=== PATIENT | female | born 1940 | race Caucasian/White ===

== ENCOUNTER → 2018-10-08 | Outpatient (CLI) | payer MEDICARE, OTHER ==
[2018-10-08 11:53] LABS: BACTERIA,URINE TRACE /HPF; BILIRUBIN,URINE NEGATIVE (NEGATIVE); CLARITY,URINE CLEAR; COLOR,URINE YELLOW; GLUCOSE, URINE (UA) 3+ (NEGATIVE); KETONES,URINE NEGATIVE (NEGATIVE); LEUKOCYTE ESTERASE ,URINE NEGATIVE (NEGATIVE); NITRITE,URINE NEGATIVE (NEGATIVE); PH,URINE 5.5 (5-9); PROTEIN,URINE NEGATIVE (NEGATIVE); UROBILINOGEN,URINE 0.2 MG/DL (NORMAL)
== END ==
LOC: LAB FS 11:02
PROVIDERS: ATTEND Pediatrics
DX: E11.9 Type 2 diabetes mellitus without complications (principal); M54.9 Dorsalgia, unspecified
CPT/HCPCS: 81000

== ENCOUNTER → 2018-12-09 | Outpatient (CLI) | payer MEDICARE, OTHER ==
--- NOTE | 2018-12-09 17:39 | Diagnostic Imaging Report ---
INDICATION: Chronic right hip pain. TIME OF EXAM: 02:18 p.m. FINDINGS: Two views of the right hip show normal femoroacetabular alignment. There is medial and superior joint space narrowing consistent with degenerative change. Femoral head and neck are intact. No fractures are seen. IMPRESSION: Degenerative changes. No acute bony abnormality is detected. Dictated by: Dictated on workstation # [id number]
== END ==
LOC: RAD FS 14:03
PROVIDERS: ATTEND Pediatrics
DX: M16.11 Unilateral primary osteoarthritis, right hip (principal)
CPT/HCPCS: 73502

== ENCOUNTER → 2019-03-04 | Outpatient (CLI) | payer MEDICARE, OTHER ==
[2019-03-04 15:10] LABS: CLARITY,URINE CLEAR; COLOR,URINE YELLOW
[2019-03-04 15:11] LABS: BACTERIA,URINE FEW /HPF; BILIRUBIN,URINE NEGATIVE (NEGATIVE); GLUCOSE, URINE (UA) NEGATIVE (NEGATIVE); KETONES,URINE NEGATIVE (NEGATIVE); LEUKOCYTE ESTERASE ,URINE TRACE (NEGATIVE); NITRITE,URINE NEGATIVE (NEGATIVE); PH,URINE 5.5 (5-9); PROTEIN,URINE NEGATIVE (NEGATIVE); UROBILINOGEN,URINE 0.2 MG/DL (NORMAL)
== END ==
LOC: LAB FS 14:58
PROVIDERS: ATTEND Pediatrics
DX: N39.0 Urinary tract infection, site not specified (principal)
CPT/HCPCS: 81000; 87088

== ENCOUNTER → 2019-07-14 | Outpatient (CLI) | payer MEDICARE, OTHER ==
--- NOTE | 2019-07-14 14:29 | Diagnostic Imaging Report ---
EXAMINATION: Right hip at 2:11 p.m. INDICATION: Right hip pain. AP and lateral views are obtained. FINDINGS: There is no fracture, dislocation, or acute bony abnormality evident. There is mild degenerative disease of the hip and sacroiliac joints. The soft tissues are unremarkable. When compared to the previous exam of 12/09/2018, there does not appear to have been any significant change. IMPRESSION: There is no evidence for an acute bony abnormality. Dictated by: Dictated on workstation # [id number]
== END ==
LOC: RAD FS 14:03
PROVIDERS: ATTEND Pediatrics
DX: M25.551 Pain in right hip (principal)
CPT/HCPCS: 73502

== ENCOUNTER 2020-04-26 18:03 | Emergency (ER) | payer MEDICARE, OTHER ==
[2020-04-26 18:49] LABS: CLARITY,URINE SLIGHTLY CLOUDY; COLOR,URINE ORANGE; GLUCOSE, URINE (UA) NEGATIVE (NEGATIVE); KETONES,URINE NEGATIVE (NEGATIVE); NITRITE,URINE NEGATIVE (NEGATIVE); PROTEIN,URINE TRACE (NEGATIVE)
[2020-04-26 18:50] LABS: BACTERIA,URINE MODERATE /HPF; BILIRUBIN,URINE 2+ (NEGATIVE); LEUKOCYTE ESTERASE ,URINE NEGATIVE (NEGATIVE); SQUAMOUS EPITHELIAL CELL,UR 25-50 /HPF
[2020-04-26 18:51] LABS: URINE OTHER TRANSITIONAL EPIS /HPF
[2020-04-26 18:52] LABS: BASOPHILS % (AUTO) 0 % (0-10); EOSINOPHILS # (AUTO) 0.2 10^3/uL (0.0-0.3); EOSINOPHILS % (AUTO) 3 % (0-10); HEMATOCRIT 41 % (35-52); HEMOGLOBIN 13.3 G/DL (11.5-16.0); LYMPHOCYTES # (AUTO) 0.7 X 10^3 (1.0-4.0); LYMPHOCYTES % (AUTO) 10 % (12-44); MEAN CORPUSCULAR HEMOGLOBIN 30 PG (25-34); MEAN CORPUSCULAR HGB CONC 32 G/DL (32-36); MEAN CORPUSCULAR VOLUME 93 FL (80-99); MEAN PLATELET VOLUME 9.2 FL (7.4-10.4); MONOCYTES # (AUTO) 0.7 X 10^3 (0.0-1.0); MONOCYTES % (AUTO) 10 % (0-12); NEUTROPHILS # (AUTO) 5.5 X 10^3 (1.8-7.8); NEUTROPHILS % (AUTO) 77 % (42-75); PLATELET COUNT 188 10^3/uL (130-400); WHITE BLOOD COUNT 7.1 10^3/uL (4.3-11.0)
--- NOTE | 2020-04-26 18:52 | ED General ---
General Chief Complaint: General Problems/Pain Stated Complaint: UTI Nursing Triage Note: brought in by daughter from [facility]. Patient states has not been feeling well for several days. Is weak and had to have staff assist into and out of vehicle to get to the ED. Staff reported to daughter that the patient was unable to get up and had dark, foul smelling urine. Denies fevers, cough, nausea, vomiting, or diarrhea. No loss of taste or smell. Daughter is concerned for urinary tract infection. No flank pain or burning with urination. Has also lost appetite. Is diabetic and staff reported to daughter her blood sugar was elevated in 300's yesterday. Nursing Sepsis Screen: No Definite Risk Source of Information: Patient, Caregiver, Family History of Present Illness Date Seen by Provider: Apr 26, 2020 Time Seen by Provider: 18:52 Initial Comments 79-year-old female presenting with complaints of generally not feeling well for the last few days. She's been very weak and needed extra assistance. She lives in assisted living at [facility]. There was concern for a urinary tract infection as she has had similar symptoms in the past. Her sugar was elevated yesterday. The patient also reports to me that she has nausea when she smells food. She has not been wanting to eat as well. She denies any diarrhea or vomiting. She has had no fever or chills. She denies any cough or shortness of breath. Allergies and Home Medications Allergies Coded Allergies: No Known Drug Allergies (Unverified , 04/26/20) Home Medications Cephalexin 500 Mg Tablet, 500 MG PO QID Prescribed by: KIAN IBANEZ on 04/26/202023 Ondansetron 4 Mg Tab.rapdis, 4 MG PO Q6H PRN for NAUSEA/VOMITING Prescribed by: KIAN DOWLINGRT on 04/26/202023 Patient Home Medication List Home Medication List Reviewed: Yes Review of Systems Review of Systems Constitutional: No chills, No fever; malaise, weakness (Generalized) EENTM: no symptoms reported Respiratory: no symptoms reported Cardiovascular: no symptoms reported Gastrointestinal: No abdominal pain, No constipation, No diarrhea; loss of appetite, nausea; No vomiting Genitourinary: frequency Musculoskeletal: no symptoms reported Skin: no symptoms reported Psychiatric/Neurological: Denies Headache; Weakness (general) Hematologic/Lymphatic: No Symptoms Reported Past Yveqkdz-Fgnwbr-Xrhmjt Hx Past Med/Social Hx: Reviewed Nursing Past Med/Soc Hx Patient Social History Alcohol Use: Denies Use Recreational Drug Use: No Smoking Status: Never a Smoker 2nd Hand Smoke Exposure: No Recent Foreign Travel: No Contact w/Someone Who Travel: No Recent Infectious Disease Expo: No Recent Hopitalizations: No (patient poor historian; complete history unknown) Physical Abuse: No Sexual Abuse: No Mistreated: No Fear: No Seasonal Allergies Seasonal Allergies: No Past Medical History Respiratory: No Cardiac: Yes Hypertension Neurological: No Endocrine: Yes Diabetes, Non-Insulin dep HEENT: No Cancer: No Psychosocial: No Integumentary: No Blood Disorders: No Adverse Reaction/Blood Tranf: No Physical Exam Vital Signs Vital Signs - First Documented 04/26/20 18:13 Temp 37.0 Pulse 89 Resp 20 B/P (MAP) 191/83 (119) Pulse Ox 95 Capillary Refill : Less Than 3 Seconds Height, Weight, BMI Height: '" Weight: lbs. oz. kg; BMI Method: General Appearance: No Apparent Distress, WD/WN HEENT: Other (slightly dry) Neck: Non Tender, Supple Respiratory: Chest Non Tender, Lungs Clear, Normal Breath Sounds Cardiovascular: Regular Rate, Rhythm, Normal Peripheral Pulses Gastrointestinal: Normal Bowel Sounds, No Pulsatile Mass, Soft, Tenderness (mild tenderness to epigastric area) Extremity: Normal Capillary Refill Neurologic/Psychiatric: Alert, Oriented x3 Skin: Normal Color, Warm/Dry Progress/Results/Core Measures Suspected Sepsis Recent Fever Within 48 Hours: No Infection Criteria Present: Suspected New Infection New/Unexplained Altered Menta: No Sepsis Screen: No Definite Risk SIRS Temperature: Pulse: 89 Respiratory Rate: 20 Laboratory Tests 04/26/20 18:20: White Blood Count 7.1 Blood Pressure 191 /83 Mean: 119 Laboratory Tests 04/26/20 18:20: Creatinine 1.43H, Platelet Count 188, Total Bilirubin 2.6H Results/Orders Lab Results Laboratory Tests Test 04/26/20 18:20 Range/Units White Blood Count 7.1 4.3-11.0 10^3/uL Red Blood Count 4.41 4.35-5.85 10^6/uL Hemoglobin 13.3 11.5-16.0 G/DL Hematocrit 41 35-52 % Mean Corpuscular Volume 93 80-99 FL Mean Corpuscular Hemoglobin 30 25-34 PG Mean Corpuscular Hemoglobin Concent 32 32-36 G/DL Red Cell Distribution Width 14.0 10.0-14.5 % Platelet Count 188 130-400 10^3/uL Mean Platelet Volume 9.2 7.4-10.4 FL Immature Granulocyte % (Auto) 0 % Neutrophils (%) (Auto) 77 H 42-75 % Lymphocytes (%) (Auto) 10 L 12-44 % Monocytes (%) (Auto) 10 0-12 % Eosinophils (%) (Auto) 3 0-10 % Basophils (%) (Auto) 0 0-10 % Neutrophils # (Auto) 5.5 1.8-7.8 X 10^3 Lymphocytes # (Auto) 0.7 L 1.0-4.0 X 10^3 Monocytes # (Auto) 0.7 0.0-1.0 X 10^3 Eosinophils # (Auto) 0.2 0.0-0.3 10^3/uL Basophils # (Auto) 0.0 0.0-0.1 10^3/uL Immature Granulocyte # (Auto) 0.0 0.0-0.1 10^3/uL Urine Color ORANGE Urine Clarity SLIGHTLY CLOUDY Urine pH 6.0 5-9 Urine Specific [place] 1.015 L 1.016-1.022 Urine Protein TRACE H NEGATIVE Urine Glucose (UA) NEGATIVE NEGATIVE Urine Ketones NEGATIVE NEGATIVE Urine Nitrite NEGATIVE NEGATIVE Urine Bilirubin 2+ H NEGATIVE Urine Urobilinogen 1.0 < = 1.0 MG/DL Urine Leukocyte Esterase NEGATIVE NEGATIVE Urine RBC (Auto) NEGATIVE NEGATIVE Urine RBC NONE /HPF Urine WBC 10-25 H /HPF Urine Squamous Epithelial Cells 25-50 H /HPF Urine Crystals NONE /LPF Urine Bacteria MODERATE H /HPF Urine Casts PRESENT /LPF Urine Hyaline Casts 5-10 H /LPF Urine Mucus NEGATIVE /LPF Urine Other TRANSITIONAL EPIS /HPF Urine Culture Indicated YES Sodium Level 135 135-145 MMOL/L Potassium Level 3.9 3.6-5.0 MMOL/L Chloride Level 101 98-107 MMOL/L Carbon Dioxide Level 21 21-32 MMOL/L Anion Gap 13 5-14 MMOL/L Blood Urea Nitrogen 19 H 7-18 MG/DL Creatinine 1.43 H 0.60-1.30 MG/DL Estimat Glomerular Filtration Rate 35 BUN/Creatinine Ratio 13 Glucose Level 221 H 70-105 MG/DL Calcium Level 9.5 8.5-10.1 MG/DL Corrected Calcium 9.6 8.5-10.1 MG/DL Total Bilirubin 2.6 H 0.1-1.0 MG/DL Aspartate Amino Transf (AST/SGOT) 179 H 5-34 U/L Alanine Aminotransferase (ALT/SGPT) 400 H 0-55 U/L Alkaline Phosphatase 208 H 40-136 U/L Total Protein 7.6 6.4-8.2 GM/DL Albumin 3.9 3.2-4.5 GM/DL Lipase 35 8-78 U/L My Orders Orders - KIAN IBANEZ MD Comprehensive Metabolic Panel (04/26/20 18:44) Lipase (04/26/20 18:44) Ua Culture If Indicated (04/26/20 18:44) Ed Iv/Invasive Line Start (04/26/20 18:44) Cbc With Automated Diff (04/26/20 18:44) Urine Culture (04/26/20 18:20) Ceftriaxone For Iv Use (Rocephin For I (04/26/20 19:04) Ns (Ivpb) (Sodium Chloride 0.9%) (04/26/20 19:04) Ondansetron Injection (Zofran Injectio (04/26/20 19:09) Ct Abdomen/Pelvis Wo (04/26/20 19:16) Vital Signs/I&O 04/26/20 18:13 Temp 37.0 Pulse 89 Resp 20 B/P (MAP) 191/83 (119) Pulse Ox 95 Capillary Refill : Less Than 3 Seconds Blood Pressure Mean: 119 Progress Note #1: Progress Note Obtain basic labs and urinalysis. Progress Note #2: Time: 19:02 Progress Note CBC does not show any acute significant abnormality. The urinalysis does show moderate amount of bacteria with transitional epithelial cells and 25-50 squamous epithelial cells. With the amount of bacteria this is concerning for infection as soon as off of a catheter specimen and there will be a culture done. Chemistry does show mild elevation of the BUN to 19 and creatinine to 1.4. The GFR is down to 35. Her LFTs are all elevated with a total bili of 2.6 and ALT AST as well as alkaline phosphatase all elevated. Will give a 250 ML normal saline bolus for hydration, 1 g of Rocephin for the UTI, obtain a CT scan of the abdomen and pelvis for her elevated LFTs. Since she does have a low GFR will give CT without contrast. Progress Note #3: Time: 20:[address] scan does not show any acute obstruction or blockage with gallbladder or liver and no fluid collection. Pancreas looks ok on on contrast study. Update pt and encourage fluids. Continue cephalexin and ondansetron. Encourage to follow up with pcp for repeat lab or follow up on LFTs and may need ultrasound or further evaluation on LFTs being elevated. Diagnostic Imaging Diagonstic Imaging: CT Plain Films/CT/US/NM/MRI: abdomen, pelvis Comments NAME: TAMIKO GONG [facility] REC#: [id number] PT STATUS: REG ER : 1940 PHYSICIAN: KIAN IBANEZ MD ADMIT DATE: 04/26/20/ER FS Signed Date of Exam:04/26/20 CT ABDOMEN/PELVIS WO PROCEDURE: CT abdomen and pelvis without contrast. TECHNIQUE: Multiple contiguous axial images were obtained through the abdomen and pelvis without the use of intravenous contrast. Auto Exposure Controls were utilized during the CT exam to meet ALARA standards for radiation dose reduction. DATE: April 26, 2020. COMPARISON: None. INDICATION: 79-year-old female, weakness and abdominal pain. FINDINGS: There are limitations for evaluation of the abdominal organs, neoplastic processes, abscess and limited evaluation of the vasculature relating to the lack of intravenous contrast. There is atelectasis in the lung bases. The heart is not enlarged. There is a large hiatal hernia. The liver is normal in size and contour. The gallbladder is unremarkable. There is no biliary ductal dilation. The main pancreatic duct is not abnormally dilated. Limited noncontrast evaluation of the pancreatic parenchyma is unremarkable. The spleen is normal in size. The adrenal glands are unremarkable. Unremarkable Limited noncontrast evaluation of the renal parenchyma. The urinary collecting systems are not distended. There is no identified renal or ureteral stone. The urinary bladder is underdistended and not particularly well evaluated. There is mild distention of the rectum with fecal material. There is mild diverticulosis without evidence of acute diverticulitis. The additional segments of the intestinal tract are not distended. The appendix is not well seen. There are no secondary findings to suggest acute appendicitis. There is no free intraperitoneal air. There is no drainable fluid collection. There is no free pelvic fluid. There are atherosclerotic calcifications. There is no identified abnormally enlarged lymph node in the abdomen or pelvis which meets CT size criteria for adenopathy. There are multilevel degenerative changes of the spine. There is a remote prior nonunited left L3 transverse process fracture. There is no identified acute bony abnormality. There is a lumbar levocurvature. IMPRESSION: CT abdomen and pelvis: 1. No identified acute abnormality in the abdomen or pelvis. Dictated by: Dictated on workstation # [id number] Dict: 04/26/201950 Trans: 04/26/202016 [facility] [id number] Interpreted by: MARCUS VICKERS MD Electronically signed by: MARCUS VICKERS MD 04/26/202016 Departure Impression Primary Impression: Cystitis without hematuria Additional Impressions: Elevated liver function tests Generalized weakness Disposition: 01 HOME, SELF-CARE Condition: Stable Departure-Patient Inst. Decision time for Depature: 20:13 Referrals: KATELIN BACH MD (PCP/Family) Primary Care Physician Patient Instructions: Generalized Weakness (DC), Liver Function Test, Urinary Tract Infection, Adult (DC) Add. Discharge Instructions: Take the full course of antibiotics for the urine infection. Try to drink more water to stay well hydrated and help flush out the infection. Follow up with Dr. Bach and clinic about elevated liver enzymes and you may need to have an ultrasound of your liver and gallbladder or other testing to look into your elevated liver enzymes. Use the nausea medicine to help keep your stomach settled so you can eat and drink better. All discharge instructions reviewed with patient and/or family. Voiced understanding. Scripts Ondansetron (Ondansetron Odt) 4 Mg Tab.rapdis 4 MG PO Q6H PRN for NAUSEA/VOMITING for 5 Days, #20 TAB 0 Refills Prov: KIAN IBANEZ MD 04/26/20 Cephalexin (Cephalexin) 500 Mg Tablet 500 MG PO QID for UTI for 7 Days, #28 TAB 0 Refills Prov: KIAN IBANEZ MD 04/26/20 KIAN IBANEZ MD Apr 26, 2020 18:52
[2020-04-26] MEDS ORDERED: NS (IVPB) 250 ML IV STA (19:04)
[2020-04-26] MEDS ORDERED: cefTRIAXone FOR IV USE 1,000 MG in WATER (STERILE) FOR INJECTION 10 ML IV STA (19:04)
[2020-04-26 19:09] LABS: POTASSIUM 3.9 MMOL/L (3.6-5.0)
[2020-04-26] MEDS ORDERED: ONDANSETRON 4 MG/2 ML (SDV) Z0FRAN IVP STA (19:09)
[2020-04-26 19:10] LABS: ALBUMIN 3.9 GM/DL (3.2-4.5); BILIRUBIN,TOTAL 2.6 MG/DL (0.1-1.0); CALCIUM 9.5 MG/DL (8.5-10.1); CREATININE SERUM 1.43 MG/DL (0.60-1.30); TOTAL PROTEIN 7.6 GM/DL (6.4-8.2)
--- NOTE | 2020-04-26 20:03 | Diagnostic Imaging Report ---
PROCEDURE: CT abdomen and pelvis without contrast. TECHNIQUE: Multiple contiguous axial images were obtained through the abdomen and pelvis without the use of intravenous contrast. Auto Exposure Controls were utilized during the CT exam to meet ALARA standards for radiation dose reduction. DATE: April 26, 2020. COMPARISON: None. INDICATION: 79-year-old female, weakness and abdominal pain. FINDINGS: There are limitations for evaluation of the abdominal organs, neoplastic processes, abscess and limited evaluation of the vasculature relating to the lack of intravenous contrast. There is atelectasis in the lung bases. The heart is not enlarged. There is a large hiatal hernia. The liver is normal in size and contour. The gallbladder is unremarkable. There is no biliary ductal dilation. The main pancreatic duct is not abnormally dilated. Limited noncontrast evaluation of the pancreatic parenchyma is unremarkable. The spleen is normal in size. The adrenal glands are unremarkable. Unremarkable Limited noncontrast evaluation of the renal parenchyma. The urinary collecting systems are not distended. There is no identified renal or ureteral stone. The urinary bladder is underdistended and not particularly well evaluated. There is mild distention of the rectum with fecal material. There is mild diverticulosis without evidence of acute diverticulitis. The additional segments of the intestinal tract are not distended. The appendix is not well seen. There are no secondary findings to suggest acute appendicitis. There is no free intraperitoneal air. There is no drainable fluid collection. There is no free pelvic fluid. There are atherosclerotic calcifications. There is no identified abnormally enlarged lymph node in the abdomen or pelvis which meets CT size criteria for adenopathy. There are multilevel degenerative changes of the spine. There is a remote prior nonunited left L3 transverse process fracture. There is no identified acute bony abnormality. There is a lumbar levocurvature. IMPRESSION: CT abdomen and pelvis: 1. No identified acute abnormality in the abdomen or pelvis. Dictated by: Dictated on workstation # [id number]
[2020-04-26] MEDS ORDERED: CEPH500T PO (20:24)
[2020-04-26] MEDS ORDERED: ONDA4TAB11 PO (20:24)
[2020-04-26 20:27] VITALS: BP 143/83
== END 2020-04-26 20:29 | disposition home or self-care (01) ==
LOC: EDUNIT# 18:03 → ER FS 18:06
DX: N30.90 Cystitis, unspecified without hematuria (principal); R79.89 Other specified abnormal findings of blood chemistry; R53.1 Weakness
CPT/HCPCS: 36415; 74176; 80053; 81000; 83690; 85025; 87077; 87088

== ENCOUNTER → 2020-06-13 | Outpatient (CLI) | payer MEDICARE, OTHER ==
[~2020-06-13] MED LIST: CEPH500T PO; ONDA4TAB11 PO
[2020-06-13 10:29] LABS: BILIRUBIN,URINE NEGATIVE (NEGATIVE); CLARITY,URINE CLOUDY; COLOR,URINE YELLOW; GLUCOSE, URINE (UA) NEGATIVE (NEGATIVE); KETONES,URINE NEGATIVE (NEGATIVE); LEUKOCYTE ESTERASE ,URINE NEGATIVE (NEGATIVE); NITRITE,URINE NEGATIVE (NEGATIVE); PH,URINE 5.5 (5-9); PROTEIN,URINE NEGATIVE (NEGATIVE)
[2020-06-13 10:30] LABS: BACTERIA,URINE MODERATE /HPF; SQUAMOUS EPITHELIAL CELL,UR 25-50 /HPF
== END ==
LOC: LAB FS 10:17
PROVIDERS: ATTEND Pediatrics
DX: Z01.89 Encounter for other specified special examinations (principal)
CPT/HCPCS: 81000; 87088

== ENCOUNTER 2020-06-25 07:27 | Emergency (ER) | payer MEDICARE, OTHER ==
[~2020-06-25] VITALS: Ht 167.7 cm; Wt 90.9 kg
--- NOTE | 2020-06-25 07:43 | ED General ---
General Chief Complaint: - Urinary Stated Complaint: FEVER | UTI Source of Information: Patient, EMS Exam Limitations: No Limitations History of Present Illness Date Seen by Provider: Jun 25, 2020 Time Seen by Provider: 07:32 Initial Comments Patient is an 79-year-old female who presents from a local intermediate with a chief complaint of fever and generally not feeling well. Patient was recently diagnosed with a urinary tract infection and per review of the intermediate records was initially started on Cipro, she was changed to Macrobid within the last week. EMS had reported some mild tachycardia at 112 with a fever of 101 however on arrival to the emergency department her pulse is 89 and her temperature is 99.6. Patient denies any complaints of feeling febrile, short of breath, cough, abdominal pain. She denies any problems with urination. She denies any pain anywhere. She reportedly by EMS had a pulse ox of 91% on room air and was placed on a couple of liters of oxygen per nasal cannula, on arrival when the oxygen is removed the patient's room air oxygen sats are 97%. Patient states that she has a little bit of a runny nose. She states that it has been within the last week that she has been tested for coronavirus. She was reportedly negative. Patient denies any rashes anywhere. All other review of systems reviewed and negative except as stated above. Timing/Duration: 1 Day Severity: Mild Associated Systoms: Malaise Allergies and Home Medications Allergies Coded Allergies: No Known Drug Allergies (Unverified , 04/26/20) Home Medications Cephalexin 500 Mg Tablet, 500 MG PO QID Prescribed by: KIAN DOWLINGRT on 04/26/202023 Ondansetron 4 Mg Tab.rapdis, 4 MG PO Q6H PRN for NAUSEA/VOMITING Prescribed by: KIAN DOWLINGRT on 04/26/202023 Patient Home Medication List Home Medication List Reviewed: Yes Review of Systems Review of Systems Constitutional: see HPI EENTM: nose congestion ("Runny nose") Respiratory: no symptoms reported Cardiovascular: no symptoms reported Gastrointestinal: no symptoms reported Genitourinary: no symptoms reported Musculoskeletal: no symptoms reported Skin: no symptoms reported All Other Systems Reviewed Negative Unless Noted: Yes Past Zdkeucw-Shebaw-Sloiow Hx Patient Social History 2nd Hand Smoke Exposure: No Recent Hopitalizations: No (patient poor historian; complete history unknown) Seasonal Allergies Seasonal Allergies: No Past Medical History Respiratory: No Cardiac: Yes Hypertension Neurological: No Endocrine: Yes Diabetes, Non-Insulin dep HEENT: No Cancer: No Psychosocial: No Integumentary: No Blood Disorders: No Adverse Reaction/Blood Tranf: No Physical Exam Vital Signs Capillary Refill : Height, Weight, BMI Height: '" Weight: lbs. oz. kg; BMI Method: General Appearance: No Apparent Distress, WD/WN Eyes: Bilateral Eye Normal Inspection, Bilateral Eye PERRL, Bilateral Eye EOMI HEENT: PERRL/EOMI Neck: Normal Inspection Respiratory: Lungs Clear, Normal Breath Sounds, No Accessory Muscle Use, No Respiratory Distress Cardiovascular: Regular Rate, Rhythm Gastrointestinal: Normal Bowel Sounds, Soft, Tenderness (Mild tenderness noted in the left upper quadrant to palpation. Normal bowel sounds) Extremity: Normal Inspection, Normal Range of Motion, No Pedal Edema Neurologic/Psychiatric: Alert, Oriented x3, No Motor/Sensory Deficits, Normal Mood/Affect, Depressed Affect Skin: Normal Color, Warm/Dry Progress/Results/Core Measures Suspected Sepsis SIRS Temperature: Pulse: Respiratory Rate: Laboratory Tests 06/25/20 07:35: White Blood Count 12.9H Blood Pressure / Mean: Laboratory Tests 06/25/20 07:35: Creatinine 1.29, Platelet Count 193 Results/Orders Lab Results Laboratory Tests Test 06/25/20 07:35 06/25/20 07:50 Range/Units White Blood Count 12.9 H 4.3-11.0 10^3/uL Red Blood Count 4.53 4.35-5.85 10^6/uL Hemoglobin 13.8 11.5-16.0 G/DL Hematocrit 41 35-52 % Mean Corpuscular Volume 91 80-99 FL Mean Corpuscular Hemoglobin 30 25-34 PG Mean Corpuscular Hemoglobin Concent 33 32-36 G/DL Red Cell Distribution Width 13.4 10.0-14.5 % Platelet Count 193 130-400 10^3/uL Mean Platelet Volume 9.2 7.4-10.4 FL Immature Granulocyte % (Auto) 0 % Neutrophils (%) (Auto) 82 H 42-75 % Lymphocytes (%) (Auto) 7 L 12-44 % Monocytes (%) (Auto) 7 0-12 % Eosinophils (%) (Auto) 3 0-10 % Basophils (%) (Auto) 0 0-10 % Neutrophils # (Auto) 10.6 H 1.8-7.8 X 10^3 Lymphocytes # (Auto) 0.9 L 1.0-4.0 X 10^3 Monocytes # (Auto) 0.9 0.0-1.0 X 10^3 Eosinophils # (Auto) 0.4 H 0.0-0.3 10^3/uL Basophils # (Auto) 0.0 0.0-0.1 10^3/uL Immature Granulocyte # (Auto) 0.0 0.0-0.1 10^3/uL Sodium Level 138 135-145 MMOL/L Potassium Level 4.2 3.6-5.0 MMOL/L Chloride Level 103 98-107 MMOL/L Carbon Dioxide Level 22 21-32 MMOL/L Anion Gap 13 5-14 MMOL/L Blood Urea Nitrogen 17 7-18 MG/DL Creatinine 1.29 0.60-1.30 MG/DL Estimat Glomerular Filtration Rate 40 BUN/Creatinine Ratio 13 Glucose Level 331 H 70-105 MG/DL Calcium Level 9.3 8.5-10.1 MG/DL Urine Color YELLOW Urine Clarity CLEAR Urine pH 6.0 5-9 Urine Specific [place] 1.015 L 1.016-1.022 Urine Protein TRACE H NEGATIVE Urine Glucose (UA) 2+ H NEGATIVE Urine Ketones NEGATIVE NEGATIVE Urine Nitrite NEGATIVE NEGATIVE Urine Bilirubin NEGATIVE NEGATIVE Urine Urobilinogen NORMAL < = 1.0 MG/DL Urine Leukocyte Esterase NEGATIVE NEGATIVE Urine RBC (Auto) NEGATIVE NEGATIVE Urine RBC NONE /HPF Urine WBC NONE /HPF Urine Squamous Epithelial Cells RARE /HPF Urine Crystals NONE /LPF Urine Bacteria NEGATIVE /HPF Urine Casts NONE /LPF Urine Mucus NEGATIVE /LPF Urine Culture Indicated NO My Orders Orders - BERNIE SOLER MD Cbc With Automated Diff (06/25/20 07:43) Basic Metabolic Panel (06/25/20 07:43) Ua Culture If Indicated (06/25/20 07:43) Blood Culture (06/25/20 07:43) Chest 1 View Ap/Pa Only (06/25/20 07:44) Blood Culture (06/25/20 08:01) Vital Signs/I&O Capillary Refill : Progress Note : Time: 08:12 Progress Note 79-year-old female who presents to the emergency department today with a chief concern for urinary tract infection that is not resolving. Patient evaluation today includes a physical exam, CBC, BMP, urinalysis and chest x-ray. Patient has a very mild elevation in her white blood cell count at 12.9 thousand. She has a slight left shift with 82% neutrophils. BMP is unremarkable except for her glucose of 331. Urinalysis appears clear of infection. Chest x-ray shows no evidence of infiltrate or effusions or heart failure. Patient's vital signs are stable. She does have a flat and depressed affect but the patient insists that she does not feel bad. She is comfortable with being discharged back to the intermediate. All questions were sought and answered. Patient is stable for discharge at this time. Diagnostic Imaging Diagonstic Imaging: Xray Plain Films/CT/US/NM/MRI: chest Comments [facility] [place], [place] NAME: TAMIKO GONG [facility] REC#: [id number] PT STATUS: REG ER : 1940 PHYSICIAN: BERNIE SOLER MD ADMIT DATE: 06/25/20/ER FS Draft Date of Exam:06/25/20 CHEST 1 VIEW AP/PA ONLY Indication: Fever and hypoxia. Findings: The lungs are clear. There is a retrocardiac hiatal hernia. No free air beneath the diaphragms. There was no failure pattern. Impression: Retrocardiac gastric hernia, no acute-appearing abnormality. Dictated on workstation # [id number] Dict: 06/25/20 0756 Trans: 06/25/20 0759 [facility] [id number] Interpreted by: INDIRA QUICK Electronically signed by: Departure Impression Primary Impression: Malaise Disposition: HOME, SELF-CARE Condition: Stable Departure-Patient Inst. Decision time for Depature: 08:13 Referrals: KATELIN BACH MD (PCP/Family) Primary Care Physician Patient Instructions: Generalized Weakness (DC) Add. Discharge Instructions: Drink plenty of fluids to stay well-hydrated. Continue your daily medications as prescribed. Return to the emergency room for any increased concerns of fever, pain, shortness of breath or any other emergent complaints.. Copy Copies To 1: KATELIN BACH MD, KATHRYN M MD Jun 25, 2020 07:42
[2020-06-25 07:52] LABS: WHITE BLOOD COUNT 12.9 10^3/uL (4.3-11.0)
[2020-06-25 07:53] LABS: BASOPHILS % (AUTO) 0 % (0-10); EOSINOPHILS # (AUTO) 0.4 10^3/uL (0.0-0.3); EOSINOPHILS % (AUTO) 3 % (0-10); HEMATOCRIT 41 % (35-52); HEMOGLOBIN 13.8 G/DL (11.5-16.0); LYMPHOCYTES # (AUTO) 0.9 X 10^3 (1.0-4.0); LYMPHOCYTES % (AUTO) 7 % (12-44); MEAN CORPUSCULAR HEMOGLOBIN 30 PG (25-34); MEAN CORPUSCULAR HGB CONC 33 G/DL (32-36); MEAN CORPUSCULAR VOLUME 91 FL (80-99); MEAN PLATELET VOLUME 9.2 FL (7.4-10.4); MONOCYTES # (AUTO) 0.9 X 10^3 (0.0-1.0); MONOCYTES % (AUTO) 7 % (0-12); NEUTROPHILS # (AUTO) 10.6 X 10^3 (1.8-7.8); NEUTROPHILS % (AUTO) 82 % (42-75); PLATELET COUNT 193 10^3/uL (130-400)
[2020-06-25 07:58] LABS: COLOR,URINE YELLOW
[2020-06-25 07:59] LABS: BACTERIA,URINE NEGATIVE /HPF; BILIRUBIN,URINE NEGATIVE (NEGATIVE); CLARITY,URINE CLEAR; GLUCOSE, URINE (UA) 2+ (NEGATIVE); KETONES,URINE NEGATIVE (NEGATIVE); LEUKOCYTE ESTERASE ,URINE NEGATIVE (NEGATIVE); NITRITE,URINE NEGATIVE (NEGATIVE); PROTEIN,URINE TRACE (NEGATIVE); SQUAMOUS EPITHELIAL CELL,UR RARE /HPF
--- NOTE | 2020-06-25 07:59 | Diagnostic Imaging Report ---
Indication: Fever and hypoxia. Findings: The lungs are clear. There is a retrocardiac hiatal hernia. No free air beneath the diaphragms. There was no failure pattern. Impression: Retrocardiac gastric hernia, no acute-appearing abnormality. Dictated by: Dictated on workstation # [id number]
[2020-06-25 08:06] LABS: CALCIUM 9.3 MG/DL (8.5-10.1); CREATININE SERUM 1.29 MG/DL (0.60-1.30); POTASSIUM 4.2 MMOL/L (3.6-5.0)
--- NOTE | 2020-06-25 08:30 | NUR ---
Call to [facility] to give report to nurse Nora. Numerous questions per the nurse with concerns patient has "something more going on". Pt arrived alert and conversing. The nurse asked if patient remains unconscious.
[2020-06-25 09:00] VITALS: BP 131/70
[2020-06-25] MEDS ORDERED: GLIM4TAB5 PO (11:28)
[2020-06-25] MEDS ORDERED: GBPN600T PO (11:28)
[2020-06-25] MEDS ORDERED: Vitamin D (11:28)
[2020-06-25] MEDS ORDERED: CETI10TA17 PO (11:28)
[2020-06-25] MEDS ORDERED: DONE5TAB30 PO (11:28)
[2020-06-25] MEDS ORDERED: TRAM50TA3 PO (11:28)
[2020-06-25] MEDS ORDERED: MIRA25TA PO (11:28)
[2020-06-25] MEDS ORDERED: CYAN-41 PO (11:28)
[2020-06-25] MEDS ORDERED: PANT40TA52 PO (11:28)
[2020-06-25] MEDS ORDERED: ACET-93 PO (11:28)
[2020-06-25] MEDS ORDERED: ATOR80TA76 PO (11:28)
[2020-06-25] MEDS ORDERED: DULA1.5P2 SC (11:28)
[2020-06-25] MEDS ORDERED: LEVO50TA6 PO (11:28)
[2020-06-25] MEDS ORDERED: MTP100TCR PO (11:28)
[2020-06-25] MEDS ORDERED: GABA300C PO (11:28)
[2020-06-25] MEDS ORDERED: LACT1CAP57 PO (11:28)
[2020-06-25] MEDS ORDERED: LISI-556 PO (11:28)
== END 2020-06-25 09:00 | disposition home or self-care (01) ==
LOC: EDUNIT# 07:27 → ER FS 07:28
DX: R53.81 Other malaise (principal); F32.9 Major depressive disorder, single episode, unspecified
CPT/HCPCS: 36415; 51701; 71045; 80048; 81000; 85025; 87040

== ENCOUNTER 2021-04-22 08:45 | Emergency (ER) | payer MEDICARE, OTHER ==
[~2021-04-22] VITALS: Ht 167.7 cm; Wt 89.4 kg
[2021-04-22 08:45] VITALS: BP 119/83
[~2021-04-22 08:45] MED LIST changes: +ACET-93 PO; +ATOR80TA76 PO; +CETI10TA17 PO; +CYAN-41 PO; +DONE5TAB30 PO; +DULA1.5P2 SC; +GABA300C PO; +GBPN600T PO; +GLIM4TAB5 PO; +LACT1CAP57 PO; +LEVO50TA6 PO; +LISI5TAB20 PO; +MIRA25TA PO; +MTP100TCR PO; +PANT40TA52 PO; +TRAM50TA3 PO; +Vitamin D
--- NOTE | 2021-04-22 09:00 | ED General ---
General Stated Complaint: DIZZINESS Source of Information: Patient, EMS, Correction Records, Old Records History of Present Illness Date Seen by Provider: Apr 22, 2021 Time Seen by Provider: 06:45 Initial Comments 80-year-old female presenting with complaints of sudden onset of right hand shaking and uncontrolled while eating breakfast this morning. She had a mild headache and dizziness at that time as well. She states that she has had headache and dizziness for the last week. She also has had some chronic low back pain. She denies any burning or pain with urination. She has no change in her vision, trouble swallowing, shortness of breath, chest pain, cough, nausea, vomiting, abdominal pain, weakness in her arms or legs, numbness in her face or extremities. She denies having problems with tremors or shaking in her hand like this previously. The episode lasted approximately 5 minutes. EMS reports that they were advised by the shelter that her blood pressure was elevated and she was given her regular blood pressure medications. By the time she arrived in the emergency department her blood pressure was down and she was feeling back to her baseline. Patient voiced concern that she had a stroke causing her symptoms. However she has complete resolution of the uncontrolled shaking of her right hand. She states that she was trying to eat breakfast and when she went to put the fork into her eggs her hand started shaking and went up in the air. The eggs fell off the fork and she had to use her left hand to pull her right hand down and try to control her hand and arm because it was shaking and moving so much. Timing/Duration: Resolved Prior to Arrival Modifying Factors: improves with Medication (taking her blood pressure medicines) Associated Systoms: No Chest Pain, No Cough, No Diaphoresis, No Fever/Chills; Headaches (mild generalized for the last week); No Loss of Appetite, No Malaise, No Nausea/Vomiting, No Rash, No Seizure, No Shortness of Air, No Syncope, No Weakness Allergies and Home Medications Allergies Coded Allergies: codeine (Unverified Adverse Reaction, Unknown, 06/25/20) ketorolac (Unverified Adverse Reaction, Unknown, 06/25/20) naproxen (Unverified Adverse Reaction, Unknown, 06/25/20) Patient Home Medication List Home Medication List Reviewed: Yes Acetaminophen (Acetaminophen) 500 Mg Tablet, 1,000 MG PO HS, (Reported) Entered as Reported by: BONITA MEDLEY on 06/25/201127 Atorvastatin Calcium (Atorvastatin Calcium) 80 Mg Tablet, 80 MG PO HS, (Reported) Entered as Reported by: BONITA MEDLEY on 06/25/201127 Cetirizine HCl (Cetirizine HCl) 10 Mg Tablet, 10 MG PO DAILY, (Reported) Entered as Reported by: BONITA MEDLEY on 06/25/201127 Cyanocobalamin (Vitamin B-12) (Vitamin B-12) 1,000 Mcg Tablet, 1,000 MCG PO D AILY, (Reported) Entered as Reported by: BONITA MEDLEY on 06/25/201127 Donepezil HCl (Donepezil HCl) 5 Mg Tablet, 5 MG PO HS, (Reported) Entered as Reported by: BONITA MEDLEY on 06/25/201127 Dulaglutide (Trulicity) 1.5 Mg/0.5 Ml Pen.injctr, 1.5 MG SC WEEK, (Reported) Entered as Reported by: BONITA MEDLEY on 06/25/201127 Gabapentin (Gabapentin) 600 Mg Tablet, 600 MG PO HS, (Reported) Entered as Reported by: BONITA MEDLEY on 06/25/201127 Gabapentin (Neurontin) 300 Mg Capsule, 300 MG PO DAILY, (Reported) Entered as Reported by: BONITA MEDLEY on 06/25/201127 Glimepiride (Glimepiride) 4 Mg Tablet, 4 MG PO BID WITH MEALS, (Reported) Entered as Reported by: BONITA MEDLEY on 06/25/201127 Lactobac Cmb #3/Fos/Pantethine (Probiotic & Acidophilus Cap) 1 Each Capsule, 1 EACH PO DAILY, (Reported) Entered as Reported by: BONITA MEDLEY on 06/25/201127 Levothyroxine Sodium (Levothyroxine Sodium) 50 Mcg Tablet, 50 MCG PO DAILY, (Reported) Entered as Reported by: BONITA MEDLEY on 06/25/201127 Lisinopril (Lisinopril) 5 Mg Tablet, 5 MG PO DAILY, (Reported) Entered as Reported by: BONITA MEDLEY on 06/25/201127 Metoprolol Succinate (Metoprolol Succinate) 100 Mg Tab.er.24h, 100 MG PO DAILY, (Reported) Entered as Reported by: BONITA MEDLYE on 06/25/201127 Mirabegron (Myrbetriq) 25 Mg Tab.er.24h, 25 MG PO DAILY, (Reported) Entered as Reported by: BONITA MEDLEY on 06/25/201127 Pantoprazole Sodium (Pantoprazole Sodium) 40 Mg Tablet.dr, 40 MG PO DAILY, (Reported) Entered as Reported by: BONITA MEDLEY on 06/25/201127 Tramadol HCl (Tramadol HCl) 50 Mg Tablet, 50 MG PO BID, (Reported) Entered as Reported by: BONITA MEDLEY on 06/25/201127 [Vitamin D] , (Reported) Entered as Reported by: BONITA MEDLEY on 06/25/201127 Review of Systems Review of Systems Constitutional: No chills; dizziness (for the last week she has had some dizziness with mild headache); No fever EENTM: No ear discharge, No ear pain, No blurred vision, No vision loss, No epistaxis, No nose congestion Respiratory: No cough, No short of breath, No stridor, No wheezing Cardiovascular: No chest pain, No palpitations, No syncope Gastrointestinal: see HPI; No nausea, No vomiting Genitourinary: No dysuria Musculoskeletal: see HPI, back pain (chronic low back pain) Skin: No rash Psychiatric/Neurological: See HPI, Headache (mild diffuse headache for last week but none currently); Denies Numbness, Denies Paresthesia, Denies Weakness Past Lihxatg-Jqakfj-Bdzqyn Hx Seasonal Allergies Seasonal Allergies: No Past Medical History Surgery/Hospitalization HX: Hypertension, High Cholesterol, Peripheral Neuropathy, Hypothyroid Respiratory: No Cardiac: Yes High Cholesterol, Hypertension Neurological: Yes Neuropathy Genitourinary: Yes UTI-Chronic Gastrointestinal: Yes Gastroesophageal Reflux Musculoskeletal: No Endocrine: Yes Hypothyroidsim, Diabetes, Non-Insulin dep HEENT: No Cancer: No Psychosocial: No Integumentary: No Blood Disorders: No Adverse Reaction/Blood Tranf: No Physical Exam Vital Signs Vital Signs - First Documented 04/22/21 08:45 Temp 35.9 Pulse 65 Resp 17 B/P (MAP) 119/83 (95) Pulse Ox 96 O2 Delivery Room Air Capillary Refill : Height, Weight, BMI Height: '" Weight: lbs. oz. kg; 32.00 BMI Method: General Appearance: No Apparent Distress, Obese Eyes: Bilateral Eye PERRL, Bilateral Eye EOMI HEENT: Pharynx Normal, Moist Mucous Membranes Neck: Full Range of Motion, Normal Inspection, Non Tender, Supple; No Carotid Bruit Respiratory: Chest Non Tender, Lungs Clear, Normal Breath Sounds, No Accessory Muscle Use, No Respiratory Distress Cardiovascular: Regular Rate, Rhythm, Normal Peripheral Pulses Gastrointestinal: Normal Bowel Sounds, No Pulsatile Mass, Non Tender, Soft Rectal: Deferred Extremity: Normal Capillary Refill, Normal Inspection, No Pedal Edema Neurologic/Psychiatric: Alert, Oriented x3, No Motor/Sensory Deficits, alternative dispute resolution mediator II- XII Norm as Tested Skin: Normal Color, Warm/Dry Progress/Results/Core Measures Suspected Sepsis SIRS Temperature: Pulse: Respiratory Rate: Laboratory Tests 04/22/21 08:59: White Blood Count 9.7 Blood Pressure / Mean: Laboratory Tests 04/22/21 08:59: Creatinine 1.43H, INR Comment 1.0, Platelet Count 210, Total Bilirubin 0.6 Results/Orders Lab Results Laboratory Tests Test 04/22/21 08:59 04/22/21 09:40 Range/Units White Blood Count 9.7 4.3-11.0 10^3/uL Red Blood Count 4.78 3.80-5.11 10^6/uL Hemoglobin 14.4 11.5-16.0 g/dL Hematocrit 45 35-52 % Mean Corpuscular Volume 95 80-99 fL Mean Corpuscular Hemoglobin 30 25-34 pg Mean Corpuscular Hemoglobin Concent 32 32-36 g/dL Red Cell Distribution Width 13.7 10.0-14.5 % Platelet Count 210 130-400 10^3/uL Mean Platelet Volume 9.4 9.0-12.2 fL Immature Granulocyte % (Auto) 0 % Neutrophils (%) (Auto) 68 42-75 % Lymphocytes (%) (Auto) 20 12-44 % Monocytes (%) (Auto) 8 0-12 % Eosinophils (%) (Auto) 3 0-10 % Basophils (%) (Auto) 1 0-10 % Neutrophils # (Auto) 6.6 1.8-7.8 X 10^3 Lymphocytes # (Auto) 2.0 1.0-4.0 X 10^3 Monocytes # (Auto) 0.8 0.0-1.0 X 10^3 Eosinophils # (Auto) 0.3 0.0-0.3 10^3/uL Basophils # (Auto) 0.1 0.0-0.1 10^3/uL Immature Granulocyte # (Auto) 0.0 0.0-0.1 10^3/uL Prothrombin Time 13.4 12.2-14.7 SEC INR Comment 1.0 0.8-1.4 Activated Partial Thromboplast Time 26 24-35 SEC Sodium Level 140 135-145 MMOL/L Potassium Level 4.4 3.6-5.0 MMOL/L Chloride Level 101 98-107 MMOL/L Carbon Dioxide Level 25 21-32 MMOL/L Anion Gap 14 5-14 MMOL/L Blood Urea Nitrogen 17 7-18 MG/DL Creatinine 1.43 H 0.60-1.30 MG/DL Estimat Glomerular Filtration Rate 35 BUN/Creatinine Ratio 12 Glucose Level 199 H 70-105 MG/DL Calcium Level 9.9 8.5-10.1 MG/DL Corrected Calcium 9.9 8.5-10.1 MG/DL Magnesium Level 2.0 1.6-2.4 MG/DL Total Bilirubin 0.6 0.1-1.0 MG/DL Aspartate Amino Transf (AST/SGOT) 14 5-34 U/L Alanine Aminotransferase (ALT/SGPT) 13 0-55 U/L Alkaline Phosphatase 82 40-136 U/L Troponin I < 0.30 <0.30 NG/ML Total Protein 8.1 6.4-8.2 GM/DL Albumin 4.0 3.2-4.5 GM/DL Urine Color YELLOW Urine Clarity CLEAR Urine pH 5.0 5-9 Urine Specific [place] 1.025 H 1.016-1.022 Urine Protein NEGATIVE NEGATIVE Urine Glucose (UA) NEGATIVE NEGATIVE Urine Ketones NEGATIVE NEGATIVE Urine Nitrite NEGATIVE NEGATIVE Urine Bilirubin NEGATIVE NEGATIVE Urine Urobilinogen 0.2 < = 1.0 MG/DL Urine Leukocyte Esterase NEGATIVE NEGATIVE Urine RBC (Auto) NEGATIVE NEGATIVE Urine RBC NONE /HPF Urine WBC 5-10 H /HPF Urine Squamous Epithelial Cells 25-50 H /HPF Urine Crystals NONE /LPF Urine Bacteria FEW H /HPF Urine Casts NONE /LPF Urine Mucus SMALL H /LPF Urine Culture Indicated NO My Orders Orders - KIAN IBANEZ MD Cbc With Automated Diff (04/22/21 08:51) Protime With Inr (04/22/21 08:51) Partial Thromboplastin Time (04/22/21 08:51) Comprehensive Metabolic Panel (04/22/21 08:51) Troponin I Fs (04/22/21 08:51) Ua Culture If Indicated (04/22/21 08:51) Chest 1 View Ap/Pa Only (04/22/21 08:51) Ekg Tracing (04/22/21 08:51) Nothing By Mouth (04/22/21 Breakfast) Ed Iv/Invasive Line Start (04/22/21 08:51) Vital Signs Stroke Patient Q15M (04/22/21 08:51) Ct Head Wo-R/O Stroke (04/22/21 08:51) Monitor-Rhythm Ecg Trace Only (04/22/21 08:51) Dysphagia Screening Tool (04/22/21 08:51) Magnesium (04/22/21 08:51) Vital Signs/I&O 04/22/21 04/22/21 04/22/21 08:45 08:45 10:51 Temp 35.9 Pulse 65 65 67 Resp 17 17 17 B/P (MAP) 119/83 (95) 119/83 138/89 Pulse Ox 96 97 O2 Delivery Room Air Room Air Capillary Refill : Progress Note #1: Progress Note Obtain basic labs with coags, urine, ECG with cardiac enzymes, Telemetry monitoring, CT head without contrast, chest xray. On arrival which she is describing sounds more like tremor and uncontrolled movements of her right hand rather than stroke symptoms of weakness and inability to move her right hand. Differential diagnosis includes tremor, hypertensive urgency, electrolyte imbalance, UTI, sinusitis, pneumonia, intracranial hemorrhage, intracranial mass Progress Note #2: Time: 09:31 Progress Note CBC and coags are normal without acute significant abnormality. Her chest x-ray does not show acute process. Her CT head is clear of an acute process and no signs of intracranial hemorrhage, mass or stroke. Progress Note #3: Progress Note Chemistry stable with chronic mild renal insufficiency 1.4. Reviewed with Dr. Bach since he is the patient's pcp. He was familiar with her and agreed that her symptoms do not fit with stroke and likely related to high blood pressure and sugars and her tremor. He will work with nursing staff at [facility] and will be rounding soon at [facility]. Reassured pt and family. ECG Initial ECG Impression Date: Apr 22, 2021 Initial ECG Impression Time: 08:54 Initial ECG Rate: 71 Initial ECG Rhythm: Normal Sinus Initial ECG Comparisson: No Previous ECG Available Comment Normal sinus rhythm with a heart rate of 71 bpm. SC interval is short at 49 ms. Left axis deviation. Artifact on the tracing. QT interval 419 ms with a QTc interval [address] elevation. No prior tracing available for comparison Diagnostic Imaging Diagonstic Imaging: Xray Plain Films/CT/US/NM/MRI: chest Comments NAME: TAMIKO GONG MED REC#: [id number] PT STATUS: REG ER : 1940 PHYSICIAN: KIAN IBANEZ MD ADMIT DATE: 04/22/21/ER FS Signed Date of Exam:04/22/21 CHEST 1 VIEW AP/PA ONLY CHEST 1 VIEW AP/PA ONLY Indication: Dizziness, hand shaking Comparison: 06/25/2020 Findings: No focal airspace disease in the visualized lungs. Please note that the posterior lower lobes are poorly evaluated by portable radiography. No pleural effusion or pneumothorax. Normal heart size. Unchanged large hiatal hernia. Impression: 1. No acute cardiopulmonary process by portable radiography. 2. Unchanged large hiatal hernia. Dictated by: Dictated on workstation # [id number] Dict: 04/22/21919 Trans: 04/22/21919 [facility] [id number] Interpreted by: ANN MARIE YOUSSEF MD Electronically signed by: ANN MARIE YOUSSEF MD 04/22/21919 Reviewed: Reviewed by [place] Diagonstic Imaging: CT Plain Films/CT/US/NM/MRI: head Comments NAME: TAMIKO GONG MED REC#: [id number] PT STATUS: REG ER : 1940 PHYSICIAN: KIAN IBANEZ MD ADMIT DATE: 04/22/21/ER FS Signed Date of Exam:04/22/21 CT HEAD WO-R/O STROKE PROCEDURE: CT head wo r/o stroke. TECHNIQUE: Multiple contiguous axial images were obtained through the brain without the use of intravenous contrast. Auto Exposure Controls were utilized during the CT exam to meet ALARA standards for radiation dose reduction. INDICATION: Right hand shaking. Dizziness. Headache. COMPARISON: None. FINDINGS: Mild generalized parenchymal volume loss. 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 No CT evidence of an acute territorial infarction. No intracranial hemorrhage, mass effect, hydrocephalus or extra-axial fluid collections. Intracranial vascular calcifications. The skull base and calvarium are intact. Visualized paranasal sinuses and mastoids are clear. IMPRESSION: No acute intracranial CT findings. Dictated by: Dictated on workstation # [id number] Dict: 04/22/21919 Trans: 04/22/21932 [facility] [id number] Interpreted by: FESTUS LIPSCOMB MD Electronically signed by: FESTUS LIPSCOMB MD 04/22/21932 Reviewed: Reviewed by Me Departure Impression Primary Impression: Hypertensive urgency Additional Impression: Tremor Disposition: HOME, SELF-CARE Condition: Stable Departure-Patient Inst. Decision time for Depature: 10:02 Referrals: KATELIN BACH MD (PCP/Family) Primary Care Physician Patient Instructions: High Blood Pressure Emergencies, High Blood Pressure (DC), DASH Diet, Tremor Add. Discharge Instructions: Try to drink more water and stay well hydrated. Check back with Dr. Bach for continued control of blood pressure and tremor. He will be rounding at [facility] soon and will see you about these issues as well as the nurses can contact him for other concerns sooner if needed. Continue with medicines as prescribed for blood pressure and diabetes. KIAN IBANEZ MD Apr 22, 2021 09:00
--- NOTE | 2021-04-22 09:21 | Diagnostic Imaging Report ---
CHEST 1 VIEW AP/PA ONLY Indication: Dizziness, hand shaking Comparison: 06/25/2020 Findings: No focal airspace disease in the visualized lungs. Please note that the posterior lower lobes are poorly evaluated by portable radiography. No pleural effusion or pneumothorax. Normal heart size. Unchanged large hiatal hernia. Impression: 1. No acute cardiopulmonary process by portable radiography. 2. Unchanged large hiatal hernia. Dictated by: Dictated on workstation # [id number]
[2021-04-22 09:24] LABS: PROTHROMBIN TIME PATIENT 13.4 SEC (12.2-14.7)
--- NOTE | 2021-04-22 09:26 | Diagnostic Imaging Report ---
PROCEDURE: CT head wo r/o stroke. TECHNIQUE: Multiple contiguous axial images were obtained through the brain without the use of intravenous contrast. Auto Exposure Controls were utilized during the CT exam to meet ALARA standards for radiation dose reduction. INDICATION: Right hand shaking. Dizziness. Headache. COMPARISON: None. FINDINGS: Mild generalized parenchymal volume loss. 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 No CT evidence of an acute territorial infarction. No intracranial hemorrhage, mass effect, hydrocephalus or extra-axial fluid collections. Intracranial vascular calcifications. The skull base and calvarium are intact. Visualized paranasal sinuses and mastoids are clear. IMPRESSION: No acute intracranial CT findings. Dictated by: Dictated on workstation # [id number]
[2021-04-22 09:32] LABS: BASOPHILS % (AUTO) 1 % (0-10); EOSINOPHILS % (AUTO) 3 % (0-10); HEMATOCRIT 45 % (35-52); HEMOGLOBIN 14.4 g/dL (11.5-16.0); LYMPHOCYTES % (AUTO) 20 % (12-44); MEAN CORPUSCULAR HEMOGLOBIN 30 pg (25-34); MEAN CORPUSCULAR HGB CONC 32 g/dL (32-36); MEAN CORPUSCULAR VOLUME 95 fL (80-99); MEAN PLATELET VOLUME 9.4 fL (9.0-12.2); MONOCYTES % (AUTO) 8 % (0-12); NEUTROPHILS % (AUTO) 68 % (42-75); PLATELET COUNT 210 10^3/uL (130-400); WHITE BLOOD COUNT 9.7 10^3/uL (4.3-11.0)
[2021-04-22 09:33] LABS: BASOPHILS # (AUTO) 0.1 10^3/uL (0.0-0.1); EOSINOPHILS # (AUTO) 0.3 10^3/uL (0.0-0.3); MONOCYTES # (AUTO) 0.8 X 10^3 (0.0-1.0); NEUTROPHILS # (AUTO) 6.6 X 10^3 (1.8-7.8)
[2021-04-22 09:40] LABS: ALANINE AMINOTRANSFERASE 13 U/L (0-55); ALKALINE PHOSPHATASE 82 U/L (40-136); BILIRUBIN,TOTAL 0.6 MG/DL (0.1-1.0); BUN/CREATININE RATIO 12; CALCIUM 9.9 MG/DL (8.5-10.1); CARBON DIOXIDE 25 MMOL/L (21-32); CHLORIDE 101 MMOL/L (98-107); CREATININE SERUM 1.43 MG/DL (0.60-1.30); GFR ESTIMATED 35; GLUCOSE 199 MG/DL (70-105); POTASSIUM 4.4 MMOL/L (3.6-5.0); SODIUM 140 MMOL/L (135-145)
[2021-04-22 09:41] LABS: TOTAL PROTEIN 8.1 GM/DL (6.4-8.2)
[2021-04-22 09:52] LABS: BILIRUBIN,URINE NEGATIVE (NEGATIVE); CLARITY,URINE CLEAR; COLOR,URINE YELLOW; GLUCOSE, URINE (UA) NEGATIVE (NEGATIVE); KETONES,URINE NEGATIVE (NEGATIVE); LEUKOCYTE ESTERASE ,URINE NEGATIVE (NEGATIVE); NITRITE,URINE NEGATIVE (NEGATIVE); PROTEIN,URINE NEGATIVE (NEGATIVE)
[2021-04-22 09:58] LABS: BACTERIA,URINE FEW /HPF; SQUAMOUS EPITHELIAL CELL,UR 25-50 /HPF
[2021-04-22 10:51] VITALS: BP 138/89
== END 2021-04-22 10:51 | disposition home or self-care (01) ==
LOC: EDUNIT# 08:45 → ER FS 08:46
DX: I10 Essential (primary) hypertension (principal); R25.1 Tremor, unspecified; E78.00 Pure hypercholesterolemia, unspecified; E03.9 Hypothyroidism, unspecified; E11.9 Type 2 diabetes mellitus without complications; E66.9 Obesity, unspecified; K21.9 Gastro-esophageal reflux disease without esophagitis; Z68.32 Body mass index [BMI] 32.0-32.9, adult; Z79.890 Hormone replacement therapy; Z79.899 Other long term (current) drug therapy
CPT/HCPCS: 36415; 70450; 71045; 80053; 81000; 83735; 84484; 85025; 85610; 85730; 93005; 93041

== ENCOUNTER 2021-06-27 20:04 | Inpatient (IN) | payer MEDICARE, OTHER ==
[~2021-06-27] VITALS: Ht 172.7 cm; Wt 78.1 kg
[2021-06-27 20:28] LABS: BASOPHILS % (AUTO) 0 % (0-10); EOSINOPHILS % (AUTO) 0 % (0-10); HEMATOCRIT 45 % (35-52); HEMOGLOBIN 14.6 g/dL (11.5-16.0); LYMPHOCYTES # (AUTO) 0.5 10^3/uL (1.0-4.0); LYMPHOCYTES % (AUTO) 6 % (12-44); MEAN CORPUSCULAR HEMOGLOBIN 31 pg (25-34); MEAN CORPUSCULAR HGB CONC 33 g/dL (32-36); MEAN CORPUSCULAR VOLUME 94 fL (80-99); MONOCYTES # (AUTO) 0.3 10^3/uL (0.0-1.0); MONOCYTES % (AUTO) 4 % (0-12); NEUTROPHILS # (AUTO) 7.7 10^3/uL (1.8-7.8); NEUTROPHILS % (AUTO) 90 % (42-75); PLATELET COUNT 152 10^3/uL (130-400); WHITE BLOOD COUNT 8.6 10^3/uL (4.3-11.0)
[2021-06-27] MEDS ORDERED: ONDANSETRON 4 MG/2 ML (SDV) Z0FRAN ONE (20:28)
[2021-06-27] MEDS ORDERED: ONDANSETRON 4 MG/2 ML (SDV) Z0FRAN IVP ONE (20:30)
--- NOTE | 2021-06-27 20:31 | Diagnostic Imaging Report ---
PROCEDURE: CT head w/o r/o stroke. TECHNIQUE: Multiple contiguous axial images were obtained through the brain without the use of intravenous contrast. Auto Exposure Controls were utilized during the CT exam to meet ALARA standards for radiation dose reduction. INDICATION: "Altered mental status" COMPARISON: Head CT of 04/22/2021. FINDINGS: Extensive periventricular white matter disease, atrophy and ventriculomegaly, all unchanged from prior. No sulcal effacement. No findings of cerebral edema. No evidence for elevated pressures. There is no hemorrhage. Orbits, sinuses and calvarium nonacute. There are no abnormal extra-axial fluid collections. IMPRESSION: Extensive chronic white matter disease, atrophy and ventriculomegaly, unchanged from prior. No new abnormality or hemorrhage. Dictated by: Dictated on workstation # [id number]
--- NOTE | 2021-06-27 20:37 | Diagnostic Imaging Report ---
INDICATION: Shortness of air. COMPARISON: 04/22/2021. FINDINGS: There is a large retrocardiac hiatal hernia, chronic. The lungs are clear. No failure, effusion or pneumothorax. IMPRESSION: Stable chronic findings. Dictated by: Dictated on workstation # [id number]
[2021-06-27 20:44] LABS: PROTHROMBIN TIME PATIENT 13.3 SEC (12.2-14.7)
[2021-06-27] MEDS ORDERED: ACETAMINOPHEN 650 MG SUPP (TYLENOL) PR ONE (20:45)
[2021-06-27 20:53] LABS: FIBRIN DEGRADATION PRODUCTS 3.74 UG/ML (0.00-0.49)
[2021-06-27] MEDS ORDERED: cefTRIAXone 1 GM PRE-MIX 50 ML IV ONE (21:00)
[2021-06-27 21:08] LABS: BILIRUBIN,URINE NEGATIVE (NEGATIVE); CLARITY,URINE CLEAR; COLOR,URINE YELLOW; GLUCOSE, URINE (UA) 1+ (NEGATIVE); KETONES,URINE NEGATIVE (NEGATIVE); LEUKOCYTE ESTERASE ,URINE NEGATIVE (NEGATIVE); NITRITE,URINE NEGATIVE (NEGATIVE); PROTEIN,URINE NEGATIVE (NEGATIVE)
[2021-06-27 21:11] LABS: ABG BASE EXCESS -1.2 MMOL/L (-2.5-2.5); ABG PCO2 39 MMHG (35-45); ABG PH 7.39 (7.37-7.43); ABG PO2 63 MMHG (79-93); ABG TCO2 24.8 MMOL/L (21.0-31.0)
[2021-06-27 21:12] LABS: ABG OXYGEN SATURATION 91 % (94-100); ALLENS TEST UNABLE; INSPIRED O2 3 LITERS; PATIENT TEMP 103.2 F; VENTILATOR NO
[2021-06-27 21:14] LABS: ALKALINE PHOSPHATASE 251 U/L (40-136); BILIRUBIN,TOTAL 2.2 MG/DL (0.1-1.0); BUN/CREATININE RATIO 14; CALCIUM 9.3 MG/DL (8.5-10.1); CARBON DIOXIDE 21 MMOL/L (21-32); CHLORIDE 100 MMOL/L (98-107); CREATININE SERUM 1.56 MG/DL (0.60-1.30); GFR ESTIMATED 33; GLUCOSE 319 MG/DL (70-105); POTASSIUM 3.8 MMOL/L (3.6-5.0); SODIUM 138 MMOL/L (135-145)
[2021-06-27 21:15] LABS: ALANINE AMINOTRANSFERASE 502 U/L (0-55); ALBUMIN 3.8 GM/DL (3.2-4.5); TOTAL PROTEIN 7.6 GM/DL (6.4-8.2)
[2021-06-27 21:26] LABS: BACTERIA,URINE NEGATIVE /HPF; SQUAMOUS EPITHELIAL CELL,UR 0-2 /HPF; WBC,URINE 0-2 /HPF
[2021-06-27] MEDS ORDERED: IOHEXOL 350 MG/ML 100 ML (OMNIPAQUE 350) VIAL IV ONE (21:30)
[2021-06-27] MEDS ORDERED: HOLD METFORMIN - RECEIVED CONTRAST 20 ML VIAL IV SCH (21:30)
[2021-06-27] MEDS ORDERED: NS 100 ML (IVPB) BAG IV ONE (21:30)
[2021-06-27] MEDS: NS IV 1000 ML 1,000 ML IV SCH ×2 (21:35→22:31)
[2021-06-27 21:46] LABS: BAND NEUTROPHILS 24 %; BASOPHILS % (MANUAL) 0 %; EOSINOPHILS % (MANUAL) 0 %; LYMPHOCYTES % (MANUAL) 8 %; MONOCYTES % (MANUAL) 4 %; NEUTROPHILS % (MANUAL) 64 %
--- NOTE | 2021-06-27 22:11 | ED General ---
General Chief Complaint: Altered Mental Status Stated Complaint: BP HIGH,POSS STROKE Nursing Triage Note: Patient comes to ER via EMS from [facility]. EMS reports that the patient was last well at approximately 0630 today. Patient normally is alert and oriented. Nursing staff at [facility] report an altered LOC and vomiting. EMS started a 20 in the right hand. Upon arrival, patient does not answer any questions. Patient does look at you when you say her name but will not speak. Patient does not follow commands and does have vomit on her clothes. EMS gave 4mg of zofran IV prior to arrival. Source of Information: Patient Exam Limitations: No Limitations History of Present Illness Date Seen by Provider: Jun 27, 2021 Time Seen by Provider: 22:00 Initial Comments Patient is an 80-year-old female who presents from [facility] with altered mental status. Patient's last known normal was 1830. Patient is normally alert and oriented. Patient was found by residential staff with altered LOC and vomiting. Patient with decreased LOC and normal blood sugar on EMS arrival. Patient initially withdrawing only from pain. Stroke call protocol activated and patient brought to the CT scanner. History based upon patient mental status. Timing/Duration: 1 Hour Severity: Moderate Modifying Factors: improves with Other Associated Systoms: Other Allergies and Home Medications Allergies Coded Allergies: codeine (Unverified Adverse Reaction, Unknown, 06/25/20) ketorolac (Unverified Adverse Reaction, Unknown, 06/25/20) naproxen (Unverified Adverse Reaction, Unknown, 06/25/20) Patient Home Medication List Home Medication List Reviewed: Yes Acetaminophen (Acetaminophen) 500 Mg Tablet, 1,000 MG PO HS, (Reported) Entered as Reported by: BONITA MEDLEY on 06/25/20 112 Atorvastatin Calcium (Atorvastatin Calcium) 80 Mg Tablet, 80 MG PO HS, (Reported) Entered as Reported by: BONITA MEDLEY on 06/25/20 112 Cetirizine HCl (Cetirizine HCl) 10 Mg Tablet, 10 MG PO DAILY, (Reported) Entered as Reported by: BONITA MEDLEY on 06/25/20 112 Cyanocobalamin (Vitamin B-12) (Vitamin B-12) 1,000 Mcg Tablet, 1,000 MCG PO DAILY, (Reported) Entered as Reported by: BONITA MEDLEY on 1/1127 Donepezil HCl (Donepezil HCl) 5 Mg Tablet, 5 MG PO HS, (Reported) Entered as Reported by: BONITA MEDLEY on 06/25/201127 Dulaglutide (Trulicity) 1.5 Mg/0.5 Ml Pen.injctr, 1.5 MG SC WEEK, (Reported) Entered as Reported by: BONITA MEDLEY on 06/25/201127 Gabapentin (Gabapentin) 600 Mg Tablet, 600 MG PO HS, (Reported) Entered as Reported by: BONITA MEDLEY on 06/25/201127 Gabapentin (Neurontin) 300 Mg Capsule, 300 MG PO DAILY, (Reported) Entered as Reported by: BONITA MEDLEY on 06/25/201127 Glimepiride (Glimepiride) 4 Mg Tablet, 4 MG PO BID WITH MEALS, (Reported) Entered as Reported by: BONITA MEDLEY on 06/25/201127 Lactobac Cmb #3/Fos/Pantethine (Probiotic & Acidophilus Cap) 1 Each Capsule, 1 EACH PO DAILY, (Reported) Entered as Reported by: BONITA MEDLEY on 06/25/201127 Levothyroxine Sodium (Levothyroxine Sodium) 50 Mcg Tablet, 50 MCG PO DAILY, (Reported) Entered as Reported by: BONITA MEDLEY on 06/25/201127 Lisinopril (Lisinopril) 5 Mg Tablet, 5 MG PO DAILY, (Reported) Entered as Reported by: BONITA MEDLEY on 06/25/201127 Metoprolol Succinate (Metoprolol Succinate) 100 Mg Tab.er.24h, 100 MG PO DAILY, (Reported) Entered as Reported by: BONITA MEDLEY on 06/25/201127 Mirabegron (Myrbetriq) 25 Mg Tab.er.24h, 25 MG PO DAILY, (Reported) Entered as Reported by: BONITA MEDLEY on 06/25/201127 Pantoprazole Sodium (Pantoprazole Sodium) 40 Mg Tablet.dr, 40 MG PO DAILY, (Reported) Entered as Reported by: BONITA MEDLEY on 06/25/201127 Tramadol HCl (Tramadol HCl) 50 Mg Tablet, 50 MG PO BID, (Reported) Entered as Reported by: BONITA MEDLEY on 06/25/201127 [Vitamin D] , (Reported) Entered as Reported by: BONITA MEDLEY on 06/25/201127 Review of Systems Review of Systems Constitutional: see HPI EENTM: see HPI Respiratory: see HPI Cardiovascular: see HPI Gastrointestinal: see HPI Genitourinary: see HPI Musculoskeletal: see HPI Skin: see HPI Psychiatric/Neurological: See HPI Hematologic/Lymphatic: See HPI Immunological/Allergic: see HPI All Other Systems Reviewed Negative Unless Noted: Yes Past Xfjfblu-Lnijyw-Gucgoh Hx Patient Social History Tobacco Use?: Yes Pt feels they are or have been: Unable to obtain Seasonal Allergies Seasonal Allergies: No Past Medical History Surgery/Hospitalization HX: Hypertension, High Cholesterol, Peripheral Neuropathy, Hypothyroid Respiratory: No Cardiac: Yes High Cholesterol, Hypertension Neurological: Yes Neuropathy Genitourinary: Yes UTI-Chronic Gastrointestinal: Yes Gastroesophageal Reflux Musculoskeletal: No Endocrine: Yes Hypothyroidsim, Diabetes, Non-Insulin dep HEENT: No Cancer: No Psychosocial: No Integumentary: No Blood Disorders: No Adverse Reaction/Blood Tranf: No Physical Exam Vital Signs Vital Signs - First Documented 06/27/21 20:04 Temp 39.6 Pulse 109 Resp 36 B/P (MAP) 179/72 (107) Pulse Ox 97 O2 Delivery Nasal Cannula O2 Flow Rate 2.00 Capillary Refill : Less Than 3 Seconds Height, Weight, BMI Height: '" Weight: lbs. oz. kg; 26.00 BMI Method: General Appearance: Other (Obtunded) Eyes: Bilateral Eye Normal Inspection, Bilateral Eye PERRL, Bilateral Eye EOMI HEENT: PERRL/EOMI, Normal ENT Inspection, Pharynx Normal Neck: Full Range of Motion, Normal Inspection, Supple Respiratory: Decreased Breath Sounds, Rhonci, Other (tachypnea) Cardiovascular: Tachycardia Gastrointestinal: Non Tender, Soft Neurologic/Psychiatric: Other (obtunded, non-vebal. ) Skin: Other (Tactile fever) Focused Exam Sepsis Stage: Severe Sepsis Possible Source: Pulmonary Lactate Level 06/27/21 20:20: Lactic Acid Level 3.04*H 06/27/21 22:30: Lactic Acid Level 3.50*H Time of Focused Exam: 22:00 Respiratory: Decreased Breath Sounds, Rales, Rhonci Cardiovascular: Tachycardia Lactic Acid Level Laboratory Tests Test 06/27/21 20:20 06/27/21 22:30 Lactic Acid Level 3.04 MMOL/L (0.50-2.00) *H 3.50 MMOL/L (0.50-2.00) *H Within 3hrs of presentation: Admin fluids, Admin 30ml/kg IBW due to BMI>30 Progress/Results/Core Measures Suspected Sepsis SIRS Temperature: Pulse: 109 Respiratory Rate: 36 Laboratory Tests 06/27/21 20:20: White Blood Count 8.6 Blood Pressure 179 /72 Mean: 107 06/27/21 20:20: Lactic Acid Level 3.04*H 06/27/21 22:30: Lactic Acid Level 3.50*H Laboratory Tests 06/27/21 20:20: Creatinine 1.56H, INR Comment 1.0, Platelet Count 152, Total Bilirubin 2.2H Results/Orders Lab Results Laboratory Tests Test 06/27/21 19:59 06/27/21 20:20 06/27/21 20:36 06/27/21 20:43 Range/Units Blood Gas Puncture Site LT RADIAL Blood Gas Patient Temperature 103.2 F Arterial Blood pH 7.39 7.37-7.43 Arterial Blood Partial Pressure CO2 39 35-45 MMHG Arterial Blood Partial Pressure O2 63 L 79-93 MMHG Arterial Blood HCO3 24 23-27 MMOL/L Arterial Blood Total CO2 24.8 21.0-31.0 MMOL/L Arterial Blood Oxygen Saturation 91 L 94-100 % Arterial Blood Base Excess -1.2 -2.5-2.5 MMOL/L Tre Test UNABLE Blood Gas Ventilator Setting NO Blood Gas Inspired Oxygen 3 LITERS White Blood Count 8.6 4.3-11.0 10^3/uL Red Blood Count 4.78 3.80-5.11 10^6/uL Hemoglobin 14.6 11.5-16.0 g/dL Hematocrit 45 35-52 % Mean Corpuscular Volume 94 80-99 fL Mean Corpuscular Hemoglobin 31 25-34 pg Mean Corpuscular Hemoglobin Concent 33 32-36 g/dL Red Cell Distribution Width 13.5 10.0-14.5 % Platelet Count 152 130-400 10^3/uL Mean Platelet Volume 9.0 9.0-12.2 fL Immature Granulocyte % (Auto) 0 % Neutrophils (%) (Auto) 90 H 42-75 % Lymphocytes (%) (Auto) 6 L 12-44 % Monocytes (%) (Auto) 4 0-12 % Eosinophils (%) (Auto) 0 0-10 % Basophils (%) (Auto) 0 0-10 % Neutrophils # (Auto) 7.7 1.8-7.8 10^3/uL Lymphocytes # (Auto) 0.5 L 1.0-4.0 10^3/uL Monocytes # (Auto) 0.3 0.0-1.0 10^3/uL Eosinophils # (Auto) 0.0 0.0-0.3 10^3/uL Basophils # (Auto) 0.0 0.0-0.1 10^3/uL Immature Granulocyte # (Auto) 0.0 0.0-0.1 10^3/uL Neutrophils % (Manual) 64 % Lymphocytes % (Manual) 8 % Monocytes % (Manual) 4 % Eosinophils % (Manual) 0 % Basophils % (Manual) 0 % Band Neutrophils 24 % Prothrombin Time 13.3 12.2-14.7 SEC INR Comment 1.0 0.8-1.4 Activated Partial Thromboplast Time 25 24-35 SEC D-Dimer 3.74 H 0.00-0.49 UG/ML Urine Color YELLOW Urine Clarity CLEAR Urine pH 6.0 5-9 Urine Specific [place] 1.015 L 1.016-1.022 Urine Protein NEGATIVE NEGATIVE Urine Glucose (UA) 1+ H NEGATIVE Urine Ketones NEGATIVE NEGATIVE Urine Nitrite NEGATIVE NEGATIVE Urine Bilirubin NEGATIVE NEGATIVE Urine Urobilinogen 0.2 < = 1.0 MG/DL Urine Leukocyte Esterase NEGATIVE NEGATIVE Urine RBC (Auto) NEGATIVE NEGATIVE Urine RBC NONE /HPF Urine WBC 0-2 /HPF Urine Squamous Epithelial Cells 0-2 /HPF Urine Crystals NONE /LPF Urine Bacteria NEGATIVE /HPF Urine Casts NONE /LPF Urine Mucus NEGATIVE /LPF Urine Culture Indicated NO Sodium Level 138 135-145 MMOL/L Potassium Level 3.8 3.6-5.0 MMOL/L Chloride Level 100 98-107 MMOL/L Carbon Dioxide Level 21 21-32 MMOL/L Anion Gap 17 H 5-14 MMOL/L Blood Urea Nitrogen 22 H 7-18 MG/DL Creatinine 1.56 H 0.60-1.30 MG/DL Estimat Glomerular Filtration Rate 33 BUN/Creatinine Ratio 14 Glucose Level 319 H 70-105 MG/DL Lactic Acid Level 3.04 *H 0.50-2.00 MMOL/L Calcium Level 9.3 8.5-10.1 MG/DL Corrected Calcium 9.5 8.5-10.1 MG/DL Total Bilirubin 2.2 H 0.1-1.0 MG/DL Aspartate Amino Transf (AST/SGOT) 980 H 5-34 U/L Alanine Aminotransferase (ALT/SGPT) 502 H 0-55 U/L Alkaline Phosphatase 251 H 40-136 U/L Troponin I < 0.30 <0.30 NG/ML Total Protein 7.6 6.4-8.2 GM/DL Albumin 3.8 3.2-4.5 GM/DL Glucometer 317 H 70-110 MG/DL Influenza Type A Antigen NEGATIVE NEGATIVE Influenza Type B Antigen NEGATIVE NEGATIVE Test 06/27/21 22:30 Range/Units Lactic Acid Level 3.50 *H 0.50-2.00 MMOL/L My Orders Orders - CHRISTOPHER BEE DO Ct Head Wo-R/O Stroke (06/27/21 20:07) Cbc With Automated Diff (06/27/21 20:07) Protime With Inr (06/27/21 20:07) Partial Thromboplastin Time (06/27/21 20:07) Comprehensive Metabolic Panel (06/27/21 20:07) Fibrin Degradation Products (06/27/21 20:07) Troponin I Fs (06/27/21 20:07) Ua Culture If Indicated (06/27/21 20:07) Chest 1 View Ap/Pa Only (06/27/21 20:07) Ekg Tracing (06/27/21 20:07) Nothing By Mouth (06/28/21 Breakfast) Accucheck Stat ONCE (06/27/21 20:07) Ed Iv/Invasive Line Start (06/27/21 20:07) Ed Iv/Invasive Line Start (06/27/21 20:07) Vital Signs Stroke Patient Q15M (06/27/21 20:07) O2 (06/27/21 20:07) Intake & Output 06,14,22 (06/27/21 20:07) Monitor-Rhythm Ecg Trace Only (06/27/21 20:07) Ondansetron Injection (Zofran Injectio (06/27/21 20:30) Ondansetron Injection (Zofran Injectio (06/27/21 20:28) Arterial Blood Gas (06/27/21 20:35) Lactic Acid Analyzer (06/27/21 20:35) Blood Culture (06/27/21 20:35) Manual Differential (06/27/21 20:20) Covid 19 Inhouse Test (06/27/21 20:42) Catheter(Urinary) Care .0300, 1500 (06/27/21 20:42) Isolation Central Supply Req (06/27/21 20:42) Acetaminophen Suppository (Tylenol Suppo (06/27/21 20:45) Rabago Cath (06/27/21 20:55) Ceftriaxone 1 Gm Pre-Mix (Rocephin 1 Gm (06/27/21 21:00) Ns Iv 1000 Ml (Sodium Chloride 0.9%) (06/27/21 21:15) Influenza A & B Antigens (06/27/21 21:10) Ct Chest/Abdomen/Pelvis W (06/27/21 20:42) Blood Culture (06/27/21 20:51) Iohexol Injection (Omnipaque 350 Mg/Ml 1 (06/27/21 21:30) Received Contrast (Hold Metformin- Contr (06/27/21 21:30) Ns (Ivpb) (Sodium Chloride 0.9% Ivpb Bag (06/27/21 21:30) Acetaminophen (06/27/21 22:43) Hepatitis Panel Acute (06/27/21 22:43) Medications Given in ED Current Medications Medications Dose Ordered Sig/Umair Route Start Time Stop Time Status Last Admin Dose Admin Acetaminophen 650 mg ONCE ONCE CO 06/27/21 20:45 06/27/21 20:46 DC 06/27/21 21:05 650 MG Ceftriaxone Sodium/Dextrose 50 ml @ 100 mls/hr ONCE ONCE IV 06/27/21 21:00 06/27/21 21:29 DC 06/27/21 21:05 100 MLS/HR Iohexol 100 ml ONCE ONCE IV 06/27/21 21:30 06/27/21 21:31 DC 06/27/21 21:41 100 ML Ondansetron HCl 4 mg ONCE ONCE IVP 06/27/21 20:30 06/27/21 20:31 DC 06/27/21 20:30 4 MG Sodium Chloride 100 ml ONCE ONCE IV 06/27/21 21:30 06/27/21 21:31 DC 06/27/21 21:41 100 ML Vital Signs/I&O 06/27/21 06/27/21 20:04 21:05 Temp 39.6 39.7 Pulse 109 Resp 36 B/P (MAP) 179/72 (107) Pulse Ox 97 O2 Delivery Nasal Cannula O2 Flow Rate 2.00 Capillary Refill : Less Than 3 Seconds Blood Pressure Mean: 107 Point of Care Testing Finger Stick Blood Glucose: 317 Departure Communication (Admissions) CT head: No acute findings per radiology report CT chest/abdomen/pelvis: Pulmonary infiltrates in hiatal hernia. No acute abd ominal/pelvic process per radiology report. Lab and imaging studies reviewed. Patient with acute febrile illness with encephalopathy and nausea vomiting elevated LFTs. Etiology unclear. IV fluids and empiric antibiotics for possible pulmonary infiltrate on CT. Patient's mental status improved with treatment of fever and with administration of IV fluids. Case reviewed in detail with Dr. De Los Santos on-call for hospitalist service at [facility] who accepts care of patient. Recommendations are for acute hepatitis panel, acetaminophen level, maintenance fluids, continued IV Rocephin and repeat labs in the a.m. Given elevation in LFTs, acetaminophen is contraindicated. Patient also has an NSAID allergy. Courtesy bridge orders provided. Impression Primary Impression: Sepsis Additional Impressions: Encephalopathy acute Transaminitis Pulmonary infiltrate Disposition: ADMITTED INPATIENT Condition: Critical Admissions Decision to Admit Reason: Admit from ER (General) Decision to Admit/Date: Jun 27, 2021 Time/Decision to Admit Time: 22:30 Departure-Patient Inst. Referrals: KATELIN BACH MD (PCP/Family) Primary Care Physician CHRISTOPHER BEE DO Jun 27, 2021 22:11
--- NOTE | 2021-06-27 22:18 | Diagnostic Imaging Report ---
PROCEDURE: CT chest, abdomen, and pelvis with contrast. TECHNIQUE: Multiple contiguous axial images were obtained through the chest, abdomen, and pelvis after the administration of intravenous contrast. Auto Exposure Controls were utilized during the CT exam to meet ALARA standards for radiation dose reduction. INDICATION: Altered mental status. COMPARISON: CT abdomen and pelvis 06/26/2019. CT CHEST: There is retrocardiac gastric hernia, stable from prior. There is subjacent infrahilar and left greater right basilar atelectasis and nonspecific infiltrate. There is no pneumothorax. There is no effusion. The thoracic aorta is patent and nonaneurysmal. No central PE identified. No suspicious lung mass. No acute appearing abnormality. CT ABDOMEN/PELVIS: There is no bowel biliary or urinary tract obstruction. The urinary bladder is catheterized the sensitivity is limited by motion artifact. No appreciable gallstone or bile duct dilatation. The spleen, adrenals and pancreas are nonacute. The kidneys are unobstructed. The aorta is atherosclerotic but patent and nonaneurysmal. There is no diverticulitis or appendicitis. No perienteric or pericolonic edema. No focal inflammatory process. IMPRESSION: 1. CT chest: Chronic retrocardiac hernia, bibasilar atelectasis and/or infiltrates have increased from prior. No other potential acute chest abnormality. 2. CT abdomen/pelvis: The abdominopelvic portion is limited by motion artifact. It showed no obstructive features, inflammatory processes, ascites, fluid collections, adenopathy, mass, aneurysm or acute abnormality. Dictated by: Dictated on workstation # [id number]
[2021-06-27] MEDS ORDERED: CEFEPIME INJECTION 2,000 MG in NS (IVPB) 50 ML IV ONE (23:00)
[2021-06-28 00:24] VITALS: BP 141/77
[2021-06-28 01:41] LABS: ALBUMIN 3.6 GM/DL (3.2-4.5)
[2021-06-28 01:42] LABS: CALCIUM 8.6 MG/DL (8.5-10.1)
[2021-06-28] MEDS ORDERED: NS (IVPB) 50 ML ONE ×2 (01:42→01:51)
[2021-06-28] MEDS ORDERED: CEFEPIME 1 GM/10 ML (MAXIPIME) VIAL ONE ×2 (01:42→01:51)
[2021-06-28 01:44] LABS: TOTAL PROTEIN 7.2 GM/DL (6.4-8.2)
[2021-06-28 01:45] LABS: BILIRUBIN,TOTAL 3.6 MG/DL (0.1-1.0)
[2021-06-28 01:47] LABS: CREATININE SERUM 1.6 MG/DL (0.60-1.30)
[2021-06-28 01:49] LABS: BILIRUBIN,DIRECT 2.9 MG/DL (0.0-0.3); BILIRUBIN,INDIRECT 0.7 MG/DL
[2021-06-28] MEDS: NS IV 1000 ML 1,000 ML IV SCH ×4 (02:06→18:55)
[2021-06-28] MEDS ORDERED: inSUlin ASPART (NovoLOG) 1 UNIT/0.01 ML (CHARGE PER UNIT) ONE (02:33)
[2021-06-28] MEDS: inSUlin ASPART (NovoLOG) 1 UNIT/0.01 ML (CHARGE PER UNIT) SC SCH ×5 (02:36→22:27)
[2021-06-28 04:00] VITALS: BP 131/59
--- NOTE | 2021-06-28 07:39 | Diagnostic Imaging Report ---
INDICATION: Sepsis Portable chest 7:26 AM There is a hiatal hernia. Heart size and pulmonary vascularity are normal. There is infiltrate present in the right lower lung. There is no effusion or pneumothorax. IMPRESSION: Right lower lobe pneumonia. Dictated by: Dictated on workstation # [id number]
[2021-06-28 08:00] VITALS: BP 131/59
[2021-06-28] MEDS ORDERED: CEFEPIME 1,000 MG/NS 50 ML IVPB IV SCH ×2 (08:00)
[2021-06-28 08:33] LABS: BASOPHILS % (AUTO) 0 % (0-10); EOSINOPHILS % (AUTO) 0 % (0-10); HEMATOCRIT 44 % (35-52); HEMOGLOBIN 13.5 g/dL (11.5-16.0); LYMPHOCYTES # (AUTO) 0.6 10^3/uL (1.0-4.0); LYMPHOCYTES % (AUTO) 5 % (12-44); MEAN CORPUSCULAR HEMOGLOBIN 30 pg (25-34); MEAN CORPUSCULAR HGB CONC 30 g/dL (32-36); MEAN CORPUSCULAR VOLUME 99 fL (80-99); MEAN PLATELET VOLUME 9.3 fL (9.0-12.2); MONOCYTES # (AUTO) 0.7 10^3/uL (0.0-1.0); MONOCYTES % (AUTO) 6 % (0-12); NEUTROPHILS # (AUTO) 11.6 10^3/uL (1.8-7.8); NEUTROPHILS % (AUTO) 89 % (42-75); PLATELET COUNT 138 10^3/uL (130-400)
[2021-06-28 08:42] LABS: ALBUMIN 3.3 GM/DL (3.2-4.5); POTASSIUM 4.1 MMOL/L (3.6-5.0)
[2021-06-28 08:44] LABS: CALCIUM 8.4 MG/DL (8.5-10.1)
[2021-06-28 08:45] LABS: TOTAL PROTEIN 6.5 GM/DL (6.4-8.2)
[2021-06-28 08:47] LABS: BILIRUBIN,TOTAL 4.2 MG/DL (0.1-1.0)
[2021-06-28 08:49] LABS: CREATININE SERUM 1.63 MG/DL (0.60-1.30)
[2021-06-28 08:50] LABS: BILIRUBIN,DIRECT 3.5 MG/DL (0.0-0.3); BILIRUBIN,INDIRECT 0.7 MG/DL
--- NOTE | 2021-06-28 09:26 | Diagnostic Imaging Report ---
PROCEDURE: US Hepatic (Liver). TECHNIQUE: Multiple real-time grayscale images were obtained over the right upper quadrant in various projections. INDICATION: Hepatitis Liver parenchyma is homogeneous with normal echotexture. Gallbladder is clear with no stones or wall thickening. The common duct is not appreciably dilated. Pancreas is largely obscured by bowel gas. Aorta is obscured by bowel gas. IVC is patent. Right kidney measures 9.8 cm in length and appears normal. There is no ascites. IMPRESSION: Unremarkable gallbladder ultrasound. Dictated by: Dictated on workstation # [id number]
[2021-06-28] MEDS ORDERED: LOPE2CAP PO (10:53)
[2021-06-28] MEDS ORDERED: L.AC1CAP6 PO (10:53)
[2021-06-28] MEDS ORDERED: ONDA4TAB11 PO (10:53)
[2021-06-28] MEDS ORDERED: ACET-2267 PO (10:53)
[2021-06-28] MEDS ORDERED: POLY15DR57 OU (10:53)
[2021-06-28] MEDS ORDERED: NYST1POW22 TOP (10:53)
[2021-06-28] MEDS ORDERED: CRAN1CAP5 PO (10:53)
[2021-06-28] MEDS ORDERED: CHOL10007 PO (10:53)
[2021-06-28] MEDS ORDERED: ROPI0.253 PO (10:53)
[2021-06-28] MEDS ORDERED: POLY17PO6 PO (10:53)
[2021-06-28] MEDS ORDERED: MAG30ORA2 PO (10:53)
[2021-06-28 12:41] VITALS: BP 131/59
--- NOTE | 2021-06-28 12:58 | History & Physical-Hospitalist ---
PANCHOJOHNDEMARCUS A MED STUDENT 06/28/21 1258: History of Present Illness HPI/Chief Complaint This is a 80 yo female who came in from [facility] shelter for altered mental status and sepsis. Pt has hx of HTN, hyperlipidemia, Diabetes, GERD, hypothyroidism and chronic UTIs. Pt is alert and oriented to person, place and time, but is unable to recall how she got here. Pt reports she feels "terrible", but when asked if she is in pain she reports she is not. Pt does report cough that is productive of sputum. Pt denies fever, chills, SOA, chest pain, p alpitations, urinary frequency or burning. Source: patient Exam Limitations: other (poor historian) Date Seen 06/28/21 Time Seen by a Provider: 09:00 Attending Physician Jordan De Los Santos MD PCP Deandre Page MD Referring Physician Date of Admission Jun 28, 2021 at 00:15 Home Medications & Allergies Home Medications Reviewed patient Home Medication Reconciliation performed by pharmacy medication reconciliations broadcast operations technician and/or nursing. Patients Allergies have been reviewed. Allergies Allergies Coded Allergies codeine (Unverified Adverse Reaction, Unknown, 06/25/20) ketorolac (Unverified Adverse Reaction, Unknown, 06/25/20) naproxen (Unverified Adverse Reaction, Unknown, 06/25/20) Past Rhixlgh-Tczkfu-Wjntxf Hx Patient Social History Tobacco Use?: No Use of E-Cig and/or Vaping dev: No Substance use?: No Alcohol Use?: Yes Pt feels they are or have been: Unable to obtain Immunizations Up To Date Date of Influenza Vaccine: Mar 01, 2022 Seasonal Allergies Seasonal Allergies: No Current Status Communicates: Verbally Primary Language: [place] Leonean Preferred Spoken Language: [place] Past Medical History High Cholesterol, Hypertension Neuropathy UTI-Chronic Gastroesophageal Reflux Hypothyroidsim, Diabetes, Non-Insulin dep Blood Disorders: No Adverse Reaction/Blood Tranf: No Review of Systems Constitutional: No chills, No fever EENTM: No blurred vision, No double vision Respiratory: cough, phlegm; No short of breath Cardiovascular: No chest pain, No palpitations Gastrointestinal: No abdominal pain, No constipation, No diarrhea, No nausea, No vomiting Genitourinary: No dysuria, No frequency Musculoskeletal: No back pain, No joint pain Skin: No lesions, No lumps, No pruritus, No rash Psychiatric/Neurological: Denies Headache, Denies Numbness, Denies Weakness Physical Exam Physical Exam Vital Signs Vital Signs - First Documented 06/27/21 20:04 Temp 39.6 Pulse 109 Resp 36 B/P (MAP) 179/72 (107) Pulse Ox 97 O2 Delivery Nasal Cannula O2 Flow Rate 2.00 Capillary Refill : Less Than 3 Seconds Height, Weight, BMI Height: '" Weight: lbs. oz. kg; 26.18 BMI Method: General Appearance: No Apparent Distress, Obese HEENT: PERRL/EOMI Respiratory: Chest Non Tender, No Accessory Muscle Use, No Respiratory Distress, Rales, Rhonci Cardiovascular: No Murmur, Tachycardia Gastrointestinal: Normal Bowel Sounds, Non Tender, Soft Extremity: Normal Capillary Refill, Pedal Edema (mild pitting edema bilaterally) Neurologic/Psychiatric: Alert, Oriented x3, Depressed Affect Skin: Jaundice, Pallor Lymphatic: No Adenopathy Results Results/Procedures Labs Laboratory Tests 06/27/21 20:20 06/28/21 01:25 06/28/21 08:25 Patient resulted labs reviewed. Assessment/Plan Admission Diagnosis Septic shock and AMS Reason for Inpatient Admission: Septic shock and AMS Assessment and Plan 80 yo female being treated for septic shock due to acute cholangitis with acute respiratory failure and altered mental status. Septic shock -Leukocytosis with bandemia, Lactic Acidosis, Tachycardia -Pneumonia unlikely on CT -Cefepime -NaCl at 200 ml/hr -Blood cultures negative Acute cholangitis -Liver ultrasound unremarkable -Elevated AST, ALT, ALP and bilirubin -Hep panel pending to exclude hepatitis -AMS likely d/t acute cholangitis Acute respiratory failure -2L NC with good oxygen saturations -COVID test pending -Sputum culture Disposition: Likely to stay 24-48 hours for work up. Diet: Diabetic DVT prophylaxis: JOSE Johns MD 06/28/211922: History of Present Illness Source: patient Exam Limitations: no limitations Time Seen by a Provider: 11:05 Past Tylswyi-Fxpxue-Vxgawl Hx Past Medical History High Cholesterol, Hypertension Diabetes, Non-Insulin dep Family Medical History No Pertinent Family Hx Physical Exam Physical Exam General Appearance: No Apparent Distress, Obese HEENT: PERRL/EOMI, Pharynx Normal Respiratory: Lungs Clear, No Respiratory Distress Cardiovascular: No Murmur, Tachycardia Gastrointestinal: Normal Bowel Sounds, Soft Extremity: Normal Capillary Refill, Non Tender, Pedal Edema (mild pitting edema bilaterally) Neurologic/Psychiatric: Alert, Oriented x3, No Motor/Sensory Deficits Skin: Warm/Dry, Jaundice Results Results/Procedures Imaging: Reviewed Imaging Report Assessment/Plan Admission Diagnosis Admission Status: Inpatient Order (span 2 midnights) Reason for Inpatient Admission: IV fluids and antibiotics Assessment and Plan Presented with altered mental status and sepsis. Progressed to septic shock due to acute cholangitis. Bilirubin trendin up, AST/ALT now trending down. Continue IV fluids. Transition to Zosyn. Continue to monitor closely. Critical Care Critically Ill Patient Diagnosis/Problems Diagnosis/Problems (1) Septic shock Status: Acute (2) Acute cholangitis Status: Acute (3) Elevated LFTs Status: Acute (4) Lactic acidosis Status: Acute Supervisory-Addendum Brief Verification & Attestation Participated in pt care: history, MDM, physical Personally performed: exam, history, MDM, supervision of care Care discussed with: Medical Student Procedures: n/a Results interpretation: Verified all documentation A medical student performed and documented this service in my presence. I reviewed and verified all information documented by the medical student and made modifications to such information, when appropriate. I personally performed the physical exam and medical decision making. DEMARCUS UMANZOR MED STUDENT Jun 28, 2021 12:58 JOSE DAVNEPORT MD Jun 28, 2021 19:23
[2021-06-28 16:00] VITALS: BP 137/60
[2021-06-28] MEDS ORDERED: PIPERACILLIN SODIUM/TAZOBACTAM 4.5 GM in NS (IVPB) 100 ML IV NR (18:00)
[2021-06-28 20:00] VITALS: BP 133/51
[2021-06-28 20:56] LABS: ALBUMIN 2.8 GM/DL (3.2-4.5); BILIRUBIN,TOTAL 3.5 MG/DL (0.1-1.0); CALCIUM 7.9 MG/DL (8.5-10.1); CREATININE SERUM 1.4 MG/DL (0.60-1.30)
[2021-06-28 21:11] LABS: HEPATITIS C ANTIBODY C Non-Reactive (Non-Reactive)
[2021-06-29] VITALS: BP 126/54
[2021-06-29] MEDS: PIPERACILLIN SODIUM/TAZOBACTAM 4.5 GM in NS (IVPB) 100 ML IV SCH ×3 (03:23→15:08)
[2021-06-29] MEDS: NS IV 1000 ML 1,000 ML IV SCH ×3 (03:24→10:29)
[2021-06-29 03:36] LABS: BASOPHILS % (AUTO) 0 % (0-10); EOSINOPHILS % (AUTO) 0 % (0-10); HEMATOCRIT 34 % (35-52); LYMPHOCYTES # (AUTO) 0.8 10^3/uL (1.0-4.0); LYMPHOCYTES % (AUTO) 9 % (12-44); MEAN CORPUSCULAR HEMOGLOBIN 30 pg (25-34); MEAN CORPUSCULAR HGB CONC 32 g/dL (32-36); MEAN CORPUSCULAR VOLUME 94 fL (80-99); MEAN PLATELET VOLUME 9.6 fL (9.0-12.2); MONOCYTES # (AUTO) 0.6 10^3/uL (0.0-1.0); MONOCYTES % (AUTO) 6 % (0-12); NEUTROPHILS # (AUTO) 7.8 10^3/uL (1.8-7.8); NEUTROPHILS % (AUTO) 84 % (42-75); PLATELET COUNT 122 10^3/uL (130-400); WHITE BLOOD COUNT 9.3 10^3/uL (4.3-11.0)
[2021-06-29 04:00] VITALS: BP 141/63
[2021-06-29 04:00] LABS: ALBUMIN 2.8 GM/DL (3.2-4.5); BILIRUBIN,TOTAL 3.9 MG/DL (0.1-1.0); CALCIUM 7.9 MG/DL (8.5-10.1); CREATININE SERUM 1.39 MG/DL (0.60-1.30); POTASSIUM 3.9 MMOL/L (3.6-5.0); TOTAL PROTEIN 5.8 GM/DL (6.4-8.2)
[2021-06-29] MEDS: inSUlin ASPART (NovoLOG) 1 UNIT/0.01 ML (CHARGE PER UNIT) SC SCH ×4 (06:31→21:12)
[2021-06-29 07:28] VITALS: BP 119/78
[2021-06-29] MEDS: ACETAMINOPHEN 325 MG TABLET PO PRN ×3 (08:52→21:19)
[2021-06-29] MEDS: guaiFENesin/DM (ROBITUSSIN DM) 10 ML UDC PO PRN ×3 (10:24→21:16)
[2021-06-29 11:17] VITALS: BP 127/59
--- NOTE | 2021-06-29 13:02 | Progress Note - Hospitalist ---
DEMARCUS UMANZOR A MED STUDENT 06/29/21 1302: Subjective HPI/CC On Admission Date Seen by Provider: Jun 29, 2021 Time Seen by Provider: 08:15 Sepsis and AMS secondary to acute cholangitis Subjective/Events-last exam Pt up in bed this morning, reports a productive cough and mild SOA. Pts greatest concern today is sharp pain in her right great toe that she rates as a 7/10. This pain started last noc. Pt denies pain in metatarsal joint. The pain is only on the top of the toe. Pt denies hx of gout. Review of Systems General: No Chills, No Fatigue HEENT: No Head Aches, No Visual Changes Pulmonary: Dyspnea, Cough Cardiovascular: No: Chest Pain, Palpitations Gastrointestinal: No: Nausea, Vomiting, Abdominal Pain Genitourinary: No Dysuria, No Frequency Neurological: No: Weakness, Numbness Focused Exam Lactate Level 06/28/21 16:35: Lactic Acid Level 2.96*H 06/28/21 20:15: Lactic Acid Level 1.25 06/29/21 03:20: Lactic Acid Level 1.25 Time of Focused Exam: 22:00 Objective Exam Vital Signs Vital Signs Date Time Temp Pulse Resp B/P (MAP) Pulse Ox O2 Delivery O2 Flow Rate FiO2 06/29/21 12:50 69 06/29/21 11:17 36.9 20 127/59 (81) 96 Nasal Cannula 06/29/21 04:00 2.00 Capillary Refill : Less Than 3 Seconds General Appearance: No Apparent Distress, Obese HEENT: PERRL/EOMI Respiratory: Chest Non Tender, No Accessory Muscle Use, No Respiratory Distress, Decreased Breath Sounds (at bases bilaterally) Cardiovascular: Regular Rate, Rhythm, No Murmur Gastrointestinal: Normal Bowel Sounds, Soft, Tenderness (RUQ on inspiration) Extremity: Normal Capillary Refill, Pedal Edema (mild LE edema bilaterally), Other (R great toe nonedematous and nonerythematous) Neurologic/Psychiatric: Alert, Oriented x3, Normal Mood/Affect Skin: Warm/Dry, Jaundice (improved from yesterday), Pallor Results/Procedures Lab Laboratory Tests 06/28/21 20:15 06/29/21 03:20 Patient resulted labs reviewed. Imaging: Reviewed Imaging Report Assessment/Plan Assessment and Plan Assess & Plan/Chief Complaint 80 yo female being treated for septic shock and AMS d/t acute cholangitis and pneumonia. Septic shock -Leukocytosis with bandemia, Lactic Acidosis, Tachycardia improving -NaCl at 200 ml/hr -Blood cultures negative Acute cholangitis -Liver ultrasound unremarkable -Elevated AST, ALT, ALP and bilirubin -Hep panel pending to exclude hepatitis -AMS likely d/t acute cholangitis -Zosyn Pneumonia -RLL pneumonia on CXR -Elevated procalcitonin -Zosyn Acute respiratory failure -2L NC with good oxygen saturations Diet: Diabetic DVT prophylaxis: JOSE Johns MD 06/29/21 1646: Subjective HPI/CC On Admission Time Seen by Provider: 10:00 Objective Results/Procedures Imaging: Reviewed Imaging Films, Reviewed Imaging Report Assessment/Plan Assessment and Plan Assess & Plan/Chief Complaint Admitted with septic shock due to acute cholangitis and pneumonia. Continue fluids and Zosyn. LFTs improving. Monitor closely. Diagnosis/Problems Diagnosis/Problems (1) Septic shock Status: Acute (2) Acute cholangitis Status: Acute (3) Elevated LFTs Status: Acute (4) Pneumonia Status: Acute Qualifiers: Qualified Codes: J18.9 - Pneumonia, unspecified organism Supervisory-Addendum Brief Verification & Attestation Participated in pt care: history, MDM, physical Personally performed: exam, history, MDM, supervision of care Care discussed with: Medical Student Procedures: n/a Results interpretation: Verified all documentation A medical student performed and documented this service in my presence. I reviewed and verified all information documented by the medical student and made modifications to such information, when appropriate. I personally performed the physical exam and medical decision making. DEMARCUS UMANZOR MED STUDENT Jun 29, 2021 13:02 JOSE DAVENPORT MD Jun 29, 2021 16:46
[2021-06-29 16:00] VITALS: BP 134/66
[2021-06-29 20:00] VITALS: BP 136/60
[2021-06-30] VITALS: BP 147/70
[2021-06-30] MEDS: PIPERACILLIN SODIUM/TAZOBACTAM 4.5 GM in NS (IVPB) 100 ML IV SCH ×3 (00:56→16:49)
[2021-06-30 04:00] VITALS: BP 139/61
[2021-06-30 05:09] LABS: HEMOGLOBIN 10.7 g/dL (11.5-16.0); MEAN CORPUSCULAR VOLUME 94 fL (80-99)
[2021-06-30 05:11] LABS: BASOPHILS % (AUTO) 0 % (0-10); EOSINOPHILS # (AUTO) 0.1 10^3/uL (0.0-0.3); EOSINOPHILS % (AUTO) 1 % (0-10); HEMATOCRIT 33 % (35-52); LYMPHOCYTES # (AUTO) 0.7 10^3/uL (1.0-4.0); LYMPHOCYTES % (AUTO) 9 % (12-44); MEAN CORPUSCULAR HEMOGLOBIN 31 pg (25-34); MEAN CORPUSCULAR HGB CONC 33 g/dL (32-36); MEAN PLATELET VOLUME 9.7 fL (9.0-12.2); MONOCYTES # (AUTO) 0.5 10^3/uL (0.0-1.0); MONOCYTES % (AUTO) 5 % (0-12); NEUTROPHILS # (AUTO) 7.2 10^3/uL (1.8-7.8); NEUTROPHILS % (AUTO) 85 % (42-75); PLATELET COUNT 116 10^3/uL (130-400); WHITE BLOOD COUNT 8.6 10^3/uL (4.3-11.0)
[2021-06-30 05:27] LABS: ALBUMIN 2.8 GM/DL (3.2-4.5); BILIRUBIN,TOTAL 3.2 MG/DL (0.1-1.0); CALCIUM 8.3 MG/DL (8.5-10.1); CREATININE SERUM 1.31 MG/DL (0.60-1.30); POTASSIUM 3.4 MMOL/L (3.6-5.0); TOTAL PROTEIN 5.6 GM/DL (6.4-8.2)
[2021-06-30] MEDS: NS IV 1000 ML 1,000 ML IV SCH ×3 (06:00→13:12)
[2021-06-30] MEDS: guaiFENesin/DM (ROBITUSSIN DM) 10 ML UDC PO PRN ×3 (06:00→21:18)
[2021-06-30] MEDS: inSUlin ASPART (NovoLOG) 1 UNIT/0.01 ML (CHARGE PER UNIT) SC SCH ×4 (06:08→20:04)
[2021-06-30 08:00] VITALS: BP 147/65
[2021-06-30 12:23] VITALS: BP 153/63
--- NOTE | 2021-06-30 12:59 | Progress Note - Hospitalist ---
PANCHOJOHNDEMARCUS A MED STUDENT 06/30/21 1259: Subjective HPI/CC On Admission Date Seen by Provider: Jun 30, 2021 Time Seen by Provider: 08:30 Sepsis and AMS secondary to acute cholangitis Subjective/Events-last exam Pt is up in bed eating breakfast. Pt states her R. great toe still hurts and she has some SOA and cough, slightly improved from yesterday. Pt denies fever, chills, cp, palpation, N/V/D, weakness or numbness. Review of Systems General: No Chills, No Fatigue HEENT: No Head Aches, No Visual Changes Pulmonary: Dyspnea, Cough Cardiovascular: No: Chest Pain, Palpitations Gastrointestinal: No: Nausea, Vomiting Genitourinary: No Dysuria, No Frequency Neurological: No: Weakness, Numbness Focused Exam Lactate Level 06/28/21 16:35: Lactic Acid Level 2.96*H 06/28/21 20:15: Lactic Acid Level 1.25 06/29/21 03:20: Lactic Acid Level 1.25 Time of Focused Exam: 22:00 Objective Exam Vital Signs Vital Signs Date Time Temp Pulse Resp B/P (MAP) Pulse Ox O2 Delivery O2 Flow Rate FiO2 06/30/21 12:47 83 06/30/21 12:23 37.0 20 153/63 (93) 95 Nasal Cannula 2.00 Capillary Refill : Less Than 3 Seconds General Appearance: No Apparent Distress, WD/WN HEENT: PERRL/EOMI Respiratory: Chest Non Tender, No Accessory Muscle Use, No Respiratory Distress, Decreased Breath Sounds, Rhonci Cardiovascular: Regular Rate, Rhythm, No Murmur Gastrointestinal: Normal Bowel Sounds, Non Tender, Soft Extremity: Normal Capillary Refill, Pedal Edema (mild nonpitting edema), Other (R. great toe tenderness to palpation) Neurologic/Psychiatric: Alert, Oriented x3, Normal Mood/Affect Skin: Warm/Dry, Pallor (improved) Results/Procedures Lab Laboratory Tests 06/30/21 04:43 Patient resulted labs reviewed. Imaging: Reviewed Imaging Films, Reviewed Imaging Report Assessment/Plan Assessment and Plan Assess & Plan/Chief Complaint 80 yo female being treated for septic shock and AMS d/t acute cholangitis and pneumonia. Septic shock -Leukocytosis with bandemia, Lactic Acidosis, Tachycardia improving -NaCl at 125 ml/hr -Blood cultures negative Acute cholangitis -Liver ultrasound unremarkable -Elevated AST and bilirubin, but trending down -Hep panel nonreactive -AMS likely d/t acute cholangitis -Zosyn Pneumonia -RLL pneumonia on CXR -Elevated procalcitonin -Zosyn -Robitussin for cough Acute respiratory failure -2L NC with good oxygen saturations Diet: Diabetic DVT prophylaxis: SCDs JOSE DAVENPORT MD 06/30/21 1350: Subjective HPI/CC On Admission Time Seen by Provider: 09:40 Assessment/Plan Assessment and Plan Assess & Plan/Chief Complaint LFTs improving. Continue antibiotics. Decrease fluids. Stable for medical floor. Diagnosis/Problems Diagnosis/Problems (1) Septic shock Status: Resolved Resolution Date/Time: 06/30/21 @ 13:43 (2) Acute cholangitis Status: Acute (3) Pneumonia Status: Acute Qualifiers: Qualified Codes: J18.9 - Pneumonia, unspecified organism (4) Lactic acidosis Status: Resolved Resolution Date/Time: 06/30/21 @ 13:43 (5) Toe pain, right Status: Acute Supervisory-Addendum Brief Verification & Attestation Participated in pt care: history, MDM, physical Personally performed: exam, history, MDM, supervision of care Care discussed with: Medical Student Procedures: n/a Results interpretation: Verified all documentation A medical student performed and documented this service in my presence. I reviewed and verified all information documented by the medical student and made modifications to such information, when appropriate. I personally performed the physical exam and medical decision making. DEMARCUS UMANZOR MED STUDENT Jun 30, 2021 12:59 JOSE DAVENPORT MD Jun 30, 2021 13:50
--- NOTE | 2021-06-30 14:53 | Diagnostic Imaging Report ---
Indication: Right 1st toe pain. Comparison: None. Discussion: Two views of the right foot were obtained. 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 No bony erosion. No fracture or dislocation. Alignment is anatomic. Soft tissues are unremarkable. No foreign body. Impression: 1. 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 Dictated by: Dictated on workstation # [id number]
[2021-06-30 15:31] VITALS: BP 153/65
[2021-06-30 20:00] VITALS: BP 143/78
[2021-07-01] VITALS: BP 152/64
[2021-07-01] MEDS: PIPERACILLIN SODIUM/TAZOBACTAM 4.5 GM in NS (IVPB) 100 ML IV SCH ×2 (01:23→07:43)
[2021-07-01] MEDS: NS IV 1000 ML 1,000 ML IV SCH (01:26)
[2021-07-01 04:00] VITALS: BP 157/85
[2021-07-01] MEDS: inSUlin ASPART (NovoLOG) 1 UNIT/0.01 ML (CHARGE PER UNIT) SC SCH ×2 (06:00→10:53)
[2021-07-01 06:46] LABS: BASOPHILS % (AUTO) 0 % (0-10); EOSINOPHILS # (AUTO) 0.1 10^3/uL (0.0-0.3); EOSINOPHILS % (AUTO) 1 % (0-10); HEMATOCRIT 33 % (35-52); HEMOGLOBIN 10.8 g/dL (11.5-16.0); LYMPHOCYTES # (AUTO) 0.9 10^3/uL (1.0-4.0); LYMPHOCYTES % (AUTO) 11 % (12-44); MEAN CORPUSCULAR HEMOGLOBIN 30 pg (25-34); MEAN CORPUSCULAR HGB CONC 32 g/dL (32-36); MEAN CORPUSCULAR VOLUME 92 fL (80-99); MEAN PLATELET VOLUME 9.8 fL (9.0-12.2); MONOCYTES # (AUTO) 0.5 10^3/uL (0.0-1.0); MONOCYTES % (AUTO) 7 % (0-12); NEUTROPHILS # (AUTO) 6.5 10^3/uL (1.8-7.8); NEUTROPHILS % (AUTO) 80 % (42-75); PLATELET COUNT 130 10^3/uL (130-400); WHITE BLOOD COUNT 8.2 10^3/uL (4.3-11.0)
[2021-07-01 07:13] LABS: BILIRUBIN,TOTAL 2.3 MG/DL (0.1-1.0); CALCIUM 8.4 MG/DL (8.5-10.1); CREATININE SERUM 1.21 MG/DL (0.60-1.30); POTASSIUM 3.3 MMOL/L (3.6-5.0); TOTAL PROTEIN 6.4 GM/DL (6.4-8.2)
[2021-07-01] MEDS: guaiFENesin/DM (ROBITUSSIN DM) 10 ML UDC PO PRN ×2 (07:43→13:00)
[2021-07-01 08:59] VITALS: BP 156/74
--- NOTE | 2021-07-01 11:55 | Physical Therapy Evaluation ---
PT Evaluation-General Medical Diagnosis Admission Date Jun 28, 2021 at 00:15 Medical Diagnosis: Sepsis Onset Date: Jun 27, 2021 Therapy Diagnosis Therapy Diagnosis: Weakness, debility Precautions Precautions/Isolations: Contact Isolation, Fall Prevention, Pressure Ulcer Referral Physician: Cooper Reason for Referral: Evaluation/Treatment Medical History Pertinent Medical History: DM, HTN, Hypothroidism, Neuropathy Additional Medical History Chronic UTI High Cholesterol Current History Patient reported to ER vis EMS from assisted living facility due to altered mental status Reviewed History: Yes Social History Home: Assisted Living Current Living Status: Alone Entry Into Home: Level Entry Prior Prior Level of Function SCALE: Activities may be completed with or without assistive devices. 7-Ugmqzhqqwv-vfldrhc completes the activity by him/herself with no assistance from a helper. 5-Set-up or Clean-up Assistance-helper sets up or cleans up; patient completes activity. [place] assists only prior to or following the activity. 4-Supervision or Touching Assistance-helper provides verbal cues and/or touching/steadying and/or contact guard assistance as patient completes activity. Assistance may be provided throughout the activity or intermittently. 3-Partial/Moderate Assistance-helper does LESS THAN HALF the effort. [place] lifts, holds or supports trunk or limbs, but provides less than half the effort. 2-Substantial/Maximal Assistance-helper does MORE THAN HALF the effort. [place] lifts or holds trunk or limbs and provides more than half the effort. 2-Yvyaoolka-ubsthv does ALL the effort. Patient does none of the effort to complete the activity. Or, the assistance of 2 or more helpers is required for the patient to complete the activity. If activity was not attempted, code reason: 7-Patient Refused. 9-Not Applicable-not attempted and the patient did not perform the activity before the current illness, exacerbation or injury. 10-Not Attempted due to Environmental Limitations-(lack of equipment, weather restraints, etc.). 88-Not Attempted due to Medical Conditions or Safety Concerns. Bed Mobility: 4 Transfers (B,C,W/C): 4 Gait: 4 Indoor Mobility (Ambulation): Needed Some Help Stairs: Unknown Prior Devices Use: Walker Patient reports that she does not leave her room, assisted with all ADL's, and they bring food to her in her room. PT Evaluation-Current Subjective Patient presents sitting in bed and agrees to participate in therapy. Objective Patient Orientation: Person, Place Attachments: [place] Catheter, IV ROM/Strength ROM Lower Extremities WFL Strength Lower Extremities 3/5 strength bilaterally grossly Integumentary/Posture Bladder Incontinence: [place] Cath Posture Patient ambulated with bent over posture and head down Neuromuscular (Tone, Coordination, Reflexes) grossly intact Sensory Vision: Functional Hearing: Functional Transfers Lying to Sitting/Side of Bed(Q: 3 Sit to Stand (QC): 3 Chair/Pqa-jw-Efwse Xfer(QC): 3 Patient required min/mod assistance for all transfers Gait Does the Patient Walk?: Yes Mode of Locomotion: Walk Anticipated Mode of Locomotion: Walk Walk 10 feet (QC): 3 Distance: 25' Gait Assistive Device: FWW Comments/Gait Description Patient ambulated for 25' within her room with FWW and min assist. Patient required frequent cues to get to the chair and turn to sit in the chair due to reaching for arm rest and "launching" herself unsafely Balance Sitting Static: Normal Sitting Dynamic: Normal Standing Static: Fair Standing Dynamic: Fair Assessment/Needs Patient was able to ambulate within her room with min assist and FWW. Patient reported that she only ambulated within her room at the assisted living facility and has assistance with all ADL's. Patient reported that her normal room was slightly bigger than the hospital room. Patient required min assist for all transfers. Patient reported that she took off her supplemental O2 earlier. Nursing staff checked her O2 saturation after ambulating and it was 90% and continued to come up the longer she recovered. Patient requires skilled therapy to increase independence within her room to return to her assisted living facility. Rehab Potential: Fair PT Long-Term Goals Long-Term Goals PT Long-Term Goals Time Frame: Jul 13, 2021 Roll Left & Right (QC): 4 Sit to Lying (QC): 4 Lying-Sitting on Side/Bed(QC): 4 Sit to Stand (QC): 4 Chair/Rra-vk-Hfkus Xfer(QC): 4 Toilet Transfer (QC): 4 Does the Patient Walk: Yes Walk 10 feet (QC): 4 Walk 50ft with 2 Turns (QC): 4 PT Plan Problem List Problem List: Activity Tolerance, Functional Strength, Safety, Balance, Gait, Transfer, Bed Mobility, ROM Treatment/Plan Treatment Plan: Continue Plan of Care Treatment Plan: Bed Mobility, Education, Functional Activity Naina, Functional Strength, Group Therapy, Gait, Safety, Therapeutic Exercise, Transfers Treatment Duration: Jul 13, 2021 Frequency: 6 times per week Estimated Hrs Per Day: .25 hour per day Patient and/or Family Agrees t: Yes Safety Risks/Education Patient Education: Gait Training, Correct Positioning, Safety Issues Teaching Recipient: Patient Teaching Methods: Discussion Time/GCodes Time In: 1015 Time Out: 1028 Total Billed Treatment Time: 13 Total Billed Treatment 1 Visit EVModC 13 min SWETHA SETHI PT Jul 01, 2021 11:55
--- NOTE | 2021-07-01 11:56 | Consultation ---
HPI History of Present Illness: HPI/Chief Complaint Consult: Possible Acute Cholangitis HPI: 80 yo F admitted on 06/27 for Sepsis and AMS. On presentation to the ED, Information was difficult to obtain as patient was not able to provide details and would open her eyes to pain. CMP and CT was obtained during initial encounter. CMP revealed an AST of 980, ALT of 502 and a T.Bili of 2.2. CT did not reveal any biliary obstruction, appreciable gallstone, or duct dilation. On 06/28, RUQ US was obtained and was unremarkable. Today, daughter and son were at bedside. Daughter reports visiting the patient on thursday (the day before admission) and stated she did not see any changes in skin tone, or patient did not report any abdominal pain. Patient experienced emesis during ED visit, but denies nausea, fevers, chills, abdominal pain, or skin changes during encounter. Denies any taking any blood thinners Source: patient, family, other (Records from ED) Exam Limitations: no limitations Date Seen 07/01/21 Attending Physician Yi Gamboa MD PCP Deandre Page MD Referring Physician Yi Gamboa Date of Admission Jun 28, 2021 at 00:15 Home Medications & Allergies Home Medications Reviewed patient Home Medication Reconciliation performed by pharmacy medication reconciliations counter intelligence technician and/or nursing. Patients Allergies have been reviewed. Allergies Allergies Coded Allergies codeine (Unverified Adverse Reaction, Unknown, 06/25/20) ketorolac (Unverified Adverse Reaction, Unknown, 06/25/20) milk (Verified Adverse Reaction, Unknown, Diarrhea, 06/29/21) naproxen (Unverified Adverse Reaction, Unknown, 06/25/20) Past Eamxiej-Oeeopn-Yooxsj Hx Patient Social History Tobacco Use?: No Use of E-Cig and/or Vaping dev: No Substance use?: No Alcohol Use?: No Pt feels they are or have been: Unable to obtain Immunizations Up To Date Date of Influenza Vaccine: Mar 01, 2022 Seasonal Allergies Seasonal Allergies: No Current Status status: No Communicates: Verbally Primary Language: [place] Preferred Spoken Language: Uruguayan Past Medical History Surgeries: Abdominal (Colon Resection), Hysterectomy High Cholesterol, Hypertension Neuropathy Gastroesophageal Reflux, Chronic Diarrhea Diabetes, Non-Insulin dep Blood Disorders: No Adverse Reaction/Blood Tranf: No Family Medical History No Pertinent Family Hx Review of Systems Constitutional: No chills, No fever EENTM: No ear pain, No eye pain Respiratory: cough, dyspnea on exertion Cardiovascular: No chest pain, No palpitations Gastrointestinal: No abdominal pain, No constipation, No nausea, No vomiting Musculoskeletal: No joint swelling, No other (joint erythema) Skin: No change in color, No change in hair/nails Psychiatric/Neurological: Denies Headache, Denies Weakness Other Denies history of brusing or bleeding Physical Exam Physical Exam Vital Signs Vital Signs - First Documented 06/27/21 20:04 Temp 39.6 Pulse 109 Resp 36 B/P (MAP) 179/72 (107) Pulse Ox 97 O2 Delivery Nasal Cannula O2 Flow Rate 2.00 Capillary Refill : Less Than 3 Seconds Height, Weight, BMI Height: '" Weight: lbs. oz. kg; 26.18 BMI Method: General Appearance: No Apparent Distress, WD/WN Eyes: Bilateral Eye PERRL, Bilateral Eye EOMI HEENT: PERRL/EOMI; No Scleral Icterus (L), No Scleral Icterus (R) Neck: Normal Inspection, Supple Respiratory: No Accessory Muscle Use, No Respiratory Distress, Decreased Breath Sounds Cardiovascular: Regular Rate, Rhythm, No Murmur, Normal Peripheral Pulses (2+ radial pulses bilaterally) Gastrointestinal: Non Tender, Soft Extremity: Non Tender (LE bilaterally), No Calf Tenderness, Other (R. great toe tenderness to palpation) Neurologic/Psychiatric: Alert, Oriented x3 Skin: Normal Color, Warm/Dry, Pallor (improved) Lymphatic: No Adenopathy (posterior cervical or supraclavicular) Results Results/Procedures Labs Laboratory Tests 06/30/21 04:43 07/01/21 06:25 Patient resulted labs reviewed. Imaging: Reviewed Imaging Films, Reviewed Imaging Report Assessment/Plan Assessment and Plan Assess & Plan/Chief Complaint Elevated bilirubin Elevated liver enzymes No evidence of biliry dilation on CT or Ultrasound Repeat CT of Abdomen Pelvis as last CT did have motion artifact Continue to monitory liver enzyme levels, and bilirubin levels Discontinue hepatotoxic agents if able Critical Care Critically Ill Patient JOSENIKOS The Chapar Jul 01, 2021 11:56
[2021-07-01 11:59] VITALS: BP 170/83
--- NOTE | 2021-07-01 12:50 | Consultation - Surgery ---
NIKOS GARCIA [facility] 07/01/21 1250: History of Present Illness History of Present Illness Patient Consulted On(kaya/time) 07/01/21 12:45 Date Seen by Provider: Jul 01, 2021 Time Seen by Provider: 01:20 Reason for Visit: Consult: Acute Cholangitis History of Present Illness Consult: Possible Acute Cholangitis HPI: 80 yo F admitted on 06/27 for Sepsis and AMS. On presentation to the ED, Information was difficult to obtain as patient was not able to provide details and would open her eyes to pain. CMP and CT was obtained during initial encounter. CMP revealed an AST of 980, ALT of 502 and a T.Bili of 2.2. CT did n ot reveal any biliary obstruction, appreciable gallstone, or duct dilation. On 06/28, RUQ US was obtained and was unremarkable. Today, daughter and son were at bedside. Daughter reports visiting the patient on thursday (the day before admission) and stated she did not see any changes in skin tone, or patient did not report any abdominal pain. Patient experienced emesis during ED visit, but denies nausea, fevers, chills, abdominal pain, or skin changes during encounter. Allergies and Home Medications Allergies Coded Allergies: codeine (Unverified Adverse Reaction, Unknown, 06/25/20) ketorolac (Unverified Adverse Reaction, Unknown, 06/25/20) milk (Verified Adverse Reaction, Unknown, Diarrhea, 06/29/21) naproxen (Unverified Adverse Reaction, Unknown, 06/25/20) Patient Home Medication List Home Medication List Reviewed: Yes Acetaminophen (Acetaminophen) 500 Mg Tablet, 1,000 MG PO HS, (Reported) Entered as Reported by: BONITA MEDLEY on 06/25/20 112 Last Action: Held Acetaminophen (Tylenol Extra Strength) 500 Mg Tablet, 1,000 MG PO TID PRN for PAIN-MILD (1-4), (Reported) Entered as Reported by: LEVY DEVI on 06/28/21 1053 Last Action: Held Atorvastatin Calcium (Atorvastatin Calcium) 80 Mg Tablet, 80 MG PO HS, (Reported) Entered as Reported by: BONITA MEDLEY on 06/25/20 1128 Last Action: Held Cetirizine HCl (Cetirizine HCl) 10 Mg Tablet, 10 MG PO DAILY, (Reported) Entered as Reported by: BONITA MEDLEY on 06/25/201127 Last Action: Held Cholecalciferol (Vitamin D3) (Vitamin D3) 25 Mcg Capsule, 25 MCG PO DAILY, (Reported) Entered as Reported by: LEVY DEVI on 06/28/211052 Last Action: Held Cranberry Extract/Vit C (Azo Cranberry Softgel) 1 Each Capsule, 1 EACH PO DAILY, (Reported) Entered as Reported by: LEVY DEVI on 06/28/211052 Last Action: Held Cyanocobalamin (Vitamin B-12) (Vitamin B-12) 1,000 Mcg Tablet, 1,000 MCG PO DAILY, (Reported) Entered as Reported by: BONITA MEDLEY on 06/25/201127 Last Action: Held Donepezil HCl (Donepezil HCl) 5 Mg Tablet, 5 MG PO HS, (Reported) Entered as Reported by: BONITA MEDLEY on 06/25/201127 Last Action: Continued Dulaglutide (Trulicity) 1.5 Mg/0.5 Ml Pen.injctr, 1.5 MG SC WED, (Reported) Entered as Reported by: BONITA MEDLEY on 06/25/201127 Last Action: Held Gabapentin (Gabapentin) 600 Mg Tablet, 600 MG PO HS, (Reported) Entered as Reported by: BONITA MEDLEY on 06/25/201127 Last Action: Continued Gabapentin (Neurontin) 300 Mg Capsule, 300 MG PO DAILY, (Reported) Entered as Reported by: BONITA MEDLEY on 06/25/201127 Last Action: Continued Glimepiride (Glimepiride) 4 Mg Tablet, 4 MG PO BID WITH MEALS, (Reported) Entered as Reported by: BONITA MEDLEY on 06/25/201127 Last Action: Held L.acidoph & Paracasei,B.lactis (Probiotic) 1 Each Capsule, 1 EACH PO DAILY, (Reported) Entered as Reported by: LEVY DEVI on 06/28/211052 Last Action: Held Levothyroxine Sodium (Levothyroxine Sodium) 50 Mcg Tablet, 50 MCG PO DAILY, (Reported) Entered as Reported by: BONITA MEDLEY on 06/25/201127 Last Action: Continued Lisinopril (Lisinopril) 5 Mg Tablet, 5 MG PO DAILY, (Reported) Entered as Reported by: BONITA MEDLEY on 06/25/201127 Last Action: Held Loperamide HCl (Loperamide) 2 Mg Capsule, 2 MG PO Q4H PRN for DIARRHEA, (Reported) Entered as Reported by: LEVY DEVI on 06/28/211052 Last Action: Held Mag Hydrox/Al Hydrox/Simeth (Mylanta Suspension) 30 Ml Oral.susp, 30 ML PO Q8H PRN for INDIGESTION, (Reported) Entered as Reported by: LEVY DEVI on 06/28/211052 Last Action: Held Metoprolol Succinate (Metoprolol Succinate) 100 Mg Tab.er.24h, 100 MG PO DAILY, (Reported) Entered as Reported by: BONITA MEDLEY on 06/25/201127 Last Action: Continued Mirabegron (Myrbetriq) 25 Mg Tab.er.24h, 25 MG PO DAILY, (Reported) Entered as Reported by: BONITA MEDLEY on 06/25/201127 Last Action: Converted Nystatin (Nystatin) 1 Each Powder.ea., 1 EACH TOP BID PRN for GAULDING, (Reported) Entered as Reported by: LEVY DEVI on 06/28/211052 Last Action: Held Ondansetron (Ondansetron Odt) 4 Mg Tab.rapdis, 4 MG PO Q6H PRN for NAUSEA/VOMITING-1ST LINE, (Reported) Entered as Reported by: LEVY DEVI on 06/28/211052 Last Action: Held Pantoprazole Sodium (Pantoprazole Sodium) 40 Mg Tablet.dr, 40 MG PO DAILY, (Reported) Entered as Reported by: BONITA MEDLEY on 06/25/201127 Last Action: Continued Polyethylene Glycol 3350 (Miralax) 17 Gm Powd.pack, 17 GM PO DAILY PRN for CONSTIPATION-2ND LINE, (Reported) Entered as Reported by: LEVY DEVI on 06/28/211052 Last Action: Held Polyvinyl Alcohol/Povidone (Clear Eyes Natural Tears Drop) 15 Ml Drops, 1 DROP OU QID PRN for DRY EYES, (Reported) Entered as Reported by: LEVY DEVI on 06/28/211052 Last Action: Held Ropinirole HCl (Ropinirole HCl) 0.25 Mg Tablet, 0.25 MG PO BID, (Reported) Entered as Reported by: LEVY DEVI on 06/28/21 105 Last Action: Continued Tramadol HCl (Tramadol HCl) 50 Mg Tablet, 50 MG PO BID, (Reported) Entered as Reported by: BONITA MEDLEY on 06/25/20 112 Last Action: Held Discontinued Medications Lactobac Cmb #3/Fos/Pantethine (Probiotic & Acidophilus Cap) 1 Each Capsule, 1 EACH PO DAILY, (Reported) Discontinued Reason: Prescription changed Entered as Reported by: BONITA MEDLEY on 06/25/201127 [Vitamin D] , (Reported) Discontinued Reason: Prescription changed Entered as Reported by: BONITA MEDLEY on 06/25/201127 Past Ttquihd-Xdqszp-Daxzdc Hx Patient Social History Smoking Status: Never a Smoker 2nd Hand Smoke Exposure: No Recent Hopitalizations: No (patient poor historian; complete history unknown) Alcohol Use?: No Have you traveled recently?: No Immunizations Up To Date Date of Influenza Vaccine: Mar 01, 2022 Seasonal Allergies Seasonal Allergies: No Surgeries Surgeries: Abdominal (Colon Resection), Hysterectomy Respiratory History of Respiratory Disorde: No Cardiovascular History of Cardiac Disorders: Yes Cardiac Disorders: High Cholesterol, Hypertension Neurological History of Neurological Disord: Yes Neurological Disorders: Neuropathy Genitourinary History of Genitourinary Disor: Yes Gastrointestinal History of Gastrointestinal Di: Yes Gastrointestinal Disorders: Gastroesophageal Reflux, Diverticulosis, Chronic Diarrhea Musculoskeletal History of Musculoskeletal Dis: No Endocrine History of Endocrine Disorders: Yes Endocrine Disorders: Diabetes, Non-Insulin dep HEENT History of HEENT Disorders: No Cancer History of Cancer: No Psychosocial History of Psychiatric Problem: No Integumentary History of Skin or Integumenta: No Blood Transfusions History of Blood Disorders: No Adverse Reaction to a Blood Tr: No Family Medical History Significant Family History: No Pertinent Family Hx Review of Systems-General Constitutional: No chills, No fever EENTM: No ear pain, No eye pain Respiratory: cough, dyspnea on exertion Cardiovascular: No chest pain, No palpitations Gastrointestinal: No abdominal pain, No constipation, No nausea, No vomiting Musculoskeletal: No joint swelling, No other (Joint Erythema) Skin: No change in color, No change in hair/nails Psychiatric/Neurological: Denies Headache, Denies Weakness Other No History of Bruising or bleeding Physical Exam-General Problems Physical Exam Vital Signs Vital Signs - First Documented 06/27/21 20:04 Temp 39.6 Pulse 109 Resp 36 B/P (MAP) 179/72 (107) Pulse Ox 97 O2 Delivery Nasal Cannula O2 Flow Rate 2.00 Capillary Refill : Less Than 3 Seconds General Appearance: WD/WN, no apparent distress HEENT: PERRL/EOMI; No scleral icterus (R), No scleral icterus (L) Neck: non-tender, normal inspection Respiratory: no respiratory distress, no accessory muscle use, decreased breath sounds Cardiovascular: regular rate, rhythm, no murmur Peripheral Pulses: 2+ Radial Pulses (R), 2+ Radial Pulses (L) Gastrointestinal: non tender, soft Extremities: non-tender (LE bilaterally), no calf tenderness Neurologic/Psychiatric: alert, oriented x 3 Skin: normal color, warm/dry Lymphatic: no adenopathy (Posterior cervical or supraclavicular) Data Review Labs Laboratory Tests 06/30/21 15:35: Glucometer 135H 06/30/21 20:01: Glucometer 91 07/01/21 06:25: White Blood Count 8.2, Red Blood Count 3.61L, Hemoglobin 10.8L, Hematocrit 33L, Mean Corpuscular Volume 92, Mean Corpuscular Hemoglobin 30, Mean Corpuscular Hemoglobin Concent 32, Red Cell Distribution Width 13.5, Platelet Count 130, Mean Platelet Volume 9.8, Immature Granulocyte % (Auto) 1, Neutrophils (%) (Auto) 80H, Lymphocytes (%) (Auto) 11L, Monocytes (%) (Auto) 7, Eosinophils (%) (Auto) 1, Basophils (%) (Auto) 0, Neutrophils # (Auto) 6.5, Lymphocytes # (Auto) 0.9L, Monocytes # (Auto) 0.5, Eosinophils # (Auto) 0.1, Basophils # (Auto) 0.0, Immature Granulocyte # (Auto) 0.1, Sodium Level 141, Potassium Level 3.3L, Chloride Level 112H, Carbon Dioxide Level 18L, Anion Gap 11, Blood Urea Nitrogen 13, Creatinine 1.21, Estimat Glomerular Filtration Rate 45, BUN/Creatinine Ratio 11, Glucose Level 93, Calcium Level 8.4L, Corrected Calcium 9.2, Total Bilirubin 2.3H, Aspartate Amino Transf (AST/SGOT) 28, Alanine Aminotransferase (ALT/SGPT) 150H, Alkaline Phosphatase 142H, Total Protein 6.4, Albumin 3.0L 07/01/21 10:51: Glucometer 109 Microbiology 06/28/21 Gram Stain - Final, Complete 06/28/21 Sputum Culture - Final, Complete Usual upper respiratory sena Escherichia coli 06/27/21 Blood Culture - Preliminary, Resulted No growth Assessment/Plan Assessment/Plan Admission Diagonsis AMS, Sepsis Assessment/Plan Elevated bilirubin Elevated liver enzymes No evidence of biliry dilation on CT or Ultrasound Repeat CT of Abdomen Pelvis as last CT did have motion artifact Continue to monitory liver enzyme levels, and bilirubin levels Discontinue hepatotoxic agents if able Final Diagnosis Sepsis TAMIE CRISTOBAL DO 07/01/21 1314: History of Present Illness History of Present Illness Time Seen by Provider: 12:41 History of Present Illness Surgery consulted to rule out Cholangitis When I spoke to pt this afternoon, she denied any abdominal pain. She actually stated she has not had any abdominal since 2001 when she had episode of Diverticulitis. She also said she would not want any surgery even if she needed it. Allergies and Home Medications Allergies Coded Allergies: codeine (Unverified Adverse Reaction, Unknown, 06/25/20) ketorolac (Unverified Adverse Reaction, Unknown, 06/25/20) milk (Verified Adverse Reaction, Unknown, Diarrhea, 06/29/21) naproxen (Unverified Adverse Reaction, Unknown, 06/25/20) Patient Home Medication List Home Medication List Reviewed: Yes Acetaminophen (Acetaminophen) 500 Mg Tablet, 1,000 MG PO HS, (Reported) Entered as Reported by: BONITA MEDLEY on 06/25/20 1128 Last Action: Held Acetaminophen (Tylenol Extra Strength) 500 Mg Tablet, 1,000 MG PO TID PRN for PAIN-MILD (1-4), (Reported) Entered as Reported by: LEVY DEVI on 06/28/21 1053 Last Action: Held Atorvastatin Calcium (Atorvastatin Calcium) 80 Mg Tablet, 80 MG PO HS, (Reported) Entered as Reported by: BONITA MEDLEY on 06/25/20 1128 Last Action: Held Cetirizine HCl (Cetirizine HCl) 10 Mg Tablet, 10 MG PO DAILY, (Reported) Entered as Reported by: BONITA MEDLEY on 06/25/201127 Last Action: Held Cholecalciferol (Vitamin D3) (Vitamin D3) 25 Mcg Capsule, 25 MCG PO DAILY, (Reported) Entered as Reported by: LEVY DEVI on 06/28/211052 Last Action: Held Cranberry Extract/Vit C (Azo Cranberry Softgel) 1 Each Capsule, 1 EACH PO DAILY, (Reported) Entered as Reported by: LEVY DEVI on 06/28/211052 Last Action: Held Cyanocobalamin (Vitamin B-12) (Vitamin B-12) 1,000 Mcg Tablet, 1,000 MCG PO DAILY, (Reported) Entered as Reported by: BONITA MEDLEY on 06/25/201127 Last Action: Held Donepezil HCl (Donepezil HCl) 5 Mg Tablet, 5 MG PO HS, (Reported) Entered as Reported by: BONITA MEDLEY on 06/25/201127 Last Action: Continued Dulaglutide (Trulicity) 1.5 Mg/0.5 Ml Pen.injctr, 1.5 MG SC WED, (Reported) Entered as Reported by: BONITA MEDLEY on 06/25/201127 Last Action: Held Gabapentin (Gabapentin) 600 Mg Tablet, 600 MG PO HS, (Reported) Entered as Reported by: BONITA MEDLEY on 06/25/201127 Last Action: Continued Gabapentin (Neurontin) 300 Mg Capsule, 300 MG PO DAILY, (Reported) Entered as Reported by: BONITA MEDLEY on 06/25/201127 Last Action: Continued Glimepiride (Glimepiride) 4 Mg Tablet, 4 MG PO BID WITH MEALS, (Reported) Entered as Reported by: BONITA MEDLEY on 06/25/201127 Last Action: Held L.acidoph & Paracasei,B.lactis (Probiotic) 1 Each Capsule, 1 EACH PO DAILY, (Reported) Entered as Reported by: LEVY DEVI on 06/28/211052 Last Action: Held Levothyroxine Sodium (Levothyroxine Sodium) 50 Mcg Tablet, 50 MCG PO DAILY, (Reported) Entered as Reported by: BONITA MEDLEY on 06/25/201127 Last Action: Continued Lisinopril (Lisinopril) 5 Mg Tablet, 5 MG PO DAILY, (Reported) Entered as Reported by: BONITA MEDLEY on 06/25/201127 Last Action: Held Loperamide HCl (Loperamide) 2 Mg Capsule, 2 MG PO Q4H PRN for DIARRHEA, (Reported) Entered as Reported by: LEVY DEVI on 06/28/211052 Last Action: Held Mag Hydrox/Al Hydrox/Simeth (Mylanta Suspension) 30 Ml Oral.susp, 30 ML PO Q8H PRN for INDIGESTION, (Reported) Entered as Reported by: LEVY DEVI on 06/28/211052 Last Action: Held Metoprolol Succinate (Metoprolol Succinate) 100 Mg Tab.er.24h, 100 MG PO DAILY, (Reported) Entered as Reported by: BONITA MEDLEY on 06/25/201127 Last Action: Continued Mirabegron (Myrbetriq) 25 Mg Tab.er.24h, 25 MG PO DAILY, (Reported) Entered as Reported by: BONITA MEDLEY on 06/25/201127 Last Action: Converted Nystatin (Nystatin) 1 Each Powder.ea., 1 EACH TOP BID PRN for GAULDING, (Reported) Entered as Reported by: LEVY DEVI on 06/28/211052 Last Action: Held Ondansetron (Ondansetron Odt) 4 Mg Tab.rapdis, 4 MG PO Q6H PRN for NAUSEA/VOMI TING-1ST LINE, (Reported) Entered as Reported by: LEVY DEVI on 06/28/211052 Last Action: Held Pantoprazole Sodium (Pantoprazole Sodium) 40 Mg Tablet.dr, 40 MG PO DAILY, (Reported) Entered as Reported by: BONITA MEDLEY on 06/25/201127 Last Action: Continued Polyethylene Glycol 3350 (Miralax) 17 Gm Powd.pack, 17 GM PO DAILY PRN for CONSTIPATION-2ND LINE, (Reported) Entered as Reported by: LEVY DEVI on 06/28/211052 Last Action: Held Polyvinyl Alcohol/Povidone (Clear Eyes Natural Tears Drop) 15 Ml Drops, 1 DROP OU QID PRN for DRY EYES, (Reported) Entered as Reported by: LEVY DEVI on 06/28/21 105 Last Action: Held Ropinirole HCl (Ropinirole HCl) 0.25 Mg Tablet, 0.25 MG PO BID, (Reported) Entered as Reported by: LEVY DEVI on 06/28/21 105 Last Action: Continued Tramadol HCl (Tramadol HCl) 50 Mg Tablet, 50 MG PO BID, (Reported) Entered as Reported by: BONITA MEDLEY on 06/25/20 112 Last Action: Held Discontinued Medications Lactobac Cmb #3/Fos/Pantethine (Probiotic & Acidophilus Cap) 1 Each Capsule, 1 EACH PO DAILY, (Reported) Discontinued Reason: Prescription changed Entered as Reported by: BONITA MEDLEY on 06/25/201127 [Vitamin D] , (Reported) Discontinued Reason: Prescription changed Entered as Reported by: BONITA MEDLEY on 06/25/201127 Past Swarhzf-Ldtnjx-Xoqfkn Hx Patient Social History Smoking Status: Never a Smoker Alcohol Use?: No Seasonal Allergies Seasonal Allergies: No Surgeries History of Surgeries: Yes Surgeries: Abdominal (colon resection), Hysterectomy Respiratory History of Respiratory Disorde: No Cardiovascular History of Cardiac Disorders: Yes Cardiac Disorders: High Cholesterol, Hypertension Neurological History of Neurological Disord: Yes Neurological Disorders: Neuropathy Genitourinary History of Genitourinary Disor: No Gastrointestinal History of Gastrointestinal Di: Yes Gastrointestinal Disorders: Gastroesophageal Reflux, Diverticulosis, Chronic Diarrhea Musculoskeletal History of Musculoskeletal Dis: Yes Musculoskeletal Disorders: Arthritis Endocrine History of Endocrine Disorders: Yes Endocrine Disorders: Diabetes, Non-Insulin dep HEENT History of HEENT Disorders: Yes HEENT Disorders: Cataract Hearing Impairment: Hard of Hearing Cancer History of Cancer: No Psychosocial History of Psychiatric Problem: No Family Medical History Significant Family History: Hypertension (denied either parent had HTN) Review of Systems-General Constitutional: No chills, No fever EENTM: No ear pain, No eye pain Respiratory: cough, dyspnea on exertion Cardiovascular: No chest pain, No palpitations Gastrointestinal: No abdominal pain, No constipation, No nausea, No vomiting Genitourinary: No dysuria; incontinence Musculoskeletal: back pain, joint pain, joint swelling Skin: No change in color, No change in hair/nails Psychiatric/Neurological: Denies Headache; Tremors Physical Exam-General Problems Physical Exam General Appearance: WD/WN (looks her age), mild distress (coughin uncontrollably when I walked in) Eyes: Bilateral Eye PERRL, Bilateral Eye EOMI HEENT: scleral icterus (R), scleral icterus (L) Neck: non-tender, supple Respiratory: no respiratory distress, no accessory muscle use, decreased breath sounds, rhonchi, wheezing Cardiovascular: regular rate, rhythm, no murmur Gastrointestinal: non tender, soft, hernia (small umbilical) Extremities: no calf tenderness Neurologic/Psychiatric: alert, oriented x 3 Skin: normal color, warm/dry Lymphatic: no adenopathy (Posterior cervical or supraclavicular) Data Review Radiology Date of Exam:06/27/21 CT CHEST/ABDOMEN/PELVIS W PROCEDURE: CT chest, abdomen, and pelvis with contrast. TECHNIQUE: Multiple contiguous axial images were obtained through the chest, abdomen, and pelvis after the administration of intravenous contrast. Auto Exposure Controls were utilized during the CT exam to meet ALARA standards for radiation dose reduction. INDICATION: Altered mental status. COMPARISON: CT abdomen and pelvis 06/26/2019. CT CHEST: There is retrocardiac gastric hernia, stable from prior. There is subjacent infrahilar and left greater right basilar atelectasis and nonspecific infiltrate. There is no pneumothorax. There is no effusion. The thoracic aorta is patent and nonaneurysmal. No central PE identified. No suspicious lung mass. No acute appearing abnormality. CT ABDOMEN/PELVIS: There is no bowel biliary or urinary tract obstruction. The urinary bladder is catheterized the sensitivity is limited by motion artifact. No appreciable gallstone or bile duct dilatation. The spleen, adrenals and pancreas are nonacute. The kidneys are unobstructed. The aorta is atherosclerotic but patent and nonaneurysmal. There is no diverticulitis or appendicitis. No perienteric or pericolonic edema. No focal inflammatory process. IMPRESSION: 1. CT chest: Chronic retrocardiac hernia, bibasilar atelectasis and/or infiltrates have increased from prior. No other potential acute chest abnormality. 2. CT abdomen/pelvis: The abdominopelvic portion is limited by motion artifact. It showed no obstructive features, inflammatory processes, ascites, fluid collections, adenopathy, mass, aneurysm or acute abnormality. Dictated by: Dictated on workstation # [id number] Dict: 01/2154 Trans: 06/27/212221 [facility] [id number] Interpreted by: INDIRA QUICK Electronically signed by: INDIRA QUICK 06/27/212221 Date of Exam:06/28/21 US HEPATIC (LIVER)[id number] PROCEDURE: US Hepatic (Liver). TECHNIQUE: Multiple real-time grayscale images were obtained over the right upper quadrant in various projections. INDICATION: Hepatitis Liver parenchyma is homogeneous with normal echotexture. Gallbladder is clear with no stones or wall thickening. The common duct is not appreciably dilated. Pancreas is largely obscured by bowel gas. Aorta is obscured by bowel gas. IVC is patent. Right kidney measures 9.8 cm in length and appears normal. There is no ascites. IMPRESSION: Unremarkable gallbladder ultrasound. Dictated by: Dictated on workstation # [id number] Dict: [id number] Trans: 06/28/21 1140 CVB [id number] Interpreted by: JAVON PINTO MD Electronically signed by: JAVON PINTO MD 06/28/21 1140 Assessment/Plan Assessment/Plan Assessment/Plan Sepsis - unknown source Hyperbilirubinemia Elevated LFT's Pneumonia vs Atlelectasis Large Hiatal Hernia I doubt pt had a cholangitis, with no abdominal pain and a WBC that normalized that quickly. I am not sure why her liver enzymes were out of wack. She strongly stated she would not want surgery even if she needed it. Will sign off, thank you for consult. Supervisory-Addendum Brief Verification & Attestation Participated in pt care: history, MDM, physical Personally performed: exam, history, MDM, supervision of care Care discussed with: Medical Student Procedures: n/a Verification and Attestation of Medical Student E/M Service A medical student performed and documented this service. I then reviewed and verified all information documented by the medical student and made modifications to such information, when appropriate. I personally performed a physical exam, medical decision making and then discussed any differences between the notes and made revisions as necessary to create one note. Tamie Cristobal , 07/01/21 , 13:22 NIKOS GARCIA [facility] Jul 01, 2021 12:50 TAMIE CRISTOBAL DO Jul 01, 2021 13:14
[2021-07-01 13:07] VITALS: BP 170/83
[2021-07-01] MEDS ORDERED: GABAPENTIN 600 MG (NEURONTIN) TAB PO SCH (21:00)
[2021-07-01] MEDS ORDERED: rOPINIRole 0.25 MG (REQUIP) TAB PO SCH (21:00)
[2021-07-01] MEDS ORDERED: DONEPEZIL 5 MG (ARICEPT) TAB PO SCH (21:00)
[2021-07-02] MEDS ORDERED: LEVOTHYROXINE 50 MCG (LEVOTHROID) TAB PO SCH (06:30)
[2021-07-02] MEDS ORDERED: NON-FORMULARY MEDICATION 1 EA EA (Mirabegron (Myrbetriq) 25 MG) PO SCH (09:00)
[2021-07-02] MEDS ORDERED: meTOprolol SUCCINATE 100 MG (TOPROL XL) TAB PO SCH (09:00)
[2021-07-02] MEDS ORDERED: GABAPENTIN 300 MG (NEURONTIN) CAP PO SCH (09:00)
[2021-07-02] MEDS ORDERED: PANTOPRAZOLE 40 MG (PROTONIX) TAB PO SCH (09:00)
== END 2021-07-01 13:14 | DRG 871 ==
LOC: EDUNIT# 20:04 → ER FS 20:05 → CSD 06-28 00:15 → 4TH 07-01 07:35
PROVIDERS: ADMIT Internal Medicine; ATTEND Internal Medicine
DX: A41.9 Sepsis, unspecified organism (principal); R65.21 Severe sepsis with septic shock; J18.9 Pneumonia, unspecified organism; J96.00 Acute respiratory failure, unspecified whether with hypoxia or hypercapnia; G93.40 Encephalopathy, unspecified; E87.2 Acidosis; I10 Essential (primary) hypertension; E11.42 Type 2 diabetes mellitus with diabetic polyneuropathy; Z20.822 Contact with and (suspected) exposure to COVID-19; E78.00 Pure hypercholesterolemia, unspecified; E78.5 Hyperlipidemia, unspecified; E80.6 Other disorders of bilirubin metabolism; E03.9 Hypothyroidism, unspecified; K21.9 Gastro-esophageal reflux disease without esophagitis; R74.01 Elevation of levels of liver transaminase levels; M79.674 Pain in right toe(s); M19.91 Primary osteoarthritis, unspecified site; Z88.6 Allergy status to analgesic agent; Z79.84 Long term (current) use of oral hypoglycemic drugs; Z91.09 Other allergy status, other than to drugs and biological substances
CPT/HCPCS: 36410; 36415; 51702; 70450; 71045; 71260; 73620; 74177; 76705; 76937; 80053; 80074; 80076; 80329; 81000; 82805; 82947; 83605; 84145; 84484; 85007; 85025; 85027; 85379; 85610; 85730; 87040; 87070; 87205; 87635; 87636; 87804; 93005; 93041; 94640; 99291

== ENCOUNTER 2021-07-01 10:27 | Inpatient (IN) | payer MEDICARE, OTHER ==
[~2021-07-01] VITALS: Ht 172 cm; Wt 88.6 kg
[~2021-07-01 10:27] MED LIST changes: +ACET-2267 PO; +CHOL10007 PO; +CRAN1CAP5 PO; +L.AC1CAP6 PO; +LOPE2CAP PO; +MAG30ORA2 PO; +NYST1POW22 TOP; +POLY15DR57 OU; +POLY17PO6 PO; +ROPI0.253 PO
--- NOTE | 2021-07-01 10:54 | PM&R Post Admission Assessment ---
PM&R HP Date of Visit: Jul 01, 2021 Time of Visit: 15:00 History of Present Illness CC: Debility following critical illness HPI: 80 yr old WF who lives in [facility] who has a past medical history of GERD, hiatal hernia, and hypothyroidism, with UTIs. Who presents after a critical illness of pneumonia right lower lobe with sputum positive for E.Coli. She has been maintained on Zosyn, breathing treatments, and gentle IV fluids. There was a question whether it was a gallbladder source. Ultrasound was normal but the CT scan did show some abnormalities. General surgery will be consulted to evaluate any additional work up for that. She reports feeling very weak and an appetite loss. Chief Complaint: cough, generalized fatigue HPI: Patient is a 80y/o F who came from [facility] with septic shock and altered mental status. She has been receiving antibiotic treatment for the last 3 days for probable bacterial pneumonia. She tested negative for COVID on 06/28 and flu on 06/27. A sputum cx on 06/28 was positive for E.coli. She is com plaining of a productive cough and general fatigue likely secondary to her critical illness. She has started to advance her diet but is only able to eat fruit at this time. She had a bowel movement yesterday and is able to ambulate despite reported right toe pain. Patient denies fever, chills, chest pain, palpitations, nausea, vomiting, headaches, vision changes, diarrhea, constipa tion, and difficulty with urination. Patient is oriented to place and denies confusion this morning. PMHx: HTN, HLD, DM, GERD w/ hiatal hernia on CT, hypothyroidism, chronic UTIs, neuropathy SurgHx: hysterectomy Meds: Zosyn 25ml/hr IV q8h, tylenol PRN, robutussin PRN, Sliding scale insulin aspart Allergies: codeine, ketorolac, naproxen FamHx: unable to obtain SocHx: pt denies smoking or drinking alcohol, she denies any illicit drug use OBJECTIVE Vitals: T: 37.2 C, HR: 71 RR: 22, BP: 153/65 (94), O2: 94% on 2L NC Pertinent Labs: WBC 8.2 (down form 13 on 06/28), Hgb 10.2, AST: 63H, ALT: 226 H, Alk Phos: UA: negative for infection Physical Exam: Gen: Alert and oriented x3, fatigue CV: reg rate and rhythm, no murmurs, rubs or gallops Pulm: good air flow, no crackles or wheezes Abdomen: non-tender on palpitation, bowel sounds present Extremities: right toe pain is improved per pt Imaging: CXR 06/28: RLL pneumonia US liver 06/28: unremarkable Foot X-ray 06/30: moderate degenerative disease within the right 1st MTP joint ASSESMENT & PLAN 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, PT and OT - advance diet as tolerated RLL PNA - CXR on 06/28 showed RLL infiltrates - on zosyn since 06/29, will continue - sputum cx positive 06/28 for e.coli - blood cx x2 06/27: NFTD - COVID neg, vaccine 06/28/2021 - Flu neg, vaccine 03/01/2021 Transaminitis w/elevated alk phos - AST: 28H, ALT 150H - Alk phos 142H - liver us: unremarkable - surgury cosulted, appreciate recs Right toe pain - foot x-ray 06/30 showed moderate degenerative changes - better today - continue to monitor Diabetes SSI Dispo: to inpatient rehab today VALENCIA,BELLA Smalls Jul 01, 2021 11:39 Past [id number]-[id number] Hx Past Med/Social Hx: Reviewed Nursing Past Med/Soc Hx, Reviewed and Corrections made Patient Social History Marrital Status: single Employed/Student: retired Alcohol Use: Denies Use Smoking Status: Never a Smoker 2nd Hand Smoke Exposure: No Recent Hopitalizations: No (patient poor historian; complete history unknown) Immunizations Up To Date Date of Influenza Vaccine: Mar 01, 2022 Seasonal Allergies Seasonal Allergies: No Past Medical History Cardiac: High Cholesterol, Hypertension Neurological: Dementia, Neuropathy Genitourinary: Bladder Infection, Renal Failure, UTI-Chronic Gastrointestinal: Gastroesophageal Reflux Endocrine: Hypothyroidsim, Diabetes, Non-Insulin dep History of Blood Disorders: No Adverse Reaction to Blood Husain: No Family History No Pertinent Family Hx PM&R Allergy/Meds/Data Review Allergies Coded Allergies: codeine (Unverified Adverse Reaction, Unknown, 06/25/20) ketorolac (Unverified Adverse Reaction, Unknown, 06/25/20) milk (Verified Adverse Reaction, Unknown, Diarrhea, 06/29/21) naproxen (Unverified Adverse Reaction, Unknown, 06/25/20) Home Medications Scheduled Acetaminophen (Acetaminophen), 1,000 MG PO HS, (Reported) Atorvastatin Calcium (Atorvastatin Calcium), 80 MG PO HS, (Reported) Cetirizine HCl (Cetirizine HCl), 10 MG PO DAILY, (Reported) Cholecalciferol (Vitamin D3) (Vitamin D3), 25 MCG PO DAILY, (Reported) Cranberry Extract/Vit C (Azo Cranberry Softgel), 1 EACH PO DAILY, (Reported) Cyanocobalamin (Vitamin B-12) (Vitamin B-12), 1,000 MCG PO DAILY, (Reported) Donepezil HCl (Donepezil HCl), 5 MG PO HS, (Reported) Dulaglutide (Trulicity), 1.5 MG SC WED, (Reported) Gabapentin (Gabapentin), 600 MG PO HS, (Reported) Gabapentin (Neurontin), 300 MG PO DAILY, (Reported) Glimepiride (Glimepiride), 4 MG PO BID WITH MEALS, (Reported) L.acidoph & Paracasei,B.lactis (Probiotic), 1 EACH PO DAILY, (Reported) Levothyroxine Sodium (Levothyroxine Sodium), 50 MCG PO DAILY, (Reported) Lisinopril (Lisinopril), 5 MG PO DAILY, (Reported) Metoprolol Succinate (Metoprolol Succinate), 100 MG PO DAILY, (Reported) Mirabegron (Myrbetriq), 25 MG PO DAILY, (Reported) Pantoprazole Sodium (Pantoprazole Sodium), 40 MG PO DAILY, (Reported) Ropinirole HCl (Ropinirole HCl), 0.25 MG PO BID, (Reported) Tramadol HCl (Tramadol HCl), 50 MG PO BID, (Reported) Scheduled PRN Acetaminophen (Tylenol Extra Strength), 1,000 MG PO TID PRN for PAIN-MILD (1-4), (Reported) Loperamide HCl (Loperamide), 2 MG PO Q4H PRN for DIARRHEA, (Reported) Mag Hydrox/Al Hydrox/Simeth (Mylanta Suspension), 30 ML PO Q8H PRN for INDIGESTION, (Reported) Nystatin (Nystatin), 1 EACH TOP BID PRN for GAULDING, (Reported) Ondansetron (Ondansetron Odt), 4 MG PO Q6H PRN for NAUSEA/VOMITING-1ST LINE, (Reported) Polyethylene Glycol 3350 (Miralax), 17 GM PO DAILY PRN for CONSTIPATION-2ND LINE, (Reported) Polyvinyl Alcohol/Povidone (Clear Eyes Natural Tears Drop), 1 DROP OU QID PRN for DRY EYES, (Reported) Discontinued Medications Lactobac Cmb #3/Fos/Pantethine (Probiotic & Acidophilus Cap), 1 EACH PO DAILY, (Reported) Discontinued Reason: Prescription changed [Vitamin D], (Reported) Discontinued Reason: Prescription changed Current Medications Current Medications Reviewed Review of Systems Constitutional: see HPI, malaise, weakness EENTM: no symptoms reported Respiratory: cough Cardiovascular: no symptoms reported Gastrointestinal: no symptoms reported Genitourinary: no symptoms reported Musculoskeletal: back pain, joint pain Skin: no symptoms reported Psychiatric/Neurological: Anxiety, Depressed All Other Systems Reviewed Negative Unless Noted: Yes Physical Exam Physical Exam Vital Signs Capillary Refill : Height, Weight, BMI Height: '" Weight: lbs. oz. kg; 26.18 BMI Method: General Appearance: No Apparent Distress, WD/WN, Chronically ill, Obese Eyes: Bilateral Eye Normal Inspection, Bilateral Eye PERRL HEENT: PERRL/EOMI, Normal ENT Inspection, Pharynx Normal Neck: Full Range of Motion, Normal Inspection, Non Tender, Supple, Carotid Bruit Respiratory: Chest Non Tender, Normal Breath Sounds, No Accessory Muscle Use, No Respiratory Distress, Crackles, Decreased Breath Sounds Cardiovascular: Regular Rate, Rhythm, No Edema, No Gallop, No JVD, No Murmur, Normal Peripheral Pulses Gastrointestinal: Normal Bowel Sounds, No Organomegaly, No Pulsatile Mass, Non Tender, Soft Back: Normal Inspection, No CVA Tenderness, No Vertebral Tenderness Extremity: Normal Capillary Refill, Normal Inspection, Normal Range of Motion, Non Tender, No Calf Tenderness, No Pedal Edema Neurologic/Psychiatric: Alert, Oriented x3, No Motor/Sensory Deficits, Normal Mood/Affect Skin: Normal Color, Warm/Dry Lymphatic: No Adenopathy PM&R Medical Assessment & Plan REHAB/MEDICAL ASSESSMENT AND PLAN: REHAB IMPAIRMENT GROUP: Critical illness myopathy ETIOLOGIC DIAGNOSIS: Critical illness myopathy The comorbidities that impact the patients function and/or functional outcome by: Advanced age, recent pneumonia, recent critical illness, severe weakness, fall risk REHAB PLAN: The patient is being admitted to our comprehensive inpatient rehabilitation facility and can tolerate the intensity of service consisting of at least: 180 minutes of therapy a day, 5 out of 7 days a week Rehab treatment will consist of: PT and OT will focus on fall risk prevention and strengthening and use of assistive devices with ambulation to regain enough independence to return back to assisted living The patient/family has a good understanding of our discharge process and will benefit from an interdisciplinary inpatient rehabilitation program. The patient has potential to make improvement and is in need of at least two of the following multidisciplinary therapies including but not limited to physical, occupational, speech, and prosthetics and orthotics. Additionally the patient will need services from respiratory, nutritional services, wound care, psych ology, etc. (Customize this to each patient). Given the patients complex condition and risk of further medical complications, rehabilitation services cannot be safely or effectively provided at a lower level of care such as a halfway facility. BARRIERS TO DISCHARGE: Severe weakness ESTIMATED LOS: 7 days DISPOSITION: Assisted living RELEVANT CHANGES SINCE PREADMISSION SCREENING: I have compared the patients medical and functional status at the time of the preadmission screening and there are: No changes PROGNOSIS: Good REHABILITATION GOALS: 1. PT and OT will focus on fall risk prevention and strengthening and use of assistive devices with ambulation to regain enough independence to return back to assisted living All the above goals were reviewed with the patient and he/she is in agreement. By signing this document, I acknowledge that I have personally performed a full physical examination on this patient within 24 hours of admission to this inpatient rehabilitation facility and have determined the patient to be able to tolerate the above course of treatment at an intensive level for a reasonable period of time. I will be completing a detailed individualized Plan of Care for this patient by day #4 of the patients stay based upon the Preadmission Screen, the Post-Admission Evaluation, and the therapy evaluations. Admission Dx/Comorbidities: (1) Myopathy ICD Codes: G72.9 - Myopathy, unspecified (2) Pneumonia Status: Acute ICD Codes: J18.9 - Pneumonia, unspecified organism (3) Elevated LFTs Status: Acute ICD Codes: R79.89 - Other specified abnormal findings of blood chemistry (4) Encephalopathy acute Status: Acute ICD Codes: G93.40 - Encephalopathy, unspecified (5) Sepsis Status: Acute ICD Codes: A41.9 - Sepsis, unspecified organism Assessment/Plan Assessment and Plan Assess & Plan/Chief Complaint Assessment: Critical illness myopathy Debility Recent pneumonia Status post sepsis Severe weakness Cognitive deficit Hypothyroidism GERD Hypertension Recurrent UTI Plan: PT and OT aggressive rehab Supportive [facility] meds Monitor blood pressure ERICA DUKE DO Jul 01, 2021 10:54
[2021-07-01] MEDS ORDERED: ACETAMINOPHEN 325 MG TABLET PO PRN ×2 (11:00→14:00)
[2021-07-01] MEDS ORDERED: BISACODYL 10 MG SUPP (DULCOLAX) PR PRN (11:00)
[2021-07-01] MEDS ORDERED: ONDANSETRON 4 MG (ZOFRAN) ORAL DISSOLVE TAB PO PRN ×2 (11:00→14:30)
[2021-07-01] MEDS ORDERED: FLEET ENEMA ADULT 1 EA BTL PR PRN (11:00)
[2021-07-01] MEDS ORDERED: ALPRAZolam 0.25 MG (XANAX) TAB PO PRN (11:00)
[2021-07-01] MEDS ORDERED: LOPERAMIDE 2 MG (IMODIUM) TABLET PO PRN ×2 (11:00→14:30)
[2021-07-01] MEDS ORDERED: DOCUSATE SODIUM 100 MG (COLACE) CAP PO PRN (11:00)
[2021-07-01] MEDS ORDERED: diphenhydrAMINE 25 MG TAB (BENADRYL) PO PRN (11:00)
[2021-07-01] MEDS ORDERED: MELATONIN 3 MG TABLET PO PRN (11:00)
[2021-07-01] MEDS ORDERED: CALCIUM CARBONATE 500 MG (TUMS) TAB.CHEW PO PRN (11:00)
[2021-07-01] MEDS ORDERED: LACTULOSE SYRUP 10GM/15ML (ENULOSE) 30ML UDC PO PRN (11:00)
--- NOTE | 2021-07-01 11:39 | Progress Note ---
BELLA VALENCIA U 07/01/21 1139: Progress Note SUBJECTIVE Chief Complaint: cough, generalized fatigue HPI: Patient is a 80y/o F who came from [facility] with septic shock and altered mental status. She has been receiving antibiotic treatment for the last 3 days for probable bacterial pneumonia. She tested negative for COVID on 06/28 and flu on 06/27. A sputum cx on 06/28 was positive for E.coli. She is complaining of a productive cough and general fatigue likely secondary to her critical illness. She has started to advance her diet but is only able to eat fruit at this time. She had a bowel movement yesterday and is able to ambulate despite reported right toe pain. Patient denies fever, chills, chest pain, palpitations, nausea, vomiting, headaches, vision changes, diarrhea, constipation, and difficulty with urination. Patient is oriented to place and denies confusion this morning. PMHx: HTN, HLD, DM, GERD w/ hiatal hernia on CT, hypothyroidism, chronic UTIs, neuropathy SurgHx: hysterectomy Meds: Zosyn 25ml/hr IV q8h, tylenol PRN, robutussin PRN, Sliding scale insulin aspart Allergies: codeine, ketorolac, naproxen FamHx: unable to obtain SocHx: pt denies smoking or drinking alcohol, she denies any illicit drug use OBJECTIVE Vitals: T: 37.2 C, HR: 71 RR: 22, BP: 153/65 (94), O2: 94% on 2L NC Pertinent Labs: WBC 8.2 (down form 13 on 06/28), Hgb 10.2, AST: 63H, ALT: 226 H, Alk Phos: UA: negative for infection Physical Exam: Gen: Alert and oriented x3, fatigue CV: reg rate and rhythm, no murmurs, rubs or gallops Pulm: good air flow, no crackles or wheezes Abdomen: non-tender on palpitation, bowel sounds present Extremities: right toe pain is improved per pt Imaging: CXR 06/28: RLL pneumonia US liver 06/28: unremarkable Foot X-ray 06/30: moderate degenerative disease within the right 1st MTP joint ASSESMENT & PLAN 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, PT and OT - advance diet as tolerated RLL PNA - CXR on 06/28 showed RLL infiltrates - on zosyn since 06/29, will continue - sputum cx positive 06/28 for e.coli - blood cx x2 06/27: NFTD - COVID neg, vaccine 06/28/2021 - Flu neg, vaccine 03/01/2021 Transaminitis w/elevated alk phos - AST: 28H, ALT 150H - Alk phos 142H - liver us: unremarkable - surgury cosulted, appreciate recs Right toe pain - foot x-ray 06/30 showed moderate degenerative changes - better today - continue to monitor Diabetes SSI Dispo: to inpatient rehab today DISHA DUKE DO 07/02/21 0540: Supervisory-Addendum Brief Verification & Attestation Participated in pt care: history, MDM, physical Personally performed: exam, history, MDM, supervision of care Care discussed with: Medical Student Procedures: n/a Results interpretation: Verified all documentation Verification and Attestation of Medical Student E/M Service A medical student performed and documented this service in my presence. I reviewed and verified all information documented by the medical student and made modifications to such information, when appropriate. I personally performed the physical exam and medical decision making. Disha Duke, Jul 02, 2021,05:40 BELLA VALENCIA Jul 01, 2021 11:39 DISHA DUKE DO Jul 02, 2021 05:40
--- NOTE | 2021-07-01 13:38 | Occupational Therapy Eval ---
OT Evaluation-General/PLF Medical Diagnosis Admission Date Medical Diagnosis: debility Onset Date: Jul 01, 2021 Therapy Diagnosis Therapy Diagnosis: decreased ADL status Referral Physician: Nilay Referral Reason: Evaluation/Treatment Medical History Additional Medical History HTN, DM, GERD, hypothyroidism, chronic UTI, neuropathy Current History ED due to AMS and sepsis. Transfer to ARU 07/01/21 Social History Home: Assisted Living ADL-Prior Level of Function SCALE: Activities may be completed with or without assistive devices. 4-Jiakqcqcin-mbfhquo completes the activity by him/herself with no assistance from a helper. 5-Set-up or Clean-up Assistance-helper sets up or cleans up; patient completes activity. [place] assists only prior to or following the activity. 4-Supervision or Touching Assistance-helper provides verbal cues and/or t ouching/steadying and/or contact guard assistance as patient completes activity. Assistance may be provided throughout the activity or intermittently. 3-Partial/Moderate Assistance-helper does LESS THAN HALF the effort. [place] lifts, holds or supports trunk or limbs, but provides less than half the effort. 2-Substantial/Maximal Assistance-helper does MORE THAN HALF the effort. [place] lifts or holds trunk or limbs and provides more than half the effort. 8-Uaiuyedor-gqhgog does ALL the effort. Patient does none of the effort to complete the activity. Or, the assistance of 2 or more helpers is required for the patient to complete the activity. If activity was not attempted, code reason: 7-Patient Refused. 9-Not Applicable-not attempted and the patient did not perform the activity before the current illness, exacerbation or injury. 10-Not Attempted due to Environmental Limitations-(lack of equipment, weather restraints, etc.). 88-Not Attempted due to Medical Conditions or Safety Concerns. ADL PLOF Comments Pt reports requiring assist with almost all ADLs at [facility]. She does not leave her room. The facility brings meals to pt's room, pt then able to eat independently. Pt indicates she is able to toilet herself, managing her clothes and hygiene. Pt does not complete any portion of dressing, requiring total assistance with socks/shoes, pants/underwear and shirt. Pt requires mod-max A with showering, only washing upper body. Pt uses a FWW around her room. Self Care: Needed Some Help DME/Equipment: Bath Chair, Grab Bars, Shower OT Current Status Subjective Pt agreeable to OT evaluation. Mental Status/Objective Patient Orientation: Person Attachments: Rabago Catheter, IV Current Glasses/Contacts: Yes Hearing Aids: No Dentures/Partials: Yes Hand Dominance: Right Upper Extremity ROM Decreased, BUE shoulder flexion to approx 90 degrees Upper Extremity Sensation WFL Upper Extremity Strength grossly 3+/5 BUEs ADL-Treatment Eating (QC): 7 Oral Hygiene (QC): 7 Shower/Bathe Self (QC): 7 Upper Body Dressing (QC): 7 Lower Body Dressing (QC): 7 On/Off Footwear (QC): 7 Toileting Hygiene (QC): 7 Other Treatments Pt agreeable to OT tx following PT evaluation. Pt provided information about PLOF and home set up, and participated in UE screen. OT educated pt on rehab process, and introduced pt to MCMANUS who took over tx. Post tx, pt up in w/c, all needs met, MCMANUS present. Education OT Patient Education: Correct positioning, Energy conservation, Modified ADL techniques, Progress toward Goal/Update tx plan, Purpose of tx/functional activities, Rehab process Teaching Recipient: Patient Teaching Methods: Discussion Response to Teaching: Verbalize Understanding OT Short Term Goals Short Term Goals Time Frame: Jul 10, 2021 Toileting hygiene: 3 Shower/bathe self: 2 Lower body dressin Putting on/taking off footwear: 2 OT Coat Maker Goals Skilled Nursing Goals Time Frame: Jul 19, 2021 Eating (QC): 6 Oral Hygiene (QC): 6 Toileting Hygiene (QC): 4 Shower/Bathe Self (QC): 3 Upper Body Dressing (QC): 3 Lower Body Dressing (QC): 3 On/Off Footwear (QC): 3 Additional Goals: 1-Demonstrate ADL Tasks, 2-Verbalize Understanding, 3- ImproveStrength/Naina 1=Demonstrate adherence to instructed precautions during ADL tasks. 2=Patient will verbalize/demonstrate understanding of assistive devices/modifications for ADL. 3=Patient will improve strength/tolerance for activity to enable patient to perform ADL's. OT Education/Plan Problem List/Assessment Assessment: Decreased Activ Tolerance, Decreased UE Strength, Impaired Funct Balance, Impaired I ADL's, Impaired Self-Care Skills, Restricted Funct UE ROM Discharge Recommendations Plan/Recommendations: Continue POC Treatment Plan/Plan of Care Patient would benefit from OT for education, treatment and training to promote independence in ADL's, mobility, safety and/or upper extremity function for ADL's. Plan of Care: ADL Retraining, Functional Mobility, Group Exercise/Act as Ind, UE Funct Exercise/Act Treatment Duration: Jul 19, 2021 Frequency: At least 5 of 7 days/Wk (IRF) Estimated Hrs Per Day: 1.5 hours per day Agreement: Yes Rehab Potential: Fair Time/GCodes Start Time: 13:05 Stop Time: 13:25 Total Time Billed (hr/min): 20 Billed Treatment Time 1, GABRIELLA MARC OT Jul 01, 2021 13:38
--- NOTE | 2021-07-01 13:48 | Physical Therapy Evaluation ---
PT Evaluation-General Medical Diagnosis Admission Date Medical Diagnosis: debility Onset Date: Jul 01, 2021 Therapy Diagnosis Therapy Diagnosis: Gait deficit, strength deficit Precautions Precautions/Isolations: Fall Prevention, Contact/Enteric Isolation, Pressure Ulcer Referral Physician: Nilay Reason for Referral: Evaluation/Treatment Social History Home: Assisted Living Prior Prior Level of Function SCALE: Activities may be completed with or without assistive devices. 3-Yztypwhlzk-emkhcmt completes the activity by him/herself with no assistance from a helper. 5-Set-up or Clean-up Assistance-helper sets up or cleans up; patient completes activity. [place] assists only prior to or following the activity. 4-Supervision or Touching Assistance-helper provides verbal cues and/or touching/steadying and/or contact guard assistance as patient completes activity. Assistance may be provided throughout the activity or intermittently. 3-Partial/Moderate Assistance-helper does LESS THAN HALF the effort. [place] lifts, holds or supports trunk or limbs, but provides less than half the effort. 2-Substantial/Maximal Assistance-helper does MORE THAN HALF the effort. [place] lifts or holds trunk or limbs and provides more than half the effort. 5-Vggynosob-tlvcnr does ALL the effort. Patient does none of the effort to complete the activity. Or, the assistance of 2 or more helpers is required for the patient to complete the activity. If activity was not attempted, code reason: 7-Patient Refused. 9-Not Applicable-not attempted and the patient did not perform the activity before the current illness, exacerbation or injury. 10-Not Attempted due to Environmental Limitations-(lack of equipment, weather restraints, etc.). 88-Not Attempted due to Medical Conditions or Safety Concerns. Bed Mobility: 4 Transfers (B,C,W/C): 4 Gait: 4 Indoor Mobility (Ambulation): Needed Some Help Stairs: Unknown Prior Devices Use: Walker Patient reports that she does not leave her room, assisted with all ADL's, and they bring food to her in her room. PT Evaluation-Current Subjective Patient sitting in chair upon PT arrival, agreeable to treatment. Patient reports she does not feel like she can walk right now as "I'm so tired, I just don't think I can do anything." Discussed with patient the parameters for rehab and she agrees she was informed about the rehab requirements. Objective Patient Orientation: Person, Place Attachments: Rabago Catheter, IV ROM/Strength ROM Lower Extremities WFL Strength Lower Extremities 3/5 strength bilaterally grossly Integumentary/Posture Posture Patient ambulated with bent over posture and head down Sensory Vision: Functional Hearing: Functional Hand Dominance: Right Transfers Roll Left & Right (QC): 3 Sit to Lying (QC): 3 Lying to Sitting/Side of Bed(Q: 3 Sit to Stand (QC): 3 Chair/Bto-rb-Eyyuz Xfer(QC): 3 Toilet Transfer (QC): 88 Car Transfer (QC): 3 Patient required min/mod assistance for all transfers Gait Does the Patient Walk?: Yes Mode of Locomotion: Walk Anticipated Mode of Locomotion: Walk Walk 10 feet (QC): 3 Walk 50 ft with 2 Turns(QC): 88 Walk 150 ft (QC): 88 Walking 10ft/uneven surface-QC: 3 Distance: 35 feet Gait Assistive Device: FWW Wheelchair Training Does the Pt Use a Wheelchair?: Yes Distance: 50 feet Wheel 50 ft with 2 turns (QC): 4 Wheel 150 ft (QC): 88 Type of Wheelchair: Manual Stairs #of Steps: 1 1 Step (curb) (QC): 3 4 Steps (QC): 88 12 Steps (QC): 88 Walking Assistive Device: Walker Balance Sitting Static: Good Sitting Dynamic: Good Standing Static: Fair Standing Dynamic: Fair Picking up an Object (QC): 88 Assessment/Needs Patient tolerated treatment fair, however demonstrates decreased core/ LE strength, poor motivation. Patient performs all observed transfers with min/mod A and verbal cues. Patient ambulates 35 feet with FWW, with min A and extra person for IV pole and w/c. Patient ambulates with poor posture, rounded shoulders, head down and tends to look at the ground throughout, however must be keeping her eyes closed as she does not notice obstacles and frequently runs into objects with the FWW on the left side. Patient then propels the w/c with BUEs 50 feet with verbal cues for obstacles. Patient requires mod A x 2 for transfer to the car and back to the w/c and tends to lean moderately to the lef t. Patient given verbal cues for scooting, however reports "I can't, I don't think you understand how weak I am." Patient requires skilled therapy to increase independence within her room to return to her assisted living facility. Patient sitting in w/c and OT continues with her treatment. Rehab Potential: Fair Equipment Needs Unsure at this time PT Inspector Chief Goals Inspector Chief Goals PT Halfway Goals Time Frame: Jul 12, 2021 Roll Left & Right (QC): 5 Sit to Lying (QC): 5 Lying-Sitting on Side/Bed(QC): 4 Sit to Stand (QC): 4 Chair/Mgj-ec-Cwafn Xfer(QC): 4 Toilet Transfer (QC): 4 Car Transfer (QC): 4 Does the Patient Walk: Yes Walk 10 feet (QC): 5 Walk 50ft with 2 Turns (QC): 5 Walk 150 ft (QC): 4 Walking 10ft on Uneven Surface: 4 1 Step (curb) (QC): 4 4 Steps (QC): 88 12 Steps (QC): 88 Picking up an Object (QC): 4 Does the Pt use WC or Scooter?: Yes Wheel 50 feet with 2 turns (QC: 6 Type: Manual Wheel 150 feet: 6 Type: Manual PT Plan Problem List Problem List: Activity Tolerance, Functional Strength, Safety, Balance, Gait, Transfer, Bed Mobility, ROM Treatment/Plan Treatment Plan: Continue Plan of Care Treatment Plan: Bed Mobility, Education, Functional Activity Naina, Functional Strength, Gait, Safety, Therapeutic Exercise, Transfers (--) Treatment Duration: Aug 02, 2021 Frequency: At least 5 of 7 days/Wk (IRF) Estimated Hrs Per Day: 1.5 hours per day Patient and/or Family Agrees t: Yes Safety Risks/Education Patient Education: Gait Training, Transfer Techniques, W/C Management, Safety Issues Teaching Recipient: Patient Teaching Methods: Demonstration, Discussion Response to Teaching: Verbalize Understanding, Reinforcement Needed Time/GCodes Time In: 1350 Time Out: 1405 Total Billed Treatment Time: 15 Total Billed Treatment Visit, KATELIN Gonzalez PT Jul 01, 2021 13:48
[2021-07-01 13:51] VITALS: BP 148/72
[2021-07-01] MEDS ORDERED: polyethylene glycoL POWDER 17 GM (MIRALAX) PACK PO PRN (14:30)
[2021-07-01] MEDS ORDERED: ACETAMINOPHEN 500 MG TAB (TYLENOL) PO PRN (14:30)
[2021-07-01] MEDS ORDERED: ANTACID SUSP 30 ML UDC (MYLANTA) PO PRN (14:30)
[2021-07-01] MEDS ORDERED: NON-FORMULARY MEDICATION 1 EA EA (Dulaglutide (Trulicity) 1.5 MG) SC SCH (14:30)
--- NOTE | 2021-07-01 14:41 | Occupational Ther Daily Note ---
OT Current Status-Daily Note Subjective Pt in w/c in [facility]. Pt agreeable to OT tx. Mental Status/Objective Patient Orientation: Person, Place Attachments: Rabago Catheter, IV ADL-Treatment Therapy Code Descriptions/Definitions Functional [place] Measure: 0=Not Assessed/NA 4=Minimal Assistance 1=Total Assistance 5=Supervision or Setup 2=Maximal Assistance 6=Modified [place] 3=Moderate Assistance 7=Complete IndependenceSCALE: Activities may be completed with or without assistive devices. 1-Ygsnlfqhhg-emievxo completes the activity by him/herself with no assistance from a helper. 5-Set-up or Clean-up Assistance-helper sets up or cleans up; patient completes activity. [place] assists only prior to or following the activity. 4-Supervision or Touching Assistance-helper provides verbal cues and/or touching/steadying and/or contact guard assistance as patient completes activity. Assistance may be provided throughout the activity or intermittently. 3-Partial/Moderate Assistance-helper does LESS THAN HALF the effort. [place] lifts, holds or supports trunk or limbs, but provides less than half the effort. 2-Substantial/Maximal Assistance-helper does MORE THAN HALF the effort. [place] lifts or holds trunk or limbs and provides more than half the effort. 8-Xqjnldact-jbrczt does ALL the effort. Patient does none of the effort to complete the activity. Or, the assistance of 2 or more helpers is required for the patient to complete the activity. If activity was not attempted, code reason: 7-Patient Refused. 9-Not Applicable-not attempted and the patient did not perform the activity before the current illness, exacerbation or injury. 10-Not Attempted due to Environmental Limitations-(lack of equipment, weather restraints, etc.). 88-Not Attempted due to Medical Conditions or Safety Concerns. Oral Hygiene (QC): 5 (setup) Bathing Location: L Arm, R Arm, L Upper Leg, R Upper Leg, L Lower Leg (including foot), R Lower Leg (including foot), Chest, Abdomen, Buttocks, Perineal Area Shower/Bathe Self (QC): 3 (mod A to thoroughly clean buttocks and BLE.) Upper Body Dressing (QC): 5 (setup) On/Off Footwear: 1 Other Treatment OT/PT cotreat due to skill of 2 clinicians required which a rehab aide could not perform in order to decrease fall risk, increase activity tolerance and overall strength. PT focusing on transfer and mobility while OT focused on ADLs, B UE hand placement during transfers and mobility. Took over treatment from OTR, pt in w/c in [facility]. Pt completed functional mobility from w/c over the green mat and up/over the curb step, FWW, mod A, rest breaks needed. Pt taken to bathroom in room, transitioned from w/c to sc, FWW, mod A. Pt doffed hospital gown and assist to doff socks, completed showering, mod A needed to thoroughly clean buttocks and BLE. Pt transitioned from sc to w/c using the grab bars. Pt donned hospital gown, total assistance needed to don socks. Pt taken to sink to complete oral care and washed her face sitting at sink, independently. Pt taken to bed, transitioned from w/c to bed, FWW. Mod A with all transfers with verbal cues to line up with surface for safe stand to sit. Pt takes increased time to complete all tasks due to increased fatigue and multiple recovery breaks. Mod A for EOB to supine. Pt in bed, call light in reach and all needs met. Education OT Patient Education: Correct positioning, Energy conservation, Modified ADL techniques, Progress toward Goal/Update tx plan, Purpose of tx/functional activities, Rehab process Teaching Recipient: Patient Teaching Methods: Discussion Response to Teaching: Verbalize Understanding, Reinforcement Needed OT Short Term Goals Short Term Goals Time Frame: Jul 10, 2021 Toileting hygiene: 3 Shower/bathe self: 2 Lower body dressin Putting on/taking off footwear: 2 OT Longterm Goals Longterm Goals Time Frame: Jul 19, 2021 Eating (QC): 6 Oral Hygiene (QC): 6 Toileting Hygiene (QC): 4 Shower/Bathe Self (QC): 3 Upper Body Dressing (QC): 3 Lower Body Dressing (QC): 3 On/Off Footwear (QC): 3 Additional Goals: 1-Demonstrate ADL Tasks, 2-Verbalize Understanding, 3- ImproveStrength/Naina 1=Demonstrate adherence to instructed precautions during ADL tasks. 2=Patient will verbalize/demonstrate understanding of assistive devices/modifications for ADL. 3=Patient will improve strength/tolerance for activity to enable patient to perform ADL's. OT Education/Plan Problem List/Assessment Assessment: Decreased Activ Tolerance, Decreased UE Strength, Impaired Funct Balance, Impaired I ADL's, Impaired Self-Care Skills Discharge Recommendations Plan/Recommendations: Continue POC Treatment Plan/Plan of Care Patient would benefit from OT for education, treatment and training to promote independence in ADL's, mobility, safety and/or upper extremity function for ADL's. Plan of Care: ADL Retraining, Functional Mobility, Group Exercise/Act as Ind, UE Funct Exercise/Act Treatment Duration: Jul 19, 2021 Frequency: At least 5 of 7 days/Wk (IRF) Estimated Hrs Per Day: 1.5 hours per day Agreement: Yes Rehab Potential: Fair Time/GCodes Start Time: 13:25 Stop Time: 14:40 Total Time Billed (hr/min): 75 Billed Treatment Time [place] with PT [id number] (75) 1, FA 2 (25), ADL 3 (50) DELORES TORRES Jul 01, 2021 14:41
--- NOTE | 2021-07-01 15:20 | Physical Therapy Daily Note ---
PT Daily Note-Current Subjective Pt sitting in [facility] in [facility], [employer] SCHOOL COUNSELOR takes over for PT at this time after evaluation. Pt agrees to MID[employer] SCHO[employer] COUNSELOR/MCMANUS co-treat. Pain Location: No Pain Reported Mental Status Patient Orientation: Person, Place Attachments: IV Transfers SCALE: Activities may be completed with or without assistive devices. 4-Hsqcuzhxfs-szrymqb completes the activity by him/herself with no assistance from a helper. 5-Set-up or Clean-up Assistance-helper sets up or cleans up; patient completes activity. [place] assists only prior to or following the activity. 4-Supervision or Touching Assistance-helper provides verbal cues and/or touching/steadying and/or contact guard assistance as patient completes activit y. Assistance may be provided throughout the activity or intermittently. 3-Partial/Moderate Assistance-helper does LESS THAN HALF the effort. [place] lifts, holds or supports trunk or limbs, but provides less than half the effort. 2-Substantial/Maximal Assistance-helper does MORE THAN HALF the effort. [place] lifts or holds trunk or limbs and provides more than half the effort. 7-Egavzfwod-cqgmcb does ALL the effort. Patient does none of the effort to complete the activity. Or, the assistance of 2 or more helpers is required for the patient to complete the activity. If activity was not attempted, code reason: 7-Patient Refused. 9-Not Applicable-not attempted and the patient did not perform the activity before the current illness, exacerbation or injury. 10-Not Attempted due to Environmental Limitations-(lack of equipment, weather restraints, etc.). 88-Not Attempted due to Medical Conditions or Safety Concerns. Roll Left & Right (QC): 3 Sit to Lying (QC): 3 Lying to Sitting/Side of Bed(Q: 3 Sit to Stand (QC): 3 Chair/Ecd-ub-Boasy Xfer(QC): 3 Toilet Transfer (QC): 3 Weight Bearing Full Weight Bearing Full Weight Bearing Gait Training Does the Patient Walk?: Yes Distance: 10' Walk 10 feet (QC): 3 Walking 10ft/uneven surface-QC: 3 Gait Persons Needed: 2 Gait Assistive Device: FWW Pt walks with a kyphotic, slumped over posture, often closing her eyes due to fatigue. Wheelchair Training Does the Pt Use a Wheelchair?: Yes Type of Wheelchair: Manual Stair Training Stair Training: Handrails/: uses walker #of Steps: 1 1 Step (curb) (QC): 3 4 Steps (QC): 7 12 Steps (QC): 7 Stairs: Pattern: Step to Balance Picking up an Object (QC): 7 Treatments OT/PT cotreat due to skill of 2 clinicians required which a clinical rehabilitation liaison could not perform in order to decrease fall risk, increase activity tolerance and overall strength. PT focusing on transfer and mobility while OT focused on ADLs, B UE hand placement during transfers and mobility. Took over treatment from OTR, pt in w/c in [facility]. Pt completed functional mobility from w/c over the green mat and up/over the curb step, FWW, mod A, rest breaks needed. Pt taken to bathroom in room, transitioned from w/c to sc, FWW, mod A. Pt doffed hospital gown and assist to doff socks, completed showering, mod A needed to thoroughly clean buttocks and BLE. Pt transitioned from me to w/c using the grab bars. Pt donned hospital gown, total assistance needed to don socks. Pt taken to sink to complete oral care and washed her face sitting at sink, independently. Pt taken to bed, transitioned from w/c to bed, FWW. Mod A with all transfers with verbal cues to line up with surface for safe stand to sit. Pt takes increased time to complete all tasks due to increased fatigue and multiple recovery breaks. Mod A for EOB to supine. Pt in bed, call light in reach and all needs met. Assessment Current Status: Fair Progress Pt fatigues easily and needs frequent RB. Pt demonstrates weakness with transfers. PT Snf Goals Snf Goals PT Open Hearth Furnace Operator Goals Time Frame: Jul 12, 2021 Roll Left & Right (QC): 5 Sit to Lying (QC): 5 Lying-Sitting on Side/Bed(QC): 4 Sit to Stand (QC): 4 Chair/Dlu-ud-Xjffm Xfer(QC): 4 Toilet Transfer (QC): 4 Car Transfer (QC): 4 Does the Patient Walk: Yes Walk 10 feet (QC): 5 Walk 50ft with 2 Turns (QC): 5 Walk 150 ft (QC): 4 Walking 10ft on Uneven Surface: 4 1 Step (curb) (QC): 4 4 Steps (QC): 88 12 Steps (QC): 88 Picking up an Object (QC): 4 Does the Pt use WC or Scooter?: Yes Wheel 50 feet with 2 turns (QC: 6 Type: Manual Wheel 150 feet: 6 Type: Manual PT Plan Problem List Problem List: Activity Tolerance, Functional Strength, Gait, Transfer Treatment/Plan Treatment Plan: Continue Plan of Care Treatment Plan: Bed Mobility, Education, Functional Activity Naina, Functional Strength, Gait, Safety, Therapeutic Exercise, Transfers (--) Treatment Duration: Aug 02, 2021 Frequency: At least 5 of 7 days/Wk (IRF) Estimated Hrs Per Day: 1.5 hours per day Patient and/or Family Agrees t: Yes Safety Risks/Education Patient Education: Transfer Techniques, Correct Positioning, Safety Issues Teaching Recipient: Patient Teaching Methods: Discussion Response to Teaching: Verbalize Understanding Time/GCodes Time In: 1325 Time Out: 1440 Total Billed Treatment Time: 75 Total Billed Treatment Co-treat w/OT for 75m 1, FA x5 (75m) YUVAL SULLIVAN PTA Jul 01, 2021 15:20
[2021-07-01] MEDS ORDERED: ARTIFICAL TEARS 0.4 ML UNIT DOSE (REFRESH PLUS) OU PRN (15:30)
[2021-07-01] MEDS: inSUlin ASPART (NovoLOG) 1 UNIT/0.01 ML (CHARGE PER UNIT) SC SCH ×2 (16:00→21:38)
[2021-07-01] MEDS: PIPERACILLIN SODIUM/TAZOBACTAM 4.5 GM in NS (IVPB) 100 ML IV SCH (17:38)
[2021-07-01] MEDS: guaiFENesin/DM (ROBITUSSIN DM) 10 ML UDC PO PRN ×2 (17:47→21:50)
[2021-07-01] MEDS: GLIMEPIRIDE 4 MG (AMARYL) TAB PO SCH (18:13)
[2021-07-01 20:00] VITALS: BP 142/70
[2021-07-01] MEDS ORDERED: rOPINIRole 0.25 MG (REQUIP) TAB PO SCH (21:00)
[2021-07-01] MEDS ORDERED: DONEPEZIL 5 MG (ARICEPT) TAB PO SCH (21:00)
[2021-07-01] MEDS ORDERED: GABAPENTIN 600 MG (NEURONTIN) TAB PO SCH (21:00)
[2021-07-01] MEDS: DOCUSATE SODIUM 100 MG (COLACE) CAP PO SCH (21:34)
[2021-07-01] MEDS: GABAPENTIN 600 MG (NEURONTIN) TAB PO SCH (21:34)
[2021-07-01] MEDS: rOPINIRole 0.25 MG (REQUIP) TAB PO SCH (21:34)
[2021-07-01] MEDS: DONEPEZIL 5 MG (ARICEPT) TAB PO SCH (21:35)
[2021-07-01] MEDS: ACETAMINOPHEN 500 MG TAB (TYLENOL) PO SCH (21:36)
[2021-07-01] MEDS: polyethylene glycoL POWDER 17 GM (MIRALAX) PACK PO SCH (21:40)
[2021-07-01] MEDS: SENNA W/DOCUSATE (SENOKOT S) TABLET PO SCH (21:40)
[2021-07-02] MEDS: PIPERACILLIN SODIUM/TAZOBACTAM 4.5 GM in NS (IVPB) 100 ML IV SCH ×3 (00:10→16:58)
--- NOTE | 2021-07-02 05:47 | PM&R Progress Note ---
Subjective HPI/CC On Admission Date Seen by Provider: Jul 02, 2021 Time Seen by Provider: 09:00 Subjective/Events-last exam 07/02/21: Pt doing about the same BP is high so will give Norvasc of 5 mg daily Cough is constant Had a little bit of bloody sputum yesterday Transfers are better Day number 4 of antibiotics of Zosyn Checked meds and labs Daughter at the bedside Added on BNP later in the day which was elevated gave Lasix 20 mg IV x1 consulted Dr. Gregory and ordered an echo She did almost fall going to the bathroom I recommended bedside commode Review of Systems General: Fatigue, Malaise Pulmonary: Dyspnea, Cough Objective Exam Vital Signs Vital Signs Date Time Temp Pulse Resp B/P (MAP) Pulse Ox O2 Delivery O2 Flow Rate FiO2 07/02/21 21:55 81 165/72 (103) 07/02/21 21:18 91 Room Air 07/02/21 19:40 36.8 20 Capillary Refill : General Appearance: No Apparent Distress, WD/WN, Chronically ill, Obese HEENT: PERRL/EOMI, Normal ENT Inspection, Pharynx Normal Neck: Full Range of Motion, Normal Inspection, Non Tender, Supple, Carotid Bruit Respiratory: Chest Non Tender, Normal Breath Sounds, No Accessory Muscle Use, No Respiratory Distress, Crackles, Decreased Breath Sounds Cardiovascular: Regular Rate, Rhythm, No Edema, No Gallop, No JVD, No Murmur, N ormal Peripheral Pulses Gastrointestinal: Normal Bowel Sounds, No Organomegaly, No Pulsatile Mass, Non Tender, Soft Back: Normal Inspection, No CVA Tenderness, No Vertebral Tenderness Extremity: Normal Capillary Refill, Normal Inspection, Normal Range of Motion, Non Tender, No Calf Tenderness, No Pedal Edema Neurologic/Psychiatric: Alert, Oriented x3, No Motor/Sensory Deficits, Normal Mood/Affect Skin: Normal Color, Warm/Dry Lymphatic: No Adenopathy Results/Procedures Lab Laboratory Tests 07/02/21 07:50 Patient resulted labs reviewed. FIM Transfers Therapy Code Descriptions/Definitions Functional [place] Measure: 0=Not Assessed/NA 4=Minimal Assistance 1=Total Assistance 5=Supervision or Setup 2=Maximal Assistance 6=Modified [place] 3=Moderate Assistance 7=Complete IndependenceSCALE: Activities may be completed with or without assistive devices. 0-Ojzidjsppp-ksmchmh completes the activity by him/herself with no assistance from a helper. 5-Set-up or Clean-up Assistance-helper sets up or cleans up; patient completes activity. [place] assists only prior to or following the activity. 4-Supervision or Touching Assistance-helper provides verbal cues and/or touching/steadying and/or contact guard assistance as patient completes activity. Assistance may be provided throughout the activity or intermittently. 3-Partial/Moderate Assistance-helper does LESS THAN HALF the effort. [place] lifts, holds or supports trunk or limbs, but provides less than half the effort. 2-Substantial/Maximal Assistance-helper does MORE THAN HALF the effort. [place] lifts or holds trunk or limbs and provides more than half the effort. 1-Abtlqrfrs-nreqnu does ALL the effort. Patient does none of the effort to complete the activity. Or, the assistance of 2 or more helpers is required for the patient to complete the activity. If activity was not attempted, code reason: 7-Patient Refused. 9-Not Applicable-not attempted and the patient did not perform the activity before the current illness, exacerbation or injury. 10-Not Attempted due to Environmental Limitations-(lack of equipment, weather restraints, etc.). 88-Not Attempted due to Medical Conditions or Safety Concerns. Roll Left to Right (QC): 3 Sit to Lying (QC): 3 Sit to Stand (QC): 3 Chair/Thz-or-Hvaxg Xfer(QC): 3 Car Transfer (QC): 3 Gait Training Does the Patient Walk?: Yes Distance: 10' Walk 10 feet (QC): 3 Walk 50 ft with 2 Turns(QC): 88 Walk 150 ft (QC): 88 Walking 10ft/uneven surface-QC: 3 Gait Persons Needed: 2 Gait Assistive Device: FWW Wheelchair Training Does the Pt Use a Wheelchair?: Yes Distance: 50 feet Wheel 50 ft with 2 turns (QC): 4 Wheel 150 ft (QC): 88 Type of Wheelchair: Manual Stair Training Stair Training: Handrails/: uses walker #of Steps: 1 1 Step (curb) (QC): 3 4 Steps (QC): 7 12 Steps (QC): 7 Stairs: Pattern: Step to Balance Picking up an Object (QC): 7 ADL-Treatment Eating (QC): 7 Oral Hygiene (QC): 5 (setup) Bathing Location: L Arm, R Arm, L Upper Leg, R Upper Leg, L Lower Leg (including foot), R Lower Leg (including foot), Chest, Abdomen, Buttocks, Perineal Area Shower/Bathe Self (QC): 3 (mod A to thoroughly clean buttocks and BLE.) Upper Body Dressing (QC): 5 (setup) Lower Body Dressing (QC): 7 On/Off Footwear (QC): 1 Toileting Hygiene (QC): 7 Assessment/Plan Assessment and Plan Assess & Plan/Chief Complaint Assessment: Critical illness myopathy Debility Recent pneumonia Status post sepsis Severe weakness Cognitive deficit Hypothyroidism GERD Hypertension Recurrent UTI Elevated BNP to 122 gave Las[address] Gregory Plan: PT and OT aggressive rehab Supportive custodial meds Monitor blood pressure 07/02/2021: Lasix Echo Cough suppressants Dr. Gregory consult (1) Myopathy (2) Pneumonia Status: Acute (3) Elevated LFTs Status: Acute (4) Encephalopathy acute Status: Acute (5) Sepsis Status: Acute ERICA DUKE DO Jul 02, 2021 05:47
--- NOTE | 2021-07-02 05:48 | Individualized Plan of Care ---
Individualized Plan of Care Rehab Nursing IPOC Order Admission Date Jul 01, 2021 at 13:25 Current Orders Orders Admission Order(Inpt,Obs,Sdc) (07/01/21 10:50) Vital Signs: Per Unit Policy ( 08,16,00 (07/01/21 10:50) Duke Wilder 09,21 (07/01/21 10:50) Sequential Compression Device (07/01/21 10:50) Supervisor Research Shop-Inpt Rehab Con (07/01/21 10:50) Rehab Nursing Orders-Ipoc (07/01/21 10:50) Physical Therapy Rehab Orders (07/01/21 10:50) Occupational Therapy Rehab Ord (07/01/21 10:50) Speech Therapy Rehab Orders (07/01/21 10:50) Cbc With Automated Diff (07/02/21 06:00) Comprehensive Metabolic Panel (07/02/21 06:00) Precautions (Aru) (07/01/21 10:50) Weekly Weight WEEK (07/01/21 10:50) Rehab-Intensity Of Therapy (07/01/21 10:50) Initiate Admission Nursing Pro .admission (07/01/21 10:50) Alprazolam Tablet (Xanax Tablet) (07/01/21 11:00) Calcium Carbonate Chew Tablet (Antacid C (07/01/21 11:00) Diphenhydramine Tablet (Benadryl Tablet) (07/01/21 11:00) Docusate Sodium Capsule (Colace Capsule) (07/01/21 21:00) Docusate Sodium Capsule (Colace Capsule) (07/01/21 11:00) Bisacodyl Suppository (Dulcolax Supposit (07/01/21 11:00) Lactulose Oral Solution (Enulose Oral So (07/01/21 11:00) Na Phos/Na Biphos Enema (Fleet Enema Conner (07/01/21 11:00) Loperamide Tablet (Imodium Tablet) (07/01/21 11:00) Melatonin Tablet (Melatonin Tablet) (07/01/21 11:00) Polyethylene Glycol Powder Pkt (Miralax (07/01/21 21:00) Ondansetron Oral Dissolve Tab (Zofran (07/01/21 11:00) Senna S Tablet (Senokot S Tablet) (07/01/21 21:00) Acetaminophen Tablet/Caplet (Tylenol T (07/01/21 11:00) Code/Resuscitation (07/01/21 10:50) Sequential Compression Device ONCE (07/01/21 10:50) Initiate Admission Nursing Pro .admission (07/01/21 10:50) Admission Arrival Bed Request (07/01/21 13:24) Code/Resuscitation (07/01/21 14:00) Cho 60g/M 0snack (16-1999 John) (07/01/21 Lunch) (Nf) Mirabegron (Myrbetriq) (07/02/21 09:00) Acetaminophen Tablet/Caplet (Tylenol T (07/01/21 14:00) Donepezil Tablet (Aricept Tablet) (07/01/21 21:00) Gabapentin Capsule/Tablet (Neurontin Cap (07/02/21 09:00) Gabapentin Capsule/Tablet (Neurontin Cap (07/01/21 21:00) Levothyroxine Tablet (Synthroid Tablet) (07/02/21 06:30) Pantoprazole Tablet (Protonix Tablet) (07/02/21 09:00) Piperacillin Sodium/Tazobactam (Zosyn Vi (07/01/21 16:00) Guaifenesin/Dm Syrup (Robitussin Dm Syru (07/01/21 14:00) Insulin Aspart (Novolog) (Novolog (Charg (07/01/21 16:00) Metoprolol Succinate (Xl) Tab (Toprol Xl (07/02/21 09:00) Ropinirole Tablet (Requip Tablet) (07/01/21 21:00) Consult General Surgery (07/01/21 14:00) Acetaminophen Tablet (Tylenol Tablet) (07/01/21 21:00) Acetaminophen Tablet (Tylenol Tablet) (07/01/21 14:30) Atorvastatin Tablet (Lipitor Tablet) (07/01/21 21:00) Cyanocobalamin Tablet (Vitamin B-12 Tabl (07/02/21 09:00) Donepezil Tablet (Aricept Tablet) (07/01/21 21:00) Gabapentin Capsule/Tablet (Neurontin Cap (07/01/21 21:00) Gabapentin Capsule/Tablet (Neurontin Cap (07/02/21 09:00) Glimepiride Tablet (Amaryl Tablet) (07/01/21 18:00) Levothyroxine Tablet (Synthroid Tablet) (07/02/21 09:00) Lisinopril Tablet (Zestril Tablet) (07/02/21 09:00) Loperamide Tablet (Imodium Tablet) (07/01/21 14:30) Antacid Suspension (Mylanta Suspension (07/01/21 14:30) Metoprolol Succinate (Xl) Tab (Toprol Xl (07/02/21 09:00) Ondansetron Oral Dissolve Tab (Zofran (07/01/21 14:30) Pantoprazole Tablet (Protonix Tablet) (07/02/21 09:00) Polyethylene Glycol Powder Pkt (Miralax (07/01/21 14:30) Ropinirole Tablet (Requip Tablet) (07/01/21 21:00) Loratadine Tablet (Claritin Tablet) (07/02/21 09:00) Cholecalciferol Capsule/Tablet (Vitamin (07/02/21 09:00) (Nf) Cranberry Extract/Vit C (Azo Cranbe (07/02/21 09:00) (Nf) Dulaglutide (Trulicity) (07/01/21 14:30) Lactobacillus Acidophilus Cap (Acidophil (07/02/21 09:00) (Nf) Mirabegron (Myrbetriq) (07/02/21 09:00) Carboxymethylcell Ophth Soln (Refresh Pl (07/01/21 15:30) Tramadol Tablet (Ultram Tablet) (07/01/21 21:00) Patient Visit (07/01/21 ) Pt Eval Low Complexity (07/01/21 ) Patient Visit (07/01/21 ) Functional Activities, Ea 15 (07/01/21 ) Nursing Communication (Order) (07/01/21 18:23) Rt Request For Service (07/01/21 18:52) Miconazole 2% Powder (Phytoplex Af 2% Po (07/02/21 07:00) Patient Visit (07/02/21 ) Functional Activities, Ea 15 (07/02/21 ) Exercise Therap, Ea 15 Min (07/02/21 ) Amlodipine Tablet (Norvasc Tablet) (07/02/21 11:30) Amlodipine Tablet (Norvasc Tablet) (07/03/21 09:00) Potassium Chloride (Tablet) (Klor Con Ta (07/02/21 11:45) Potassium Chloride (Tablet) (Klor Con Ta (07/02/21 18:00) Benzonatate Capsule (Tessalon Perles) (07/02/21 11:45) Patient Visit (07/02/21 ) Speech Sound Lang Comp (07/02/21 ) Treat. Speech/Lang/Voice (07/02/21 ) Bnp Loving (07/02/21 11:45) Furosemide Injection (Lasix Injection) (07/02/21 12:15) Chest 1 View, Ap/Pa Only (07/02/21 11:45) Patient Visit (07/02/21 ) Functional Activities, Ea 15 (07/02/21 ) Glucerna (07/02/21 16:00) Echo W Doppler/Color Flow (07/02/21 15:35) Consult Cardiology (07/02/21 15:35) Clonidine Tablet (Catapres Tablet) (07/02/21 21:45) Cbc With Automated Diff (07/03/21 06:27) Comprehensive Metabolic Panel (07/03/21 06:27) Chest 1 View, Ap/Pa Only (07/03/21 06:27) Rehab Nursing Orders: Ongoing Assess. of Cognitive Status, Ongoing Assess. of Function Status, Bladder Management, Bladder Scan, Bladder Training, Bowel Management, Bowel Training, Disease Management & Educaiton, DVT Prophylaxis, Fall Prevention, Fluid/Electrolyte/Nutrition Mgmt, Infection Prevention, Medication Management & Education, Management of Risks & Complications, Nutrition Management, Pain Management, Patient/Family Support, Safety Management, Swallow Precautions Intensity of Therapy to be met Patient to be seen: Min.3h per day/5 of 7d PT IPOC Problem List: Activity Tolerance, Functional Strength, Gait, Transfer Treatment Plan: Continue Plan of Care Bed Mobility, Education, Functional Activity Naina, Functional Strength, Gait, Safety, Therapeutic Exercise, Transfers (--) Treatment Duration: Aug 02, 2021 Frequency: At least 5 of 7 days/Wk (IRF) Estimated Hrs Per Day: 1.5 hours per day OT IPOC Problems: Decreased Activ Tolerance, Decreased UE Strength, Impaired Funct Balance, Impaired I ADL's, Impaired Self-Care Skills OT Treatment, Training and Edu: Yes Plan of Care: ADL Retraining, Functional Mobility, Group Exercise/Act as Ind, UE Funct Exercise/Act Treatment Duration: Jul 19, 2021 Frequency: At least 5 of 7 days/Wk (IRF) Estimated Hrs Per Day: 1.[address] IPOC Speech Therapy Treatment Plan: Continue Plan of Care Treatment Duration: Jul 02, 2021 Frequency: Modified Program (IRF) Estimated Hrs Per Day: Other Supervisor Research [employer]/Case Mgmt Supervisor Research [employer]/Case Managemen: Discharge Planning Dietitian/Electrostatic Painter Dietitian/Electrostatic Painter to monitor nutritional status and make changes and/or recommendations as needed and work with speech pathology on dietary upgrades as the occur. Physician IPOC Medical Issues being managed closely and that require the 24 hour availability of a physician: Patient with residual debility following pneumonia with constant cough and volume overload requiring cardiology consultation and a near fall to the bathroom with severe weakness will require close monitoring of labs and chest x- ray and fluid status along with IV antibiotics Medical Issues: Bowel/Bladder Function, DVT Prophylaxis, Falls Precautions, Fluid/Electrolyte/Nutrition Balance, Infection Protection, Pain Management, Swallowing Precautions Brief Synthesis of Preadmission Screen, Post-Admission Evaluation, and Therapy Evaluations: PT and OT will focus on regaining function with assistive devices in order to regain enough function to go to independent living Medical Prognosis: Fair Anticipated Length of Stay: 10 days ERICA DUKE DO Jul 02, 2021 05:48
[2021-07-02] MEDS: inSUlin ASPART (NovoLOG) 1 UNIT/0.01 ML (CHARGE PER UNIT) SC SCH ×4 (06:00→21:17)
[2021-07-02] MEDS: LEVOTHYROXINE 50 MCG (LEVOTHROID) TAB PO SCH (06:52)
[2021-07-02 07:29] VITALS: BP 172/76
[2021-07-02 08:01] LABS: BASOPHILS % (AUTO) 0 % (0-10); EOSINOPHILS # (AUTO) 0.2 10^3/uL (0.0-0.3); EOSINOPHILS % (AUTO) 3 % (0-10); HEMATOCRIT 40 % (35-52); HEMOGLOBIN 12.9 g/dL (11.5-16.0); LYMPHOCYTES % (AUTO) 13 % (12-44); MEAN CORPUSCULAR HEMOGLOBIN 31 pg (25-34); MEAN CORPUSCULAR HGB CONC 32 g/dL (32-36); MEAN CORPUSCULAR VOLUME 95 fL (80-99); MEAN PLATELET VOLUME 9.3 fL (9.0-12.2); MONOCYTES # (AUTO) 0.7 10^3/uL (0.0-1.0); MONOCYTES % (AUTO) 8 % (0-12); NEUTROPHILS # (AUTO) 6.1 10^3/uL (1.8-7.8); NEUTROPHILS % (AUTO) 75 % (42-75); PLATELET COUNT 143 10^3/uL (130-400); WHITE BLOOD COUNT 8.1 10^3/uL (4.3-11.0)
[2021-07-02 08:17] LABS: ALBUMIN 3.2 GM/DL (3.2-4.5); BILIRUBIN,TOTAL 2.1 MG/DL (0.1-1.0); CREATININE SERUM 1.28 MG/DL (0.60-1.30); POTASSIUM 3.1 MMOL/L (3.6-5.0); TOTAL PROTEIN 7.2 GM/DL (6.4-8.2)
--- NOTE | 2021-07-02 08:46 | Occupational Ther Daily Note ---
OT Current Status-Daily Note Subjective Pt alert, lying in bed. Pt agrees to therapy. No c/o pain only fatigue. Mental Status/Objective Patient Orientation: Person, Place, Time, Situation Attachments: IV (PICC) ADL-Treatment Pt declines shower. Independent with eating. Mod A for supine to EOB with HOB elevated. With surface elevated, pt min A for sit <-->. Pt declined oral care. Max A for lower body dressing. Max A for footwear. Min A for upper body dressing. Per clinical judgment, pt is max A for toileting. Pt then ambulated to w/c using FWW with CGA and verbal cues for safe transfer. Therapy Code Descriptions/Definitions Functional [place] Measure: 0=Not Assessed/NA 4=Minimal Assistance 1=Total Assistance 5=Supervision or Setup 2=Maximal Assistance 6=Modified [place] 3=Moderate Assistance 7=Complete IndependenceSCALE: Activities may be completed with or without assistive devices. 4-Xbrmdiqzlo-wgrytnr completes the activity by him/herself with no assistance from a helper. 5-Set-up or Clean-up Assistance-helper sets up or cleans up; patient completes activity. [place] assists only prior to or following the activity. 4-Supervision or Touching Assistance-helper provides verbal cues and/or touching/steadying and/or contact guard assistance as patient completes activity. Assistance may be provided throughout the activity or intermittently. 3-Partial/Moderate Assistance-helper does LESS THAN HALF the effort. [place] lifts, holds or supports trunk or limbs, but provides less than half the effort. 2-Substantial/Maximal Assistance-helper does MORE THAN HALF the effort. [place] lifts or holds trunk or limbs and provides more than half the effort. 7-Nfsmycoao-ezeamb does ALL the effort. Patient does none of the effort to complete the activity. Or, the assistance of 2 or more helpers is required for the patient to complete the activity. If activity was not attempted, code reason: 7-Patient Refused. 9-Not Applicable-not attempted and the patient did not perform the activity before the current illness, exacerbation or injury. 10-Not Attempted due to Environmental Limitations-(lack of equipment, weather restraints, etc.). 88-Not Attempted due to Medical Conditions or Safety Concerns. Eating (QC): 6 Oral Hygiene (QC): 7 Shower/Bathe Self (QC): 7 (States that she only takes bath 1 day a week.) Upper Body Dressing (QC): 3 Lower Body Dressing (QC): 2 On/Off Footwear: 2 Toileting Hygiene (QC): 2 Toilet Transfer (QC): 2 PT/OT co-treat ([id number]), skills of 2 clinicians required to decrease fall risk, increase activity tolerance and functional mobility. PT focusing on transfers, ambulation and core strengthening while OT focusing on ADLs, B UE placement and functional mobility. Pt takes increased time to complete tasks due to decreased activity tolerance. Other Treatment Pt working on core strengthening for safe upright sitting. After session, pt left in care of PT. All needs met. OT Short Term Goals Short Term Goals Time Frame: Jul 10, 2021 Toileting hygiene: 3 Shower/bathe self: 2 Lower body dressin Putting on/taking off footwear: 2 OT Bulk Tank Driver Goals Bulk Tank Driver Goals Time Frame: Jul 19, 2021 Eating (QC): 6 Oral Hygiene (QC): 6 Toileting Hygiene (QC): 4 Shower/Bathe Self (QC): 3 Upper Body Dressing (QC): 3 Lower Body Dressing (QC): 3 On/Off Footwear (QC): 3 Additional Goals: 1-Demonstrate ADL Tasks, 2-Verbalize Understanding, 3- ImproveStrength/Naina 1=Demonstrate adherence to instructed precautions during ADL tasks. 2=Patient will verbalize/demonstrate understanding of assistive devices/modifications for ADL. 3=Patient will improve strength/tolerance for activity to enable patient to perform ADL's. OT Education/Plan Problem List/Assessment Assessment: Decreased Activ Tolerance, Decreased UE Strength, Impaired Bed Mobility, Impaired Coordination, Impaired Funct Balance, Impaired Self-Care Skills Discharge Recommendations Plan/Recommendations: Continue POC Treatment Plan/Plan of Care Patient would benefit from OT for education, treatment and training to promote independence in ADL's, mobility, safety and/or upper extremity function for ADL's. Plan of Care: ADL Retraining, Functional Mobility, Group Exercise/Act as Ind, UE Funct Exercise/Act Treatment Duration: Jul 19, 2021 Frequency: At least 5 of 7 days/Wk (IRF) Estimated Hrs Per Day: 1.5 hours per day Agreement: Yes Rehab Potential: Fair Time/GCodes Start Time: 07:30 Stop Time: 08:45 Total Time Billed (hr/min): 75 Billed Treatment Time 1 visit-ADL 4 (60 min) FA 1 (15 min) co-treat with PT [id number] individual [id number] DELORES TORRES Jul 02, 2021 08:45
[2021-07-02 08:56] VITALS: BP 192/87
[2021-07-02] MEDS: GABAPENTIN 300 MG (NEURONTIN) CAP PO SCH (08:59)
[2021-07-02] MEDS: LACTOBACILLUS ACIDOPHILUS (PROBIOTIC) CAPSULE PO SCH (08:59)
[2021-07-02] MEDS: lisINopril 5 MG (PRINIVIL) TABLET PO SCH (08:59)
[2021-07-02] MEDS: CYANOCOBALAMIN 1,000 MCG (VITAMIN B-12) TABLET PO SCH (08:59)
[2021-07-02] MEDS: VITAMIN D3 25 MCG (1,000 UNITS) TABLET PO SCH (08:59)
[2021-07-02] MEDS ORDERED: VIT C PO SCH (09:00)
[2021-07-02] MEDS ORDERED: PANTOPRAZOLE 40 MG (PROTONIX) TAB PO SCH (09:00)
[2021-07-02] MEDS: SENNA W/DOCUSATE (SENOKOT S) TABLET PO SCH ×2 (09:00→21:16)
[2021-07-02] MEDS: PANTOPRAZOLE 40 MG (PROTONIX) TAB PO SCH (09:00)
[2021-07-02] MEDS ORDERED: NON-FORMULARY MEDICATION 1 EA EA (Mirabegron (Myrbetriq) 25 MG) PO SCH ×2 (09:00)
[2021-07-02] MEDS ORDERED: [UNRECOGNIZED DRUG - OTHER] PO SCH (09:00)
[2021-07-02] MEDS: DOCUSATE SODIUM 100 MG (COLACE) CAP PO SCH ×2 (09:00→21:15)
[2021-07-02] MEDS ORDERED: LEVOTHYROXINE 50 MCG (LEVOTHROID) TAB PO SCH (09:00)
[2021-07-02] MEDS ORDERED: meTOprolol SUCCINATE 100 MG (TOPROL XL) TAB PO SCH (09:00)
[2021-07-02] MEDS: rOPINIRole 0.25 MG (REQUIP) TAB PO SCH ×2 (09:00→21:15)
[2021-07-02] MEDS ORDERED: GABAPENTIN 300 MG (NEURONTIN) CAP PO SCH (09:00)
[2021-07-02] MEDS: meTOprolol SUCCINATE 100 MG (TOPROL XL) TAB PO SCH (09:00)
[2021-07-02] MEDS: LORATADINE (CLARITIN) 10 MG TAB PO SCH (09:00)
[2021-07-02] MEDS ORDERED: CRANBERRY EXTRACT PO SCH (09:00)
[2021-07-02] MEDS: polyethylene glycoL POWDER 17 GM (MIRALAX) PACK PO SCH ×2 (09:03→21:21)
--- NOTE | 2021-07-02 09:08 | Physical Therapy Daily Note ---
PT Daily Note-Current Subjective Pt sitting in recliner upon arrival. Pt agrees to PT/OT co-treat. Mental Status Patient Orientation: Person, Place, Situation Attachments: IV Transfers SCALE: Activities may be completed with or without assistive devices. 6-Fehnaccefg-jiburck completes the activity by him/herself with no assistance from a helper. 5-Set-up or Clean-up Assistance-helper sets up or cleans up; patient completes activity. [place] assists only prior to or following the activity. 4-Supervision or Touching Assistance-helper provides verbal cues and/or touching/steadying and/or contact guard assistance as patient completes a ctivity. Assistance may be provided throughout the activity or intermittently. 3-Partial/Moderate Assistance-helper does LESS THAN HALF the effort. [place] lifts, holds or supports trunk or limbs, but provides less than half the effort. 2-Substantial/Maximal Assistance-helper does MORE THAN HALF the effort. [place] lifts or holds trunk or limbs and provides more than half the effort. 2-Nqofwiqku-zxnafv does ALL the effort. Patient does none of the effort to complete the activity. Or, the assistance of 2 or more helpers is required for the patient to complete the activity. If activity was not attempted, code reason: 7-Patient Refused. 9-Not Applicable-not attempted and the patient did not perform the activity before the current illness, exacerbation or injury. 10-Not Attempted due to Environmental Limitations-(lack of equipment, weather restraints, etc.). 88-Not Attempted due to Medical Conditions or Safety Concerns. Sit to Lying (QC): 3 Sit to Stand (QC): 3 Weight Bearing Full Weight Bearing Full Weight Bearing Gait Training Does the Patient Walk?: Yes Distance: 5' Walk 10 feet (QC): 4 Gait Assistive Device: FWW Wheelchair Training Does the Pt Use a Wheelchair?: Yes Type of Wheelchair: Manual Treatments PT/OT co-treat ([id number]), skills of 2 clinicians required to decrease fall risk, increase activity tolerance and functional mobility. PT focusing on transfers, ambulation and core strengthening while OT focusing on ADLs, B UE placement and functional mobility. Pt takes increased time to complete tasks due to decreased activity tolerance. Pt working on core strengthening for safe upright sitting. After session, pt left in care of PT. All needs met. Assessment Current Status: Fair Progress Pt continues to fatigue easily although pt is transferring a little easier & more independent today. PT Academic Computing Director Goals Academic Computing Director Goals PT Academic Computing Director Goals Time Frame: Jul 12, 2021 Roll Left & Right (QC): 5 Sit to Lying (QC): 5 Lying-Sitting on Side/Bed(QC): 4 Sit to Stand (QC): 4 Chair/Inh-nx-Vuyjv Xfer(QC): 4 Toilet Transfer (QC): 4 Car Transfer (QC): 4 Does the Patient Walk: Yes Walk 10 feet (QC): 5 Walk 50ft with 2 Turns (QC): 5 Walk 150 ft (QC): 4 Walking 10ft on Uneven Surface: 4 1 Step (curb) (QC): 4 4 Steps (QC): 88 12 Steps (QC): 88 Picking up an Object (QC): 4 Does the Pt use WC or Scooter?: Yes Wheel 50 feet with 2 turns (QC: 6 Type: Manual Wheel 150 feet: 6 Type: Manual PT Plan Problem List Problem List: Activity Tolerance, Functional Strength, Balance, Gait Treatment/Plan Treatment Plan: Continue Plan of Care Treatment Plan: Bed Mobility, Education, Functional Activity Naina, Functional Strength, Gait, Safety, Therapeutic Exercise, Transfers (--) Treatment Duration: Aug 02, 2021 Frequency: At least 5 of 7 days/Wk (IRF) Estimated Hrs Per Day: 1.5 hours per day Patient and/or Family Agrees t: Yes Safety Risks/Education Patient Education: Gait Training, Transfer Techniques, Correct Positioning, Sa fety Issues Teaching Recipient: Patient Teaching Methods: Discussion Response to Teaching: Verbalize Understanding Time/GCodes Time In: 800 Time Out: 900 Total Billed Treatment Time: 60 Total Billed Treatment Co-treat w/OT for 60m 1, FA x2 (30m) & EX x2 (30m) YUVAL SULLIVAN PHYSICAL THERAPY COORDINATOR Jul 02, 2021 09:08
[2021-07-02] MEDS: guaiFENesin/DM (ROBITUSSIN DM) 10 ML UDC PO PRN ×2 (09:26→17:00)
[2021-07-02] MEDS: MICONAZOLE 2% POWDER (DESENEX AF) 90 GM TOP PRN (09:29)
[2021-07-02] MEDS ORDERED: amLODIPine 5 MG (NORVASC) TAB PO NR (11:30)
[2021-07-02 11:45] VITALS: BP 177/104
[2021-07-02] MEDS ORDERED: KCL 10 MEQ TAB (MICRO K) PO NR (11:45)
--- NOTE | 2021-07-02 12:11 | Physical Therapy Daily Note ---
PT Daily Note-Current Subjective Pt in BR with Nursing as Nursing asks for assistance to get pt back to [facility]. Pain Location: No Pain Reported Mental Status Patient Orientation: Person, Place Transfers SCALE: Activities may be completed with or without assistive devices. 4-Cvmnfnbrak-jhzxlra completes the activity by him/herself with no assistance from a helper. 5-Set-up or Clean-up Assistance-helper sets up or cleans up; patient completes activity. [place] assists only prior to or following the activity. 4-Supervision or Touching Assistance-helper provides verbal cues and/or touching/steadying and/or contact guard assistance as patient completes activity. Assistance may be provided throughout the activity or intermittently. 3-Partial/Moderate Assistance-helper does LESS THAN HALF the effort. [place] lifts, holds or supports trunk or limbs, but provides less than half the effort. 2-Substantial/Maximal Assistance-helper does MORE THAN HALF the effort. [place] lifts or holds trunk or limbs and provides more than half the effort. 2-Jgouydjfi-pnzqdc does ALL the effort. Patient does none of the effort to compl ete the activity. Or, the assistance of 2 or more helpers is required for the patient to complete the activity. If activity was not attempted, code reason: 7-Patient Refused. 9-Not Applicable-not attempted and the patient did not perform the activity before the current illness, exacerbation or injury. 10-Not Attempted due to Environmental Limitations-(lack of equipment, weather restraints, etc.). 88-Not Attempted due to Medical Conditions or Safety Concerns. Sit to Lying (QC): 2 Sit to Stand (QC): 2 Weight Bearing Full Weight Bearing Full Weight Bearing Treatments Pt was on floor on knees as Nursing had tried to assist pt to BR. HISTORICAL GUIDE assists pt to [facility] then wheels to EOB for TF to Supine in bed. Pt is repositioned and bed rivas is placed. Pt has all needs met, daughter and Nurse present. Assessment Current Status: Poor Progress Pt is extremely weak and fatigued. Pt is not able to put forth much effort for any task. PT Shirt Cleaner Goals Shirt Cleaner Goals PT Retirement Goals Time Frame: Jul 12, 2021 Roll Left & Right (QC): 5 Sit to Lying (QC): 5 Lying-Sitting on Side/Bed(QC): 4 Sit to Stand (QC): 4 Chair/Axe-zi-Bjier Xfer(QC): 4 Toilet Transfer (QC): 4 Car Transfer (QC): 4 Does the Patient Walk: Yes Walk 10 feet (QC): 5 Walk 50ft with 2 Turns (QC): 5 Walk 150 ft (QC): 4 Walking 10ft on Uneven Surface: 4 1 Step (curb) (QC): 4 4 Steps (QC): 88 12 Steps (QC): 88 Picking up an Object (QC): 4 Does the Pt use WC or Scooter?: Yes Wheel 50 feet with 2 turns (QC: 6 Type: Manual Wheel 150 feet: 6 Type: Manual PT Plan Problem List Problem List: Activity Tolerance, Functional Strength, Safety, Balance, Transfer Treatment/Plan Treatment Plan: Continue Plan of Care Treatment Plan: Bed Mobility, Education, Functional Activity Naina, Functional Strength, Gait, Safety, Therapeutic Exercise, Transfers (--) Treatment Duration: Aug 02, 2021 Frequency: At least 5 of 7 days/Wk (IRF) Estimated Hrs Per Day: 1.5 hours per day Patient and/or Family Agrees t: Yes Safety Risks/Education Patient Education: Transfer Techniques, Correct Positioning, Safety Issues Teaching Recipient: Patient Teaching Methods: Discussion Response to Teaching: Verbalize Understanding Time/GCodes Time In: 1015 Time Out: 1200 Total Billed Treatment Time: 30 Total Billed Treatment ([id number] & [id number]) 1, FA x2 (30m) YUVAL SULLIVAN HISTORICAL GUIDE Jul 02, 2021 12:11
[2021-07-02] MEDS ORDERED: FUROSEMIDE 40 MG/4 ML INJ (LASIX) IVP NR (12:15)
[2021-07-02] MEDS: BENZONATATE 100 MG (TESSALON) CAPSULE PO SCH ×2 (12:15→21:16)
--- NOTE | 2021-07-02 12:46 | Diagnostic Imaging Report ---
INDICATION: Cough. TIME OF EXAM: 12:11 PM. COMPARISON: Correlation is made with the prior chest from 06/28/2021. FINDINGS: The heart size is stable. There appear to be some patchy infiltrates in the lung bases; however, the overall aeration has significantly improved to the bases since the examination from 06/28/2021. The mid and upper lung alvarez are fairly clear. There is no pneumothorax. IMPRESSION: Overall improved aeration to both bases when compared to the examination from 06/28/2021. Dictated by: Dictated on workstation # [id number]
--- NOTE | 2021-07-02 14:14 | ST Cognitive Linguistic Eval ---
Speech Evaluation-General Medical Diagnosis Debility Onset Date: Jul 01, 2021 Therapy Diagnosis Therapy Diagnosis: Cognitive Lingusitic Skills Within Normal Limits Precautions Precautions: Fall Precautions/Isolations: Standard Precautions Referral Referring Physician: Dr. Disha Pemberton Reason for Referral: Evaluation/Treatment Medical History Current History The patient is an 80 year-old female with a past medical history of HTN, HLD, DM, GERD, hiatal hernia, hypothyroidism, chronic UTI's, and neuropathy, who was admitted to [facility] with a diagnosis of septic shock and altered mental status. Reviewed History: Yes Speech PLF-Current Status Subjective The patient was awake, lying in bed upon entrance to her room by the clinician. The patient greeted the clinician and was agreeable to participation in the cognitive linguistic evaluation. The patient denied recent changes or concerns with her speech, language, or cognition. While the patient does display increased response time through unstructured conversation, the delay appears secondary to the patient's current level of fatigue (as she often falls asleep and required verbal encouragement for continued participation). Language Eval: Auditory Comprehends Simple Yes/No Ques: Functional Indent/Objects Multiple Stoll: Functional Ident/Pics in Multiple Stoll: Functional Follows 1-Step Commands: Functional Follows General Conversations: Functional Language Eval: Verbal Language Completes Spontaneous Greeting: Functional Produces Auto, Serial Info: Functional Imitates Simple Words/Phrases: Functional Word Finding: Functional Requests Basic Needs: Functional States Basic Personal Info: Functional Cognitive Patient Orientation The patient was independently oriented to self, location, month, day of week, date and year. Objective Cognitive Domain Attention: Mild Memory: Mild Problem Solving: Functional Executive Functions: WNL Clock Drawing Severity Rating: WNL Objective Formal/Standardized Tests [facility] Mental Status Examination ([facility]) Results The patient demonstrated results of +26/30 correlating to a neurocognitive function within normal limits. Oral Motor/Speech Production The patient does not display dysarthria or apraxia of speech on this date. The patient remains 100% intelligible in known and unknown contexts. Impression The patient demonstrates neurocognitive results within normal limits. While the patient did display one error with simple addition, anomia, and recall of four of five single words following a delay- overall the patient displayed appropriate problem solving abilities. Extended response time was necessary, however, appeared secondary to the patient's current level of fatigue. The clinician does question the patient's overall motivation for skilled therapy services as frequent verbal encouragement was required. Due to the patient's borderline results, speech pathology will continue to informally monitor the patient's performance with additional disciplines. If the patient appears to struggle cognitively throughout skilled services, speech pathology will reconsider skilled cognitive services. Speech Patient Assess Expression of Ideas/Wants: Exhibits (3) Understanding Verbal Content: Usually Understands (3) Brief Interview-Mental Status: Yes Repetition of Three Words: Three (3) Temporal Orientation: Year: Correct (3) Temporal Orientation: Month: Accurate within 5 days(2) Temporal Orientation: Day: Correct (1) Recall : Wear to say "Sock": Yes, no cue required (2) Recall : Color: Yes, no cue required (2) Recall : Bed: Yes,after cueing (1) Memory/Recall Ability: Current season, Staff names and faces, That he or she is in a hsp/hsp unit Speech-Plan Treatment Plan Speech Therapy Treatment Plan: Discontinue ST Frequency: 1 time per week Estimated Hrs Per Day: .5 hour per day Rehab Potential: Fair Pt/Family Agrees to Plan: Yes Safety Risks/Education Teaching Recipient: Patient Teaching Methods: Discussion Response to Teaching: Verbalize Understanding Education Topics Provided: Results of SLUMS, Plan of Care Time Speech Therapy Time In: 09:45 Speech Therapy Time Out: 10:15 Total Billed Time: 30 Billed Treatment Time 1, LUIS CAMPBELL [facility] Jul 02, 2021 14:14
[2021-07-02 16:00] VITALS: BP 147/74
[2021-07-02] MEDS: KCL 10 MEQ TAB (MICRO K) PO SCH (18:13)
[2021-07-02 19:40] VITALS: BP 170/84
[2021-07-02] MEDS: DONEPEZIL 5 MG (ARICEPT) TAB PO SCH (21:15)
[2021-07-02] MEDS: GABAPENTIN 600 MG (NEURONTIN) TAB PO SCH (21:15)
[2021-07-02] MEDS: ACETAMINOPHEN 500 MG TAB (TYLENOL) PO SCH (21:17)
[2021-07-02 21:55] VITALS: BP 165/72
[2021-07-03] MEDS: PIPERACILLIN SODIUM/TAZOBACTAM 4.5 GM in NS (IVPB) 100 ML IV SCH ×3 (00:15→15:40)
[2021-07-03] MEDS: inSUlin ASPART (NovoLOG) 1 UNIT/0.01 ML (CHARGE PER UNIT) SC SCH ×4 (06:00→20:40)
[2021-07-03] MEDS: LEVOTHYROXINE 50 MCG (LEVOTHROID) TAB PO SCH (06:29)
[2021-07-03 06:56] LABS: BASOPHILS % (AUTO) 0 % (0-10); EOSINOPHILS # (AUTO) 0.3 10^3/uL (0.0-0.3); EOSINOPHILS % (AUTO) 4 % (0-10); HEMATOCRIT 39 % (35-52); HEMOGLOBIN 12.4 g/dL (11.5-16.0); LYMPHOCYTES # (AUTO) 1.5 10^3/uL (1.0-4.0); LYMPHOCYTES % (AUTO) 15 % (12-44); MEAN CORPUSCULAR HEMOGLOBIN 30 pg (25-34); MEAN CORPUSCULAR HGB CONC 32 g/dL (32-36); MEAN CORPUSCULAR VOLUME 93 fL (80-99); MEAN PLATELET VOLUME 9.6 fL (9.0-12.2); MONOCYTES # (AUTO) 0.9 10^3/uL (0.0-1.0); MONOCYTES % (AUTO) 10 % (0-12); NEUTROPHILS # (AUTO) 6.6 10^3/uL (1.8-7.8); NEUTROPHILS % (AUTO) 70 % (42-75); PLATELET COUNT 158 10^3/uL (130-400); WHITE BLOOD COUNT 9.5 10^3/uL (4.3-11.0)
[2021-07-03 07:07] LABS: ALBUMIN 3.2 GM/DL (3.2-4.5)
[2021-07-03 07:08] LABS: CALCIUM 8.9 MG/DL (8.5-10.1)
[2021-07-03 07:11] LABS: BILIRUBIN,TOTAL 1.7 MG/DL (0.1-1.0)
[2021-07-03 07:13] LABS: CREATININE SERUM 1.34 MG/DL (0.60-1.30)
[2021-07-03 07:37] VITALS: BP 200/93
[2021-07-03] MEDS: DOCUSATE SODIUM 100 MG (COLACE) CAP PO SCH ×2 (07:37→20:51)
[2021-07-03] MEDS: LACTOBACILLUS ACIDOPHILUS (PROBIOTIC) CAPSULE PO SCH (07:37)
[2021-07-03] MEDS: SENNA W/DOCUSATE (SENOKOT S) TABLET PO SCH ×2 (07:37→20:52)
[2021-07-03] MEDS: BENZONATATE 100 MG (TESSALON) CAPSULE PO SCH ×3 (07:37→20:51)
[2021-07-03] MEDS: VITAMIN D3 25 MCG (1,000 UNITS) TABLET PO SCH (07:37)
[2021-07-03] MEDS: CYANOCOBALAMIN 1,000 MCG (VITAMIN B-12) TABLET PO SCH (07:38)
[2021-07-03] MEDS: cloNIDine 0.1 MG (CATAPRES) TAB PO PRN (07:38)
[2021-07-03] MEDS: meTOprolol SUCCINATE 100 MG (TOPROL XL) TAB PO SCH (07:38)
[2021-07-03] MEDS: KCL 10 MEQ TAB (MICRO K) PO SCH ×2 (07:38→17:29)
[2021-07-03] MEDS: rOPINIRole 0.25 MG (REQUIP) TAB PO SCH ×2 (07:39→20:52)
[2021-07-03] MEDS: PANTOPRAZOLE 40 MG (PROTONIX) TAB PO SCH (07:39)
[2021-07-03] MEDS: lisINopril 5 MG (PRINIVIL) TABLET PO SCH (07:39)
[2021-07-03] MEDS: amLODIPine 5 MG (NORVASC) TAB PO SCH (07:39)
[2021-07-03] MEDS: LORATADINE (CLARITIN) 10 MG TAB PO SCH (07:39)
[2021-07-03] MEDS: GABAPENTIN 300 MG (NEURONTIN) CAP PO SCH (07:39)
[2021-07-03] MEDS: GLIMEPIRIDE 4 MG (AMARYL) TAB PO SCH (07:40)
[2021-07-03] MEDS: polyethylene glycoL POWDER 17 GM (MIRALAX) PACK PO SCH ×2 (07:40→20:57)
[2021-07-03] MEDS: guaiFENesin/DM (ROBITUSSIN DM) 10 ML UDC PO PRN ×3 (07:46→17:31)
[2021-07-03] MEDS: MICONAZOLE 2% POWDER (DESENEX AF) 90 GM TOP PRN (07:47)
--- NOTE | 2021-07-03 07:55 | Diagnostic Imaging Report ---
INDICATION: Cough. Comparison with 07/02/2021. FINDINGS: Portable chest. There continue to be bibasilar alveolar infiltrates. Upper lungs remain clear. Heart is not enlarged. There is probable small left basilar pleural effusion. IMPRESSION: No significant change since previous exam with continued bilateral lower lobe pneumonia. Dictated by: Dictated on workstation # [id number]
--- NOTE | 2021-07-03 08:07 | PM&R Progress Note ---
Subjective HPI/CC On Admission Date Seen by Provider: Jul 03, 2021 Time Seen by Provider: 11:00 Subjective/Events-last exam 07/03/2021: Pt doing pretty well Pt has urinary retention Dr. Maria was consulted and started her on Flomax He left orders to do an in and out cath for greater than 400cc's on bladder scan Dr. Gregory has been consulted Decreased motivation for therapy blood pressure is very labile with bp of 200 given Clonidine blood sugar is 149 07/02/21: Pt doing about the same BP is high so will give Norvasc of 5 mg daily Cough is constant Had a little bit of bloody sputum yesterday Transfers are better Day number 4 of antibiotics of Zosyn Checked meds and labs Daughter at the bedside Added on BNP later in the day which was elevated gave Lasix 20 mg IV x1 consulted Dr. Gregory and ordered an echo She did almost fall going to the bathroom I recommended bedside commode Review of Systems General: Fatigue, Malaise Pulmonary: Dyspnea, Cough Neurological: Weakness Objective Exam Vital Signs Vital Signs Date Time Temp Pulse Resp B/P (MAP) Pulse Ox O2 Delivery O2 Flow Rate FiO2 07/03/21 20:55 92 Room Air 07/03/21 20:19 36.5 74 18 134/61 (85) Capillary Refill : General Appearance: No Apparent Distress, WD/WN, Chronically ill, Obese HEENT: PERRL/EOMI, Normal ENT Inspection, Pharynx Normal Neck: Full Range of Motion, Normal Inspection, Non Tender, Supple, Carotid Bruit Respiratory: Chest Non Tender, Normal Breath Sounds, No Accessory Muscle Use, No Respiratory Distress, Crackles, Decreased Breath Sounds Cardiovascular: Regular Rate, Rhythm, No Edema, No Gallop, No JVD, No Murmur, Normal Peripheral Pulses Gastrointestinal: Normal Bowel Sounds, No Organomegaly, No Pulsatile Mass, Non Tender, Soft Back: Normal Inspection, No CVA Tenderness, No Vertebral Tenderness Extremity: Normal Capillary Refill, Normal Inspection, Normal Range of Motion, Non Tender, No Calf Tenderness, No Pedal Edema Neurologic/Psychiatric: Alert, Oriented x3, No Motor/Sensory Deficits, Normal Mood/Affect Skin: Normal Color, Warm/Dry Lymphatic: No Adenopathy Results/Procedures Lab Patient resulted labs reviewed. FIM Transfers Therapy Code Descriptions/Definitions Functional [place] Measure: 0=Not Assessed/NA 4=Minimal Assistance 1=Total Assistance 5=Supervision or Setup 2=Maximal Assistance 6=Modified [place] 3=Moderate Assistance 7=Complete IndependenceSCALE: Activities may be completed with or without assistive devices. 9-Bdpfennwhd-kckkaus completes the activity by him/herself with no assistance from a helper. 5-Set-up or Clean-up Assistance-helper sets up or cleans up; patient completes activity. [place] assists only prior to or following the activity. 4-Supervision or Touching Assistance-helper provides verbal cues and/or touching/steadying and/or contact guard assistance as patient completes activity. Assistance may be provided throughout the activity or intermittently. 3-Partial/Moderate Assistance-helper does LESS THAN HALF the effort. [place] lifts, holds or supports trunk or limbs, but provides less than half the effort. 2-Substantial/Maximal Assistance-helper does MORE THAN HALF the effort. [place] lifts or holds trunk or limbs and provides more than half the effort. 8-Epartvinm-glqvqs does ALL the effort. Patient does none of the effort to complete the activity. Or, the assistance of 2 or more helpers is required for the patient to complete the activity. If activity was not attempted, code reason: 7-Patient Refused. 9-Not Applicable-not attempted and the patient did not perform the activity before the current illness, exacerbation or injury. 10-Not Attempted due to Environmental Limitations-(lack of equipment, weather restraints, etc.). 88-Not Attempted due to Medical Conditions or Safety Concerns. Roll Left to Right (QC): 3 Sit to Lying (QC): 2 Sit to Stand (QC): 2 Chair/Qhf-bi-Lqdth Xfer(QC): 3 Car Transfer (QC): 3 Gait Training Does the Patient Walk?: Yes Distance: 5' Walk 10 feet (QC): 4 Walk 50 ft with 2 Turns(QC): 88 Walk 150 ft (QC): 88 Walking 10ft/uneven surface-QC: 3 Gait Persons Needed: 2 Gait Assistive Device: FWW Wheelchair Training Does the Pt Use a Wheelchair?: Yes Distance: 50 feet Wheel 50 ft with 2 turns (QC): 4 Wheel 150 ft (QC): 88 Type of Wheelchair: Manual Stair Training Stair Training: Handrails/: uses walker #of Steps: 1 1 Step (curb) (QC): 3 4 Steps (QC): 7 12 Steps (QC): 7 Stairs: Pattern: Step to Balance Picking up an Object (QC): 7 ADL-Treatment Eating (QC): 6 Oral Hygiene (QC): 7 Bathing Location: L Arm, R Arm, L Upper Leg, R Upper Leg, L Lower Leg (includ ing foot), R Lower Leg (including foot), Chest, Abdomen, Buttocks, Perineal Area Shower/Bathe Self (QC): 7 (States that she only takes bath 1 day a week.) Upper Body Dressing (QC): 3 Lower Body Dressing (QC): 2 On/Off Footwear (QC): 2 Toileting Hygiene (QC): 2 Toilet Transfer (QC): 2 Assessment/Plan Assessment and Plan Assess & Plan/Chief Complaint Assessment: Critical illness myopathy Debility Recent pneumonia Status post sepsis Severe weakness Cognitive deficit Hypothyroidism GERD Hypertension Recurrent UTI Elevated BNP to 122 gave Lasix and consulted Dr. Gregory Plan: PT and OT aggressive rehab Supportive longterm meds Monitor blood pressure 07/02/2021: Lasix Echo Cough suppressants Dr. Gregory consult 07/03/2021: Supportive care Dr. Gregory appreciated Echo Inhaled corticosteroids Singulair and Claritin (1) Myopathy (2) Pneumonia Status: Acute (3) Elevated LFTs Status: Acute (4) Encephalopathy acute Status: Acute (5) Sepsis Status: Acute ERICA DUKE DO Jul 03, 2021 08:07
[2021-07-03 09:30] VITALS: BP 140/82
--- NOTE | 2021-07-03 10:23 | Consultation-Cardiology ---
HPI-Cardiology Cardiology Consultation Date of Consultation 07/03/21 Date of Admission Time Seen by Provider: 09:00 Indication: HTN, Elevated BNP HPI Patient is an 80 y/o female resides at [facility] in [facility]. Admitted through the ER on 06/27/21 for pneumia and sepsis. Currently in IRF at [facility] for critial illness myopathy. Noted to have some increased dyspnea and slightly elevated BNP. Was given Lasix x 1 dose. Denies any chest pain. Reports dyspnea and nonproductive cough. Denies any chest pain, denies hx of CAD Patient was noted to have elevated blood pressure earlier this morning, responded to Lasix, blood pressure is better at this time. Home Medications & Allergies Allergies: Coded Allergies: codeine (Unverified Adverse Reaction, Unknown, 06/25/20) ketorolac (Unverified Adverse Reaction, Unknown, 06/25/20) milk (Verified Adverse Reaction, Unknown, Diarrhea, 06/29/21) naproxen (Unverified Adverse Reaction, Unknown, 06/25/20) Home Medication List Reviewed: Yes KJH-Lvpynk-Lkpuqi Hx Patient Social History Marital Status: single Employed/Student: retired Smoking Status: Never a Smoker 2nd Hand Smoke Exposure: No Recent Hopitalizations: No (patient poor historian; complete history unknown) Have you traveled recently?: No Alcohol Use?: No Immunizations Up To Date Date of Influenza Vaccine: Mar 01, 2021 Past Medical History HTN Family Medical History Significant Family History: No Pertinent Family Hx Review of Systems-General Review of Systems Constitutional: see HPI, malaise, weakness EENTM: see HPI, no symptoms reported; No blurred vision, No double vision Respiratory: cough, dyspnea on exertion, phlegm, short of breath Cardiovascular: no symptoms reported, see HPI; No chest pain, No edema, No Hx of Intervention, No palpitations Gastrointestinal: no symptoms reported Genitourinary: no symptoms reported Musculoskeletal: back pain, joint pain Skin: no symptoms reported Psychiatric/Neurological: Anxiety, Depressed All Other Systems Reviewed Negative Unless Noted: Yes Reviewed Test Results Reviewed Test Results Lab Laboratory Tests 07/02/21 11:49: Glucometer 193H 07/02/21 15:52: Glucometer 156H 07/02/21 20:21: Glucometer 119H 07/03/21 05:51: Glucometer 51*L 07/03/21 06:50: White Blood Count 9.5, Red Blood Count 4.14, Hemoglobin 12.4, Hematocrit 39, Mean Corpuscular Volume 93, Mean Corpuscular Hemoglobin 30, Mean Corpuscular Hemoglobin Concent 32, Red Cell Distribution Width 14.0, Platelet Count 158, Mean Platelet Volume 9.6, Immature Granulocyte % (Auto) 1, Neutrophils (%) (Auto) 70, Lymphocytes (%) (Auto) 15, Monocytes (%) (Auto) 10, Eosinophils (%) (Auto) 4, Basophils (%) (Auto) 0, Neutrophils # (Auto) 6.6, Lymphocytes # (Auto) 1.5, Monocytes # (Auto) 0.9, Eosinophils # (Auto) 0.3, Basophils # (Auto) 0.0, Immature Granulocyte # (Auto) 0.1, Sodium Level 138, Potassium Level 3.0L, Chloride Level 105, Carbon Dioxide Level 22, Anion Gap 11, Blood Urea Nitrogen 13, Creatinine 1.34H, Estimat Glomerular Filtration Rate 40, BUN/Creatinine Ratio 10, Glucose Level 82, Calcium Level 8.9, Corrected Calcium 9.5, Total Bilirubin 1.7H, Aspartate Amino Transf (AST/SGOT) 27, Alanine Aminotransferase (ALT/SGPT) 87H, Alkaline Phosphatase 133, Total Protein 7.0, Albumin 3.2 07/03/21 07:16: Glucometer 75 07/03/21 10:27: Glucometer 149H Physical Exam Physical Exam Vital Signs Vital Signs - First Documented 07/01/21 13:51 Temp 36.4 Pulse 89 Resp 20 B/P (MAP) 148/72 (97) Pulse Ox 95 O2 Delivery Room Air Capillary Refill : Height, Weight, BMI Height: '" Weight: lbs. oz. kg; 26.39 BMI Method: General Appearance: No Apparent Distress, WD/WN, Chronically ill, Obese Eyes: Bilateral Eye Normal Inspection, Bilateral Eye PERRL HEENT: PERRL/EOMI, Normal ENT Inspection, Pharynx Normal Neck: Full Range of Motion, Normal Inspection, Non Tender, Supple, Carotid Bruit Respiratory: Chest Non Tender, Normal Breath Sounds, No Accessory Muscle Use, No Respiratory Distress, Crackles, Decreased Breath Sounds Cardiovascular: Regular Rate, Rhythm, No Edema, No Gallop, No JVD, No Murmur, Normal Peripheral Pulses Gastrointestinal: Normal Bowel Sounds, No Organomegaly, No Pulsatile Mass, Non Tender, Soft Back: Normal Inspection, No CVA Tenderness, No Vertebral Tenderness Extremity: Normal Capillary Refill, Normal Inspection, Normal Range of Motion, Non Tender, No Calf Tenderness, No Pedal Edema Neurologic/Psychiatric: Alert, Oriented x3, No Motor/Sensory Deficits, Normal Mood/Affect Skin: Normal Color, Warm/Dry Lymphatic: No Adenopathy A/P-Cardiology Admission Diagnosis Elevated BNP HTN Recent pneumonia with sepsis Debility/weakness Assessment/Plan Mildly elevated BNP, no signs of congestive heart failure, probably secondary to labile blood pressure and possible LVH. I will evaluate 2D echo Hypertension, labile blood pressure, maintained on Toprol and lisinopril, amlodipine was started recently, received a as needed dose of clonidine for elevated blood pressure today, blood pressure is better. I will increase lisinopril and monitor tolerance and response HLP, statin currently on hold secondary to elevated LFTs on admission. Will continue to monitor as outpatient. Recent pneumonia with sepsis, slowly improving, still having nonproductive cough. Continue on antibiotic. Management per medical services. DM, management per medical services. Generalized debility/weakness, continue PT/OT Hx Recurrent UTI Hypothyroidism Hypokalemia, replace and continue to monitor. Thank you for allowing us to participate in the management of Ms. Alvarado. This is Marilia Tovar PA-C, as a scribe for Dr. Gregory Patient was seen and evaluated with Marilia, examined and interviewed. We discussed the management plan, agree with the current scribed note, On my evaluation blood pressure was better responded to the clonidine, we will increase lisinopril and monitor blood pressure and use clonidine as needed Continue on amlodipine and Toprol. Monitor blood pressure and lipids. MARILIA MADISON Jul 03, 2021 10:23 LONI GREGORY MD Jul 03, 2021 11:49
--- NOTE | 2021-07-03 10:37 | Occupational Ther Daily Note ---
OT Current Status-Daily Note Subjective Pt dozing in bed. Pt woke to name though continues to be drowsy. Pt appears fearful about getting OOB and is self limiting with mobility and functional tasks. Requires encouragement to participate in therapy. Mental Status/Objective Patient Orientation: Person, Place, Time, Situation Attachments: IV ADL-Treatment Pt declines shower or changing clothing stating that she only gets one shower a week and stays in that set of clothing all week until next shower. Due to anxiety about mobility, pt requires max A for supine to EOB and max A x2 for EOB to supine and all other bed mobility. Max A x2 to SPT from EOB to BSC due to fear of falling. Max A x2 for toileting and lower body dressing. Dependent for footwear. Declines oral care. Therapy Code Descriptions/Definitions Functional [place] Measure: 0=Not Assessed/NA 4=Minimal Assistance 1=Total Assistance 5=Supervision or Setup 2=Maximal Assistance 6=Modified [place] 3=Moderate Assistance 7=Complete IndependenceSCALE: Activities may be completed with or without assistive devices. 6-Mtmegamoel-nzjazyl completes the activity by him/herself with no assistance from a helper. 5-Set-up or Clean-up Assistance-helper sets up or cleans up; patient completes activity. [place] assists only prior to or following the activity. 4-Supervision or Touching Assistance-helper provides verbal cues and/or touching/steadying and/or contact guard assistance as patient completes activity. Assistance may be provided throughout the activity or intermittently. 3-Partial/Moderate Assistance-helper does LESS THAN HALF the effort. [place] lifts, holds or supports trunk or limbs, but provides less than half the effort. 2-Substantial/Maximal Assistance-helper does MORE THAN HALF the effort. [place] lifts or holds trunk or limbs and provides more than half the effort. 4-Bygqqktle-agqvgu does ALL the effort. Patient does none of the effort to complete the activity. Or, the assistance of 2 or more helpers is required for the patient to complete the activity. If activity was not attempted, code reason: 7-Patient Refused. 9-Not Applicable-not attempted and the patient did not perform the activity before the current illness, exacerbation or injury. 10-Not Attempted due to Environmental Limitations-(lack of equipment, weather restraints, etc.). 88-Not Attempted due to Medical Conditions or Safety Concerns. Eating (QC): 6 Oral Hygiene (QC): 7 Shower/Bathe Self (QC): 1 (sponge bath, assist x2 to cleanse buttocks in jaclyn ding.) Lower Body Dressing (QC): 1 On/Off Footwear: 1 Toileting Hygiene (QC): 1 Toilet Transfer (QC): 1 Other Treatment Pt takes increased time to complete all tasks due to decreased activity tolerance and self limiting. Pt tolerated one B UE exercise 1 set 10 reps then closed eyes and pretended to sleep. Pt was encouraged to complete fine motor tasks using B UE against gravity to reach, grasp and release in designated area. After session, pt lying in bed with call light/phone in reach. All needs met in room. OT Short Term Goals Short Term Goals Time Frame: Jul 10, 2021 Toileting hygiene: 3 Shower/bathe self: 2 Lower body dressin Putting on/taking off footwear: 2 OT Alf Goals Tool Distributor Goals Time Frame: Jul 19, 2021 Eating (QC): 6 Oral Hygiene (QC): 6 Toileting Hygiene (QC): 4 Shower/Bathe Self (QC): 3 Upper Body Dressing (QC): 3 Lower Body Dressing (QC): 3 On/Off Footwear (QC): 3 Additional Goals: 1-Demonstrate ADL Tasks, 2-Verbalize Understanding, 3- ImproveStrength/Naina 1=Demonstrate adherence to instructed precautions during ADL tasks. 2=Patient will verbalize/demonstrate understanding of assistive devices/modifications for ADL. 3=Patient will improve strength/tolerance for activity to enable patient to perform ADL's. OT Education/Plan Problem List/Assessment Assessment: Decreased Activ Tolerance, Decreased Safety Aware, Decreased UE Strength, Dependent Transfers, Impaired Bed Mobility, Impaired Coordination, Impaired Funct Balance, Impaired Self-Care Skills Discharge Recommendations Plan/Recommendations: Continue POC Treatment Plan/Plan of Care Patient would benefit from OT for education, treatment and training to promote independence in ADL's, mobility, safety and/or upper extremity function for ADL's. Plan of Care: ADL Retraining, Functional Mobility, Group Exercise/Act as Ind, UE Funct Exercise/Act Treatment Duration: Jul 19, 2021 Frequency: At least 5 of 7 days/Wk (IRF) Estimated Hrs Per Day: 1.5 hours per day Agreement: Yes Rehab Potential: Fair Time/GCodes Start Time: 09:00 Stop Time: 10:15 Total Time Billed (hr/min): 75 Billed Treatment Time 1 visit-ADL 3 (45 min) EX 2 (30 min) DELORES TORRES Jul 03, 2021 10:37
--- NOTE | 2021-07-03 12:39 | Physical Therapy Daily Note ---
PT Daily Note-Current Subjective Pt laying in bed upon arrival. Pt refuses initially but after talking w/daughter on phone, pt agrees to work w/PT. Pain Location: No Pain Reported Mental Status Patient Orientation: Person, Place Transfers SCALE: Activities may be completed with or without assistive devices. 5-Omdrrnsriq-ooswfnw completes the activity by him/herself with no assistance from a helper. 5-Set-up or Clean-up Assistance-helper sets up or cleans up; patient completes activity. [place] assists only prior to or following the activity. 4-Supervision or Touching Assistance-helper provides verbal cues and/or touching/steadying and/or contact guard assistance as patient completes activity. Assistance may be provided throughout the activity or intermittently. 3-Partial/Moderate Assistance-helper does LESS THAN HALF the effort. [place] lifts, holds or supports trunk or limbs, but provides less than half the effort. 2-Substantial/Maximal Assistance-helper does MORE THAN HALF the effort. [place] lifts or holds trunk or limbs and provides more than half the effort. 0-Hrvwaqkvj-tnlgeo does ALL the effort. Patient does none of the effort to complete the activity. Or, the assistance of 2 or more helpers is required for the patient to complete the activity. If activity was not attempted, code reason: 7-Patient Refused. 9-Not Applicable-not attempted and the patient did not perform the activity before the current illness, exacerbation or injury. 10-Not Attempted due to Environmental Limitations-(lack of equipment, weather restraints, etc.). 88-Not Attempted due to Medical Conditions or Safety Concerns. Roll Left & Right (QC): 3 Sit to Lying (QC): 2 Sit to Stand (QC): 2 Weight Bearing Full Weight Bearing Full Weight Bearing Exercises Supine Ex: Ankle pumps, Quad Set, Heel Slides, Hip abd/add Supine Reps: 15 Treatments ([id number]) Pt completes Supine EX with a couple short RB as needed. Lunch arrives and PT discontinues tx until after lunch. All needs met, call light in hand. ([id number]) PT & OT co-treat due to skill of 2 clinicians needed that could not be completed by a Die Baker due to pt's decreased strength julianna. with transfers, decreased activity tolerance and increased anxiety and need for VC & TC for tasks. Pt transfers from supine in bed to EOB with Max A then attempts to stand x2 at Max A with cuing for bringing butt under pt to stand up tall and not lean back. Pt is unable to move or pear picker L LE for transfer. Pt becomes weak and needs to sit each time. PT & OT assist with transfer to Supine in bed after attempting both transfer to L side for WCH then R side for recliner. Pt is resting at end of tx with all needs met, call light next to pt. Assessment Current Status: Fair Progress ([id number]) Pt needs encouragement to participate in PT due to anxiousness. ([id number]) Pt demonstrates extreme weakness and fatigues easily. Pt requires VC & TC for transfer from supine to standing but is unable to transfer to WCH or recliner even with PT/OT assist. PT Water Resource Agent Goals [facility] Living Goals PT Water Resource Agent Goals Time Frame: Jul 12, 2021 Roll Left & Right (QC): 5 Sit to Lying (QC): 5 Lying-Sitting on Side/Bed(QC): 4 Sit to Stand (QC): 4 Chair/Hrg-ju-Xwdom Xfer(QC): 4 Toilet Transfer (QC): 4 Car Transfer (QC): 4 Does the Patient Walk: Yes Walk 10 feet (QC): 5 Walk 50ft with 2 Turns (QC): 5 Walk 150 ft (QC): 4 Walking 10ft on Uneven Surface: 4 1 Step (curb) (QC): 4 4 Steps (QC): 88 12 Steps (QC): 88 Picking up an Object (QC): 4 Does the Pt use WC or Scooter?: Yes Wheel 50 feet with 2 turns (QC: 6 Type: Manual Wheel 150 feet: 6 Type: Manual PT Plan Problem List Problem List: Activity Tolerance, Functional Strength Treatment/Plan Treatment Plan: Continue Plan of Care Treatment Plan: Bed Mobility, Education, Functional Activity Naina, Functional Strength, Gait, Safety, Therapeutic Exercise, Transfers (--) Treatment Duration: Aug 02, 2021 Frequency: At least 5 of 7 days/Wk (IRF) Estimated Hrs Per Day: 1.5 hours per day Patient and/or Family Agrees t: Yes Safety Risks/Education Patient Education: Correct Positioning Teaching Recipient: Patient Teaching Methods: Discussion Response to Teaching: Verbalize Understanding Time/GCodes Time In: 1130 Time Out: 1200 Total Billed Treatment Time: 30 Total Billed Treatment ([id number]) 1, EX x2 (30m) ([id number]) Co-treat w/OT for 30m 1, FA x3 (45m) YUVAL SULLIVAN PTA Jul 03, 2021 12:39
--- NOTE | 2021-07-03 13:26 | CONSULTATION REPORT ---
DATE OF SERVICE: 07/03/2021 ATTENDING PHYSICIAN: Dr. Pemberton. SUMMARY: After reviewing the patient's records, interviewing her and examining her, this is an 80-year-old white female transferred from the ICU, recovering from pneumonia and UTI ESBL type. She is on Zosyn, breathing treatment. She apparently had trouble emptying her bladder. She denies any significant voiding symptoms at home. I reviewed her history and physical exam, is essentially unchanged from previous notes. IMPRESSION: Urinary retention. PLAN: 1. Flomax 0.4 mg daily. 2. Stay away from Urecholine because of her lungs. 3. Bladder scan postvoid residual daily and p.r.n. and straight cath if over 300 mL. The plan was fully explained to the patient. Job ID: [id number] DocumentID: [id number] Dictated Date: 07/03/2021 10:38:54 Pmo Project Manager Date: 07/03/2021 12:33:20 Dictated By: SHIRIN WADE MD
--- NOTE | 2021-07-03 14:55 | Occupational Ther Daily Note ---
OT Current Status-Daily Note Subjective Pt alert, lying in bed. Pt agrees to therapy. No c/o pain. Mental Status/Objective Patient Orientation: Person, Place, Time, Situation Attachments: IV ADL-Treatment Therapy Code Descriptions/Definitions Functional [place] Measure: 0=Not Assessed/NA 4=Minimal Assistance 1=Total Assistance 5=Supervision or Setup 2=Maximal Assistance 6=Modified [place] 3=Moderate Assistance 7=Complete IndependenceSCALE: Activities may be completed with or without assistive devices. 5-Nwpupbzpzi-fxgmqzw completes the activity by him/herself with no assistance from a helper. 5-Set-up or Clean-up Assistance-helper sets up or cleans up; patient completes activity. [place] assists only prior to or following the activity. 4-Supervision or Touching Assistance-helper provides verbal cues and/or touching/steadying and/or contact guard assistance as patient completes activity. Assistance may be provided throughout the activity or intermittently. 3-Partial/Moderate Assistance-helper does LESS THAN HALF the effort. [place] lifts, holds or supports trunk or limbs, but provides less than half the effort. 2-Substantial/Maximal Assistance-helper does MORE THAN HALF the effort. [place] lifts or holds trunk or limbs and provides more than half the effort. 2-Pdoorpxyj-kmprdt does ALL the effort. Patient does none of the effort to complete the activity. Or, the assistance of 2 or more helpers is required for the patient to complete the activity. If activity was not attempted, code reason: 7-Patient Refused. 9-Not Applicable-not attempted and the patient did not perform the activity before the current illness, exacerbation or injury. 10-Not Attempted due to Environmental Limitations-(lack of equipment, weather restraints, etc.). 88-Not Attempted due to Medical Conditions or Safety Concerns. Other Treatment Co-treat with PT [id number], skills of 2 clinicians required to decrease fall risk, increase mobility and activity tolerance. PT focusing on bed mobility and standing while OT focusing on B UE hand placement and functional mobility. Pt willing to attempt to get out of bed. Max A for supine <--> EOB, max A x2 for all other bed mobility. Attempted to come to full stand 3x's, pt unable to come to full stand with max A x2. After session, pt lying in bed with call [facility] t/phone in reach. All needs met in room. OT Short Term Goals Short Term Goals Time Frame: Jul 10, 2021 Toileting hygiene: 3 Shower/bathe self: 2 Lower body dressin Putting on/taking off footwear: 2 OT [facility] Goals [facility] Goals Time Frame: Jul 19, 2021 Eating (QC): 6 Oral Hygiene (QC): 6 Toileting Hygiene (QC): 4 Shower/Bathe Self (QC): 3 Upper Body Dressing (QC): 3 Lower Body Dressing (QC): 3 On/Off Footwear (QC): 3 Additional Goals: 1-Demonstrate ADL Tasks, 2-Verbalize Understanding, 3- ImproveStrength/Naina 1=Demonstrate adherence to instructed precautions during ADL tasks. 2=Patient will verbalize/demonstrate understanding of assistive devices/beulah fications for ADL. 3=Patient will improve strength/tolerance for activity to enable patient to perform ADL's. OT Education/Plan Discharge Recommendations Plan/Recommendations: Continue POC Treatment Plan/Plan of Care Patient would benefit from OT for education, treatment and training to promote independence in ADL's, mobility, safety and/or upper extremity function for ADL's. Plan of Care: ADL Retraining, Functional Mobility, Group Exercise/Act as Ind, UE Funct Exercise/Act Treatment Duration: Jul 19, 2021 Frequency: At least 5 of 7 days/Wk (IRF) Estimated Hrs Per Day: 1.5 hours per day Agreement: Yes Rehab Potential: Fair Time/GCodes Start Time: 13:45 Stop Time: 14:15 Total Time Billed (hr/min): 30 Billed Treatment Time 1 visit-FA 2 (30 min) co-treat with PT DELORES TORRES Jul 03, 2021 14:54
[2021-07-03] MEDS: TAMSULOSIN 0.4 MG (FLOMAX) CAP PO SCH (17:29)
[2021-07-03 20:19] VITALS: BP 134/61
[2021-07-03] MEDS: ACETAMINOPHEN 500 MG TAB (TYLENOL) PO SCH (20:52)
[2021-07-03] MEDS: DONEPEZIL 5 MG (ARICEPT) TAB PO SCH (20:52)
[2021-07-03] MEDS: GABAPENTIN 600 MG (NEURONTIN) TAB PO SCH (20:53)
[2021-07-04] MEDS: PIPERACILLIN SODIUM/TAZOBACTAM 4.5 GM in NS (IVPB) 100 ML IV SCH ×4 (00:17→23:29)
[2021-07-04] MEDS: inSUlin ASPART (NovoLOG) 1 UNIT/0.01 ML (CHARGE PER UNIT) SC SCH ×2 (05:36→11:40)
[2021-07-04] MEDS: LEVOTHYROXINE 50 MCG (LEVOTHROID) TAB PO SCH (06:34)
[2021-07-04 09:00] VITALS: BP 157/86
[2021-07-04] MEDS ORDERED: RT--FLUTICASONE/SALMETEROL 113-14 (AIRDUO RespiCLICK) IH SCH (09:00)
[2021-07-04] MEDS: BENZONATATE 100 MG (TESSALON) CAPSULE PO SCH ×3 (09:25→20:57)
[2021-07-04] MEDS: LORATADINE (CLARITIN) 10 MG TAB PO SCH ×3 (09:25→09:33)
[2021-07-04] MEDS: GABAPENTIN 300 MG (NEURONTIN) CAP PO SCH (09:25)
[2021-07-04] MEDS: lisINopril 10 MG (PRINIVIL) TABLET PO SCH (09:25)
[2021-07-04] MEDS: VITAMIN D3 25 MCG (1,000 UNITS) TABLET PO SCH (09:25)
[2021-07-04] MEDS: DOCUSATE SODIUM 100 MG (COLACE) CAP PO SCH ×2 (09:25→21:00)
[2021-07-04] MEDS: PANTOPRAZOLE 40 MG (PROTONIX) TAB PO SCH (09:25)
[2021-07-04] MEDS: rOPINIRole 0.25 MG (REQUIP) TAB PO SCH ×2 (09:25→20:57)
[2021-07-04] MEDS: LACTOBACILLUS ACIDOPHILUS (PROBIOTIC) CAPSULE PO SCH (09:25)
[2021-07-04] MEDS: meTOprolol SUCCINATE 100 MG (TOPROL XL) TAB PO SCH (09:26)
[2021-07-04] MEDS: CYANOCOBALAMIN 1,000 MCG (VITAMIN B-12) TABLET PO SCH (09:26)
[2021-07-04] MEDS: KCL 10 MEQ TAB (MICRO K) PO SCH ×2 (09:26→18:20)
[2021-07-04] MEDS: SENNA W/DOCUSATE (SENOKOT S) TABLET PO SCH ×2 (09:26→21:00)
[2021-07-04] MEDS: amLODIPine 5 MG (NORVASC) TAB PO SCH (09:27)
[2021-07-04] MEDS: polyethylene glycoL POWDER 17 GM (MIRALAX) PACK PO SCH ×2 (09:32→21:00)
[2021-07-04] MEDS: MONTELUKAST 10 MG (SINGULAIR) TAB PO SCH ×2 (09:39→09:41)
--- NOTE | 2021-07-04 10:36 | Cardiology Progress Note ---
Subjective Date Seen by Provider: Jul 04, 2021 Time Seen by Provider: 10:34 Subjective/Events-last exam Patient is laying down in bed, still having significant cough. No chest pain Review of Systems General: No Chills, No Night Sweats; Fatigue; No Malaise, No Appetite, No Other HEENT: No Head Aches, No Visual Changes, No Eye Pain, No Ear Pain, No Dysphasia, No Sinus Congestion, No Post Nasal Drip, No Sore Throat, No Other Pulmonary: Dyspnea, Cough; No Pleuritic Chest Pain, No Other Cardiovascular: No: Chest Pain, Palpitations, Orthopnea, Paroxysmal Noc. Dyspnea, Edema, Lt Headedness, Other Objective-Cardiology Exam Last Set of Vital Signs Vital Signs I&O Intake and Output 07/04/21 00:00 Intake Total 1750 ml Output Total 500 ml Balance 1250 ml Intake Oral 1550 ml IV Total 200 ml Output Urine Total 500 ml Bladder Scan Volume Amount 258 ml 420 ml 350 ml 0 ml # Voids 3 # Urine Diapers 3 General: Alert, Oriented X3, Cooperative HEENT: Atraumatic, PERRLA Neck: Supple, No JVD, No Thyromegaly Lungs: Normal Air Movement, Other (Bilateral rhonchi) Heart: Regular Rate, Normal S1, Normal S2, No Murmurs Abdomen: Normal Bowel Sounds, Soft, No Tenderness, No Hepatosplenomegaly, No Masses Extremities: No Clubbing, No Cyanosis, No Edema, Normal Pulses, No Tenderness/Swelling Skin: No Rashes, No Breakdown, No Significant Lesion Neuro: Normal Gait, Normal Speech, Strength at 5/5 X4 Ext, Normal Tone, Sensation Intact Psych/Mental Status: Mental Status NL, Mood NL Results Lab Laboratory Tests Test 07/03/21 15:44 07/03/21 20:09 07/04/21 05:17 07/04/21 07:21 Range/Units Glucometer 165 H 109 59 *L 93 70-110 MG/DL A/P-Cardiology Admission Diagnosis Elevated BNP HTN Recent pneumonia with sepsis Debility/weakness Assessment/Plan Mildly elevated BNP, no signs of congestive heart failure, probably secondary to labile blood pressure and possible LVH. I will evaluate 2D echo Hypertension, labile blood pressure, maintained on Toprol and lisinopril, amlodipine was started recently, received a as needed dose of clonidine for elevated blood pressure today, blood pressure is better. Continue to monitor HLP, statin currently on hold secondary to elevated LFTs on admission. Will continue to monitor as outpatient. Recent pneumonia with sepsis, slowly improving, still having nonproductive cough. Continue on antibiotic. Management per medical services. DM, management per medical services. Generalized debility/weakness, continue PT/OT Hx Recurrent UTI Hypothyroidism, followed and managed by primary care physician LONI CARRILLO MD Jul 04, 2021 10:36
--- NOTE | 2021-07-04 11:06 | Occupational Ther Daily Note ---
OT Current Status-Daily Note Subjective Pt alert, lying in bed. Pt agrees to therapy. No c/o pain only c/o coughing. Co-treat with PT ([id number]), skills of 2 clinician required to decrease fall risk, increase mobility and activity tolerance. Mental Status/Objective Patient Orientation: Person, Place, Time, Situation Attachments: IV ADL-Treatment Pt declines oral care and bathing. Dependent for lower body dressing and footwear. Therapy Code Descriptions/Definitions Functional [place] Measure: 0=Not Assessed/NA 4=Minimal Assistance 1=Total Assistance 5=Supervision or Setup 2=Maximal Assistance 6=Modified [place] 3=Moderate Assistance 7=Complete IndependenceSCALE: Activities may be completed with or without assistive devices. 1-Xjrkeyvuna-xwzwfnw completes the activity by him/herself with no assistance from a helper. 5-Set-up or Clean-up Assistance-helper sets up or cleans up; patient completes activity. [place] assists only prior to or following the activity. 4-Supervision or Touching Assistance-helper provides verbal cues and/or touch ing/steadying and/or contact guard assistance as patient completes activity. Assistance may be provided throughout the activity or intermittently. 3-Partial/Moderate Assistance-helper does LESS THAN HALF the effort. [place] lifts, holds or supports trunk or limbs, but provides less than half the effort. 2-Substantial/Maximal Assistance-helper does MORE THAN HALF the effort. [place] lifts or holds trunk or limbs and provides more than half the effort. 4-Rbpjmjyop-ugohne does ALL the effort. Patient does none of the effort to complete the activity. Or, the assistance of 2 or more helpers is required for the patient to complete the activity. If activity was not attempted, code reason: 7-Patient Refused. 9-Not Applicable-not attempted and the patient did not perform the activity before the current illness, exacerbation or injury. 10-Not Attempted due to Environmental Limitations-(lack of equipment, weather restraints, etc.). 88-Not Attempted due to Medical Conditions or Safety Concerns. Oral Hygiene (QC): 7 Lower Body Dressing (QC): 1 On/Off Footwear: 1 Pt requires multiple lengthy recovery breaks after each ambulation and exertion. Other Treatment Pt able to propel w/c with min A from room to therapy gym. See PT notes for progress on transfers and ambulation. Pt demonstrates improvement with mobility and transfers. Increased activity tolerance over all has improved. Pt completed ambulated for a few feet 3x's then completed NuStep with 1# wt attached to wrists to work on B UE strengthening. After session, pt sitting in recliner with call light/phone in reach. All needs met in room. OT Short Term Goals Short Term Goals Time Frame: Jul 10, 2021 Toileting hygiene: 3 Shower/bathe self: 2 Lower body dressin Putting on/taking off footwear: 2 OT Warehouse Administrator Goals Warehouse Administrator Goals Time Frame: Jul 19, 2021 Eating (QC): 6 Oral Hygiene (QC): 6 Toileting Hygiene (QC): 4 Shower/Bathe Self (QC): 3 Upper Body Dressing (QC): 3 Lower Body Dressing (QC): 3 On/Off Footwear (QC): 3 Additional Goals: 1-Demonstrate ADL Tasks, 2-Verbalize Understanding, 3- ImproveStrength/Naina 1=Demonstrate adherence to instructed precautions during ADL tasks. 2=Patient will verbalize/demonstrate understanding of assistive devices/ modifications for ADL. 3=Patient will improve strength/tolerance for activity to enable patient to perform ADL's. OT Education/Plan Problem List/Assessment Assessment: Decreased Activ Tolerance, Decreased UE Strength, Impaired Bed Mobility, Impaired Coordination, Impaired Funct Balance, Impaired Self-Care Skills Discharge Recommendations Plan/Recommendations: Continue POC Treatment Plan/Plan of Care Patient would benefit from OT for education, treatment and training to promote independence in ADL's, mobility, safety and/or upper extremity function for ADL's. Plan of Care: ADL Retraining, Functional Mobility, Group Exercise/Act as Ind, U E Funct Exercise/Act Treatment Duration: Jul 19, 2021 Frequency: At least 5 of 7 days/Wk (IRF) Estimated Hrs Per Day: 1.5 hours per day Agreement: Yes Rehab Potential: Fair Time/GCodes Start Time: 10:00 Stop Time: 11:30 Total Time Billed (hr/min): 90 Billed Treatment Time 1 visit-FA 5 (75 min) EX 1 (15 min) co-treat with PT 90 min DELORES TORRES Jul 04, 2021 11:06
--- NOTE | 2021-07-04 11:11 | Progress Note - Urology ---
Progress Note-Urology Progress Notes/Assess & Plan Progress/Assessment & Plan TOLERATES FLOMAX WELL. Final Diagnosis RETENTION SHIRIN WADE MD Jul 04, 2021 11:11
--- NOTE | 2021-07-04 11:24 | Physical Therapy Daily Note ---
PT Daily Note-Current Subjective Patient in bed pre tx, agrees to PT, has no pain other than pain in her chest when she coughs. Will be co-treating with OT due to poor patient mobility, strength, endurance, severe debility, coordinate UE and LE during activity, safety and reduce risk of falls. Appearance Patient in recliner post tx with nurse call, phone, tray, all needs met. Mental Status Patient Orientation: Person, Place, Situation Attachments: IV Transfers SCALE: Activities may be completed with or without assistive devices. 9-Twefasanpz-umxkdnw completes the activity by him/herself with no assistance from a helper. 5-Set-up or Clean-up Assistance-helper sets up or cleans up; patient completes activity. [place] assists only prior to or following the activity. 4-Supervision or Touching Assistance-helper provides verbal cues and/or touching/steadying and/or contact guard assistance as patient completes activity. Assistance may be provided throughout the activity or intermittently. 3-Partial/Moderate Assistance-helper does LESS THAN HALF the effort. [place] lifts, holds or supports trunk or limbs, but provides less than half the effort. 2-Substantial/Maximal Assistance-helper does MORE THAN HALF the effort. [place] lifts or holds trunk or limbs and provides more than half the effort. 1-Pfpvwjfuf-wdiwel does ALL the effort. Patient does none of the effort to complete the activity. Or, the assistance of 2 or more helpers is required for the patient to complete the activity. If activity was not attempted, code reason: 7-Patient Refused. 9-Not Applicable-not attempted and the patient did not perform the activity before the current illness, exacerbation or injury. 10-Not Attempted due to Environmental Limitations-(lack of equipment, weather restraints, etc.). 88-Not Attempted due to Medical Conditions or Safety Concerns. Roll Left & Right (QC): 3 Lying to Sitting/Side of Bed(Q: 3 Sit to Stand (QC): 3 Chair/Qkr-kf-Jmsvr Xfer(QC): 4 Min assist for supine to sit and sit to stand. Patient has to stand while OT gets brief on her and she transfers to . Weight Bearing Full Weight Bearing Full Weight Bearing Gait Training Distance: 5'x3 Gait Assistive Device: FWW WC follow, very slow, slumped posture, steps inches at a time and little to no foot clearance Wheelchair Training Does the Pt Use a Wheelchair?: Yes Wheel 50 ft with 2 turns (QC): 3 Type of Wheelchair: Manual 120', 50' Exercises NuStep Minutes: 15 NuStep Workload: 3 Treatments PT performed bed mobility and transfers, ambulation, WC mobility, LE strengthening, OT performed dressing, grooming, UE strengthening, UE positioning and safety during activity, safety cues. Assessment Current Status: Poor Progress Patient needs cues for positioning during transfers, she will almost all the time not turn completely before sitting. PT Skilled Nursing Goals Skilled Nursing Goals PT Skilled Nursing Goals Time Frame: Jul 12, 2021 Roll Left & Right (QC): 5 Sit to Lying (QC): 5 Lying-Sitting on Side/Bed(QC): 4 Sit to Stand (QC): 4 Chair/Ahd-ua-Jpnin Xfer(QC): 4 Toilet Transfer (QC): 4 Car Transfer (QC): 4 Does the Patient Walk: Yes Walk 10 feet (QC): 5 Walk 50ft with 2 Turns (QC): 5 Walk 150 ft (QC): 4 Walking 10ft on Uneven Surface: 4 1 Step (curb) (QC): 4 4 Steps (QC): 88 12 Steps (QC): 88 Picking up an Object (QC): 4 Does the Pt use WC or Scooter?: Yes Wheel 50 feet with 2 turns (QC: 6 Type: Manual Wheel 150 feet: 6 Type: Manual PT Plan Problem List Problem List: Activity Tolerance, Functional Strength, Safety, Balance, Gait, Transfer, Bed Mobility, ROM Treatment/Plan Treatment Plan: Continue Plan of Care Treatment Plan: Bed Mobility, Education, Functional Activity Naina, Functional Strength, Gait, Safety, Therapeutic Exercise, Transfers (--) Treatment Duration: Aug 02, 2021 Frequency: At least 5 of 7 days/Wk (IRF) Estimated Hrs Per Day: 1.5 hours per day Patient and/or Family Agrees t: Yes Safety Risks/Education Patient Education: Gait Training, Transfer Techniques, Correct Positioning, W/C Management, Safety Issues Teaching Recipient: Patient Teaching Methods: Demonstration, Discussion Response to Teaching: Reinforcement Needed Time/GCodes Time In: 1000 Time Out: 1130 Total Billed Treatment Time: 90 Total Billed Treatment 1 visit EX 15' FA 75' IMELDA HAM PT Jul 04, 2021 11:24
--- NOTE | 2021-07-04 14:35 | PM&R Progress Note ---
Subjective HPI/CC On Admission Date Seen by Provider: Jul 04, 2021 Time Seen by Provider: 14:30 Subjective/Events-last exam 07/04/2021: Patient about the same Cough is a tiny bit improved No pain is reported Tolerating therapy pretty well Urology appreciated 07/03/2021: Pt doing pretty well Pt has urinary retention Dr. Maria was consulted and started her on Flomax He left orders to do an in and out cath for greater than 400cc's on bladder scan Dr. Gregory has been consulted Decreased motivation for therapy blood pressure is very labile with bp of 200 given Clonidine blood sugar is 149 07/02/21: Pt doing about the same BP is high so will give Norvasc of 5 mg daily Cough is constant Had a little bit of bloody sputum yesterday Transfers are better Day number 4 of antibiotics of Zosyn Checked meds and labs Daughter at the bedside Added on BNP later in the day which was elevated gave Lasix 20 mg IV x1 consulted Dr. Gregory and ordered an echo She did almost fall going to the bathroom I recommended bedside commode Review of Systems General: Fatigue, Malaise Pulmonary: Dyspnea, Cough Objective Exam Vital Signs Vital Signs Date Time Temp Pulse Resp B/P (MAP) Pulse Ox O2 Delivery O2 Flow Rate FiO2 07/04/21 09:00 36.8 67 22 157/86 (109) 96 Room Air Capillary Refill : General Appearance: No Apparent Distress, WD/WN, Chronically ill, Obese HEENT: PERRL/EOMI, Normal ENT Inspection, Pharynx Normal Neck: Full Range of Motion, Normal Inspection, Non Tender, Supple, Carotid Bruit Respiratory: Chest Non Tender, Normal Breath Sounds, No Accessory Muscle Use, No Respiratory Distress, Crackles, Decreased Breath Sounds Cardiovascular: Regular Rate, Rhythm, No Edema, No Gallop, No JVD, No Murmur, Normal Peripheral Pulses Gastrointestinal: Normal Bowel Sounds, No Organomegaly, No Pulsatile Mass, Non Tender, Soft Back: Normal Inspection, No CVA Tenderness, No Vertebral Tenderness Extremity: Normal Capillary Refill, Normal Inspection, Normal Range of Motion, Non Tender, No Calf Tenderness, No Pedal Edema Neurologic/Psychiatric: Alert, Oriented x3, No Motor/Sensory Deficits, Normal Mood/Affect Skin: Normal Color, Warm/Dry Lymphatic: No Adenopathy Results/Procedures Lab Patient resulted labs reviewed. FIM Transfers Therapy Code Descriptions/Definitions Functional [place] Measure: 0=Not Assessed/NA 4=Minimal Assistance 1=Total Assistance 5=Supervision or Setup 2=Maximal Assistance 6=Modified [place] 3=Moderate Assistance 7=Complete IndependenceSCALE: Activities may be completed with or without assistive devices. 0-Mvxlwplfht-lkejifu completes the activity by him/herself with no assistance from a helper. 5-Set-up or Clean-up Assistance-helper sets up or cleans up; patient completes activity. [place] assists only prior to or following the activity. 4-Supervision or Touching Assistance-helper provides verbal cues and/or touching/steadying and/or contact guard assistance as patient completes activity. Assistance may be provided throughout the activity or intermittently. 3-Partial/Moderate Assistance-helper does LESS THAN HALF the effort. [place] lifts, holds or supports trunk or limbs, but provides less than half the effort. 2-Substantial/Maximal Assistance-helper does MORE THAN HALF the effort. [place] lifts or holds trunk or limbs and provides more than half the effort. 1-Rliprxcer-gzehpx does ALL the effort. Patient does none of the effort to complete the activity. Or, the assistance of 2 or more helpers is required for the patient to complete the activity. If activity was not attempted, code reason: 7-Patient Refused. 9-Not Applicable-not attempted and the patient did not perform the activity before the current illness, exacerbation or injury. 10-Not Attempted due to Environmental Limitations-(lack of equipment, weather restraints, etc.). 88-Not Attempted due to Medical Conditions or Safety Concerns. Roll Left to Right (QC): 3 Sit to Lying (QC): 2 Sit to Stand (QC): 3 Chair/Ing-hw-Iejfv Xfer(QC): 4 Car Transfer (QC): 3 Gait Training Does the Patient Walk?: Yes Distance: 5'x3 Walk 10 feet (QC): 4 Walk 50 ft with 2 Turns(QC): 88 Walk 150 ft (QC): 88 Walking 10ft/uneven surface-QC: 3 Gait Persons Needed: 2 Gait Assistive Device: FWW Wheelchair Training Does the Pt Use a Wheelchair?: Yes Distance: 50 feet Wheel 50 ft with 2 turns (QC): 3 Wheel 150 ft (QC): 88 Type of Wheelchair: Manual Stair Training Stair Training: Handrails/: uses walker #of Steps: 1 1 Step (curb) (QC): 3 4 Steps (QC): 7 12 Steps (QC): 7 Stairs: Pattern: Step to Balance Picking up an Object (QC): 7 ADL-Treatment Eating (QC): 6 Oral Hygiene (QC): 7 Bathing Location: L Arm, R Arm, L Upper Leg, R Upper Leg, L Lower Leg (including foot), R Lower Leg (including foot), Chest, Abdomen, Buttocks, Perineal Area Shower/Bathe Self (QC): 1 (sponge bath, assist x2 to cleanse buttocks in standing.) Upper Body Dressing (QC): 3 Lower Body Dressing (QC): 1 On/Off Footwear (QC): 1 Toileting Hygiene (QC): 1 Toilet Transfer (QC): 1 Assessment/Plan Assessment and Plan Assess & Plan/Chief Complaint Assessment: Critical illness myopathy Debility Recent pneumonia Status post sepsis Severe weakness Cognitive deficit Hypothyroidism GERD Hypertension Recurrent UTI Elevated BNP to 122 gave Lasix and consulted Dr. Gregory Plan: PT and OT aggressive rehab Supportive halfway meds Monitor blood pressure 07/02/2021: Lasix Echo Cough suppressants Dr. Gregory consult 07/03/2021: Supportive care Dr. Gregory appreciated Echo Inhaled corticosteroids Singulair and Claritin 07/04/2021: Cough suppressants Supportive care (1) Myopathy (2) Pneumonia Status: Acute (3) Elevated LFTs Status: Acute (4) Encephalopathy acute Status: Acute (5) Sepsis Status: Acute ERICA DUKE DO Jul 04, 2021 14:34
[2021-07-04] MEDS: guaiFENesin/DM (ROBITUSSIN DM) 10 ML UDC PO PRN (16:41)
[2021-07-04] MEDS: TAMSULOSIN 0.4 MG (FLOMAX) CAP PO SCH (18:20)
[2021-07-04 20:00] VITALS: BP 132/58
[2021-07-04] MEDS: ACETAMINOPHEN 500 MG TAB (TYLENOL) PO SCH (20:56)
[2021-07-04] MEDS: GABAPENTIN 600 MG (NEURONTIN) TAB PO SCH (20:57)
[2021-07-04] MEDS: DONEPEZIL 5 MG (ARICEPT) TAB PO SCH (20:57)
[2021-07-05] MEDS: LEVOTHYROXINE 50 MCG (LEVOTHROID) TAB PO SCH (06:15)
--- NOTE | 2021-07-05 06:39 | PM&R Progress Note ---
Subjective HPI/CC On Admission Date Seen by Provider: Jul 05, 2021 Time Seen by Provider: 11:30 Subjective/Events-last exam 07/05/2021: Patient doing much better Cough is much better No pain is reported Bowels are moving Checked meds and labs 07/04/2021: Patient about the same Cough is a tiny bit improved No pain is reported Tolerating therapy pretty well Urology appreciated 07/03/2021: Pt doing pretty well Pt has urinary retention Dr. Maria was consulted and started her on Flomax He left orders to do an in and out cath for greater than 400cc's on bladder scan Dr. Gregory has been consulted Decreased motivation for therapy blood pressure is very labile with bp of 200 given Clonidine blood sugar is 149 07/02/21: Pt doing about the same BP is high so will give Norvasc of 5 mg daily Cough is constant Had a little bit of bloody sputum yesterday Transfers are better Day number 4 of antibiotics of Zosyn Checked meds and labs Daughter at the bedside Added on BNP later in the day which was elevated gave Lasix 20 mg IV x1 consulted Dr. Gregory and ordered an echo She did almost fall going to the bathroom I recommended bedside commode Review of Systems General: Fatigue, Malaise Pulmonary: Cough Objective Exam Vital Signs Vital Signs Date Time Temp Pulse Resp B/P (MAP) Pulse Ox O2 Delivery O2 Flow Rate FiO2 07/05/21 09:00 Room Air 07/05/21 07:33 36.2 55 22 180/72 (108) 94 Capillary Refill : General Appearance: No Apparent Distress, WD/WN, Chronically ill, Obese HEENT: PERRL/EOMI, Normal ENT Inspection, Pharynx Normal Neck: Full Range of Motion, Normal Inspection, Non Tender, Supple, Carotid Bruit Respiratory: Chest Non Tender, Normal Breath Sounds, No Accessory Muscle Use, No Respiratory Distress, Crackles, Decreased Breath Sounds Cardiovascular: Regular Rate, Rhythm, No Edema, No Gallop, No JVD, No Murmur, Normal Peripheral Pulses Gastrointestinal: Normal Bowel Sounds, No Organomegaly, No Pulsatile Mass, Non Tender, Soft Back: Normal Inspection, No CVA Tenderness, No Vertebral Tenderness Extremity: Normal Capillary Refill, Normal Inspection, Normal Range of Motion, Non Tender, No Calf Tenderness, No Pedal Edema Neurologic/Psychiatric: Alert, Oriented x3, No Motor/Sensory Deficits, Normal Mood/Affect Skin: Normal Color, Warm/Dry Lymphatic: No Adenopathy Results/Procedures Lab Patient resulted labs reviewed. FIM Transfers Therapy Code Descriptions/Definitions Functional [place] Measure: 0=Not Assessed/NA 4=Minimal Assistance 1=Total Assistance 5=Supervision or Setup 2=Maximal Assistance 6=Modified [place] 3=Moderate Assistance 7=Complete IndependenceSCALE: Activities may be completed with or without assistive devices. 1-Zohqrxdrdk-dzygxmd completes the activity by him/herself with no assistance from a helper. 5-Set-up or Clean-up Assistance-helper sets up or cleans up; patient completes activity. [place] assists only prior to or following the activity. 4-Supervision or Touching Assistance-helper provides verbal cues and/or touching/steadying and/or contact guard assistance as patient completes activity. Assistance may be provided throughout the activity or intermittently. 3-Partial/Moderate Assistance-helper does LESS THAN HALF the effort. [place] lifts, holds or supports trunk or limbs, but provides less than half the effort. 2-Substantial/Maximal Assistance-helper does MORE THAN HALF the effort. [place] lifts or holds trunk or limbs and provides more than half the effort. 8-Siyvbkxkd-fduond does ALL the effort. Patient does none of the effort to complete the activity. Or, the assistance of 2 or more helpers is required for the patient to complete the activity. If activity was not attempted, code reason: 7-Patient Refused. 9-Not Applicable-not attempted and the patient did not perform the activity before the current illness, exacerbation or injury. 10-Not Attempted due to Environmental Limitations-(lack of equipment, weather restraints, etc.). 88-Not Attempted due to Medical Conditions or Safety Concerns. Roll Left to Right (QC): 3 Sit to Lying (QC): 2 Sit to Stand (QC): 3 Chair/Ypa-mv-Wheti Xfer(QC): 4 Car Transfer (QC): 3 Gait Training Does the Patient Walk?: Yes Distance: 5'x3 Walk 10 feet (QC): 4 Walk 50 ft with 2 Turns(QC): 88 Walk 150 ft (QC): 88 Walking 10ft/uneven surface-QC: 3 Gait Persons Needed: 2 Gait Assistive Device: FWW Wheelchair Training Does the Pt Use a Wheelchair?: Yes Distance: 50 feet Wheel 50 ft with 2 turns (QC): 3 Wheel 150 ft (QC): 88 Type of Wheelchair: Manual Stair Training Stair Training: Handrails/: uses walker #of Steps: 1 1 Step (curb) (QC): 3 4 Steps (QC): 7 12 Steps (QC): 7 Stairs: Pattern: Step to Balance Picking up an Object (QC): 7 ADL-Treatment Eating (QC): 6 Oral Hygiene (QC): 7 Bathing Location: L Arm, R Arm, L Upper Leg, R Upper Leg, L Lower Leg (including foot), R Lower Leg (including foot), Chest, Abdomen, Buttocks, Perineal Area Shower/Bathe Self (QC): 1 (sponge bath, assist x2 to cleanse buttocks in stand ing.) Upper Body Dressing (QC): 3 Lower Body Dressing (QC): 1 On/Off Footwear (QC): 1 Toileting Hygiene (QC): 1 Toilet Transfer (QC): 1 Assessment/Plan Assessment and Plan Assess & Plan/Chief Complaint Assessment: Critical illness myopathy Debility Recent pneumonia Status post sepsis Severe weakness Cognitive deficit Hypothyroidism GERD Hypertension Recurrent UTI Elevated BNP to 122 gave Lasix and consulted Dr. Gregory Plan: PT and OT aggressive rehab Supportive [facility] meds Monitor blood pressure 07/02/2021: Lasix Echo Cough suppressants Dr. Gregory consult 07/03/2021: Supportive care Dr. Gregory appreciated Echo Inhaled corticosteroids Singulair and Claritin 07/04/2021: Cough suppressants Supportive care 07/05/2021: Continue cough suppressants Monitor closely (1) Myopathy (2) Pneumonia Status: Acute (3) Elevated LFTs Status: Acute (4) Encephalopathy acute Status: Acute (5) Sepsis Status: Acute ERICA DUKE DO Jul 05, 2021 06:39
[2021-07-05 07:33] VITALS: BP 180/72
[2021-07-05] MEDS: BENZONATATE 100 MG (TESSALON) CAPSULE PO SCH ×3 (08:37→21:44)
[2021-07-05] MEDS: PIPERACILLIN SODIUM/TAZOBACTAM 4.5 GM in NS (IVPB) 100 ML IV SCH ×2 (08:37→15:30)
[2021-07-05] MEDS: KCL 10 MEQ TAB (MICRO K) PO SCH ×2 (08:38→17:51)
[2021-07-05] MEDS: CYANOCOBALAMIN 1,000 MCG (VITAMIN B-12) TABLET PO SCH (08:38)
[2021-07-05] MEDS: rOPINIRole 0.25 MG (REQUIP) TAB PO SCH ×2 (08:38→21:45)
[2021-07-05] MEDS: MONTELUKAST 10 MG (SINGULAIR) TAB PO SCH (08:38)
[2021-07-05] MEDS: VITAMIN D3 25 MCG (1,000 UNITS) TABLET PO SCH (08:38)
[2021-07-05] MEDS: DOCUSATE SODIUM 100 MG (COLACE) CAP PO SCH ×2 (08:38→22:07)
[2021-07-05] MEDS: SENNA W/DOCUSATE (SENOKOT S) TABLET PO SCH ×2 (08:38→22:08)
[2021-07-05] MEDS: meTOprolol SUCCINATE 100 MG (TOPROL XL) TAB PO SCH (08:38)
[2021-07-05] MEDS: GABAPENTIN 300 MG (NEURONTIN) CAP PO SCH (08:38)
[2021-07-05] MEDS: PANTOPRAZOLE 40 MG (PROTONIX) TAB PO SCH (08:38)
[2021-07-05] MEDS: lisINopril 10 MG (PRINIVIL) TABLET PO SCH (08:38)
[2021-07-05] MEDS: LORATADINE (CLARITIN) 10 MG TAB PO SCH (08:38)
[2021-07-05] MEDS: LACTOBACILLUS ACIDOPHILUS (PROBIOTIC) CAPSULE PO SCH (08:38)
[2021-07-05] MEDS: amLODIPine 5 MG (NORVASC) TAB PO SCH (08:38)
--- NOTE | 2021-07-05 08:59 | Physical Therapy Daily Note ---
PT Daily Note-Current Subjective Patient in bed pre tx, agrees to PT, has no complaints of pain. Patient requests another gown on her back and she needs her brief changed. Appearance Patient in WC post tx, OT is going to get her back to her room. Mental Status Patient Orientation: Person, Place, Situation Transfers SCALE: Activities may be completed with or without assistive devices. 3-Wupjxkxqwn-vigiwwt completes the activity by him/herself with no assistance from a helper. 5-Set-up or Clean-up Assistance-helper sets up or cleans up; patient completes activity. [place] assists only prior to or following the activity. 4-Supervision or Touching Assistance-helper provides verbal cues and/or touching/steadying and/or contact guard assistance as patient completes activity. Assistance may be provided throughout the activity or intermittently. 3-Partial/Moderate Assistance-helper does LESS THAN HALF the effort. [place] lifts, holds or supports trunk or limbs, but provides less than half the effort. 2-Substantial/Maximal Assistance-helper does MORE THAN HALF the effort. [place] lifts or holds trunk or limbs and provides more than half the effort. 8-Uzderjkqv-brctiq does ALL the effort. Patient does none of the effort to complete the activity. Or, the assistance of 2 or more helpers is required for the patient to complete the activity. If activity was not attempted, code reason: 7-Patient Refused. 9-Not Applicable-not attempted and the patient did not perform the activity before the current illness, exacerbation or injury. 10-Not Attempted due to Environmental Limitations-(lack of equipment, weather restraints, etc.). 88-Not Attempted due to Medical Conditions or Safety Concerns. Roll Left & Right (QC): 6 Lying to Sitting/Side of Bed(Q: 4 Sit to Stand (QC): 3 Chair/Ehp-yt-Jlpmk Xfer(QC): 4 cues for positioning during transfers, she tends to not turn completely before sitting down Weight Bearing Full Weight Bearing Full Weight Bearing Wheelchair Training Does the Pt Use a Wheelchair?: Yes Wheel 50 ft with 2 turns (QC): 4 Type of Wheelchair: Manual 120'x2 Exercises Standing: Heel/toe raises, Mini squats Standing Reps: 15 NuStep Minutes: 15 NuStep Workload: 3 Treatments bed mobility and transfers, WC mobility, LE strengthening Assessment Current Status: Fair Progress improved supine to sit PT Care Home Goals Hair Spring Cutter Goals PT Hair [place] Cutter Goals Time Frame: Jul 12, 2021 Roll Left & Right (QC): 5 Sit to Lying (QC): 5 Lying-Sitting on Side/Bed(QC): 4 Sit to Stand (QC): 4 Chair/Tls-fm-Dximk Xfer(QC): 4 Toilet Transfer (QC): 4 Car Transfer (QC): 4 Does the Patient Walk: Yes Walk 10 feet (QC): 5 Walk 50ft with 2 Turns (QC): 5 Walk 150 ft (QC): 4 Walking 10ft on Uneven Surface: 4 1 Step (curb) (QC): 4 4 Steps (QC): 88 12 Steps (QC): 88 Picking up an Object (QC): 4 Does the Pt use WC or Scooter?: Yes Wheel 50 feet with 2 turns (QC: 6 Type: Manual Wheel 150 feet: 6 Type: Manual PT Plan Problem List Problem List: Activity Tolerance, Functional Strength, Safety, Balance, Gait, Transfer, Bed Mobility, ROM Treatment/Plan Treatment Plan: Continue Plan of Care Treatment Plan: Bed Mobility, Education, Functional Activity Naina, Functional Strength, Gait, Safety, Therapeutic Exercise, Transfers (--) Treatment Duration: Aug 02, 2021 Frequency: At least 5 of 7 days/Wk (IRF) Estimated Hrs Per Day: 1.5 hours per day Patient and/or Family Agrees t: Yes Safety Risks/Education Patient Education: Transfer Techniques, Correct Positioning, W/C Management, Safety Issues Teaching Recipient: Patient Teaching Methods: Demonstration, Discussion Response to Teaching: Reinforcement Needed Time/GCodes Time In: 0800 Time Out: 0900 Total Billed Treatment Time: 60 Total Billed Treatment 1 visit FA 30' EX 30' IMELDA HAM PT Jul 05, 2021 08:59
[2021-07-05] MEDS ORDERED: RT--FLUTICASONE/SALMETEROL 113-14 (AIRDUO RespiCLICK) IH SCH (09:00)
--- NOTE | 2021-07-05 09:36 | Progress Note - Urology ---
Progress Note-Urology Progress Notes/Assess & Plan Progress/Assessment & Plan VOIDING WELL. CHECK PVR Final Diagnosis RETENTION SHIRIN WADE MD Jul 05, 2021 09:36
--- NOTE | 2021-07-05 10:19 | Physical Therapy Daily Note ---
PT Daily Note-Current Subjective Patient in bed pre tx, agrees to PT, has no complaints of pain. Will be co- treating with OT for part of tx due to poor patient mobility, strength, endurance, severe debility, coordinate UE and LE during activity, safety and reduce risk of falls. Appearance Patient in WC in restroom, will continue with OT. Mental Status Patient Orientation: Person, Place, Situation Attachments: IV Transfers SCALE: Activities may be completed with or without assistive devices. 5-Ciwhvswnvk-nklamhi completes the activity by him/herself with no assistance from a helper. 5-Set-up or Clean-up Assistance-helper sets up or cleans up; patient completes activity. [place] assists only prior to or following the activity. 4-Supervision or Touching Assistance-helper provides verbal cues and/or touching/steadying and/or contact guard assistance as patient completes activity. Assistance may be provided throughout the activity or intermittently. 3-Partial/Moderate Assistance-helper does LESS THAN HALF the effort. [place] lifts, holds or supports trunk or limbs, but provides less than half the effort. 2-Substantial/Maximal Assistance-helper does MORE THAN HALF the effort. [place] lifts or holds trunk or limbs and provides more than half the effort. 4-Jkzbcrtqx-fiezsv does ALL the effort. Patient does none of the effort to complete the activity. Or, the assistance of 2 or more helpers is required for the patient to complete the activity. If activity was not attempted, code reason: 7-Patient Refused. 9-Not Applicable-not attempted and the patient did not perform the activity before the current illness, exacerbation or injury. 10-Not Attempted due to Environmental Limitations-(lack of equipment, weather restraints, etc.). 88-Not Attempted due to Medical Conditions or Safety Concerns. Lying to Sitting/Side of Bed(Q: 4 Sit to Stand (QC): 3 Chair/Aoz-am-Nukov Xfer(QC): 4 Patient sits to the side of the bed, takes off hospital gown and puts on a regular gown with assist from OT, stands to finish and transfers to , then propels WC to restroom. Weight Bearing Full Weight Bearing Full Weight Bearing Exercises Supine Ex: Ankle pumps, Quad Set, Glut sets, Heel Slides, Short Arc Quads, Straight leg raise, Hip abd/add Supine Reps: 20 Treatments PT performed LE strengthening, bed mobility and transfers, assist with dressing, WC mobility. OT performed dressing, assist with UE positioning and safety during activity. Assessment Current Status: Fair Progress slowly improving bed mobility and transfers PT Long-Term Goals [place] Charger Goals PT [place]ola Charger Goals Time Frame: Jul 12, 2021 Roll Left & Right (QC): 5 Sit to Lying (QC): 5 Lying-Sitting on Side/Bed(QC): 4 Sit to Stand (QC): 4 Chair/Wzo-ro-Mycoz Xfer(QC): 4 Toilet Transfer (QC): 4 Car Transfer (QC): 4 Does the Patient Walk: Yes Walk 10 feet (QC): 5 Walk 50ft with 2 Turns (QC): 5 Walk 150 ft (QC): 4 Walking 10ft on Uneven Surface: 4 1 Step (curb) (QC): 4 4 Steps (QC): 88 12 Steps (QC): 88 Picking up an Object (QC): 4 Does the Pt use WC or Scooter?: Yes Wheel 50 feet with 2 turns (QC: 6 Type: Manual Wheel 150 feet: 6 Type: Manual PT Plan Problem List Problem List: Activity Tolerance, Functional Strength, Safety, Balance, Gait, Transfer, Bed Mobility, ROM Treatment/Plan Treatment Plan: Continue Plan of Care Treatment Plan: Bed Mobility, Education, Functional Activity Naina, Functional Strength, Gait, Safety, Therapeutic Exercise, Transfers (--) Treatment Duration: Aug 02, 2021 Frequency: At least 5 of 7 days/Wk (IRF) Estimated Hrs Per Day: 1.5 hours per day Patient and/or Family Agrees t: Yes Safety Risks/Education Patient Education: Transfer Techniques, Correct Positioning, W/C Management, Safety Issues Teaching Recipient: Patient Teaching Methods: Demonstration, Discussion Response to Teaching: Reinforcement Needed Time/GCodes Time In: 0945 Time Out: 1015 Total Billed Treatment Time: 30 Total Billed Treatment 1 visit EX 15' FA 15' IMELDA HAM PT Jul 05, 2021 10:19
--- NOTE | 2021-07-05 11:16 | Occupational Ther Daily Note ---
OT Current Status-Daily Note Subjective Pt alert, lying in bed. Pt agrees to therapy. No c/o pain. Co-treat with PT ([id number]), skills of 2 clinicians required to decrease fall risk, increase functional mobility and activity tolerance. Mental Status/Objective Patient Orientation: Person, Place, Time, Situation Attachments: IV ADL-Treatment Pt declines shower, stating that she only takes on a week. Pt had last shower this past Thursday. CGA for toilet transfer. Pt able to manipulate clothing and cleanse eloy area, assist to cleanse buttocks. PT working on bed mobility and transfers while OT focusing on B UE placement and functional mobility. Mod A for supine to EOB with HOB raised. CGA for sit to stand and SPT using FWW to w/c. Pt then propelled w/c with minimal assist with corners to bathroom sink. Completes oral care and grooming independently. Therapy Code Descriptions/Definitions Functional [place] Measure: 0=Not Assessed/NA 4=Minimal Assistance 1=Total Assistance 5=Supervision or Setup 2=Maximal Assistance 6=Modified [place] 3=Moderate Assistance 7=Complete IndependenceSCALE: Activities may be completed with or without assistive devices. 6-Jgfvrwzwrm-ibjppzg completes the activity by him/herself with no assistance from a helper. 5-Set-up or Clean-up Assistance-helper sets up or cleans up; patient completes activity. [place] assists only prior to or following the activity. 4-Supervision or Touching Assistance-helper provides verbal cues and/or touching/steadying and/or contact guard assistance as patient completes activity. Assistance may be provided throughout the activity or intermittently. 3-Partial/Moderate Assistance-helper does LESS THAN HALF the effort. [place] lifts, holds or supports trunk or limbs, but provides less than half the effort. 2-Substantial/Maximal Assistance-helper does MORE THAN HALF the effort. [place] lifts or holds trunk or limbs and provides more than half the effort. 1-Ftqbrxfkz-rarodl does ALL the effort. Patient does none of the effort to complete the activity. Or, the assistance of 2 or more helpers is required for the patient to complete the activity. If activity was not attempted, code reason: 7-Patient Refused. 9-Not Applicable-not attempted and the patient did not perform the activity before the current illness, exacerbation or injury. 10-Not Attempted due to Environmental Limitations-(lack of equipment, weather restraints, etc.). 88-Not Attempted due to Medical Conditions or Safety Concerns. Oral Hygiene (QC): 6 Upper Body Dressing (QC): 3 (Min A due to IV line) On/Off Footwear: 1 Toileting Hygiene (QC): 3 Toilet Transfer (QC): 4 Other Treatment Pt propelled w/c to [facility] area. Pt completed B UE gross and fine motor task with 1# wt attached to wrist for strengthening and fine motor tasks for dexterity, 20 min task. Pt then working on B UE strength to propel w/c around [facility] 2nd floor. After session, pt sitting in recliner with call light/phone in reach. All needs met in room. OT Short Term Goals Short Term Goals Time Frame: Jul 10, 2021 Toileting hygiene: 3 Shower/bathe self: 2 Lower body dressin Putting on/taking off footwear: 2 OT Longterm Goals Longterm Goals Time Frame: Jul 19, 2021 Eating (QC): 6 Oral Hygiene (QC): 6 Toileting Hygiene (QC): 4 Shower/Bathe Self (QC): 3 Upper Body Dressing (QC): 3 Lower Body Dressing (QC): 3 On/Off Footwear (QC): 3 Additional Goals: 1-Demonstrate ADL Tasks, 2-Verbalize Understanding, 3- ImproveStrength/Naina 1=Demonstrate adherence to instructed precautions during ADL tasks. 2=Patient will verbalize/demonstrate understanding of assistive devices/modifications for ADL. 3=Patient will improve strength/tolerance for activity to enable patient to perform ADL's. OT Education/Plan Problem List/Assessment Assessment: Decreased Activ Tolerance, Decreased UE Strength, Impaired Bed Mobility, Impaired Funct Balance, Impaired Self-Care Skills Discharge Recommendations Plan/Recommendations: Continue POC Treatment Plan/Plan of Care Patient would benefit from OT for education, treatment and training to promote independence in ADL's, mobility, safety and/or upper extremity function for ADL's. Plan of Care: ADL Retraining, Functional Mobility, Group Exercise/Act as Ind, UE Funct Exercise/Act Treatment Duration: Jul 19, 2021 Frequency: At least 5 of 7 days/Wk (IRF) Estimated Hrs Per Day: 1.5 hours per day Agreement: Yes Rehab Potential: Fair Time/GCodes Start Time: 10:00 Stop Time: 11:30 Total Time Billed (hr/min): 90 Billed Treatment Time 1 visit-ADL 4 (60 min) EX 2 (30 min) co-treat with PT [id number], individual [phone] DELORES TORRES Jul 05, 2021 11:16
[2021-07-05] MEDS: guaiFENesin/DM (ROBITUSSIN DM) 10 ML UDC PO PRN ×2 (12:03→15:36)
[2021-07-05] MEDS: polyethylene glycoL POWDER 17 GM (MIRALAX) PACK PO SCH ×2 (12:27→22:08)
--- NOTE | 2021-07-05 13:19 | Cardiology Progress Note ---
Subjective Date Seen by Provider: Jul 05, 2021 Time Seen by Provider: 13:16 Subjective/Events-last exam Patient was seen at bedside, sitting comfortably in a chair. No new complaint. Still having some cough Review of Systems General: No Chills, No Night Sweats; Fatigue; No Malaise, No Appetite, No Other HEENT: No Head Aches, No Visual Changes, No Eye Pain, No Ear Pain, No Dysp hasia, No Sinus Congestion, No Post Nasal Drip, No Sore Throat, No Other Pulmonary: No Dyspnea; Cough; No Pleuritic Chest Pain, No Other Cardiovascular: No: Chest Pain, Palpitations, Orthopnea, Paroxysmal Noc. Dy spnea, Edema, Lt Headedness, Other Objective-Cardiology Exam Last Set of Vital Signs Vital Signs 07/05/21 07:33 Temp 36.2 Pulse 55 Resp 22 B/P (MAP) 180/72 (108) Pulse Ox 94 O2 Delivery Room Air I&O Intake and Output 07/05/21 00:00 Intake Total 1770 ml Output Total 1575 ml Balance 195 ml Intake Oral 1570 ml IV Total 200 ml Output Urine Total 1575 ml # Urine Diapers 5 # Bowel Movements 1 General: Alert, Oriented X3, Cooperative HEENT: Atraumatic, PERRLA Neck: Supple, No JVD, No Thyromegaly Lungs: Normal Air Movement, Other (Bilateral rhonchi) Heart: Regular Rate, Normal S1, Normal S2, No Murmurs Abdomen: Normal Bowel Sounds, Soft, No Tenderness, No Hepatosplenomegaly, No Masses Extremities: No Clubbing, No Cyanosis, No Edema, Normal Pulses, No Tenderness/Swelling Skin: No Rashes, No Breakdown, No Significant Lesion Neuro: Normal Gait, Normal Speech, Strength at 5/5 X4 Ext, Normal Tone, Sensation Intact Psych/Mental Status: Mental Status NL, Mood NL Results Lab Laboratory Tests Test 07/05/21 10:40 Range/Units Glucometer 129 H 70-110 MG/DL A/P-Cardiology Admission Diagnosis Elevated BNP HTN Recent pneumonia with sepsis Debility/weakness Assessment/Plan Mildly elevated BNP, no signs of congestive heart failure, echocardiogram was done on July 04, 2021 showing normal LV size with ejection fraction 60 to 65%, mildly dilated left atrium, pulmonary artery pressure 35 to 40 mmHg Hypertension, labile blood pressure, maintained on Toprol and lisinopril, amlodipine was started recently, blood pressure is better today, had 1 episode of elevated blood pressure but overall under better control. Continue to monitor HLP, statin currently on hold secondary to elevated LFTs on admission. Will continue to monitor as outpatient. Recent pneumonia with sepsis, slowly improving, still having nonproductive cough. Continue on antibiotic. Management per medical services. DM, management per medical services. Generalized debility/weakness, continue PT/OT Hx Recurrent UTI Hypothyroidism, followed and managed by primary care physician LONI CRARILLO MD Jul 05, 2021 13:19
[2021-07-05] MEDS: TAMSULOSIN 0.4 MG (FLOMAX) CAP PO SCH (17:51)
[2021-07-05 20:00] VITALS: BP 181/76
[2021-07-05] MEDS: ACETAMINOPHEN 500 MG TAB (TYLENOL) PO SCH (21:45)
[2021-07-05] MEDS: GABAPENTIN 600 MG (NEURONTIN) TAB PO SCH (21:45)
[2021-07-05] MEDS: DONEPEZIL 5 MG (ARICEPT) TAB PO SCH (21:45)
[2021-07-06] MEDS: PIPERACILLIN SODIUM/TAZOBACTAM 4.5 GM in NS (IVPB) 100 ML IV SCH (01:36)
--- NOTE | 2021-07-06 05:26 | PM&R Progress Note ---
Subjective HPI/CC On Admission Date Seen by Provider: Jul 06, 2021 Time Seen by Provider: 11:00 Subjective/Events-last exam 07/06/21: Patient doing better Cough improved Slow recovery No pain Anti-tussives maintained 07/05/2021: Patient doing much better Cough is much better No pain is reported Bowels are moving Checked meds and labs 07/04/2021: Patient about the same Cough is a tiny bit improved No pain is reported Tolerating therapy pretty well Urology appreciated 07/03/2021: Pt doing pretty well Pt has urinary retention Dr. Maria was consulted and started her on Flomax He left orders to do an in and out cath for greater than 400cc's on bladder scan Dr. Gregory has been consulted Decreased motivation for therapy blood pressure is very labile with bp of 200 given Clonidine blood sugar is 149 07/02/21: Pt doing about the same BP is high so will give Norvasc of 5 mg daily Cough is constant Had a little bit of bloody sputum yesterday Transfers are better Day number 4 of antibiotics of Zosyn Checked meds and labs Daughter at the bedside Added on BNP later in the day which was elevated gave Lasix 20 mg IV x1 consulted Dr. Gregory and ordered an echo She did almost fall going to the bathroom I recommended bedside commode Review of Systems General: Fatigue, Malaise Objective Exam Vital Signs Vital Signs Date Time Temp Pulse Resp B/P (MAP) Pulse Ox O2 Delivery O2 Flow Rate FiO2 07/06/21 10:31 Room Air 07/06/21 09:18 92 07/06/21 08:13 36.4 73 18 147/63 (91) Capillary Refill : General Appearance: No Apparent Distress, WD/WN, Chronically ill, Obese HEENT: PERRL/EOMI, Normal ENT Inspection, Pharynx Normal Neck: Full Range of Motion, Normal Inspection, Non Tender, Supple, Carotid Bruit Respiratory: Chest Non Tender, Normal Breath Sounds, No Accessory Muscle Use, No Respiratory Distress, Crackles, Decreased Breath Sounds Cardiovascular: Regular Rate, Rhythm, No Edema, No Gallop, No JVD, No Murmur, Normal Peripheral Pulses Gastrointestinal: Normal Bowel Sounds, No Organomegaly, No Pulsatile Mass, Non Tender, Soft Back: Normal Inspection, No CVA Tenderness, No Vertebral Tenderness Extremity: Normal Capillary Refill, Normal Inspection, Normal Range of Motion, Non Tender, No Calf Tenderness, No Pedal Edema Neurologic/Psychiatric: Alert, Oriented x3, No Motor/Sensory Deficits, Normal Mood/Affect Skin: Normal Color, Warm/Dry Lymphatic: No Adenopathy Results/Procedures Lab Laboratory Tests 07/06/21 07:30 Patient resulted labs reviewed. FIM Transfers Therapy Code Descriptions/Definitions Functional [place] Measure: 0=Not Assessed/NA 4=Minimal Assistance 1=Total Assistance 5=Supervision or Setup 2=Maximal Assistance 6=Modified [place] 3=Moderate Assistance 7=Complete IndependenceSCALE: Activities may be completed with or without assistive devices. 6-Urkhwffllh-tebysce completes the activity by him/herself with no assistance from a helper. 5-Set-up or Clean-up Assistance-helper sets up or cleans up; patient completes activity. [place] assists only prior to or following the activity. 4-Supervision or Touching Assistance-helper provides verbal cues and/or touching/steadying and/or contact guard assistance as patient completes activity. Assistance may be provided throughout the activity or intermittently. 3-Partial/Moderate Assistance-helper does LESS THAN HALF the effort. [place] lifts, holds or supports trunk or limbs, but provides less than half the effort. 2-Substantial/Maximal Assistance-helper does MORE THAN HALF the effort. [place] lifts or holds trunk or limbs and provides more than half the effort. 1-Ozovzghly-gyeabf does ALL the effort. Patient does none of the effort to complete the activity. Or, the assistance of 2 or more helpers is required for the patient to complete the activity. If activity was not attempted, code reason: 7-Patient Refused. 9-Not Applicable-not attempted and the patient did not perform the activity before the current illness, exacerbation or injury. 10-Not Attempted due to Environmental Limitations-(lack of equipment, weather restraints, etc.). 88-Not Attempted due to Medical Conditions or Safety Concerns. Roll Left to Right (QC): 6 Sit to Lying (QC): 2 Sit to Stand (QC): 3 Chair/Nqo-am-Ttfrj Xfer(QC): 4 Car Transfer (QC): 3 Gait Training Does the Patient Walk?: Yes Distance: 5'x3 Walk 10 feet (QC): 4 Walk 50 ft with 2 Turns(QC): 88 Walk 150 ft (QC): 88 Walking 10ft/uneven surface-QC: 3 Gait Persons Needed: 2 Gait Assistive Device: FWW Wheelchair Training Does the Pt Use a Wheelchair?: Yes Distance: 50 feet Wheel 50 ft with 2 turns (QC): 4 Wheel 150 ft (QC): 88 Type of Wheelchair: Manual Stair Training Stair Training: Handrails/: uses walker #of Steps: 1 1 Step (curb) (QC): 3 4 Steps (QC): 7 12 Steps (QC): 7 Stairs: Pattern: Step to Balance Picking up an Object (QC): 7 ADL-Treatment Eating (QC): 6 Oral Hygiene (QC): 6 Bathing Location: L Arm, R Arm, L Upper Leg, R Upper Leg, L Lower Leg (includ ing foot), R Lower Leg (including foot), Chest, Abdomen, Buttocks, Perineal Area Shower/Bathe Self (QC): 1 (sponge bath, assist x2 to cleanse buttocks in standing.) Upper Body Dressing (QC): 3 (Min A due to IV line) Lower Body Dressing (QC): 1 On/Off Footwear (QC): 1 Toileting Hygiene (QC): 3 Toilet Transfer (QC): 4 Assessment/Plan Assessment and Plan Assess & Plan/Chief Complaint Assessment: Critical illness myopathy Debility Recent pneumonia Status post sepsis Severe weakness Cognitive deficit Hypothyroidism GERD Hypertension Recurrent UTI Elevated BNP to 122 gave Lasix and [address] Dr[address] Gregory Plan: PT and OT aggressive rehab Supportive prison meds Monitor blood pressure 07/02/2021: Lasix Echo Cough suppressants Dr. Gregory consult 07/03/2021: Supportive care Dr. Gregory appreciated Echo Inhaled corticosteroids Singulair and Claritin 07/04/2021: Cough suppressants Supportive care 07/05/2021: Continue cough suppressants Monitor closely 07/06/21: Monitor cough Ambulate (1) Myopathy (2) Pneumonia Status: Acute (3) Elevated LFTs Status: Acute (4) Encephalopathy acute Status: Acute (5) Sepsis Status: Acute ERICA DUKE DO Jul 06, 2021 05:26
[2021-07-06] MEDS: LEVOTHYROXINE 50 MCG (LEVOTHROID) TAB PO SCH (06:34)
[2021-07-06 07:40] LABS: BASOPHILS % (AUTO) 1 % (0-10); EOSINOPHILS # (AUTO) 0.3 10^3/uL (0.0-0.3); EOSINOPHILS % (AUTO) 7 % (0-10); HEMATOCRIT 37 % (35-52); HEMOGLOBIN 11.7 g/dL (11.5-16.0); LYMPHOCYTES # (AUTO) 1.4 10^3/uL (1.0-4.0); LYMPHOCYTES % (AUTO) 31 % (12-44); MEAN CORPUSCULAR HEMOGLOBIN 30 pg (25-34); MEAN CORPUSCULAR HGB CONC 32 g/dL (32-36); MEAN CORPUSCULAR VOLUME 94 fL (80-99); MEAN PLATELET VOLUME 9.8 fL (9.0-12.2); MONOCYTES # (AUTO) 0.4 10^3/uL (0.0-1.0); MONOCYTES % (AUTO) 9 % (0-12); NEUTROPHILS # (AUTO) 2.4 10^3/uL (1.8-7.8); NEUTROPHILS % (AUTO) 52 % (42-75); PLATELET COUNT 199 10^3/uL (130-400); WHITE BLOOD COUNT 4.6 10^3/uL (4.3-11.0)
[2021-07-06 08:00] LABS: ALBUMIN 3.1 GM/DL (3.2-4.5)
[2021-07-06 08:01] LABS: POTASSIUM 3.6 MMOL/L (3.6-5.0)
[2021-07-06 08:02] LABS: CALCIUM 8.8 MG/DL (8.5-10.1)
[2021-07-06 08:03] LABS: TOTAL PROTEIN 6.9 GM/DL (6.4-8.2)
[2021-07-06 08:07] LABS: CREATININE SERUM 1.35 MG/DL (0.60-1.30)
[2021-07-06 08:13] VITALS: BP 147/63
[2021-07-06] MEDS: GABAPENTIN 300 MG (NEURONTIN) CAP PO SCH (08:16)
[2021-07-06] MEDS: PANTOPRAZOLE 40 MG (PROTONIX) TAB PO SCH (08:16)
[2021-07-06] MEDS: rOPINIRole 0.25 MG (REQUIP) TAB PO SCH ×2 (08:17→21:15)
[2021-07-06] MEDS: BENZONATATE 100 MG (TESSALON) CAPSULE PO SCH ×3 (08:17→21:15)
[2021-07-06] MEDS: CYANOCOBALAMIN 1,000 MCG (VITAMIN B-12) TABLET PO SCH (08:17)
[2021-07-06] MEDS: meTOprolol SUCCINATE 100 MG (TOPROL XL) TAB PO SCH (08:17)
[2021-07-06] MEDS: lisINopril 10 MG (PRINIVIL) TABLET PO SCH (08:17)
[2021-07-06] MEDS: VITAMIN D3 25 MCG (1,000 UNITS) TABLET PO SCH (08:17)
[2021-07-06] MEDS: LORATADINE (CLARITIN) 10 MG TAB PO SCH (08:17)
[2021-07-06] MEDS: amLODIPine 5 MG (NORVASC) TAB PO SCH (08:17)
[2021-07-06] MEDS: MONTELUKAST 10 MG (SINGULAIR) TAB PO SCH (08:17)
[2021-07-06] MEDS: LACTOBACILLUS ACIDOPHILUS (PROBIOTIC) CAPSULE PO SCH (08:17)
[2021-07-06] MEDS: DOCUSATE SODIUM 100 MG (COLACE) CAP PO SCH ×2 (08:18→21:16)
[2021-07-06] MEDS: polyethylene glycoL POWDER 17 GM (MIRALAX) PACK PO SCH ×2 (08:18→21:43)
[2021-07-06] MEDS: SENNA W/DOCUSATE (SENOKOT S) TABLET PO SCH ×2 (08:18→21:43)
[2021-07-06] MEDS: KCL 10 MEQ TAB (MICRO K) PO SCH ×2 (08:20→17:52)
[2021-07-06] MEDS: RT--FLUTICASONE/SALMETEROL 113-14 (AIRDUO RespiCLICK) IH SCH ×2 (09:18→21:06)
--- NOTE | 2021-07-06 09:48 | Progress Note - Urology ---
Progress Note-Urology Progress Notes/Assess & Plan Progress/Assessment & Plan VOIDING WELL. EMPTIES WELL, BUT COMPLAINS OF FREQUENCY AND URGENCY WITH URGE INCONTINENCE. START DETROL LA Final Diagnosis RETENTION AND WET OAB SHIRIN WADE MD Jul 06, 2021 09:48
--- NOTE | 2021-07-06 11:54 | Physical Therapy Daily Note ---
PT Daily Note-Current Subjective Pt sitting in recliner upon arrival. Pt agrees to PT. Pain Location: Left Location Body Site: Knee Pain Description: Ache Comment: Reports but doesn't rate Mental Status Patient Orientation: Person, Place, Situation Transfers SCALE: Activities may be completed with or without assistive devices. 3-Tfnveziqcc-ieawsmh completes the activity by him/herself with no assistance from a helper. 5-Set-up or Clean-up Assistance-helper sets up or cleans up; patient completes activity. [place] assists only prior to or following the activity. 4-Supervision or Touching Assistance-helper provides verbal cues and/or touching/steadying and/or contact guard assistance as patient completes activity. Assistance may be provided throughout the activity or intermittently. 3-Partial/Moderate Assistance-helper does LESS THAN HALF the effort. [place] lifts, holds or supports trunk or limbs, but provides less than half the effort. 2-Substantial/Maximal Assistance-helper does MORE THAN HALF the effort. [place] lifts or holds trunk or limbs and provides more than half the effort. 6-Hjbycmfiw-hoyoqi does ALL the effort. Patient does none of the effort to complete the activity. Or, the assistance of 2 or more helpers is required for the patient to complete the activity. If activity was not attempted, code reason: 7-Patient Refused. 9-Not Applicable-not attempted and the patient did not perform the activity before the current illness, exacerbation or injury. 10-Not Attempted due to Environmental Limitations-(lack of equipment, weather restraints, etc.). 88-Not Attempted due to Medical Conditions or Safety Concerns. Weight Bearing Full Weight Bearing Full Weight Bearing Exercises Supine Ex: Ankle pumps, Quad Set, Glut sets, Straight leg raise, Hip abd/add Supine Reps: 10 Treatments Pt completes Supine EX with RB as needed. Pt educ. about positioning and relief of pressure sores as well as circulation and continuing to work on strength through completing EX from HEP issued in previous tx. Pt resting in recliner with all needs met, call light in hand. Assessment Current Status: Fair Progress Pt is not very active and needs RB during tx. PT Square Dance Caller Goals Square Dance Caller Goals PT Long-Term Goals Time Frame: Jul 12, 2021 Roll Left & Right (QC): 5 Sit to Lying (QC): 5 Lying-Sitting on Side/Bed(QC): 4 Sit to Stand (QC): 4 Chair/Wly-jv-Igihs Xfer(QC): 4 Toilet Transfer (QC): 4 Car Transfer (QC): 4 Does the Patient Walk: Yes Walk 10 feet (QC): 5 Walk 50ft with 2 Turns (QC): 5 Walk 150 ft (QC): 4 Walking 10ft on Uneven Surface: 4 1 Step (curb) (QC): 4 4 Steps (QC): 88 12 Steps (QC): 88 Picking up an Object (QC): 4 Does the Pt use WC or Scooter?: Yes Wheel 50 feet with 2 turns (QC: 6 Type: Manual Wheel 150 feet: 6 Type: Manual PT Plan Problem List Problem List: Activity Tolerance, Functional Strength Treatment/Plan Treatment Plan: Continue Plan of Care Treatment Plan: Bed Mobility, Education, Functional Activity Naina, Functional Strength, Gait, Safety, Therapeutic Exercise, Transfers (--) Treatment Duration: Aug 02, 2021 Frequency: At least 5 of 7 days/Wk (IRF) Estimated Hrs Per Day: 1.5 hours per day Patient and/or Family Agrees t: Yes Safety Risks/Education Patient Education: Correct Positioning, Disease Process, Safety Issues Teaching Recipient: Patient Teaching Methods: Discussion Response to Teaching: Verbalize Understanding Time/GCodes Time In: 1110 Time Out: 1140 Total Billed Treatment Time: 30 Total Billed Treatment 1, EX (15m) & FA (15m) YUVAL SULLIVAN PTA Jul 06, 2021 11:54
[2021-07-06] MEDS: TAMSULOSIN 0.4 MG (FLOMAX) CAP PO SCH (17:52)
[2021-07-06 20:00] VITALS: BP 155/76
[2021-07-06] MEDS: TOLTERODINE LA 4 MG (DETROL) CAP PO SCH (21:15)
[2021-07-06] MEDS: DONEPEZIL 5 MG (ARICEPT) TAB PO SCH (21:16)
[2021-07-06] MEDS: ACETAMINOPHEN 500 MG TAB (TYLENOL) PO SCH (21:16)
[2021-07-06] MEDS: GABAPENTIN 600 MG (NEURONTIN) TAB PO SCH (21:16)
[2021-07-06] MEDS: CATHETER FLUSH 10 ML SYR IV SCH (21:20)
[2021-07-07] MEDS: LEVOTHYROXINE 50 MCG (LEVOTHROID) TAB PO SCH (06:47)
[2021-07-07] MEDS: CATHETER FLUSH 10 ML SYR IV SCH ×3 (06:47→22:00)
[2021-07-07] MEDS: RT--FLUTICASONE/SALMETEROL 113-14 (AIRDUO RespiCLICK) IH SCH ×2 (07:25→21:30)
--- NOTE | 2021-07-07 07:46 | PM&R Progress Note ---
Subjective HPI/CC On Admission Date Seen by Provider: Jul 07, 2021 Time Seen by Provider: 17:00 Subjective/Events-last exam 07/07/2021: Patient doing a lot better cough is improving No pain is reported Checked meds and labs Getting around better 07/06/21: Patient doing better Cough improved Slow recovery No pain Anti-tussives maintained 07/05/2021: Patient doing much better Cough is much better No pain is reported Bowels are moving Checked meds and labs 07/04/2021: Patient about the same Cough is a tiny bit improved No pain is reported Tolerating therapy pretty well Urology appreciated 07/03/2021: Pt doing pretty well Pt has urinary retention Dr. Maria was consulted and started her on Flomax He left orders to do an in and out cath for greater than 400cc's on bladder scan Dr. Gregory has been consulted Decreased motivation for therapy blood pressure is very labile with bp of 200 given Clonidine blood sugar is 149 07/02/21: Pt doing about the same BP is high so will give Norvasc of 5 mg daily Cough is constant Had a little bit of bloody sputum yesterday Transfers are better Day number 4 of antibiotics of Zosyn Checked meds and labs Daughter at the bedside Added on BNP later in the day which was elevated gave Lasix 20 mg IV x1 consulted Dr. Gregory and ordered an echo She did almost fall going to the bathroom I recommended bedside commode Review of Systems General: Fatigue, Malaise Pulmonary: Cough Objective Exam Vital Signs Vital Signs Date Time Temp Pulse Resp B/P (MAP) Pulse Ox O2 Delivery O2 Flow Rate FiO2 07/07/21 21:30 94 Room Air 07/07/21 19:28 36.8 68 20 162/72 (102) Capillary Refill : General Appearance: No Apparent Distress, WD/WN, Chronically ill, Obese HEENT: PERRL/EOMI, Normal ENT Inspection, Pharynx Normal Neck: Full Range of Motion, Normal Inspection, Non Tender, Supple, Carotid Bruit Respiratory: Chest Non Tender, Normal Breath Sounds, No Accessory Muscle Use, No Respiratory Distress, Crackles, Decreased Breath Sounds Cardiovascular: Regular Rate, Rhythm, No Edema, No Gallop, No JVD, No Murmur, Normal Peripheral Pulses Gastrointestinal: Normal Bowel Sounds, No Organomegaly, No Pulsatile Mass, Non Tender, Soft Back: Normal Inspection, No CVA Tenderness, No Vertebral Tenderness Extremity: Normal Capillary Refill, Normal Inspection, Normal Range of Motion, Non Tender, No Calf Tenderness, No Pedal Edema Neurologic/Psychiatric: Alert, Oriented x3, No Motor/Sensory Deficits, Normal Mood/Affect Skin: Normal Color, Warm/Dry Lymphatic: No Adenopathy Results/Procedures Lab Patient resulted labs reviewed. FIM Transfers Therapy Code Descriptions/Definitions Functional [place] Measure: 0=Not Assessed/NA 4=Minimal Assistance 1=Total Assistance 5=Supervision or Setup 2=Maximal Assistance 6=Modified [place] 3=Moderate Assistance 7=Complete IndependenceSCALE: Activities may be completed with or without assistive devices. 5-Eiwhkwjmyo-zuhghxj completes the activity by him/herself with no assistance from a helper. 5-Set-up or Clean-up Assistance-helper sets up or cleans up; patient completes activity. [place] assists only prior to or following the activity. 4-Supervision or Touching Assistance-helper provides verbal cues and/or touching/steadying and/or contact guard assistance as patient completes activity. Assistance may be provided throughout the activity or intermittently. 3-Partial/Moderate Assistance-helper does LESS THAN HALF the effort. [place] lifts, holds or supports trunk or limbs, but provides less than half the effort. 2-Substantial/Maximal Assistance-helper does MORE THAN HALF the effort. [place] lifts or holds trunk or limbs and provides more than half the effort. 9-Lkftnchos-pmplwy does ALL the effort. Patient does none of the effort to complete the activity. Or, the assistance of 2 or more helpers is required for the patient to complete the activity. If activity was not attempted, code reason: 7-Patient Refused. 9-Not Applicable-not attempted and the patient did not perform the activity before the current illness, exacerbation or injury. 10-Not Attempted due to Environmental Limitations-(lack of equipment, weather restraints, etc.). 88-Not Attempted due to Medical Conditions or Safety Concerns. Roll Left to Right (QC): 6 Sit to Lying (QC): 2 Sit to Stand (QC): 3 Chair/Zks-jl-Aowta Xfer(QC): 4 Car Transfer (QC): 3 Gait Training Does the Patient Walk?: Yes Distance: 5'x3 Walk 10 feet (QC): 4 Walk 50 ft with 2 Turns(QC): 88 Walk 150 ft (QC): 88 Walking 10ft/uneven surface-QC: 3 Gait Persons Needed: 2 Gait Assistive Device: FWW Wheelchair Training Does the Pt Use a Wheelchair?: Yes Distance: 50 feet Wheel 50 ft with 2 turns (QC): 4 Wheel 150 ft (QC): 88 Type of Wheelchair: Manual Stair Training Stair Training: Handrails/: uses walker #of Steps: 1 1 Step (curb) (QC): 3 4 Steps (QC): 7 12 Steps (QC): 7 Stairs: Pattern: Step to Balance Picking up an Object (QC): 7 ADL-Treatment Eating (QC): 6 Oral Hygiene (QC): 6 Bathing Location: L Arm, R Arm, L Upper Leg, R Upper Leg, L Lower Leg (including foot), R Lower Leg (including foot), Chest, Abdomen, Buttocks, Perineal Area Shower/Bathe Self (QC): 1 (sponge bath, assist x2 to cleanse buttocks in standing.) Upper Body Dressing (QC): 3 (Min A due to IV line) Lower Body Dressing (QC): 1 On/Off Footwear (QC): 1 Toileting Hygiene (QC): 3 Toilet Transfer (QC): 4 Assessment/Plan Assessment and Plan Assess & Plan/Chief Complaint Assessment: Critical illness myopathy Debility Recent pneumonia Status post sepsis Severe weakness Cognitive deficit Hypothyroidism GERD Hypertension Recurrent UTI Elevated BNP to 122 gave Lasix and consulted Dr. Gregory Plan: PT and OT aggressive rehab Supportive senior living meds Monitor blood pressure 07/02/2021: Lasix Echo Cough suppressants Dr. Gregory consult 07/03/2021: Supportive care Dr. Gregory appreciated Echo Inhaled corticosteroids Singulair and Claritin 07/04/2021: Cough suppressants Supportive care 07/05/2021: Continue cough suppressants Monitor closely 07/06/21: Monitor cough Ambulate 07/07/2021: Supportive care Monitor closely (1) Myopathy (2) Pneumonia Status: Acute (3) Elevated LFTs Status: Acute (4) Encephalopathy acute Status: Acute (5) Sepsis Status: Acute ERICA DUKE DO Jul 07, 2021 07:46
[2021-07-07 08:15] VITALS: BP 180/77
[2021-07-07] MEDS: CYANOCOBALAMIN 1,000 MCG (VITAMIN B-12) TABLET PO SCH (08:17)
[2021-07-07] MEDS: BENZONATATE 100 MG (TESSALON) CAPSULE PO SCH ×3 (08:17→21:39)
[2021-07-07] MEDS: amLODIPine 5 MG (NORVASC) TAB PO SCH (08:17)
[2021-07-07] MEDS: DOCUSATE SODIUM 100 MG (COLACE) CAP PO SCH ×2 (08:17→21:38)
[2021-07-07] MEDS: meTOprolol SUCCINATE 100 MG (TOPROL XL) TAB PO SCH (08:17)
[2021-07-07] MEDS: MONTELUKAST 10 MG (SINGULAIR) TAB PO SCH (08:17)
[2021-07-07] MEDS: LORATADINE (CLARITIN) 10 MG TAB PO SCH (08:17)
[2021-07-07] MEDS: GABAPENTIN 300 MG (NEURONTIN) CAP PO SCH (08:17)
[2021-07-07] MEDS: lisINopril 10 MG (PRINIVIL) TABLET PO SCH (08:17)
[2021-07-07] MEDS: LACTOBACILLUS ACIDOPHILUS (PROBIOTIC) CAPSULE PO SCH (08:17)
[2021-07-07] MEDS: rOPINIRole 0.25 MG (REQUIP) TAB PO SCH ×2 (08:17→21:40)
[2021-07-07] MEDS: PANTOPRAZOLE 40 MG (PROTONIX) TAB PO SCH (08:17)
[2021-07-07] MEDS: VITAMIN D3 25 MCG (1,000 UNITS) TABLET PO SCH (08:17)
[2021-07-07] MEDS: KCL 10 MEQ TAB (MICRO K) PO SCH ×2 (08:17→18:14)
[2021-07-07] MEDS: polyethylene glycoL POWDER 17 GM (MIRALAX) PACK PO SCH ×2 (08:19→21:52)
[2021-07-07] MEDS: SENNA W/DOCUSATE (SENOKOT S) TABLET PO SCH ×2 (08:19→21:52)
[2021-07-07 10:25] VITALS: BP 159/79
[2021-07-07] MEDS: TAMSULOSIN 0.4 MG (FLOMAX) CAP PO SCH (18:13)
[2021-07-07 19:28] VITALS: BP 162/72
[2021-07-07] MEDS: TOLTERODINE LA 4 MG (DETROL) CAP PO SCH (21:39)
[2021-07-07] MEDS: GABAPENTIN 600 MG (NEURONTIN) TAB PO SCH (21:40)
[2021-07-07] MEDS: DONEPEZIL 5 MG (ARICEPT) TAB PO SCH (21:40)
[2021-07-07] MEDS: ACETAMINOPHEN 500 MG TAB (TYLENOL) PO SCH (21:42)
[2021-07-08] MEDS: CATHETER FLUSH 10 ML SYR IV SCH ×3 (06:00→22:41)
[2021-07-08 06:41] LABS: BASOPHILS % (AUTO) 1 % (0-10); EOSINOPHILS # (AUTO) 0.2 10^3/uL (0.0-0.3); EOSINOPHILS % (AUTO) 4 % (0-10); HEMATOCRIT 35 % (35-52); HEMOGLOBIN 11.1 g/dL (11.5-16.0); LYMPHOCYTES # (AUTO) 1.7 10^3/uL (1.0-4.0); LYMPHOCYTES % (AUTO) 28 % (12-44); MEAN CORPUSCULAR HEMOGLOBIN 30 pg (25-34); MEAN CORPUSCULAR HGB CONC 31 g/dL (32-36); MEAN CORPUSCULAR VOLUME 95 fL (80-99); MEAN PLATELET VOLUME 10.1 fL (9.0-12.2); MONOCYTES # (AUTO) 0.5 10^3/uL (0.0-1.0); MONOCYTES % (AUTO) 8 % (0-12); NEUTROPHILS # (AUTO) 3.5 10^3/uL (1.8-7.8); NEUTROPHILS % (AUTO) 59 % (42-75); PLATELET COUNT 209 10^3/uL (130-400); WHITE BLOOD COUNT 6.1 10^3/uL (4.3-11.0)
--- NOTE | 2021-07-08 06:55 | PM&R Progress Note ---
Subjective HPI/CC On Admission Date Seen by Provider: Jul 08, 2021 Time Seen by Provider: 11:00 Subjective/Events-last exam 07/08/2021: Pt doing really well Working with PT Labs look good Cough is much improved 07/07/2021: Patient doing a lot better cough is improving No pain is reported Checked meds and labs Getting around better 07/06/21: Patient doing better Cough improved Slow recovery No pain Anti-tussives maintained 07/05/2021: Patient doing much better Cough is much better No pain is reported Bowels are moving Checked meds and labs 07/04/2021: Patient about the same Cough is a tiny bit improved No pain is reported Tolerating therapy pretty well Urology appreciated 07/03/2021: Pt doing pretty well Pt has urinary retention Dr. Maria was consulted and started her on Flomax He left orders to do an in and out cath for greater than 400cc's on bladder scan Dr. Gregory has been consulted Decreased motivation for therapy blood pressure is very labile with bp of 200 given Clonidine blood sugar is 149 07/02/21: Pt doing about the same BP is high so will give Norvasc of 5 mg daily Cough is constant Had a little bit of bloody sputum yesterday Transfers are better Day number 4 of antibiotics of Zosyn Checked meds and labs Daughter at the bedside Added on BNP later in the day which was elevated gave Lasix 20 mg IV x1 consulted Dr. Gregory and ordered an echo She did almost fall going to the bathroom I recommended bedside commode Review of Systems General: Fatigue, Malaise Pulmonary: Cough Objective Exam Vital Signs Vital Signs Date Time Temp Pulse Resp B/P (MAP) Pulse Ox O2 Delivery O2 Flow Rate FiO2 07/08/21 21:00 Room Air 07/08/21 20:32 95 07/08/21 20:00 36.4 73 20 173/79 (110) Capillary Refill : General Appearance: No Apparent Distress, WD/WN, Chronically ill, Obese HEENT: PERRL/EOMI, Normal ENT Inspection, Pharynx Normal Neck: Full Range of Motion, Normal Inspection, Non Tender, Supple, Carotid Bruit Respiratory: Chest Non Tender, Normal Breath Sounds, No Accessory Muscle Use, No Respiratory Distress, Crackles, Decreased Breath Sounds Cardiovascular: Regular Rate, Rhythm, No Edema, No Gallop, No JVD, No Murmur, Normal Peripheral Pulses Gastrointestinal: Normal Bowel Sounds, No Organomegaly, No Pulsatile Mass, Non Tender, Soft Back: Normal Inspection, No CVA Tenderness, No Vertebral Tenderness Extremity: Normal Capillary Refill, Normal Inspection, Normal Range of Motion, Non Tender, No Calf Tenderness, No Pedal Edema Neurologic/Psychiatric: Alert, Oriented x3, No Motor/Sensory Deficits, Normal Mood/Affect Skin: Normal Color, Warm/Dry Lymphatic: No Adenopathy Results/Procedures Lab Laboratory Tests 07/08/21 05:50 Patient resulted labs reviewed. FIM Transfers Therapy Code Descriptions/Definitions Functional [place] Measure: 0=Not Assessed/NA 4=Minimal Assistance 1=Total Assistance 5=Supervision or Setup 2=Maximal Assistance 6=Modified [place] 3=Moderate Assistance 7=Complete IndependenceSCALE: Activities may be completed with or without assistive devices. 9-Mjvorcbgnr-ngrojkg completes the activity by him/herself with no assistance from a helper. 5-Set-up or Clean-up Assistance-helper sets up or cleans up; patient completes activity. [place] assists only prior to or following the activity. 4-Supervision or Touching Assistance-helper provides verbal cues and/or touching/steadying and/or contact guard assistance as patient completes activity. Assistance may be provided throughout the activity or intermittently. 3-Partial/Moderate Assistance-helper does LESS THAN HALF the effort. [place] lifts, holds or supports trunk or limbs, but provides less than half the effort. 2-Substantial/Maximal Assistance-helper does MORE THAN HALF the effort. [place] lifts or holds trunk or limbs and provides more than half the effort. 3-Pjbiouflu-jclcfc does ALL the effort. Patient does none of the effort to complete the activity. Or, the assistance of 2 or more helpers is required for the patient to complete the activity. If activity was not attempted, code reason: 7-Patient Refused. 9-Not Applicable-not attempted and the patient did not perform the activity before the current illness, exacerbation or injury. 10-Not Attempted due to Environmental Limitations-(lack of equipment, weather restraints, etc.). 88-Not Attempted due to Medical Conditions or Safety Concerns. Roll Left to Right (QC): 6 Sit to Lying (QC): 2 Sit to Stand (QC): 3 Chair/Dfs-cz-Gfjba Xfer(QC): 4 Car Transfer (QC): 3 Gait Training Does the Patient Walk?: Yes Distance: 5'x3 Walk 10 feet (QC): 4 Walk 50 ft with 2 Turns(QC): 88 Walk 150 ft (QC): 88 Walking 10ft/uneven surface-QC: 3 Gait Persons Needed: 2 Gait Assistive Device: FWW Wheelchair Training Does the Pt Use a Wheelchair?: Yes Distance: 50 feet Wheel 50 ft with 2 turns (QC): 4 Wheel 150 ft (QC): 88 Type of Wheelchair: Manual Stair Training Stair Training: Handrails/: uses walker #of Steps: 1 1 Step (curb) (QC): 3 4 Steps (QC): 7 12 Steps (QC): 7 Stairs: Pattern: Step to Balance Picking up an Object (QC): 7 ADL-Treatment Eating (QC): 6 Oral Hygiene (QC): 6 Bathing Location: L Arm, R Arm, L Upper Leg, R Upper Leg, L Lower Leg (including foot), R Lower Leg (including foot), Chest, Abdomen, Buttocks, Perineal Area Shower/Bathe Self (QC): 1 (sponge bath, assist x2 to cleanse buttocks in standing.) Upper Body Dressing (QC): 3 (Min A due to IV line) Lower Body Dressing (QC): 1 On/Off Footwear (QC): 1 Toileting Hygiene (QC): 3 Toilet Transfer (QC): 4 Assessment/Plan Assessment and Plan Assess & Plan/Chief Complaint Assessment: Critical illness myopathy Debility Recent pneumonia Status post sepsis Severe weakness Cognitive deficit Hypothyroidism GERD Hypertension Recurrent UTI Elevated BNP to 122 gave Lasix and consulted Dr. Gregory Plan: PT and OT aggressive rehab Supportive long term meds Monitor blood pressure 07/02/2021: Lasix Echo Cough suppressants Dr. Gregory consult 07/03/2021: Supportive care Dr. Gregory appreciated Echo Inhaled corticosteroids Singulair and Claritin 07/04/2021: Cough suppressants Supportive care 07/05/2021: Continue cough suppressants Monitor closely 07/06/21: Monitor cough Ambulate 07/07/2021: Supportive care Monitor closely 07/08/2021: Much improved status Discharge plan this week (1) Myopathy (2) Pneumonia Status: Acute (3) Elevated LFTs Status: Acute (4) Encephalopathy acute Status: Acute (5) Sepsis Status: Acute ERICA DUKE DO Jul 08, 2021 06:55
[2021-07-08 07:03] LABS: ALBUMIN 3.1 GM/DL (3.2-4.5)
[2021-07-08 07:04] LABS: POTASSIUM 3.7 MMOL/L (3.6-5.0)
[2021-07-08 07:05] LABS: CALCIUM 8.7 MG/DL (8.5-10.1)
[2021-07-08 07:06] LABS: TOTAL PROTEIN 6.7 GM/DL (6.4-8.2)
[2021-07-08 07:08] LABS: BILIRUBIN,TOTAL 0.7 MG/DL (0.1-1.0)
[2021-07-08 07:10] LABS: CREATININE SERUM 1.19 MG/DL (0.60-1.30)
[2021-07-08] MEDS: LEVOTHYROXINE 50 MCG (LEVOTHROID) TAB PO SCH (07:22)
[2021-07-08 07:49] VITALS: BP 184/79
[2021-07-08] MEDS: BENZONATATE 100 MG (TESSALON) CAPSULE PO SCH ×3 (08:15→22:39)
[2021-07-08] MEDS: CYANOCOBALAMIN 1,000 MCG (VITAMIN B-12) TABLET PO SCH (08:15)
[2021-07-08] MEDS: LACTOBACILLUS ACIDOPHILUS (PROBIOTIC) CAPSULE PO SCH (08:15)
[2021-07-08] MEDS: lisINopril 10 MG (PRINIVIL) TABLET PO SCH (08:15)
[2021-07-08] MEDS: amLODIPine 5 MG (NORVASC) TAB PO SCH (08:15)
[2021-07-08] MEDS: rOPINIRole 0.25 MG (REQUIP) TAB PO SCH ×2 (08:16→22:40)
[2021-07-08] MEDS: MONTELUKAST 10 MG (SINGULAIR) TAB PO SCH (08:16)
[2021-07-08] MEDS: meTOprolol SUCCINATE 100 MG (TOPROL XL) TAB PO SCH (08:16)
[2021-07-08] MEDS: PANTOPRAZOLE 40 MG (PROTONIX) TAB PO SCH (08:16)
[2021-07-08] MEDS: DOCUSATE SODIUM 100 MG (COLACE) CAP PO SCH ×2 (08:16→22:40)
[2021-07-08] MEDS: KCL 10 MEQ TAB (MICRO K) PO SCH ×2 (08:16→17:12)
[2021-07-08] MEDS: GABAPENTIN 300 MG (NEURONTIN) CAP PO SCH (08:16)
[2021-07-08] MEDS: LORATADINE (CLARITIN) 10 MG TAB PO SCH (08:16)
[2021-07-08] MEDS: VITAMIN D3 25 MCG (1,000 UNITS) TABLET PO SCH (08:16)
[2021-07-08] MEDS: cloNIDine 0.1 MG (CATAPRES) TAB PO PRN (08:18)
--- NOTE | 2021-07-08 08:53 | Physical Therapy Daily Note ---
PT Daily Note-Current Subjective Patient in bed pre tx, agrees to PT, voices no complaints of pain. Patient needs her brief changed and required max assist for that. Appearance Patient in recliner post tx with nurse call, phone, tray, all needs met. Mental Status Patient Orientation: Person, Place, Situation Transfers SCALE: Activities may be completed with or without assistive devices. 5-Potnizpopu-dawblem completes the activity by him/herself with no assistance from a helper. 5-Set-up or Clean-up Assistance-helper sets up or cleans up; patient completes activity. [place] assists only prior to or following the activity. 4-Supervision or Touching Assistance-helper provides verbal cues and/or touching/steadying and/or contact guard assistance as patient completes activity. Assistance may be provided throughout the activity or intermittently. 3-Partial/Moderate Assistance-helper does LESS THAN HALF the effort. [place] lifts, holds or supports trunk or limbs, but provides less than half the effort. 2-Substantial/Maximal Assistance-helper does MORE THAN HALF the effort. [place] lifts or holds trunk or limbs and provides more than half the effort. 1-Lvsvtniaz-xxiqzb does ALL the effort. Patient does none of the effort to complete the activity. Or, the assistance of 2 or more helpers is required for the patient to complete the activity. If activity was not attempted, code reason: 7-Patient Refused. 9-Not Applicable-not attempted and the patient did not perform the activity before the current illness, exacerbation or injury. 10-Not Attempted due to Environmental Limitations-(lack of equipment, weather restraints, etc.). 88-Not Attempted due to Medical Conditions or Safety Concerns. Roll Left & Right (QC): 4 Lying to Sitting/Side of Bed(Q: 3 Sit to Stand (QC): 4 Chair/Lby-ms-Crfov Xfer(QC): 4 Patient required standing 3 times before she could transfer to the first time. Patient states her legs are weak this morning. Weight Bearing Full Weight Bearing Full Weight Bearing Wheelchair Training Does the Pt Use a Wheelchair?: Yes Wheel 50 ft with 2 turns (QC): 4 Type of Wheelchair: Manual 120'x2, SBA, very slow Exercises LAQ alternating for 5 min NuStep Minutes: 15 NuStep Workload: 4 Treatments bed mobility and transfers, WC mobility, LE strengthening, dressing Assessment Current Status: Poor Progress Patient didn't feel like she could stand long enough to ambulate, will try again later today. PT Geodetic Engineer Goals Half-Way Goals PT Geodetic Engineer Goals Time Frame: Jul 12, 2021 Roll Left & Right (QC): 5 Sit to Lying (QC): 5 Lying-Sitting on Side/Bed(QC): 4 Sit to Stand (QC): 4 Chair/Izz-zt-Ekzho Xfer(QC): 4 Toilet Transfer (QC): 4 Car Transfer (QC): 4 Does the Patient Walk: Yes Walk 10 feet (QC): 5 Walk 50ft with 2 Turns (QC): 5 Walk 150 ft (QC): 4 Walking 10ft on Uneven Surface: 4 1 Step (curb) (QC): 4 4 Steps (QC): 88 12 Steps (QC): 88 Picking up an Object (QC): 4 Does the Pt use WC or Scooter?: Yes Wheel 50 feet with 2 turns (QC: 6 Type: Manual Wheel 150 feet: 6 Type: Manual PT Plan Problem List Problem List: Activity Tolerance, Functional Strength, Safety, Balance, Gait, Transfer, Bed Mobility, ROM Treatment/Plan Treatment Plan: Continue Plan of Care Treatment Plan: Bed Mobility, Education, Functional Activity Naina, Functional Strength, Gait, Safety, Therapeutic Exercise, Transfers (--) Treatment Duration: Aug 02, 2021 Frequency: At least 5 of 7 days/Wk (IRF) Estimated Hrs Per Day: 1.5 hours per day Patient and/or Family Agrees t: Yes Safety Risks/Education Patient Education: Transfer Techniques, Correct Positioning, W/C Management, Safety Issues Teaching Recipient: Patient Teaching Methods: Demonstration, Discussion Response to Teaching: Reinforcement Needed Time/GCodes Time In: 0800 Time Out: 0900 Total Billed Treatment Time: 60 Total Billed Treatment 1 visit EX 20' FA 40' IMELDA HAM PT Jul 08, 2021 08:53
[2021-07-08 09:14] VITALS: BP 148/70
--- NOTE | 2021-07-08 09:26 | Cardiology Progress Note ---
Subjective Date Seen by Provider: Jul 08, 2021 Time Seen by Provider: 08:30 Subjective/Events-last exam Patient is sitting up in chair, denies any chest pain or dyspnea. Objective-Cardiology Exam Last Set of Vital Signs Vital Signs 07/08/21 07/08/21 07/08/21 07:49 09:14 11:21 Temp 36.8 Pulse 70 Resp 18 B/P (MAP) 148/70 (96) Pulse Ox 98 O2 Delivery Room Air I&O Intake and Output 07/07/21 23:59 Intake Total 500 ml Output Total 500 ml Balance 0 ml Intake Oral 500 ml Output Urine Total 500 ml # Urine Diapers 1 # Bowel Movements 1 General: Alert, Oriented X3, Cooperative HEENT: Atraumatic, PERRLA Neck: Supple, No JVD, No Thyromegaly Lungs: Normal Air Movement Heart: Regular Rate, Normal S1, Normal S2, No Murmurs Abdomen: Normal Bowel Sounds, Soft, No Tenderness, No Hepatosplenomegaly, No Masses Extremities: No Clubbing, No Cyanosis, No Edema, Normal Pulses, No Tenderness/Swelling Skin: No Rashes, No Breakdown, No Significant Lesion Neuro: Normal Gait, Normal Speech, Strength at 5/5 X4 Ext, Normal Tone, Sensation Intact Psych/Mental Status: Mental Status NL, Mood NL Results Lab Laboratory Tests 07/08/21 05:50 A/P-Cardiology Admission Diagnosis Elevated BNP HTN Recent pneumonia with sepsis Debility/weakness Assessment/Plan Mildly elevated BNP, no signs of congestive heart failure, echocardiogram was done on July 04, 2021 showing normal LV size with ejection fraction 60 to 65%, mildly dilated left atrium, pulmonary artery pressure 35 to 40 mmHg Hypertension, labile blood pressure, maintained on Toprol and lisinopril, amlodipine was started recently, blood pressure still mildly elevated. I will increase lisinopril, continue to monitor. 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 Will continue to monitor as outpatient. Recent pneumonia with sepsis, slowly improving, still having nonproductive cough. Continue on antibiotic. Management per medical services. DM, management per medical services. Generalized debility/weakness, continue PT/OT Hx Recurrent UTI Hypothyroidism, followed and managed by primary care physician Supervisory-Addendum Brief Supervisory Addendum Participated in pt care: history, MDM, physical Personally performed: exam, history, MDM Care discussed with: GRISEL Results interpretation: Verified all documentation Notes: Patient was seen and evaluated with [place], examination performed, management plan was discussed, agree with the current scribed note, I made few changes to the note using Italic font Patient was seen at bedside, sitting comfortably, blood pressure is still elevated Will increase lisinopril, continue to monitor blood pressure. No other changes recommended SAVANA MADISON Jul 08, 2021 09:26 LONI CARRILLO MD Jul 08, 2021 14:49
[2021-07-08] MEDS: RT--FLUTICASONE/SALMETEROL 113-14 (AIRDUO RespiCLICK) IH SCH ×2 (11:21→20:31)
--- NOTE | 2021-07-08 11:33 | Physical Therapy Daily Note ---
PT Daily Note-Current Subjective Patient in therapy gym pre tx, agrees to PT, has no complaints of pain. Will be co-treating with OT due to poor patient mobility, strength, endurance, severe debility, coordinate UE and LE during activity, safety and reduce risk of falls. Appearance Patient in recliner post tx with nurse call, phone, tray, all needs met Mental Status Patient Orientation: Person, Place, Situation Transfers SCALE: Activities may be completed with or without assistive devices. 7-Mwcipzakbe-tvrfvim completes the activity by him/herself with no assistance from a helper. 5-Set-up or Clean-up Assistance-helper sets up or cleans up; patient completes activity. [place] assists only prior to or following the activity. 4-Supervision or Touching Assistance-helper provides verbal cues and/or touching/steadying and/or contact guard assistance as patient completes activity. Assistance may be provided throughout the activity or intermittently. 3-Partial/Moderate Assistance-helper does LESS THAN HALF the effort. [place] lifts, holds or supports trunk or limbs, but provides less than half the effort. 2-Substantial/Maximal Assistance-helper does MORE THAN HALF the effort. [place] lifts or holds trunk or limbs and provides more than half the effort. 6-Vwewqpely-ywotfi does ALL the effort. Patient does none of the effort to complete the activity. Or, the assistance of 2 or more helpers is required for the patient to complete the activity. If activity was not attempted, code reason: 7-Patient Refused. 9-Not Applicable-not attempted and the patient did not perform the activity before the current illness, exacerbation or injury. 10-Not Attempted due to Environmental Limitations-(lack of equipment, weather restraints, etc.). 88-Not Attempted due to Medical Conditions or Safety Concerns. Sit to Stand (QC): 3 Chair/Wax-zl-Kenhd Xfer(QC): 4 Patient was able to stand a couple times with CGA but usually still min assist Weight Bearing Full Weight Bearing Full Weight Bearing Gait Training Distance: 15', 20'x2 Walk 10 feet (QC): 4 Gait Assistive Device: FWW WC follow, slow, slumped posture Wheelchair Training Does the Pt Use a Wheelchair?: Yes Wheel 50 ft with 2 turns (QC): 4 Type of Wheelchair: Manual 120' Treatments ambulation, transfers, WC mobility Assessment Current Status: Fair Progress improving endurance PT Skilled Nursing Goals Skilled Nursing Goals PT Multimedia Project Manager Goals Time Frame: Jul 12, 2021 Roll Left & Right (QC): 5 Sit to Lying (QC): 5 Lying-Sitting on Side/Bed(QC): 4 Sit to Stand (QC): 4 Chair/Oxh-xz-Roukv Xfer(QC): 4 Toilet Transfer (QC): 4 Car Transfer (QC): 4 Does the Patient Walk: Yes Walk 10 feet (QC): 5 Walk 50ft with 2 Turns (QC): 5 Walk 150 ft (QC): 4 Walking 10ft on Uneven Surface: 4 1 Step (curb) (QC): 4 4 Steps (QC): 88 12 Steps (QC): 88 Picking up an Object (QC): 4 Does the Pt use WC or Scooter?: Yes Wheel 50 feet with 2 turns (QC: 6 Type: Manual Wheel 150 feet: 6 Type: Manual PT Plan Problem List Problem List: Activity Tolerance, Functional Strength, Safety, Balance, Gait, Transfer, Bed Mobility Treatment/Plan Treatment Plan: Continue Plan of Care Treatment Plan: Bed Mobility, Education, Functional Activity Naina, Functional Strength, Gait, Safety, Therapeutic Exercise, Transfers (--) Treatment Duration: Aug 02, 2021 Frequency: At least 5 of 7 days/Wk (IRF) Estimated Hrs Per Day: 1.5 hours per day Patient and/or Family Agrees t: Yes Safety Risks/Education Patient Education: Gait Training, Transfer Techniques, Correct Positioning, Safety Issues Teaching Recipient: Patient Teaching Methods: Demonstration, Discussion Response to Teaching: Reinforcement Needed Time/GCodes Time In: 1100 Time Out: 1130 Total Billed Treatment Time: 30 Total Billed Treatment 1 visit FA 30' IMELDA HAM PT Jul 08, 2021 11:33
--- NOTE | 2021-07-08 11:41 | Occupational Ther Daily Note ---
OT Current Status-Daily Note Subjective Pt alert, sitting in recliner. Pt agrees to therapy. No c/o pain. Mental Status/Objective Patient Orientation: Person, Place, Time, Situation ADL-Treatment Pt declines shower due to daughter bringing more clothing later today. SBA for sit to stand from recliner and transfer using FWW to w/c. Pt then propelled w/c to bathroom to complete grooming and oral care independently. Therapy Code Descriptions/Definitions Functional [place] Measure: 0=Not Assessed/NA 4=Minimal Assistance 1=Total Assistance 5=Supervision or Setup 2=Maximal Assistance 6=Modified [place] 3=Moderate Assistance 7=Complete IndependenceSCALE: Activities may be completed with or without assistive devices. 4-Rxgaovgpgq-rexznqg completes the activity by him/herself with no assistance from a helper. 5-Set-up or Clean-up Assistance-helper sets up or cleans up; patient completes activity. [place] assists only prior to or following the activity. 4-Supervision or Touching Assistance-helper provides verbal cues and/or touching/steadying and/or contact guard assistance as patient completes activity. Assistance may be provided throughout the activity or intermittently. 3-Partial/Moderate Assistance-helper does LESS THAN HALF the effort. [place] lifts, holds or supports trunk or limbs, but provides less than half the effort. 2-Substantial/Maximal Assistance-helper does MORE THAN HALF the effort. [place] lifts or holds trunk or limbs and provides more than half the effort. 1-Bprqjstlq-isgwrv does ALL the effort. Patient does none of the effort to complete the activity. Or, the assistance of 2 or more helpers is required for the patient to complete the activity. If activity was not attempted, code reason: 7-Patient Refused. 9-Not Applicable-not attempted and the patient did not perform the activity before the current illness, exacerbation or injury. 10-Not Attempted due to Environmental Limitations-(lack of equipment, weather restraints, etc.). 88-Not Attempted due to Medical Conditions or Safety Concerns. Oral Hygiene (QC): 6 Other Treatment Pt stood 2x's equalling [address] pegs in board to work on B UE strengthening and activity tolerance for daily functional tasks. Pt then working on B UE strengthening and fine motor dexterity tasks to increase strength and activity tolerance for daily functional tasks. Co-treat with PT [id number], skills of 2 clinicians required to decrease fall risk, increase strength and activity tolerance for mobility and transfers. See PT notes for pt's progress on transfers and ambulations. After session, pt sitting in recliner with call light/phone in reach. All needs met in room. OT Short Term Goals Short Term Goals Time Frame: Jul 10, 2021 Toileting hygiene: 3 Shower/bathe self: 2 Lower body dressin Putting on/taking off footwear: 2 OT Knitter Wire Mesh Goals Senior Care Goals Time Frame: Jul 19, 2021 Eating (QC): 6 Oral Hygiene (QC): 6 Toileting Hygiene (QC): 4 Shower/Bathe Self (QC): 3 Upper Body Dressing (QC): 3 Lower Body Dressing (QC): 3 On/Off Footwear (QC): 3 Additional Goals: 1-Demonstrate ADL Tasks, 2-Verbalize Understanding, 3- ImproveStrength/Naina 1=Demonstrate adherence to instructed precautions during ADL tasks. 2=Patient will verbalize/demonstrate understanding of assistive devices/modifications for ADL. 3=Patient will improve strength/tolerance for activity to enable patient to perform ADL's. OT Education/Plan Problem List/Assessment Assessment: Decreased Activ Tolerance, Decreased UE Strength, Impaired Funct Balance, Impaired Self-Care Skills Discharge Recommendations Plan/Recommendations: Continue POC Treatment Plan/Plan of Care Patient would benefit from OT for education, treatment and training to promote independence in ADL's, mobility, safety and/or upper extremity function for ADL's. Plan of Care: ADL Retraining, Functional Mobility, Group Exercise/Act as Ind, UE Funct Exercise/Act Treatment Duration: Jul 19, 2021 Frequency: At least 5 of 7 days/Wk (IRF) Estimated Hrs Per Day: 1.5 hours per day Agreement: Yes Rehab Potential: Fair Time/GCodes Start Time: 10:00 Stop Time: 11:30 Total Time Billed (hr/min): 90 Billed Treatment Time 1 visit-ADL 3 (45 min) EX 2 (30 min) FA 1 (15 min) co-treat with PT [id number] DELORES TORRES Jul 08, 2021 11:41
[2021-07-08] MEDS: polyethylene glycoL POWDER 17 GM (MIRALAX) PACK PO SCH ×2 (14:06→22:43)
[2021-07-08] MEDS: SENNA W/DOCUSATE (SENOKOT S) TABLET PO SCH ×2 (14:06→22:39)
[2021-07-08] MEDS: TAMSULOSIN 0.4 MG (FLOMAX) CAP PO SCH (17:12)
[2021-07-08] MEDS: ACETAMINOPHEN 500 MG TAB (TYLENOL) PO SCH ×2 (17:23→22:40)
--- NOTE | 2021-07-08 17:36 | Podiatry Progress Note ---
Standard Progress Note Progress Notes/Assess & Plan Date Seen by a Provider: Jul 08, 2021 Time Seen by a Provider: 17:35 Progress/Assessment & Plan Consultation dictated. Foot care given. Final Diagnosis Onychomycosis, Peripheral Neuropathy, Weakness, Equinus, bilaterally GEO GUTIERREZ DPTamica Jul 08, 2021 17:36
[2021-07-08 20:00] VITALS: BP 173/79
[2021-07-08] MEDS: TOLTERODINE LA 4 MG (DETROL) CAP PO SCH (22:39)
[2021-07-08] MEDS: GABAPENTIN 600 MG (NEURONTIN) TAB PO SCH (22:39)
[2021-07-08] MEDS: DONEPEZIL 5 MG (ARICEPT) TAB PO SCH (22:40)
--- NOTE | 2021-07-09 04:46 | CONSULTATION REPORT ---
DATE OF SERVICE: 07/08/2021 REASON FOR CONSULTATION: Foot care. HISTORY OF PRESENT ILLNESS: This 80-year-old female was admitted secondary to disability after a critical illness. She has had a recent right lower lobe pneumonia with sputum positive for E. coli. She also has a past medical history of GERD, hiatal hernia, hypothyroidism and UTIs. She has been admitted to [facility] for rehabilitation and strengthening. PAST MEDICAL HISTORY: Also includes hypertension, HLD, diabetes, GERD with hiatal hernia on CT, hypothyroidism, chronic UTIs, neuropathy. PAST SURGICAL HISTORY: Includes a hysterectomy. ALLERGIES: SHE IS ALLERGIC TO CODEINE, KETOROLAC, MILK AND NAPROXEN. MEDICATIONS: Her medications are listed on the patient's chart. PHYSICAL EXAMINATION: LOWER EXTREMITY: The patient has a 2/4 dorsalis pedis pulse on the right and 1/4 on the left, 0/4 posterior tibial pulse on the right and 1/4 posterior tibial pulse left. Cap refill time to the hallux is less than 3 seconds. Digital hair growth is minimal. NEUROLOGIC: The patient has diminished protective sensation with 10 gram monofilament wire examination bilaterally. The patient also has a diminished deep tendon reflexes to the Achilles tendon bilaterally. Diminished vibratory sensation to the forefoot bilaterally. DERMATOLOGIC: The patient has no open wounds, no ecchymosis identified. She has thick yellow dystrophic toenail with subungual debris associated with R1, L1 and 5 digits. MUSCULOSKELETAL FINDINGS: The patient has 4/5 muscle strength to the four major quadrants of the foot on the right and 3/5 muscle strength for dorsiflexion, eversion on the left. The patient has diminished dorsiflexion at the ankle joint bilaterally, especially with the knee was extended. ASSESSMENT: 1. Diabetic neuropathy. 2. Onychomycosis. 3. Equinus bilaterally. PLAN: Various options were discussed with the patient today. We discussed diabetic foot care in general. We also debrided the patient's toenails manually, mechanically. Betadine applied R1 and L1 and 5 digits. The patient is to continue with appropriate diabetic precautions. She is welcome to follow up in my office upon discharge. Also recommend physical therapy helped with her strengthening, especially on the left as well as her equinus deformity. Job ID: [id number] DocumentID: [id number] Dictated Date: 07/08/2021 17:41:03 Homicide Investigator Date: 07/08/2021 22:54:41 Dictated By: KRISTA CURTIS
--- NOTE | 2021-07-09 06:00 | PM&R Progress Note ---
Subjective HPI/CC On Admission Date Seen by Provider: Jul 09, 2021 Time Seen by Provider: 10:00 Subjective/Events-last exam 07/09/2021: Pt is doing well Dr. Ortiz came and took care of her toenails Bowels moved yesterday Cough is improved Has a dry mouth requesting Biotene, I ordered that 07/08/2021: Pt doing really well Working with PT Labs look good Cough is much improved 07/07/2021: Patient doing a lot better cough is improving No pain is reported Checked meds and labs Getting around better 07/06/21: Patient doing better Cough improved Slow recovery No pain Anti-tussives maintained 07/05/2021: Patient doing much better Cough is much better No pain is reported Bowels are moving Checked meds and labs 07/04/2021: Patient about the same Cough is a tiny bit improved No pain is reported Tolerating therapy pretty well Urology appreciated 07/03/2021: Pt doing pretty well Pt has urinary retention Dr. Maria was consulted and started her on Flomax He left orders to do an in and out cath for greater than 400cc's on bladder scan Dr. Gregory has been consulted Decreased motivation for therapy blood pressure is very labile with bp of 200 given Clonidine blood sugar is 149 07/02/21: Pt doing about the same BP is high so will give Norvasc of 5 mg daily Cough is constant Had a little bit of bloody sputum yesterday Transfers are better Day number 4 of antibiotics of Zosyn Checked meds and labs Daughter at the bedside Added on BNP later in the day which was elevated gave Lasix 20 mg IV x1 consulted Dr. Gregory and ordered an echo She did almost fall going to the bathroom I recommended bedside commode Review of Systems General: Fatigue, Malaise Pulmonary: Cough Objective Exam Vital Signs Vital Signs Date Time Temp Pulse Resp B/P (MAP) Pulse Ox O2 Delivery O2 Flow Rate FiO2 07/09/21 21:42 96 Room Air 07/09/21 19:58 36.0 71 19 151/83 (105) Capillary Refill : General Appearance: No Apparent Distress, WD/WN, Chronically ill, Obese HEENT: PERRL/EOMI, Normal ENT Inspection, Pharynx Normal Neck: Full Range of Motion, Normal Inspection, Non Tender, Supple, Carotid Bruit Respiratory: Chest Non Tender, Normal Breath Sounds, No Accessory Muscle Use, No Respiratory Distress, Crackles, Decreased Breath Sounds Cardiovascular: Regular Rate, Rhythm, No Edema, No Gallop, No JVD, No Murmur, Normal Peripheral Pulses Gastrointestinal: Normal Bowel Sounds, No Organomegaly, No Pulsatile Mass, Non Tender, Soft Back: Normal Inspection, No CVA Tenderness, No Vertebral Tenderness Extremity: Normal Capillary Refill, Normal Inspection, Normal Range of Motion, Non Tender, No Calf Tenderness, No Pedal Edema Neurologic/Psychiatric: Alert, Oriented x3, No Motor/Sensory Deficits, Normal Mood/Affect Skin: Normal Color, Warm/Dry Lymphatic: No Adenopathy Results/Procedures Lab Patient resulted labs reviewed. FIM Transfers Therapy Code Descriptions/Definitions Functional [place] Measure: 0=Not Assessed/NA 4=Minimal Assistance 1=Total Assistance 5=Supervision or Setup 2=Maximal Assistance 6=Modified [place] 3=Moderate Assistance 7=Complete IndependenceSCALE: Activities may be completed with or without assistive devices. 8-Rkcfrtsbem-kpnbhdg completes the activity by him/herself with no assistance from a helper. 5-Set-up or Clean-up Assistance-helper sets up or cleans up; patient completes activity. [place] assists only prior to or following the activity. 4-Supervision or Touching Assistance-helper provides verbal cues and/or touching/steadying and/or contact guard assistance as patient completes activity. Assistance may be provided throughout the activity or intermittently. 3-Partial/Moderate Assistance-helper does LESS THAN HALF the effort. [place] lifts, holds or supports trunk or limbs, but provides less than half the effort. 2-Substantial/Maximal Assistance-helper does MORE THAN HALF the effort. [place] lifts or holds trunk or limbs and provides more than half the effort. 3-Rcimvwrmb-shskfl does ALL the effort. Patient does none of the effort to com plete the activity. Or, the assistance of 2 or more helpers is required for the patient to complete the activity. If activity was not attempted, code reason: 7-Patient Refused. 9-Not Applicable-not attempted and the patient did not perform the activity before the current illness, exacerbation or injury. 10-Not Attempted due to Environmental Limitations-(lack of equipment, weather restraints, etc.). 88-Not Attempted due to Medical Conditions or Safety Concerns. Roll Left to Right (QC): 4 Sit to Lying (QC): 2 Sit to Stand (QC): 3 Chair/Dwx-uk-Sfpdv Xfer(QC): 4 Car Transfer (QC): 3 Gait Training Does the Patient Walk?: Yes Distance: 15', 20'x2 Walk 10 feet (QC): 4 Walk 50 ft with 2 Turns(QC): 88 Walk 150 ft (QC): 88 Walking 10ft/uneven surface-QC: 3 Gait Persons Needed: 2 Gait Assistive Device: FWW Wheelchair Training Does the Pt Use a Wheelchair?: Yes Distance: 50 feet Wheel 50 ft with 2 turns (QC): 4 Wheel 150 ft (QC): 88 Type of Wheelchair: Manual Stair Training Stair Training: Handrails/: uses walker #of Steps: 1 1 Step (curb) (QC): 3 4 Steps (QC): 7 12 Steps (QC): 7 Stairs: Pattern: Step to Balance Picking up an Object (QC): 7 ADL-Treatment Eating (QC): 6 Oral Hygiene (QC): 6 Bathing Location: L Arm, R Arm, L Upper Leg, R Upper Leg, L Lower Leg (including foot), R Lower Leg (including foot), Chest, Abdomen, Buttocks, Perineal Area Shower/Bathe Self (QC): 1 (sponge bath, assist x2 to cleanse buttocks in standing.) Upper Body Dressing (QC): 3 (Min A due to IV line) Lower Body Dressing (QC): 1 On/Off Footwear (QC): 1 Toileting Hygiene (QC): 3 Toilet Transfer (QC): 4 Assessment/Plan Assessment and Plan Assess & Plan/Chief Complaint Assessment: Critical illness myopathy Debility Recent pneumonia Status post sepsis Severe weakness Cognitive deficit Hypothyroidism GERD Hypertension Recurrent UTI Elevated BNP to 122 gave Lasix and consulted Dr. Gregory Plan: PT and OT aggressive rehab Supportive custodial meds Monitor blood pressure 07/02/2021: Lasix Echo Cough suppressants Dr. Gregory consult 07/03/2021: Supportive care Dr. Gregory appreciated Echo Inhaled corticosteroids Singulair and Claritin 07/04/2021: Cough suppressants Supportive care 07/05/2021: Continue cough suppressants Monitor closely 07/06/21: Monitor cough Ambulate 07/07/2021: Supportive care Monitor closely 07/08/2021: Much improved status Discharge plan this week 07/09/2021: Supportive care Dramatic improvement since admit (1) Myopathy (2) Pneumonia Status: Acute (3) Elevated LFTs Status: Acute (4) Encephalopathy acute Status: Acute (5) Sepsis Status: Acute ERICA DUKE DO Jul 09, 2021 06:00
[2021-07-09] MEDS: LEVOTHYROXINE 50 MCG (LEVOTHROID) TAB PO SCH (06:32)
[2021-07-09] MEDS: CATHETER FLUSH 10 ML SYR IV SCH ×3 (06:32→21:10)
[2021-07-09] MEDS: rOPINIRole 0.25 MG (REQUIP) TAB PO SCH ×2 (07:12→20:53)
[2021-07-09] MEDS: BENZONATATE 100 MG (TESSALON) CAPSULE PO SCH ×3 (07:12→20:53)
[2021-07-09] MEDS: MONTELUKAST 10 MG (SINGULAIR) TAB PO SCH (07:12)
[2021-07-09] MEDS: GABAPENTIN 300 MG (NEURONTIN) CAP PO SCH (07:12)
[2021-07-09] MEDS: LACTOBACILLUS ACIDOPHILUS (PROBIOTIC) CAPSULE PO SCH (07:12)
[2021-07-09] MEDS: VITAMIN D3 25 MCG (1,000 UNITS) TABLET PO SCH (07:12)
[2021-07-09] MEDS: CYANOCOBALAMIN 1,000 MCG (VITAMIN B-12) TABLET PO SCH (07:12)
[2021-07-09] MEDS: meTOprolol SUCCINATE 100 MG (TOPROL XL) TAB PO SCH (07:13)
[2021-07-09] MEDS: KCL 10 MEQ TAB (MICRO K) PO SCH ×2 (07:13→17:24)
[2021-07-09] MEDS: PANTOPRAZOLE 40 MG (PROTONIX) TAB PO SCH (07:13)
[2021-07-09] MEDS: cloNIDine 0.1 MG (CATAPRES) TAB PO PRN (07:13)
[2021-07-09] MEDS: lisINopril 10 MG (PRINIVIL) TABLET PO SCH (07:13)
[2021-07-09] MEDS: LORATADINE (CLARITIN) 10 MG TAB PO SCH (07:13)
[2021-07-09] MEDS: amLODIPine 5 MG (NORVASC) TAB PO SCH ×2 (07:13→09:59)
[2021-07-09 07:26] VITALS: BP 195/84
--- NOTE | 2021-07-09 08:08 | Cardiology Progress Note ---
Subjective Date Seen by Provider: Jul 09, 2021 Time Seen by Provider: 08:06 Subjective/Events-last exam Patient sitting up in chair, complaining of dry mouth, denies any chest pain, reports cough starting to improve Review of Systems General: No Chills, No Night Sweats, No Fatigue, No Malaise, No Appetite, No Other HEENT: No Head Aches, No Visual Changes, No Eye Pain, No Ear Pain, No Dysphasia, No Sinus Congestion, No Post Nasal Drip, No Sore Throat, No Other Pulmonary: No Dyspnea, No Cough, No Pleuritic Chest Pain, No Other Cardiovascular: No: Chest Pain, Palpitations, Orthopnea, Paroxysmal Noc. Dyspnea, Edema, Lt Headedness, Other Objective-Cardiology Exam Last Set of Vital Signs Vital Signs 07/09/21 07:26 Temp 36.4 Pulse 65 Resp 16 B/P (MAP) 195/84 (121) Pulse Ox 94 O2 Delivery Room Air General: Alert, Oriented X3, Cooperative HEENT: Atraumatic, PERRLA Neck: Supple, No JVD, No Thyromegaly Lungs: Normal Air Movement Heart: Regular Rate, Normal S1, Normal S2, No Murmurs Abdomen: Normal Bowel Sounds, Soft, No Tenderness, No Hepatosplenomegaly, No Masses Extremities: No Clubbing, No Cyanosis, No Edema, Normal Pulses, No Tenderness/Swelling Skin: No Rashes, No Breakdown, No Significant Lesion Neuro: Normal Gait, Normal Speech, Strength at 5/5 X4 Ext, Normal Tone, Sensation Intact Psych/Mental Status: Mental Status NL, Mood NL A/P-Cardiology Admission Diagnosis Elevated BNP HTN Recent pneumonia with sepsis Debility/weakness Assessment/Plan Mildly elevated BNP, no signs of congestive heart failure, echocardiogram was done on July 04, 2021 showing normal LV size with ejection fraction 60 to 65%, mildly dilated left atrium, pulmonary artery pressure 35 to 40 mmHg Hypertension, labile blood pressure, maintained on Toprol and lisinopril, amlod ipine. Lisinopril increased to 20mg daily on 07/08/21. Amlodipine was increased on July 09, 2021 to 5 mg daily, continue to monitor HLP, statin currently on hold secondary to elevated LFTs on admission. Will continue to monitor as outpatient. Recent pneumonia with sepsis, slowly improving, still having nonproductive cough. Continue on antibiotic. Management per medical services. DM, management per medical services. Generalized debility/weakness, continue PT/OT Hx Recurrent UTI Hypothyroidism, followed and managed by primary care physician Supervisory-Addendum Brief Supervisory Addendum Participated in pt care: history, MDM, physical Personally performed: exam, history, MDM Care discussed with: GRISEL Results interpretation: Verified all documentation Notes: Patient was seen and evaluated with [place], examination performed, management plan was discussed, agree with the current scribed note, I made few changes to the note using Italic font SAVANA MADISON Jul 09, 2021 08:08 LONI CARRILLO MD Jul 09, 2021 08:37
[2021-07-09] MEDS: DOCUSATE SODIUM 100 MG (COLACE) CAP PO SCH ×2 (08:53→21:09)
[2021-07-09] MEDS: polyethylene glycoL POWDER 17 GM (MIRALAX) PACK PO SCH ×2 (08:53→21:09)
[2021-07-09] MEDS: SENNA W/DOCUSATE (SENOKOT S) TABLET PO SCH ×2 (08:54→21:09)
[2021-07-09] MEDS: RT--FLUTICASONE/SALMETEROL 113-14 (AIRDUO RespiCLICK) IH SCH ×2 (09:04→21:42)
--- NOTE | 2021-07-09 09:53 | Occupational Ther Daily Note ---
OT Current Status-Daily Note Subjective Pt alert, sitting in recliner. Pt agrees to therapy. No c/o pain. Pt fatigues quickly with standing and mobility. Mental Status/Objective Patient Orientation: Person, Place, Time, Situation Attachments: IV ADL-Treatment Pt agrees to shower. Independent with eating. Pt able to ambulate from recliner to shower with close SBA using FWW. Pt states that her bathroom is further at home than here. Pt states that she has assistance with her shower and dressing at all times in her apartment. Pt also states that she calls for assistance to cleanse after bowel movement in her apartment. Pt able to complete bathing upper body and eloy area by self in sitting with assist for lower legs/feet then standing stabilizing with grabbars assist given to cleanse buttocks. After set up, pt complete upper body dressing by self. Mod A for lower body dressing, assist to thread feet and pt assists with hiking pants over hips while CGA for safety. Dependent with footwear. Independent with oral care sitting at sink. Mod A for toileting, able to manipulate pants with CGA then assist to cleanse buttocks. Therapy Code Descriptions/Definitions Functional [place] Measure: 0=Not Assessed/NA 4=Minimal Assistance 1=Total Assistance 5=Supervision or Setup 2=Maximal Assistance 6=Modified [place] 3=Moderate Assistance 7=Complete IndependenceSCALE: Activities may be completed with or without assistive devices. 7-Wpdbdnmapy-lbvxhmp completes the activity by him/herself with no assistance from a helper. 5-Set-up or Clean-up Assistance-helper sets up or cleans up; patient completes activity. [place] assists only prior to or following the activity. 4-Supervision or Touching Assistance-helper provides verbal cues and/or touching/steadying and/or contact guard assistance as patient completes activity. Assistance may be provided throughout the activity or intermittently. 3-Partial/Moderate Assistance-helper does LESS THAN HALF the effort. [place] lifts, holds or supports trunk or limbs, but provides less than half the effort. 2-Substantial/Maximal Assistance-helper does MORE THAN HALF the effort. [place] lifts or holds trunk or limbs and provides more than half the effort. 8-Ywvjwtmpw-qxptxe does ALL the effort. Patient does none of the effort to complete the activity. Or, the assistance of 2 or more helpers is required for the patient to complete the activity. If activity was not attempted, code reason: 7-Patient Refused. 9-Not Applicable-not attempted and the patient did not perform the activity before the current illness, exacerbation or injury. 10-Not Attempted due to Environmental Limitations-(lack of equipment, weather restraints, etc.). 88-Not Attempted due to Medical Conditions or Safety Concerns. Eating (QC): 6 Oral Hygiene (QC): 6 Shower/Bathe Self (QC): 3 Upper Body Dressing (QC): 5 Lower Body Dressing (QC): 3 (mod A) On/Off Footwear: 1 Toileting Hygiene (QC): 3 (mod A) Toilet Transfer (QC): 4 (CGA) Co-treat with [id number]), skills of 2 clinicians required to decrease fall risk, increase activity tolerance for daily functional tasks. Pt able to reach, grasp and release in designated area while standing for about 5 min then fatigued and required lengthy recovery break. Pt left in care of PT. All needs met. OT Short Term Goals Short Term Goals Time Frame: Jul 10, 2021 Toileting hygiene: 3 Shower/bathe self: 2 Lower body dressin Putting on/taking off footwear: 2 OT Fleet Service Manager Goals Fleet Service Manager Goals Time Frame: Jul 19, 2021 Eating (QC): 6 Oral Hygiene (QC): 6 Toileting Hygiene (QC): 4 Shower/Bathe Self (QC): 3 Upper Body Dressing (QC): 3 Lower Body Dressing (QC): 3 On/Off Footwear (QC): 3 Additional Goals: 1-Demonstrate ADL Tasks, 2-Verbalize Understanding, 3- ImproveStrength/Naina 1=Demonstrate adherence to instructed precautions during ADL tasks. 2=Patient will verbalize/demonstrate understanding of assistive devices/modifications for ADL. 3=Patient will improve strength/tolerance for activity to enable patient to perform ADL's. OT Education/Plan Problem List/Assessment Assessment: Decreased Activ Tolerance, Decreased UE Strength, Impaired Funct Balance, Impaired Self-Care Skills Discharge Recommendations Plan/Recommendations: Continue POC Treatment Plan/Plan of Care Patient would benefit from OT for education, treatment and training to promote independence in ADL's, mobility, safety and/or upper extremity function for ADL's. Plan of Care: ADL Retraining, Functional Mobility, Group Exercise/Act as Ind, UE Funct Exercise/Act Treatment Duration: Jul 19, 2021 Frequency: At least 5 of 7 days/Wk (IRF) Estimated Hrs Per Day: 1.5 hours per day Agreement: Yes Rehab Potential: Fair Time/GCodes Start Time: 08:15 Stop Time: 09:45 Total Time Billed (hr/min): 90 Billed Treatment Time 1 visit-ADL 4 (60 min) EX 2 (30 min) co-treat with PT [id number], individual [id number] DELORES TORRES Jul 09, 2021 09:53
[2021-07-09 10:17] VITALS: BP 126/65
--- NOTE | 2021-07-09 11:09 | Progress Note - Urology ---
Progress Note-Urology Progress Notes/Assess & Plan Progress/Assessment & Plan DOING WELL ORTIZ. WE WILL SEE HER PRN Final Diagnosis OAB SHIRIN WADE MD Jul 09, 2021 11:09
--- NOTE | 2021-07-09 11:27 | Physical Therapy Daily Note ---
PT Daily Note-Current Subjective ([id number]) Pt sitting at table in [facility] with OT upon arrival. Pt agrees to PT/OT co-treat. ([id number]) Pt sitting in recliner upon arrival and daughter arrives. Pt agrees to walk with PT. Pain Location: No Pain Reported Mental Status Patient Orientation: Person, Place, Time, Situation Transfers SCALE: Activities may be completed with or without assistive devices. 9-Wogimttpye-utksigx completes the activity by him/herself with no assistance from a helper. 5-Set-up or Clean-up Assistance-helper sets up or cleans up; patient completes activity. [place] assists only prior to or following the activity. 4-Supervision or Touching Assistance-helper provides verbal cues and/or touching/steadying and/or contact guard assistance as patient completes activity. Assistance may be provided throughout the activity or intermittently. 3-Partial/Moderate Assistance-helper does LESS THAN HALF the effort. [place] lifts, holds or supports trunk or limbs, but provides less than half the effort. 2-Substantial/Maximal Assistance-helper does MORE THAN HALF the effort. [place] lifts or holds trunk or limbs and provides more than half the effort. 3-Nxqarrhpw-lmemxh does ALL the effort. Patient does none of the effort to complete the activity. Or, the assistance of 2 or more helpers is required for the patient to complete the activity. If activity was not attempted, code reason: 7-Patient Refused. 9-Not Applicable-not attempted and the patient did not perform the activity before the current illness, exacerbation or injury. 10-Not Attempted due to Environmental Limitations-(lack of equipment, weather restraints, etc.). 88-Not Attempted due to Medical Conditions or Safety Concerns. Sit to Stand (QC): 4 Weight Bearing Full Weight Bearing Full Weight Bearing Gait Training Does the Patient Walk?: Yes Distance: 60', 65' Walk 10 feet (QC): 5 Walk 50 ft with 2 Turns(QC): 5 Gait Persons Needed: 1 Gait Assistive Device: FWW VC to reminder pt to stand up tall and stay closer to FWW. Wheelchair Training Does the Pt Use a Wheelchair?: Yes Wheel 50 ft with 2 turns (QC): 6 Wheel 150 ft (QC): 6 Type of Wheelchair: Manual Exercises NuStep Minutes: 16 NuStep Workload: 3 Treatments Co-treat with PT([id number]), skills of 2 clinicians required to decrease fall risk, increase activity tolerance for daily functional tasks. Pt able to reach, grasp and release in designated area while standing for about 5 min then fatigued and required lengthy recovery break. OT departs and pt continues to work w/LITHOGRAPHIC STRIPPER. Pt propels [facility] in hallway and to Therapy Gym. Pt uses NuStep for 16m at [facility] 3. After short RB, pt propels [facility] back to room and TF to recliner. All needs met, call light in hand. ([id number]) Pt TF to standing and amb. in room and in hallway before needing to rest. After short RB, pt amb. in hallway again before resting in [facility]. Pt TF to recliner to rest at end of tx. L[employer]GRAPHIC STRIPPER, pt & daughter discuss pt's progress with PT, prevent of pressure sores and positioning as well as benefit of continued exercise or Therapy for continued strength and activity tolerance. Assessment Current Status: Good Progress Pt has improved with independence of transfers since L[employer]OGRAPHIC [employer]IPPER worked with pt last week. Pt demonstrates decreased fatigue and increased activity tolerance. PT Alf Goals Alf Goals PT Alf Goals Time Frame: Jul 12, 2021 Roll Left & Right (QC): 5 Sit to Lying (QC): 5 Lying-Sitting on Side/Bed(QC): 4 Sit to Stand (QC): 4 Chair/Kjv-vi-Wcxiu Xfer(QC): 4 Toilet Transfer (QC): 4 Car Transfer (QC): 4 Does the Patient Walk: Yes Walk 10 feet (QC): 5 Walk 50ft with 2 Turns (QC): 5 Walk 150 ft (QC): 4 Walking 10ft on Uneven Surface: 4 1 Step (curb) (QC): 4 4 Steps (QC): 88 12 Steps (QC): 88 Picking up an Object (QC): 4 Does the Pt use WC or Scooter?: Yes Wheel 50 feet with 2 turns (QC: 6 Type: Manual Wheel 150 feet: 6 Type: Manual PT Plan Problem List Problem List: Activity Tolerance Treatment/Plan Treatment Plan: Continue Plan of Care Treatment Plan: Bed Mobility, Education, Functional Activity Naina, Functional Strength, Gait, Safety, Therapeutic Exercise, Transfers (--) Treatment Duration: Aug 02, 2021 Frequency: At least 5 of 7 days/Wk (IRF) Estimated Hrs Per Day: 1.5 hours per day Patient and/or Family Agrees t: Yes Safety Risks/Education Patient Education: Correct Positioning Teaching Recipient: Patient, Family Teaching Methods: Discussion Response to Teaching: Verbalize Understanding Time/GCodes Time In: 915 Time Out: 1015 Total Billed Treatment Time: 60 Total Billed Treatment Co-treat w/OT for 30m ([id number]) 1, FA (20m), [facility] x2 (25m) & EX (15m) ([id number]) 1, GT (20m) & FA (10m) YUVAL SULLIVAN LITHOGRAPHIC STRIPPER Jul 09, 2021 11:27
[2021-07-09] MEDS: SALIVA STIMULANT MOUTH SPRAY (BIOTENE) 1.5 OZ MM PRN ×2 (17:19→20:54)
[2021-07-09] MEDS: TAMSULOSIN 0.4 MG (FLOMAX) CAP PO SCH (17:24)
[2021-07-09 19:58] VITALS: BP 151/83
[2021-07-09] MEDS: DONEPEZIL 5 MG (ARICEPT) TAB PO SCH (20:53)
[2021-07-09] MEDS: TOLTERODINE LA 4 MG (DETROL) CAP PO SCH (20:53)
[2021-07-09] MEDS: ACETAMINOPHEN 500 MG TAB (TYLENOL) PO SCH (20:54)
[2021-07-09] MEDS: GABAPENTIN 600 MG (NEURONTIN) TAB PO SCH (20:55)
[2021-07-10] MEDS: LEVOTHYROXINE 50 MCG (LEVOTHROID) TAB PO SCH (06:27)
[2021-07-10] MEDS: CATHETER FLUSH 10 ML SYR IV SCH ×3 (06:27→20:55)
--- NOTE | 2021-07-10 06:49 | PM&R Progress Note ---
Subjective HPI/CC On Admission Date Seen by Provider: Jul 10, 2021 Time Seen by Provider: 11:00 Subjective/Events-last exam 07/10/2021: Pt is doing well Cough is improved Discharge planned for Thursday to assisted living Checked meds and labs 07/09/2021: Pt is doing well Dr. Ortiz came and took care of her toenails Bowels moved yesterday Cough is improved Has a dry mouth requesting Biotene, I ordered that 07/08/2021: Pt doing really well Working with PT Labs look good Cough is much improved 07/07/2021: Patient doing a lot better cough is improving No pain is reported Checked meds and labs Getting around better 07/06/21: Patient doing better Cough improved Slow recovery No pain Anti-tussives maintained 07/05/2021: Patient doing much better Cough is much better No pain is reported Bowels are moving Checked meds and labs 07/04/2021: Patient about the same Cough is a tiny bit improved No pain is reported Tolerating therapy pretty well Urology appreciated 07/03/2021: Pt doing pretty well Pt has urinary retention Dr. Maria was consulted and started her on Flomax He left orders to do an in and out cath for greater than 400cc's on bladder scan Dr. Gregory has been consulted Decreased motivation for therapy blood pressure is very labile with bp of 200 given Clonidine blood sugar is 149 07/02/21: Pt doing about the same BP is high so will give Norvasc of 5 mg daily Cough is constant Had a little bit of bloody sputum yesterday Transfers are better Day number 4 of antibiotics of Zosyn Checked meds and labs Daughter at the bedside Added on BNP later in the day which was elevated gave Lasix 20 mg IV x1 consulted Dr. Gregory and ordered an echo She did almost fall going to the bathroom I recommended bedside commode Review of Systems General: Fatigue, Malaise Pulmonary: Cough Objective Exam Vital Signs Vital Signs Date Time Temp Pulse Resp B/P (MAP) Pulse Ox O2 Delivery O2 Flow Rate FiO2 07/10/21 21:00 Room Air 07/10/21 20:50 91 07/10/21 20:00 36.4 72 18 131/70 (90) Capillary Refill : General Appearance: No Apparent Distress, WD/WN, Chronically ill, Obese HEENT: PERRL/EOMI, Normal ENT Inspection, Pharynx Normal Neck: Full Range of Motion, Normal Inspection, Non Tender, Supple, Carotid Bruit Respiratory: Chest Non Tender, Normal Breath Sounds, No Accessory Muscle Use, No Respiratory Distress, Crackles, Decreased Breath Sounds Cardiovascular: Regular Rate, Rhythm, No Edema, No Gallop, No JVD, No Murmur, Normal Peripheral Pulses Gastrointestinal: Normal Bowel Sounds, No Organomegaly, No Pulsatile Mass, Non Tender, Soft Back: Normal Inspection, No CVA Tenderness, No Vertebral Tenderness Extremity: Normal Capillary Refill, Normal Inspection, Normal Range of Motion, Non Tender, No Calf Tenderness, No Pedal Edema Neurologic/Psychiatric: Alert, Oriented x3, No Motor/Sensory Deficits, Normal Mood/Affect Skin: Normal Color, Warm/Dry Lymphatic: No Adenopathy Results/Procedures Lab Patient resulted labs reviewed. FIM Transfers Therapy Code Descriptions/Definitions Functional [place] Measure: 0=Not Assessed/NA 4=Minimal Assistance 1=Total Assistance 5=Supervision or Setup 2=Maximal Assistance 6=Modified [place] 3=Moderate Assistance 7=Complete IndependenceSCALE: Activities may be completed with or without assistive devices. 0-Hajrkrrcwl-ssnfagd completes the activity by him/herself with no assistance f rom a helper. 5-Set-up or Clean-up Assistance-helper sets up or cleans up; patient completes activity. [place] assists only prior to or following the activity. 4-Supervision or Touching Assistance-helper provides verbal cues and/or touching/steadying and/or contact guard assistance as patient completes activity. Assistance may be provided throughout the activity or intermittently. 3-Partial/Moderate Assistance-helper does LESS THAN HALF the effort. [place] lifts, holds or supports trunk or limbs, but provides less than half the effort. 2-Substantial/Maximal Assistance-helper does MORE THAN HALF the effort. [place] lifts or holds trunk or limbs and provides more than half the effort. 5-Debrsnqws-pkkqcg does ALL the effort. Patient does none of the effort to complete the activity. Or, the assistance of 2 or more helpers is required for the patient to complete the activity. If activity was not attempted, code reason: 7-Patient Refused. 9-Not Applicable-not attempted and the patient did not perform the activity before the current illness, exacerbation or injury. 10-Not Attempted due to Environmental Limitations-(lack of equipment, weather restraints, etc.). 88-Not Attempted due to Medical Conditions or Safety Concerns. Roll Left to Right (QC): 4 Sit to Lying (QC): 2 Sit to Stand (QC): 4 Chair/Nli-yz-Xbwpz Xfer(QC): 4 Car Transfer (QC): 3 Gait Training Does the Patient Walk?: Yes Distance: 60', 65' Walk 10 feet (QC): 5 Walk 50 ft with 2 Turns(QC): 5 Walk 150 ft (QC): 88 Walking 10ft/uneven surface-QC: 3 Gait Persons Needed: 1 Gait Assistive Device: FWW Wheelchair Training Does the Pt Use a Wheelchair?: Yes Distance: 50 feet Wheel 50 ft with 2 turns (QC): 6 Wheel 150 ft (QC): 6 Type of Wheelchair: Manual Stair Training Stair Training: Handrails/: uses walker #of Steps: 1 1 Step (curb) (QC): 3 4 Steps (QC): 7 12 Steps (QC): 7 Stairs: Pattern: Step to Balance Picking up an Object (QC): 7 ADL-Treatment Eating (QC): 6 Oral Hygiene (QC): 6 Bathing Location: L Arm, R Arm, L Upper Leg, R Upper Leg, L Lower Leg (including foot), R Lower Leg (including foot), Chest, Abdomen, Buttocks, Perineal Area Shower/Bathe Self (QC): 3 Upper Body Dressing (QC): 5 Lower Body Dressing (QC): 3 (mod A) On/Off Footwear (QC): 1 Toileting Hygiene (QC): 3 (mod A) Toilet Transfer (QC): 4 (CGA) Assessment/Plan Assessment and Plan Assess & Plan/Chief Complaint Assessment: Critical illness myopathy Debility Recent pneumonia Status post sepsis Severe weakness Cognitive deficit Hypothyroidism GERD Hypertension Recurrent UTI Elevated BNP to 122 gave Lasix and consulted Dr. Gregory Plan: PT and OT aggressive rehab Supportive nursing home meds Monitor blood pressure 07/02/2021: Lasix Echo Cough suppressants Dr. Gregory consult 07/03/2021: Supportive care Dr. Gregory appreciated Echo Inhaled corticosteroids Singulair and Claritin 07/04/2021: Cough suppressants Supportive care 07/05/2021: Continue cough suppressants Monitor closely 2/5/22: Monitor cough Ambulate 07/07/2021: Supportive care Monitor closely 07/08/2021: Much improved status Discharge plan this week 07/09/2021: Supportive care Dramatic improvement since admit 07/10/2021: Discharge home Thursday (1) Myopathy (2) Pneumonia Status: Acute (3) Elevated LFTs Status: Acute (4) Encephalopathy acute Status: Acute (5) Sepsis Status: Acute ERICA DUKE DO Jul 10, 2021 06:49
[2021-07-10 07:08] VITALS: BP 163/70
[2021-07-10] MEDS: RT--FLUTICASONE/SALMETEROL 113-14 (AIRDUO RespiCLICK) IH SCH ×2 (07:37→20:49)
[2021-07-10] MEDS: LORATADINE (CLARITIN) 10 MG TAB PO SCH (08:11)
[2021-07-10] MEDS: VITAMIN D3 25 MCG (1,000 UNITS) TABLET PO SCH (08:11)
[2021-07-10] MEDS: amLODIPine 5 MG (NORVASC) TAB PO SCH (08:11)
[2021-07-10] MEDS: CYANOCOBALAMIN 1,000 MCG (VITAMIN B-12) TABLET PO SCH (08:11)
[2021-07-10] MEDS: LACTOBACILLUS ACIDOPHILUS (PROBIOTIC) CAPSULE PO SCH (08:11)
[2021-07-10] MEDS: PANTOPRAZOLE 40 MG (PROTONIX) TAB PO SCH (08:11)
[2021-07-10] MEDS: meTOprolol SUCCINATE 100 MG (TOPROL XL) TAB PO SCH (08:11)
[2021-07-10] MEDS: MONTELUKAST 10 MG (SINGULAIR) TAB PO SCH (08:11)
[2021-07-10] MEDS: rOPINIRole 0.25 MG (REQUIP) TAB PO SCH ×2 (08:11→20:54)
[2021-07-10] MEDS: BENZONATATE 100 MG (TESSALON) CAPSULE PO SCH ×3 (08:12→20:54)
[2021-07-10] MEDS: lisINopril 10 MG (PRINIVIL) TABLET PO SCH (08:12)
[2021-07-10] MEDS: GABAPENTIN 300 MG (NEURONTIN) CAP PO SCH (08:12)
[2021-07-10] MEDS: KCL 10 MEQ TAB (MICRO K) PO SCH ×2 (08:12→17:41)
[2021-07-10] MEDS: DOCUSATE SODIUM 100 MG (COLACE) CAP PO SCH ×2 (08:14→20:54)
[2021-07-10] MEDS: polyethylene glycoL POWDER 17 GM (MIRALAX) PACK PO SCH ×2 (08:14→21:30)
[2021-07-10] MEDS: SENNA W/DOCUSATE (SENOKOT S) TABLET PO SCH ×2 (08:14→20:54)
--- NOTE | 2021-07-10 08:36 | Cardiology Progress Note ---
Subjective Date Seen by Provider: Jul 10, 2021 Time Seen by Provider: 08:20 Subjective/Events-last exam Patient is sitting up in chair, no new complaint. Denies any chest pain. Review of Systems General: No Chills, No Night Sweats; Fatigue; No Malaise, No Appetite, No Other HEENT: No Head Aches, No Visual Changes, No Eye Pain, No Ear Pain, No Dysphasia, No Sinus Congestion, No Post Nasal Drip, No Sore Throat, No Other Pulmonary: No Dyspnea, No Cough, No Pleuritic Chest Pain, No Other Cardiovascular: No: Chest Pain, Palpitations, Orthopnea, Paroxysmal Noc. Dyspnea, Edema, Lt Headedness, Other Objective-Cardiology Exam Last Set of Vital Signs Vital Signs 07/10/21 07/10/21 07/10/21 07:08 07:38 08:52 Temp 36.6 Pulse 69 Resp 18 B/P (MAP) 163/70 (101) Pulse Ox 92 O2 Delivery Room Air General: Alert, Oriented X3, Cooperative HEENT: Atraumatic, PERRLA Neck: Supple, No JVD, No Thyromegaly Lungs: Normal Air Movement Heart: Regular Rate, Normal S1, Normal S2, No Murmurs Abdomen: Normal Bowel Sounds, Soft, No Tenderness, No Hepatosplenomegaly, No Masses Extremities: No Clubbing, No Cyanosis, No Edema, Normal Pulses, No Tenderness/Swelling Skin: No Rashes, No Breakdown, No Significant Lesion Neuro: Normal Gait, Normal Speech, Strength at 5/5 X4 Ext, Normal Tone, Sensation Intact Psych/Mental Status: Mental Status NL, Mood NL A/P-Cardiology Admission Diagnosis Elevated BNP HTN Recent pneumonia with sepsis Debility/weakness Assessment/Plan Mildly elevated BNP, no signs of congestive heart failure, echocardiogram was done on July 04, 2021 showing normal LV size with ejection fraction 60 to 65%, mildly dilated left atrium, pulmonary artery pressure 35 to 40 mmHg Hypertension, labile blood pressure, maintained on Toprol and lisinopril, amlodipine. Lisinopril increased to 20mg daily on 07/08/21. Amlodipine was increased on July 09, 2021 to 5 mg daily, continue to monitor HLP, statin currently on hold secondary to elevated LFTs on admission. Will continue to monitor as outpatient. Recent pneumonia with sepsis, slowly improving, still having nonproductive cough. Continue on antibiotic. Management per medical services. DM, management per medical services. Generalized debility/weakness, continue PT/OT Hx Recurrent UTI Hypothyroidism, followed and managed by primary care physician Supervisory-Addendum Brief Supervisory Addendum Participated in pt care: history, MDM, physical Personally performed: exam, history, MDM Care discussed with: GRISEL Results interpretation: Verified all documentation Notes: Patient was seen and evaluated with [place], examination performed, management plan was discussed, agree with the current scribed note, I made few changes to the note using Italic font SAVANA MADISON Jul 10, 2021 08:36 LONI CARRILLO MD Jul 10, 2021 15:29
--- NOTE | 2021-07-10 09:55 | Physical Therapy Daily Note ---
PT Daily Note-Current Subjective Pt sitting in recliner and Nursing present giving morning meds upon arrival. Pt agrees to PT. Nursing as well as pt reports taking Xanax at midnight and still drowsy this morning. Pain Location: No Pain Reported Mental Status Patient Orientation: Person, Place, Time, Situation Transfers SCALE: Activities may be completed with or without assistive devices. 6-Pldpzgorww-dbxbijs completes the activity by him/herself with no assistance from a helper. 5-Set-up or Clean-up Assistance-helper sets up or cleans up; patient completes activity. [place] assists only prior to or following the activity. 4-Supervision or Touching Assistance-helper provides verbal cues and/or touching/steadying and/or contact guard assistance as patient completes activity. Assistance may be provided throughout the activity or intermittently. 3-Partial/Moderate Assistance-helper does LESS THAN HALF the effort. [place] lifts, holds or supports trunk or limbs, but provides less than half the effort. 2-Substantial/Maximal Assistance-helper does MORE THAN HALF the effort. [place] lifts or holds trunk or limbs and provides more than half the effort. 8-Eromjannm-lffucz does ALL the effort. Patient does none of the effort to complete the activity. Or, the assistance of 2 or more helpers is required for the patient to complete the activity. If activity was not attempted, code reason: 7-Patient Refused. 9-Not Applicable-not attempted and the patient did not perform the activity befo re the current illness, exacerbation or injury. 10-Not Attempted due to Environmental Limitations-(lack of equipment, weather re straints, etc.). 88-Not Attempted due to Medical Conditions or Safety Concerns. Sit to Stand (QC): 4 Weight Bearing Full Weight Bearing Full Weight Bearing Wheelchair Training Does the Pt Use a Wheelchair?: Yes Wheel 50 ft with 2 turns (QC): 5 Wheel 150 ft (QC): 5 Type of Wheelchair: Manual Exercises Supine Ex: Ankle pumps, Quad Set, Glut sets, Hip abd/add Supine Reps: 15 Seated Therapy Exercises: Ankle pumps, Long arc quads, Hip flexion, Glut set Seated Reps: 15 (2 sets of 15 reps) NuStep Minutes: 16 NuStep Workload: 3 Treatments Pt declines needing BR as had just used. Pt completes Supine then a set of Seated EX before TF to [facility]. Pt propels [facility] in hallway then uses NuStep for 16m at WL 3. After short RB, pt TF back to [facility] and completes another set of Seated EX. OT arrives for tx at this time and PT departs. Assessment Current Status: Fair Progress Pt's drowsiness limits participation in tx today julianna. with walking as pt's B LE were very heavy and hard to lift with EX and transfers. PT Mobile Application Development Lead Goals Long-Term Goals PT Mobile Application Development Lead Goals Time Frame: Jul 12, 2021 Roll Left & Right (QC): 5 Sit to Lying (QC): 5 Lying-Sitting on Side/Bed(QC): 4 Sit to Stand (QC): 4 Chair/Cpa-ic-Uoefn Xfer(QC): 4 Toilet Transfer (QC): 4 Car Transfer (QC): 4 Does the Patient Walk: Yes Walk 10 feet (QC): 5 Walk 50ft with 2 Turns (QC): 5 Walk 150 ft (QC): 4 Walking 10ft on Uneven Surface: 4 1 Step (curb) (QC): 4 4 Steps (QC): 88 12 Steps (QC): 88 Picking up an Object (QC): 4 Does the Pt use WC or Scooter?: Yes Wheel 50 feet with 2 turns (QC: 6 Type: Manual Wheel 150 feet: 6 Type: Manual PT Plan Problem List Problem List: Activity Tolerance, Functional Strength, Transfer Treatment/Plan Treatment Plan: Continue Plan of Care Treatment Plan: Bed Mobility, Education, Functional Activity Naina, Functional Strength, Gait, Safety, Therapeutic Exercise, Transfers (--) Treatment Duration: Aug 02, 2021 Frequency: At least 5 of 7 days/Wk (IRF) Estimated Hrs Per Day: 1.5 hours per day Patient and/or Family Agrees t: Yes Safety Risks/Education Patient Education: Transfer Techniques, Correct Positioning Teaching Recipient: Patient Teaching Methods: Discussion Response to Teaching: Verbalize Understanding Time/GCodes Time In: 800 Time Out: 930 Total Billed Treatment Time: 90 Total Billed Treatment 1, FA (15m), [facility] x2 (30m) & EX x2 (45m) YUVAL SULLIVAN MOTOR AND GENERATOR BR[employer] CUTTER Jul 10, 2021 09:55
--- NOTE | 2021-07-10 10:51 | Occupational Ther Daily Note ---
OT Current Status-Daily Note Subjective Pt alert at therapy gym sitting in w/c with PT when OT entered. Pt agreed to therapy. PT and pt state pt is still feeling drowsy this morning due to taking Xanax at midnight. Mental Status/Objective Patient Orientation: Person, Place, Time, Situation Attachments: IV ADL-Treatment Therapy Code Descriptions/Definitions Functional [place] Measure: 0=Not Assessed/NA 4=Minimal Assistance 1=Total Assistance 5=Supervision or Setup 2=Maximal Assistance 6=Modified [place] 3=Moderate Assistance 7=Complete IndependenceSCALE: Activities may be completed with or without assistive devices. 5-Qczddxvgck-bemmmvf completes the activity by him/herself with no assistance from a helper. 5-Set-up or Clean-up Assistance-helper sets up or cleans up; patient completes activity. [place] assists only prior to or following the activity. 4-Supervision or Touching Assistance-helper provides verbal cues and/or to uching/steadying and/or contact guard assistance as patient completes activity. Assistance may be provided throughout the activity or intermittently. 3-Partial/Moderate Assistance-helper does LESS THAN HALF the effort. [place] lifts, holds or supports trunk or limbs, but provides less than half the effort. 2-Substantial/Maximal Assistance-helper does MORE THAN HALF the effort. [place] lifts or holds trunk or limbs and provides more than half the effort. 6-Hwxqckdic-zxshug does ALL the effort. Patient does none of the effort to complete the activity. Or, the assistance of 2 or more helpers is required for the patient to complete the activity. If activity was not attempted, code reason: 7-Patient Refused. 9-Not Applicable-not attempted and the patient did not perform the activity before the current illness, exacerbation or injury. 10-Not Attempted due to Environmental Limitations-(lack of equipment, weather restraints, etc.). 88-Not Attempted due to Medical Conditions or Safety Concerns. Other Treatment Pt participated in FM, dexterity, and hand strengthening task of manipulating therapy-putty to locate beads with 1lb weight around each wrist. Pt tolerated task but required multiple resting breaks to complete due to decreased UB strength. Pt attempted to complete x10 min on arm bike at min resistance. After completing ~5 mins, pt stated her neck is bothering her and would like to go back to room. Pt participated in functional w/c mobility task from therapy gym to room in w/c, increase time due to poor mobility and fatigue. Pt sit-stand from w/c to FWW and transferred to recliner with CGA. Pt required skilled instruction of BUE yellow theraband exercise for proper technique. Pt participated in BUE yellow theraband exercises in all planes to increase BUE for improved independence in ADLs. Pt required frequent resting breaks throughout exercises due to decreased activity tolerance Education OT Patient Education: Energy conservation, Exercise program, Home exercise program, Progress toward Goal/Update tx plan, Purpose of tx/functional activities Teaching Recipient: Patient Teaching Methods: Demonstration, Handout, Discussion Response to Teaching: Verbalize Understanding, Return Demonstration OT Short Term Goals Short Term Goals Time Frame: Jul 10, 2021 Toileting hygiene: 3 Shower/bathe self: 2 Lower body dressin Putting on/taking off footwear: 2 OT Detention Goals Detention Goals Time Frame: Jul 19, 2021 Eating (QC): 6 Oral Hygiene (QC): 6 Toileting Hygiene (QC): 4 Shower/Bathe Self (QC): 3 Upper Body Dressing (QC): 3 Lower Body Dressing (QC): 3 On/Off Footwear (QC): 3 Additional Goals: 1-Demonstrate ADL Tasks, 2-Verbalize Understanding, 3- ImproveStrength/Naina 1=Demonstrate adherence to instructed precautions during ADL tasks. 2=Patient will verbalize/demonstrate understanding of assistive devices/modifications for ADL. 3=Patient will improve strength/tolerance for activity to enable patient to perform ADL's. OT Education/Plan Problem List/Assessment Assessment: Decreased Activ Tolerance, Decreased UE Strength, Impaired I ADL's, Impaired Self-Care Skills Discharge Recommendations Plan/Recommendations: Continue POC Treatment Plan/Plan of Care Patient would benefit from OT for education, treatment and training to promote independence in ADL's, mobility, safety and/or upper extremity function for ADL's. Plan of Care: ADL Retraining, Functional Mobility, Group Exercise/Act as Ind, UE Funct Exercise/Act Treatment Duration: Jul 19, 2021 Frequency: At least 5 of 7 days/Wk (IRF) Estimated Hrs Per Day: 1.5 hours per day Agreement: Yes Rehab Potential: Fair Time/GCodes Start Time: 09:30 Stop Time: 11:00 Total Time Billed (hr/min): 90 Billed Treatment Time 1 visit- FA 3 (51 mins) EX 3 (39 mins) IMGUE YOUNG Jul 10, 2021 10:51
[2021-07-10] MEDS: TAMSULOSIN 0.4 MG (FLOMAX) CAP PO SCH (17:41)
[2021-07-10 20:00] VITALS: BP 131/70
[2021-07-10] MEDS: TOLTERODINE LA 4 MG (DETROL) CAP PO SCH (20:54)
[2021-07-10] MEDS: ACETAMINOPHEN 500 MG TAB (TYLENOL) PO SCH (20:54)
[2021-07-10] MEDS: GABAPENTIN 600 MG (NEURONTIN) TAB PO SCH (20:54)
[2021-07-10] MEDS: DONEPEZIL 5 MG (ARICEPT) TAB PO SCH (20:54)
[2021-07-10] MEDS: SALIVA STIMULANT MOUTH SPRAY (BIOTENE) 1.5 OZ MM PRN (21:00)
[2021-07-11] MEDS: LEVOTHYROXINE 50 MCG (LEVOTHROID) TAB PO SCH (06:39)
[2021-07-11] MEDS: CATHETER FLUSH 10 ML SYR IV SCH ×3 (06:39→20:43)
[2021-07-11] MEDS: SALIVA STIMULANT MOUTH SPRAY (BIOTENE) 1.5 OZ MM PRN (06:40)
[2021-07-11 07:13] VITALS: BP 143/69
[2021-07-11] MEDS: RT--FLUTICASONE/SALMETEROL 113-14 (AIRDUO RespiCLICK) IH SCH ×2 (07:47→20:08)
--- NOTE | 2021-07-11 08:14 | Cardiology Progress Note ---
Subjective Date Seen by Provider: Jul 11, 2021 Time Seen by Provider: 08:13 Subjective/Events-last exam Patient with PT/OT. Denies any chest pain, reports cough continues to improve. Review of Systems General: No Chills, No Night Sweats, No Fatigue, No Malaise, No Appetite, No Other HEENT: No Head Aches, No Visual Changes, No Eye Pain, No Ear Pain, No Dysphasia, No Sinus Congestion, No Post Nasal Drip, No Sore Throat, No Other Pulmonary: No Dyspnea, No Cough, No Pleuritic Chest Pain, No Other Cardiovascular: No: Chest Pain, Palpitations, Orthopnea, Paroxysmal Noc. Dyspnea, Edema, Lt Headedness, Other Objective-Cardiology Exam Last Set of Vital Signs Vital Signs 07/11/21 07/11/21 07:13 07:47 Temp 35.8 Pulse 73 Resp 16 B/P (MAP) 143/69 (93) Pulse Ox 96 O2 Delivery Room Air General: Alert, Oriented X3, Cooperative HEENT: Atraumatic, PERRLA Neck: Supple, No JVD, No Thyromegaly Lungs: Normal Air Movement Heart: Regular Rate, Normal S1, Normal S2, No Murmurs Abdomen: Normal Bowel Sounds, Soft, No Tenderness, No Hepatosplenomegaly, No Masses Extremities: No Clubbing, No Cyanosis, No Edema, Normal Pulses, No Tenderness/Swelling Skin: No Rashes, No Breakdown, No Significant Lesion Neuro: Normal Gait, Normal Speech, Strength at 5/5 X4 Ext, Normal Tone, Sensation Intact Psych/Mental Status: Mental Status NL, Mood NL A/P-Cardiology Admission Diagnosis Elevated BNP HTN Recent pneumonia with sepsis Debility/weakness Assessment/Plan Mildly elevated BNP, no signs of congestive heart failure, echocardiogram was done on July 04, 2021 showing normal LV size with ejection fraction 60 to 65%, mildly dilated left atrium, pulmonary artery pressure 35 to 40 mmHg Hypertension, labile blood pressure, maintained on Toprol and lisinopril, amlodipine. Lisinopril increased to 20mg daily on 07/08/21. Amlodipine was increased on July 09, 2021 to 5 mg daily, blood pressure is better today. Continue to monitor HLP, statin currently on hold secondary to elevated LFTs on admission. Will cont inue to monitor as outpatient. Recent pneumonia with sepsis, slowly improving, Cough improving. Management per medical services. DM, management per medical services. Generalized debility/weakness, continue PT/OT Hx Recurrent UTI Hypothyroidism, followed and managed by primary care physician Supervisory-Addendum Brief Supervisory Addendum Participated in pt care: history, MDM, physical Personally performed: exam, history, MDM Care discussed with: GRISEL Results interpretation: Verified all documentation Notes: Patient was seen and evaluated with Savana, examination performed, management plan was discussed, agree with the current scribed note, I made few changes to the note using Italic font Blood pressure is better today. Continue to monitor, continue current medication SAVANA MADISON Jul 11, 2021 08:14 LONI CARRILLO MD Jul 11, 2021 09:05
[2021-07-11] MEDS: rOPINIRole 0.25 MG (REQUIP) TAB PO SCH ×2 (08:21→20:43)
[2021-07-11] MEDS: VITAMIN D3 25 MCG (1,000 UNITS) TABLET PO SCH (08:21)
[2021-07-11] MEDS: MONTELUKAST 10 MG (SINGULAIR) TAB PO SCH (08:21)
[2021-07-11] MEDS: KCL 10 MEQ TAB (MICRO K) PO SCH ×2 (08:21→18:01)
[2021-07-11] MEDS: LORATADINE (CLARITIN) 10 MG TAB PO SCH (08:21)
[2021-07-11] MEDS: lisINopril 10 MG (PRINIVIL) TABLET PO SCH (08:21)
[2021-07-11] MEDS: PANTOPRAZOLE 40 MG (PROTONIX) TAB PO SCH (08:21)
[2021-07-11] MEDS: meTOprolol SUCCINATE 100 MG (TOPROL XL) TAB PO SCH (08:21)
[2021-07-11] MEDS: CYANOCOBALAMIN 1,000 MCG (VITAMIN B-12) TABLET PO SCH (08:21)
[2021-07-11] MEDS: LACTOBACILLUS ACIDOPHILUS (PROBIOTIC) CAPSULE PO SCH (08:21)
[2021-07-11] MEDS: DOCUSATE SODIUM 100 MG (COLACE) CAP PO SCH ×2 (08:22→21:08)
[2021-07-11] MEDS: BENZONATATE 100 MG (TESSALON) CAPSULE PO SCH ×3 (08:22→20:42)
[2021-07-11] MEDS: GABAPENTIN 300 MG (NEURONTIN) CAP PO SCH (08:22)
[2021-07-11] MEDS: amLODIPine 5 MG (NORVASC) TAB PO SCH (08:22)
--- NOTE | 2021-07-11 08:59 | Occupational Ther Daily Note ---
OT Current Status-Daily Note Subjective Pt alert, sitting in recliner. Pt agrees to therapy. Pt states that she is tired today, but willing to participate in OT. Pt c/o pain during session, nrsg had just brought meds and MCMANUS then placed warm pack at pt's back to decrease pain. Mental Status/Objective Patient Orientation: Person, Place, Time, Situation Attachments: IV ADL-Treatment Pt states that she does have w/c at her apartment that she uses for long distances. MCMANUS suggested that pt leave w/c beside bed at night to transport self to bathroom due to being easily fatigued with ambulation. Pt agrees to sponge bath today due to only taking showers 1x/wk. Pt able to complete upper body, eloy area/buttocks and upper legs by self then assist for lower legs and feet. Setup for upper body dressing. Assist to thread feet into pants and footwear then pt able to stand and hike pants over hips by self. Independent with eating and oral care. Pt able to cleanse self and manipulate clothing over hips to complete toileting by self, supervision for safety. Pt does have assistance at apartment for bathing and dressing. Pt states that she does toileting at home by self and only calls if unable to complete by self with call light. Therapy Code Descriptions/Definitions Functional [place] Measure: 0=Not Assessed/NA 4=Minimal Assistance 1=Total Assistance 5=Supervision or Setup 2=Maximal Assistance 6=Modified [place] 3=Moderate Assistance 7=Complete IndependenceSCALE: Activities may be completed with or without assistive devices. 5-Ykbwdaaszg-jpifuek completes the activity by him/herself with no assistance from a helper. 5-Set-up or Clean-up Assistance-helper sets up or cleans up; patient completes activity. [place] assists only prior to or following the activity. 4-Supervision or Touching Assistance-helper provides verbal cues and/or touching/steadying and/or contact guard assistance as patient completes activity. Assistance may be provided throughout the activity or intermittently. 3-Partial/Moderate Assistance-helper does LESS THAN HALF the effort. [place] lifts, holds or supports trunk or limbs, but provides less than half the effort. 2-Substantial/Maximal Assistance-helper does MORE THAN HALF the effort. [place] lifts or holds trunk or limbs and provides more than half the effort. 7-Fcllqygnr-ifyhyg does ALL the effort. Patient does none of the effort to complete the activity. Or, the assistance of 2 or more helpers is required for the patient to complete the activity. If activity was not attempted, code reason: 7-Patient Refused. 9-Not Applicable-not attempted and the patient did not perform the activity before the current illness, exacerbation or injury. 10-Not Attempted due to Environmental Limitations-(lack of equipment, weather restraints, etc.). 88-Not Attempted due to Medical Conditions or Safety Concerns. Eating (QC): 6 Oral Hygiene (QC): 6 Shower/Bathe Self (QC): 3 (min A) Upper Body Dressing (QC): 5 Lower Body Dressing (QC): 3 (min A) On/Off Footwear: 2 Toileting Hygiene (QC): 4 (Supervision for safety) Pt does require multiple recovery breaks throughout session due to fatigue. Other Treatment Pt is SBA for transfers and minimal ambulation using FWW for safety. Pt is independent with w/c mobility. Pt completed fine motor task for strength of pinch and data capture clerk with resistive peg board, 50 pegs. After session, pt sitting in recliner with call light/phone in reach. All needs met. OT Short Term Goals Short Term Goals Time Frame: Jul 10, 2021 Toileting hygiene: 3 Shower/bathe self: 2 Lower body dressin Putting on/taking off footwear: 2 OT Mcc Goals Mcc Goals Time Frame: Jul 19, 2021 Eating (QC): 6 (met) Oral Hygiene (QC): 6 (met) Toileting Hygiene (QC): 4 (met) Shower/Bathe Self (QC): 3 (met) Upper Body Dressing (QC): 3 (met) Lower Body Dressing (QC): 3 (met) On/Off Footwear (QC): 3 (not met) Additional Goals: 1-Demonstrate ADL Tasks, 2-Verbalize Understanding, 3-ImproveStrength/Naina 1=Demonstrate adherence to instructed precautions during ADL tasks. 2=Patient will verbalize/demonstrate understanding of assistive devices/modifications for ADL. 3=Patient will improve strength/tolerance for activity to enable patient to perform ADL's. OT Education/Plan Problem List/Assessment Assessment: Decreased Activ Tolerance, Decreased UE Strength, Impaired Self- Care Skills Discharge Recommendations Plan/Recommendations: Continue POC Treatment Plan/Plan of Care Patient would benefit from OT for education, treatment and training to promote independence in ADL's, mobility, safety and/or upper extremity function for ADL's. Plan of Care: ADL Retraining, Functional Mobility, Group Exercise/Act as Ind, UE Funct Exercise/Act Treatment Duration: Jul 19, 2021 Frequency: At least 5 of 7 days/Wk (IRF) Estimated Hrs Per Day: 1.5 hours per day Agreement: Yes Rehab Potential: Fair Time/GCodes Start Time: 07:30 Stop Time: 09:00 Total Time Billed (hr/min): 90 Billed Treatment Time 1 visit-ADL 5 (75 min) EX 1 (15 min) DELORES TORRES Jul 11, 2021 08:59
[2021-07-11] MEDS: SENNA W/DOCUSATE (SENOKOT S) TABLET PO SCH ×2 (09:38→21:09)
[2021-07-11] MEDS: polyethylene glycoL POWDER 17 GM (MIRALAX) PACK PO SCH ×2 (09:38→21:08)
--- NOTE | 2021-07-11 10:19 | PM&R Progress Note ---
Subjective HPI/CC On Admission Date Seen by Provider: Jul 11, 2021 Time Seen by Provider: 10:00 Subjective/Events-last exam 07/11/2021: Pt is doing well Ready for discharge tomorrow No pain is reported Checked meds and labs 07/10/2021: Pt is doing well Cough is improved Discharge planned for Thursday to assisted living Checked meds and labs 07/09/2021: Pt is doing well Dr. Ortiz came and took care of her toenails Bowels moved yesterday Cough is improved Has a dry mouth requesting Biotene, I ordered that 07/08/2021: Pt doing really well Working with PT Labs look good Cough is much improved 07/07/2021: Patient doing a lot better cough is improving No pain is reported Checked meds and labs Getting around better 07/06/21: Patient doing better Cough improved Slow recovery No pain Anti-tussives maintained 07/05/2021: Patient doing much better Cough is much better No pain is reported Bowels are moving Checked meds and labs 07/04/2021: Patient about the same Cough is a tiny bit improved No pain is reported Tolerating therapy pretty well Urology appreciated 07/03/2021: Pt doing pretty well Pt has urinary retention Dr. Maria was consulted and started her on Flomax He left orders to do an in and out cath for greater than 400cc's on bladder scan Dr. Gregory has been consulted Decreased motivation for therapy blood pressure is very labile with bp of 200 given Clonidine blood sugar is 149 07/02/21: Pt doing about the same BP is high so will give Norvasc of 5 mg daily Cough is constant Had a little bit of bloody sputum yesterday Transfers are better Day number 4 of antibiotics of Zosyn Checked meds and labs Daughter at the bedside Added on BNP later in the day which was elevated gave Lasix 20 mg IV x1 consulted Dr. Gregory and ordered an echo She did almost fall going to the bathroom I recommended bedside commode Review of Systems General: Fatigue, Malaise Objective Exam Vital Signs Vital Signs Date Time Temp Pulse Resp B/P (MAP) Pulse Ox O2 Delivery O2 Flow Rate FiO2 07/11/21 20:50 Room Air 07/11/21 20:08 97 07/11/21 20:00 36.4 73 18 126/60 (82) Capillary Refill : General Appearance: No Apparent Distress, WD/WN, Chronically ill, Obese HEENT: PERRL/EOMI, Normal ENT Inspection, Pharynx Normal Neck: Full Range of Motion, Normal Inspection, Non Tender, Supple, Carotid Bruit Respiratory: Chest Non Tender, Normal Breath Sounds, No Accessory Muscle Use, No Respiratory Distress, Crackles, Decreased Breath Sounds Cardiovascular: Regular Rate, Rhythm, No Edema, No Gallop, No JVD, No Murmur, Normal Peripheral Pulses Gastrointestinal: Normal Bowel Sounds, No Organomegaly, No Pulsatile Mass, Non Tender, Soft Back: Normal Inspection, No CVA Tenderness, No Vertebral Tenderness Extremity: Normal Capillary Refill, Normal Inspection, Normal Range of Motion, Non Tender, No Calf Tenderness, No Pedal Edema Neurologic/Psychiatric: Alert, Oriented x3, No Motor/Sensory Deficits, Normal Mood/Affect Skin: Normal Color, Warm/Dry Lymphatic: No Adenopathy Results/Procedures Lab Patient resulted labs reviewed. FIM Transfers Therapy Code Descriptions/Definitions Functional [place] Measure: 0=Not Assessed/NA 4=Minimal Assistance 1=Total Assistance 5=Supervision or Setup 2=Maximal Assistance 6=Modified [place] 3=Moderate Assistance 7=Complete IndependenceSCALE: Activities may be completed with or without assistive devices. 0-Uarfhuixeg-uwxwxaz completes the activity by him/herself with no assistance from a helper. 5-Set-up or Clean-up Assistance-helper sets up or cleans up; patient completes activity. [place] assists only prior to or following the activity. 4-Supervision or Touching Assistance-helper provides verbal cues and/or touching/steadying and/or contact guard assistance as patient completes activity. Assistance may be provided throughout the activity or intermittently. 3-Partial/Moderate Assistance-helper does LESS THAN HALF the effort. [place] lifts, holds or supports trunk or limbs, but provides less than half the effort. 2-Substantial/Maximal Assistance-helper does MORE THAN HALF the effort. [place] lifts or holds trunk or limbs and provides more than half the effort. 1-Ishbwadxb-tuokhu does ALL the effort. Patient does none of the effort to complete the activity. Or, the assistance of 2 or more helpers is required for the patient to complete the activity. If activity was not attempted, code reason: 7-Patient Refused. 9-Not Applicable-not attempted and the patient did not perform the activity before the current illness, exacerbation or injury. 10-Not Attempted due to Environmental Limitations-(lack of equipment, weather restraints, etc.). 88-Not Attempted due to Medical Conditions or Safety Concerns. Roll Left to Right (QC): 4 Sit to Lying (QC): 2 Sit to Stand (QC): 4 Chair/Drc-ew-Tjngz Xfer(QC): 4 Car Transfer (QC): 3 Gait Training Does the Patient Walk?: Yes Distance: 60', 65' Walk 10 feet (QC): 5 Walk 50 ft with 2 Turns(QC): 5 Walk 150 ft (QC): 88 Walking 10ft/uneven surface-QC: 3 Gait Persons Needed: 1 Gait Assistive Device: FWW Wheelchair Training Does the Pt Use a Wheelchair?: Yes Distance: 50 feet Wheel 50 ft with 2 turns (QC): 5 Wheel 150 ft (QC): 5 Type of Wheelchair: Manual Stair Training Stair Training: Handrails/: uses walker #of Steps: 1 1 Step (curb) (QC): 3 4 Steps (QC): 7 12 Steps (QC): 7 Stairs: Pattern: Step to Balance Picking up an Object (QC): 7 ADL-Treatment Eating (QC): 6 Oral Hygiene (QC): 6 Bathing Location: L Arm, R Arm, L Upper Leg, R Upper Leg, L Lower Leg (including foot), R Lower Leg (including foot), Chest, Abdomen, Buttocks, Perineal Area Shower/Bathe Self (QC): 3 (min A) Upper Body Dressing (QC): 5 Lower Body Dressing (QC): 3 (min A) On/Off Footwear (QC): 2 Toileting Hygiene (QC): 4 (Supervision for safety) Toilet Transfer (QC): 4 (CGA) Assessment/Plan Assessment and Plan Assess & Plan/Chief Complaint Assessment: Critical illness myopathy Debility Recent pneumonia Status post sepsis Severe weakness Cognitive deficit Hypothyroidism GERD Hypertension Recurrent UTI Elevated BNP to 122 gave Lasix and [address] Dr. Gregory Plan: PT and OT aggressive rehab Supportive MCC meds Monitor blood pressure 07/02/2021: Lasix Echo Cough suppressants Dr. Gregory consult 07/03/2021: Supportive care Dr. Gregory appreciated Echo Inhaled corticosteroids Singulair and Claritin 07/04/2021: Cough suppressants Supportive care 07/05/2021: Continue cough suppressants Monitor closely 07/06/21: Monitor cough Ambulate 07/07/2021: Supportive care Monitor closely 07/08/2021: Much improved status Discharge plan this week 07/09/2021: Supportive care Dramatic improvement since admit 07/10/2021: Discharge home Thursday07/11/2021: Discharge home tomorrow Assisted living (1) Myopathy (2) Pneumonia Status: Acute (3) Elevated LFTs Status: Acute (4) Encephalopathy acute Status: Acute (5) Sepsis Status: Acute ERICA DUKE DO Jul 11, 2021 10:19
--- NOTE | 2021-07-11 10:25 | Physical Therapy Daily Note ---
PT Daily Note-Current Subjective Pt. up in recliner, agrees to Rx but states she is nt sure she can complete all the challenges of QC . This WARP TYING MACHINE KNOTTER assures her we will only do what she is capable of and will have rest breaks Pain Location: No Pain Reported Mental Status Patient Orientation: Normal For Age Transfers SCALE: Activities may be completed with or without assistive devices. 8-Vlbyfnsblg-srrdlvp completes the activity by him/herself with no assistance from a helper. 5-Set-up or Clean-up Assistance-helper sets up or cleans up; patient completes activity. [place] assists only prior to or following the activity. 4-Supervision or Touching Assistance-helper provides verbal cues and/or touching/steadying and/or contact guard assistance as patient completes activity. Assistance may be provided throughout the activity or intermittently. 3-Partial/Moderate Assistance-helper does LESS THAN HALF the effort. [place] lifts, holds or supports trunk or limbs, but provides less than half the effort. 2-Substantial/Maximal Assistance-helper does MORE THAN HALF the effort. [place] lifts or holds trunk or limbs and provides more than half the effort. 2-Kbuvwluhi-eqgudd does ALL the effort. Patient does none of the effort to complete the activity. Or, the assistance of 2 or more helpers is required for the patient to complete the activity. If activity was not attempted, code reason: 7-Patient Refused. 9-Not Applicable-not attempted and the patient did not perform the activity before the current illness, exacerbation or injury. 10-Not Attempted due to Environmental Limitations-(lack of equipment, weather restraints, etc.). 88-Not Attempted due to Medical Conditions or Safety Concerns. Roll Left & Right (QC): 6 Sit to Lying (QC): 4 Lying to Sitting/Side of Bed(Q: 4 Sit to Stand (QC): 5 Chair/Udc-vs-Ypshy Xfer(QC): 5 Toilet Transfer (QC): 5 Weight Bearing Full Weight Bearing Full Weight Bearing Gait Training Does the Patient Walk?: Yes Walk 10 feet (QC): 5 Walk 50 ft with 2 Turns(QC): 4 Walk 150 ft (QC): 88 (pt. fatigues and bcomes weak) Walking 10ft/uneven surface-QC: 4 Gait Persons Needed: 1 Gait Assistive Device: FWW flexed trunk, head down, shuffled gait, decreased step length Wheelchair Training Does the Pt Use a Wheelchair?: Yes Wheel 50 ft with 2 turns (QC): 6 Wheel 150 ft (QC): 6 Type of Wheelchair: Manual Stair Training #of Steps: 0 1 Step (curb) (QC): 4 4 Steps (QC): 88 12 Steps (QC): 88 Stairs: Pattern: Step to Balance Picking up an Object (QC): 88 Exercises Seated Therapy Exercises: Ankle pumps, Sit to stand, Long arc quads, Hip flexion Seated Reps: 15 Treatments slow moving, requiring rest breaks, needs assist for in out bed but states she actually sleeps in lift recliner at [facility], no steps to manage any where she goes or at [facility] Assessment Current Status: Good Progress will need superv /min assist when returning to [facility] PT Bilingual Counter Sales Retail Goals Bilingual Counter Sales Retail Goals PT Bilingual Counter Sales Retail Goals Time Frame: Jul 12, 2021 Roll Left & Right (QC): 5 Sit to Lying (QC): 5 Lying-Sitting on Side/Bed(QC): 4 Sit to Stand (QC): 4 Chair/Vin-af-Ziinr Xfer(QC): 4 Toilet Transfer (QC): 4 Car Transfer (QC): 4 Does the Patient Walk: Yes Walk 10 feet (QC): 5 Walk 50ft with 2 Turns (QC): 5 Walk 150 ft (QC): 4 Walking 10ft on Uneven Surface: 4 1 Step (curb) (QC): 4 4 Steps (QC): 88 12 Steps (QC): 88 Picking up an Object (QC): 4 Does the Pt use WC or Scooter?: Yes Wheel 50 feet with 2 turns (QC: 6 Type: Manual Wheel 150 feet: 6 Type: Manual PT Plan Treatment/Plan Treatment Plan: Continue Plan of Care Treatment Plan: Bed Mobility, Education, Functional Activity Naina, Functional Strength, Gait, Safety, Therapeutic Exercise, Transfers (--) Treatment Duration: Aug 02, 2021 Frequency: At least 5 of 7 days/Wk (IRF) Estimated Hrs Per Day: 1.5 hours per day Patient and/or Family Agrees t: Yes Safety Risks/Education Patient Education: Gait Training, Transfer Techniques, Steps (curb step only), Correct Positioning, Disease Process, Safety Issues Teaching Recipient: Patient Teaching Methods: Demonstration, Discussion Response to Teaching: Verbalize Understanding, Return Demonstration, Reinforcement Needed Time/GCodes Time In: 900 Time Out: 1000 Total Billed Treatment Time: 60 Total Billed Treatment 1,GT20m,WC10m,EX15m,FA15m AVA BRICENO WARP TYING MACHINE KNOTTER Jul 11, 2021 10:25
--- NOTE | 2021-07-11 12:05 | Physical Therapy Daily Note ---
PT Daily Note-Current Subjective Agrees to Rx. Stats she is proud that she can get in out of the car simulator as she was not able to at admit Pain Location: No Pain Reported Mental Status Patient Orientation: Person, Place, Time, Situation Transfers SCALE: Activities may be completed with or without assistive devices. 0-Tnhlygkhxa-uomtuky completes the activity by him/herself with no assistance from a helper. 5-Set-up or Clean-up Assistance-helper sets up or cleans up; patient completes activity. [place] assists only prior to or following the activity. 4-Supervision or Touching Assistance-helper provides verbal cues and/or touching/steadying and/or contact guard assistance as patient completes activity. Assistance may be provided throughout the activity or intermittently. 3-Partial/Moderate Assistance-helper does LESS THAN HALF the effort. [place] li fts, holds or supports trunk or limbs, but provides less than half the effort. 2-Substantial/Maximal Assistance-helper does MORE THAN HALF the effort. [place] lifts or holds trunk or limbs and provides more than half the effort. 8-Xgnjpaevq-qwlgox does ALL the effort. Patient does none of the effort to complete the activity. Or, the assistance of 2 or more helpers is required for the patient to complete the activity. If activity was not attempted, code reason: 7-Patient Refused. 9-Not Applicable-not attempted and the patient did not perform the activity before the current illness, exacerbation or injury. 10-Not Attempted due to Environmental Limitations-(lack of equipment, weather restraints, etc.). 88-Not Attempted due to Medical Conditions or Safety Concerns. Car Transfer (QC): 5 Weight Bearing Full Weight Bearing Full Weight Bearing Gait Training Gait Assistive Device: FWW pt. ambulated 65 ft x 2 CGA t SBA shuffled gait with poor heel strike Exercises Seated Therapy Exercises: Ankle pumps, Sit to stand, Long arc quads Seated Reps: 12 Treatments gait TRFs Assessment Current Status: Good Progress PT Recruitment Director Goals Recruitment Director Goals PT Care Home Goals Time Frame: Jul 12, 2021 Roll Left & Right (QC): 5 Sit to Lying (QC): 5 Lying-Sitting on Side/Bed(QC): 4 Sit to Stand (QC): 4 Chair/Tgv-du-Bbftf Xfer(QC): 4 Toilet Transfer (QC): 4 Car Transfer (QC): 4 Does the Patient Walk: Yes Walk 10 feet (QC): 5 Walk 50ft with 2 Turns (QC): 5 Walk 150 ft (QC): 4 Walking 10ft on Uneven Surface: 4 1 Step (curb) (QC): 4 4 Steps (QC): 88 12 Steps (QC): 88 Picking up an Object (QC): 4 Does the Pt use WC or Scooter?: Yes Wheel 50 feet with 2 turns (QC: 6 Type: Manual Wheel 150 feet: 6 Type: Manual PT Plan Treatment/Plan Treatment Plan: Continue Plan of Care Treatment Plan: Bed Mobility, Education, Functional Activity Naina, Functional Strength, Gait, Safety, Therapeutic Exercise, Transfers (--) Treatment Duration: Aug 02, 2021 Frequency: At least 5 of 7 days/Wk (IRF) Estimated Hrs Per Day: 1.5 hours per day Patient and/or Family Agrees t: Yes Safety Risks/Education Patient Education: Gait Training, Transfer Techniques, Correct Positioning, Safety Issues Teaching Recipient: Patient Teaching Methods: Demonstration, Discussion Response to Teaching: Verbalize Understanding, Return Demonstration, Reinforcement Needed Time/GCodes Time In: 1130 Time Out: 1200 Total Billed Treatment Time: 30 Total Billed Treatment 1,FA20m,EX10m AVA BRICENO CUPOLA PATCHER Jul 11, 2021 12:05
[2021-07-11] MEDS: TAMSULOSIN 0.4 MG (FLOMAX) CAP PO SCH (18:01)
[2021-07-11 20:00] VITALS: BP 126/60
[2021-07-11] MEDS: ACETAMINOPHEN 500 MG TAB (TYLENOL) PO SCH (20:42)
[2021-07-11] MEDS: DONEPEZIL 5 MG (ARICEPT) TAB PO SCH (20:42)
[2021-07-11] MEDS: TOLTERODINE LA 4 MG (DETROL) CAP PO SCH (20:43)
[2021-07-11] MEDS: GABAPENTIN 600 MG (NEURONTIN) TAB PO SCH (20:43)
[2021-07-12] MEDS ORDERED: MONT-40 PO (06:16)
[2021-07-12] MEDS ORDERED: GUAI5SYR PO (06:16)
[2021-07-12] MEDS ORDERED: GLIM1TAB4 PO (06:16)
[2021-07-12] MEDS ORDERED: AMLO-250 PO (06:16)
[2021-07-12] MEDS ORDERED: TOLTA4 PO (06:16)
[2021-07-12] MEDS ORDERED: TMSL.4C PO (06:16)
[2021-07-12] MEDS ORDERED: BENZ100C18 PO (06:16)
[2021-07-12] MEDS ORDERED: LISI10TA25 PO (06:16)
[2021-07-12] MEDS ORDERED: FLUT1AER4 IH (06:16)
--- NOTE | 2021-07-12 06:18 | D/C HH Face to Face Order ---
D/C HH Face to Face Orders Reconcile Patient Problems Problems Reviewed?: Yes Instructions for Patient HH Patient Instructions/FollowUp: PCP Physician to follow Patient: PCP Discharge Diet for Home: ADA Diet Patient Problems: Debility Patient Data-Allergies,Ht & Wt Patient Allergies: Coded Allergies: codeine (Unverified Adverse Reaction, Unknown, 06/25/20) ketorolac (Unverified Adverse Reaction, Unknown, 06/25/20) naproxen (Unverified Adverse Reaction, Unknown, 06/25/20) Home Health Need/Face to Face Date of Face to Face: Jul 12, 2021 Clinical Findings: Generalized weakness and fatigue, Instability, Muscle weakn ess, Unsteady gait I have seen Pt [id number]: Yes Discharged To: Home Diagnosis/Conditions: Debility Patient is Homebound due to: Lorraine fall risk due to instabilty, Muscle weakness Homebound Status Due to the above stated illness, injury or surgical procedure (medical condition or diagnosis) and associated clinical findings, the patient is homebound because of his/her inability to leave home except with aid of a supportive device and/or person AND leaving the home requires a considerable and taxing effort or is medically contraindicated. Pt req the following assistanc: Walker Home Health Nursing Orders Home Health Services Order: Remote Sensing Technologist-Evaluate & Treat, Physical Therapy-Evaluate & Treat Certify Stmt I certify that this patient is under my care and that I, a nurse practitioner or a physician; a machine assistant working with me, had a face to face encounter that - meets the physician face to face encounter requirements with this patient as dated. ERICA DUKE DO Jul 12, 2021 06:18
--- NOTE | 2021-07-12 06:18 | Discharge Summary ---
Diagnosis/Chief Complaint Date of Admission Jul 01, 2021 at 13:25 Date of Discharge Discharge Date: Jul 12, 2021 Discharge Diagnosis Assessment: Critical illness myopathy Debility Recent pneumonia Status post sepsis Severe weakness Cognitive deficit Hypothyroidism GERD Hypertension Recurrent UTI Elevated BNP to 122 gave Lasix [address] Gregory Plan: PT and OT aggressive rehab Supportive prison meds Monitor blood pressure 07/02/2021: Lasix Echo Cough suppressants Dr. Gregory consult 07/03/2021: Supportive care Dr. Gregory appreciated Echo Inhaled corticosteroids Singulair and Claritin 07/04/2021: Cough suppressants Supportive care 07/05/2021: Continue cough suppressants Monitor closely 07/06/21: Monitor cough Ambulate 07/07/2021: Supportive care Monitor closely 07/08/2021: Much improved status Discharge plan this week 07/09/2021: Supportive care Dramatic improvement since admit 07/10/2021: Discharge home Thursday07/11/2021: Discharge home tomorrow Assisted living (1) Myopathy (2) Pneumonia Status: Acute (3) Elevated LFTs Status: Acute (4) Encephalopathy acute Status: Acute (5) Sepsis Status: Acute Discharge Summary Discharge Physical Examination Allergies: Coded Allergies: codeine (Unverified Adverse Reaction, Unknown, 06/25/20) ketorolac (Unverified Adverse Reaction, Unknown, 06/25/20) naproxen (Unverified Adverse Reaction, Unknown, 06/25/20) Vitals & I&Os Vital Signs Date Time Temp Pulse Resp B/P (MAP) Pulse Ox O2 Delivery O2 Flow Rate FiO2 07/12/21 13:00 36.3 69 16 167/71 94 Room Air General Appearance: Alert, Oriented X3, Cooperative Respiratory: Clear to Auscultation Cardiovascular: Regular Rate Psych/Mental Status: Mental Status NL Hospital Course Was the Problem List Reviewed?: Yes Hospital course: Patient had an uneventful lengthy hospital course after she was admitted from severe sepsis from pneumonia and had multiple issues prior to strong recovery with rehab protocol. She completed her IV antibiotics but her cough was severe and constant requiring multiple meds but finally that was controlled and she did have an issue with urinary dysfunction so urology was consulted and patient was improved on the medication regimen that was chosen for her. Labs were checked periodically which remained stable. Bowel function returned back to normal. She is weaned off oxygen. She was ultimately deemed stable for discharge back to assisted living. Labs (last 24 hrs) Laboratory Tests 07/01/21 21:32: Glucometer 97 07/02/21 05:32: Glucometer 53*L 07/02/21 06:16: Glucometer 72 07/02/21 07:50: White Blood Count 8.1, Red Blood Count 4.21, Hemoglobin 12.9, Hematocrit 40, Mean Corpuscular Volume 95, Mean Corpuscular Hemoglobin 31, Mean Corpuscular Hemoglobin Concent 32, Red Cell Distribution Width 14.1, Platelet Count 143, Mean Platelet Volume 9.3, Immature Granulocyte % (Auto) 1, Neutrophils (%) (Auto) 75, Lymphocytes (%) (Auto) 13, Monocytes (%) (Auto) 8, Eosinophils (%) (Auto) 3, Basophils (%) (Auto) 0, Neutrophils # (Auto) 6.1, Lymphocytes # (Auto) 1.0, Monocytes # (Auto) 0.7, Eosinophils # (Auto) 0.2, Basophils # (Auto) 0.0, Immature Granulocyte # (Auto) 0.1, Sodium Level 143, Potassium Level 3.1L, Chloride Level 112H, Carbon Dioxide Level 19L, Anion Gap 12, Blood Urea Nitrogen 14, Creatinine 1.28, Estimat Glomerular Filtration Rate 42, BUN/Creatinine Ratio 11, Glucose Level 86, Calcium Level 9.0, Corrected Calcium 9.6, Total Bilirubin 2.1H, Aspartate Amino Transf (AST/SGOT) 27, Alanine Aminotransferase (ALT/SGPT) 111H, Alkaline Phosphatase 152H, B-Type Natriuretic Peptide 250.1H, Total Protein 7.2, Albumin 3.2 07/02/21 08:53: Glucometer 103 07/02/21 11:49: Glucometer 193H 07/02/21 15:52: Glucometer 156H 07/02/21 20:21: Glucometer 119H 07/03/21 05:51: Glucometer 51*L 07/03/21 06:50: White Blood Count 9.5, Red Blood Count 4.14, Hemoglobin 12.4, Hematocrit 39, Mean Corpuscular Volume 93, Mean Corpuscular Hemoglobin 30, Mean Corpuscular Hemoglobin Concent 32, Red Cell Distribution Width 14.0, Platelet Count 158, Mean Platelet Volume 9.6, Immature Granulocyte % (Auto) 1, Neutrophils (%) (Auto) 70, Lymphocytes (%) (Auto) 15, Monocytes (%) (Auto) 10, Eosinophils (%) (Auto) 4, Basophils (%) (Auto) 0, Neutrophils # (Auto) 6.6, Lymphocytes # (Auto) 1.5, Monocytes # (Auto) 0.9, Eosinophils # (Auto) 0.3, Basophils # (Auto) 0.0, I mmature Granulocyte # (Auto) 0.1, Sodium Level 138, Potassium Level 3.0L, Chloride Level 105, Carbon Dioxide Level 22, Anion Gap 11, Blood Urea Nitrogen 13, Creatinine 1.34H, Estimat Glomerular Filtration Rate 40, BUN/Creatinine Ratio 10, Glucose Level 82, Calcium Level 8.9, Corrected Calcium 9.5, Total Bilirubin 1.7H, Aspartate Amino Transf (AST/SGOT) 27, Alanine Aminotransferase (ALT/SGPT) 87H, Alkaline Phosphatase 133, Total Protein 7.0, Albumin 3.2 07/03/21 07:16: Glucometer 75 07/03/21 10:27: Glucometer 149H 07/03/21 15:44: Glucometer 165H 07/03/21 20:09: Glucometer 109 07/04/21 05:17: Glucometer 59*L 07/04/21 07:21: Glucometer 93 07/04/21 11:32: Glucometer 133H 07/05/21 10:40: Glucometer 129H 07/06/21 07:30: White Blood Count 4.6, Red Blood Count 3.92, Hemoglobin 11.7, Hematocrit 37, Mean Corpuscular Volume 94, Mean Corpuscular Hemoglobin 30, Mean Corpuscular Hemoglobin Concent 32, Red Cell Distribution Width 14.4, Platelet Count 199, Mean Platelet Volume 9.8, Immature Granulocyte % (Auto) 1, Neutrophils (%) (Auto) 52, Lymphocytes (%) (Auto) 31, Monocytes (%) (Auto) 9, Eosinophils (%) (Auto) 7, Basophils (%) (Auto) 1, Neutrophils # (Auto) 2.4, Lymphocytes # (Auto) 1.4, Monocytes # (Auto) 0.4, Eosinophils # (Auto) 0.3, Basophils # (Auto) 0.0, Immature Granulocyte # (Auto) 0.0, Sodium Level 142, Potassium Level 3.6, Chloride Level 110H, Carbon Dioxide Level 21, Anion Gap 11, Blood Urea Nitrogen 11, Creatinine 1.35H, Estimat Glomerular Filtration Rate 39, BUN/Creatinine Ratio 8, Glucose Level 117H, Calcium Level 8.8, Corrected Calcium 9.5, Total Elmo irubin 1.0, Aspartate Amino Transf (AST/SGOT) 39H, Alanine Aminotransferase (ALT/SGPT) 61H, Alkaline Phosphatase 113, Total Protein 6.9, Albumin 3.1L 07/08/21 05:50: White Blood Count 6.1, Red Blood Count 3.72L, Hemoglobin 11.1L, Hematocrit 35, Mean Corpuscular Volume 95, Mean Corpuscular Hemoglobin 30, Mean Corpuscular Hemoglobin Concent 31L, Red Cell Distribution Width 14.1, Platelet Count 209, Mean Platelet Volume 10.1, Immature Granulocyte % (Auto) 1, Neutrophils (%) (Auto) 59, Lymphocytes (%) (Auto) 28, Monocytes (%) (Auto) 8, Eosinophils (%) (Auto) 4, Basophils (%) (Auto) 1, Neutrophils # (Auto) 3.5, Lymphocytes # (Auto) 1.7, Monocytes # (Auto) 0.5, Eosinophils # (Auto) 0.2, Basophils # (Auto) 0.0, Immature Granulocyte # (Auto) 0.1, Sodium Level 141, Potassium Level 3.7, Chloride Level 110H, Carbon Dioxide Level 20L, Anion Gap 11, Blood Urea Nitrogen 20H, Creatinine 1.19, Estimat Glomerular Filtration Rate 46, BUN/Creatinine Ratio 17, Glucose Level 138H, Calcium Level 8.7, Corrected Calcium 9.4, Total Bilirubin 0.7, Aspartate Amino Transf (AST/SGOT) 64H, Alanine Aminotransferase (ALT/SGPT) 69H, Alkaline Phosphatase 122, Total Protein 6.7, Albumin 3.1L Pending Labs Laboratory Tests 07/01/21 21:32: Glucometer 97 07/02/21 05:32: Glucometer 53 07/02/21 06:16: Glucometer 72 07/02/21 07:50: White Blood Count 8.1, Red Blood Count 4.21, Hemoglobin 12.9, Hematocrit 40, Mean Corpuscular Volume 95, Mean Corpuscular Hemoglobin 31, Mean Corpuscular Hemoglobin Concent 32, Red Cell Distribution Width 14.1, Platelet Count 143, Mean Platelet Volume 9.3, Immature Granulocyte % (Auto) 1, Neutrophils (%) (Auto) 75, Lymphocytes (%) (Auto) 13, Monocytes (%) (Auto) 8, Eosinophils (%) (Auto) 3, Basophils (%) (Auto) 0, Neutrophils # (Auto) 6.1, Lymphocytes # (Auto) 1.0, Monocytes # (Auto) 0.7, Eosinophils # (Auto) 0.2, Basophils # (Auto) 0.0, Immature Granulocyte # (Auto) 0.1, Sodium Level 143, Potassium Level 3.1, Ch loride Level 112, Carbon Dioxide Level 19, Anion Gap 12, Blood Urea Nitrogen 14, Creatinine 1.28, Estimat Glomerular Filtration Rate 42, BUN/Creatinine Ratio 11, Glucose Level 86, Calcium Level 9.0, Corrected Calcium 9.6, Total Bilirubin 2.1, Aspartate Amino Transf (AST/SGOT) 27, Alanine Aminotransferase (ALT/SGPT) 111, Alkaline Phosphatase 152, B-Type Natriuretic Peptide 250.1, Total Protein 7.2, Albumin 3.2 07/02/21 08:53: Glucometer 103 07/02/21 11:49: Glucometer 193 07/02/21 15:52: Glucometer 156 07/02/21 20:21: Glucometer 119 07/03/21 05:51: Glucometer 51 07/03/21 06:50: White Blood Count 9.5, Red Blood Count 4.14, Hemoglobin 12.4, Hematocrit 39, Mean Corpuscular Volume 93, Mean Corpuscular Hemoglobin 30, Mean Corpuscular Hemoglobin Concent 32, Red Cell Distribution Width 14.0, Platelet Count 158, Mean Platelet Volume 9.6, Immature Granulocyte % (Auto) 1, Neutrophils (%) (Auto) 70, Lymphocytes (%) (Auto) 15, Monocytes (%) (Auto) 10, Eosinophils (%) (Auto) 4, Basophils (%) (Auto) 0, Neutrophils # (Auto) 6.6, Lymphocytes # (Auto) 1.5, Monocytes # (Auto) 0.9, Eosinophils # (Auto) 0.3, Basophils # (Auto) 0.0, Immature Granulocyte # (Auto) 0.1, Sodium Level 138, Potassium Level 3.0, Chloride Level 105, Carbon Dioxide Level 22, Anion Gap 11, Blood Urea Nitrogen 13, Creatinine 1.34, Estimat Glomerular Filtration Rate 40, BUN/Creatinine Ratio 10, Glucose Level 82, Calcium Level 8.9, Corrected Calcium 9.5, Total Bilirubin 1.7, Aspartate Amino Transf (AST/SGOT) 27, Alanine Aminotransferase (ALT/SGPT) 87, Alkaline Phosphatase 133, Total Protein 7.0, Albumin 3.2 07/03/21 07:16: Glucometer 75 07/03/21 10:27: Glucometer 149 07/03/21 15:44: Glucometer 165 07/03/21 20:09: Glucometer 109 07/04/21 05:17: Glucometer 59 07/04/21 07:21: Glucometer 93 07/04/21 11:32: Glucometer 133 07/05/21 10:40: Glucometer 129 07/06/21 07:30: White Blood Count 4.6, Red Blood Count 3.92, Hemoglobin 11.7, Hematocrit 37, Mean Corpuscular Volume 94, Mean Corpuscular Hemoglobin 30, Mean Corpuscular Hemoglobin Concent 32, Red Cell Distribution Width 14.4, Platelet Count 199, Mean Platelet Volume 9.8, Immature Granulocyte % (Auto) 1, Neutrophils (%) (Auto) 52, Lymphocytes (%) (Auto) 31, Monocytes (%) (Auto) 9, Eosinophils (%) (Auto) 7, Basophils (%) (Auto) 1, Neutrophils # (Auto) 2.4, Lymphocytes # (Auto) 1.4, Monocytes # (Auto) 0.4, Eosinophils # (Auto) 0.3, Basophils # (Auto) 0.0, Immature Granulocyte # (Auto) 0.0, Sodium Level 142, Potassium Level 3.6, Chloride Level 110, Carbon Dioxide Level 21, Anion Gap 11, Blood Urea Nitrogen 11, Creatinine 1.35, Estimat Glomerular Filtration Rate 39, BUN/Creatinine Ratio 8, Glucose Level 117, Calcium Level 8.8, Corrected Calcium 9.5, Total Bilirubin 1.0, Aspartate Amino Transf (AST/SGOT) 39, Alanine Aminotransferase (ALT/SGPT) 61, Alkaline Phosphatase 113, Total Protein 6.9, Albumin 3.1 07/08/21 05:50: White Blood Count 6.1, Red Blood Count 3.72, Hemoglobin 11.1, Hematocrit 35, Mean Corpuscular Volume 95, Mean Corpuscular Hemoglobin 30, Mean Corpuscular Hemoglobin Concent 31, Red Cell Distribution Width 14.1, Platelet Count 209, Mean Platelet Volume 10.1, Immature Granulocyte % (Auto) 1, Neutrophils (%) (Auto) 59, Lymphocytes (%) (Auto) 28, Monocytes (%) (Auto) 8, Eosinophils (%) (Auto) 4, Basophils (%) (Auto) 1, Neutrophils # (Auto) 3.5, Lymphocytes # (Auto) 1.7, Monocytes # (Auto) 0.5, Eosinophils # (Auto) 0.2, Basophils # (Auto) 0.0, Immature Granulocyte # (Auto) 0.1, Sodium Level 141, Potassium Level 3.7, Chloride Level 110, Carbon Dioxide Level 20, Anion Gap 11, Blood Urea Nitrogen 20, Creatinine 1.19, Estimat Glomerular Filtration Rate 46, BUN/Creatinine Ratio 17, Glucose Level 138, Calcium Level 8.7, Corrected Calcium 9.4, Total Bilirubin 0.7, Aspartate Amino Transf (AST/SGOT) 64, Alanine Aminotransferase (ALT/SGPT) 69, Alkaline Phosphatase 122, Total Protein 6.7, Albumin 3.1 Discharge Home Medications: Active Scripts Active Glimepiride 1 Mg Tablet 1 Mg PO BID Detrol LA (Tolterodine Tartrate) 4 Mg Cap 4 Mg PO HS Montelukast Sodium 10 Mg Tablet 10 Mg PO DAILY Fluticasone-Salmeterol 113-14 (Fluticasone/Salmeterol) 1 Each Aer.pow.ba 0 Each IH RTBID Guaifenesin Dm Syrup (Guaifenesin/Dextromethorphan) 5 Ml Syrup 10 Ml PO Q4H PRN Tessalon Perles (Benzonatate) 100 Mg Capsule 200 Mg PO TID Lisinopril 10 Mg Tablet 20 Mg PO DAILY Amlodipine Besylate 5 Mg Tablet 10 Mg PO DAILY Flomax (Tamsulosin HCl) 0.4 Mg Cap 0.4 Mg PO DAILY@1800 Reported Mylanta Suspension (Al Hydrox/Mg Hydrox/Simethicone) 30 Ml Oral.susp 30 Ml PO Q8H PRN Miralax (Polyethylene Glycol 3350) 17 Gm Powd.pack 17 Gm PO DAILY PRN Loperamide (Loperamide HCl) 2 Mg Capsule 2 Mg PO Q4H PRN Nystatin 1 Each Powder.ea. 1 Each TOP BID PRN Clear Eyes Natural Tears Drop (Polyvinyl Alcohol/Povidone) 15 Ml Drops 1 Drop OU QID PRN Ropinirole HCl 0.25 Mg Tablet 0.25 Mg PO BID Azo Cranberry Softgel (Cranberry Extract/Vit C) 1 Each Capsule 1 Each PO DAILY Ondansetron Odt (Ondansetron) 4 Mg Tab.rapdis 4 Mg PO Q6H PRN Tylenol Extra Strength (Acetaminophen) 500 Mg Tablet 1,000 Mg PO TID PRN Probiotic (L.acidoph & Paracasei,B.lactis) 1 Each Capsule 1 Each PO DAILY Vitamin D3 (Cholecalciferol (Vitamin D3)) 25 Mcg Capsule 25 Mcg PO DAILY Cetirizine HCl 10 Mg Tablet 10 Mg PO DAILY Acetaminophen 500 Mg Tablet 1,000 Mg PO HS Myrbetriq (Mirabegron) 25 Mg Tab.er.24h 25 Mg PO DAILY Pantoprazole Sodium 40 Mg Tablet.dr 40 Mg PO DAILY Levothyroxine Sodium 50 Mcg Tablet 50 Mcg PO DAILY Neurontin (Gabapentin) 300 Mg Capsule 300 Mg PO DAILY Gabapentin 600 Mg Tablet 600 Mg PO HS Vitamin B-12 (Cyanocobalamin (Vitamin B-12)) 1,000 Mcg Tablet 1,000 Mcg PO DAILY Metoprolol Succinate 100 Mg Tab.er.24h 100 Mg PO DAILY IF SBP <100 HOLD AND CALL NURSE Donepezil HCl 5 Mg Tablet 5 Mg PO HS Atorvastatin Calcium 80 Mg Tablet 80 Mg PO HS Tramadol HCl 50 Mg Tablet 50 Mg PO BID Trulicity (Dulaglutide) 1.5 Mg/0.5 Ml Pen.injctr 1.5 Mg SC WED Instructions to patient/family Please see electronic discharge instructions given to patient. Diagnosis/Problems Diagnosis/Problems (1) Myopathy (2) Pneumonia Status: Acute (3) Elevated LFTs Status: Acute (4) Encephalopathy acute Status: Acute (5) Sepsis Status: Acute ERICA DUKE DO Jul 12, 2021 06:18
[2021-07-12] MEDS: CATHETER FLUSH 10 ML SYR IV SCH (06:21)
[2021-07-12] MEDS: LEVOTHYROXINE 50 MCG (LEVOTHROID) TAB PO SCH (06:21)
[2021-07-12] MEDS: RT--FLUTICASONE/SALMETEROL 113-14 (AIRDUO RespiCLICK) IH SCH (06:52)
[2021-07-12 07:21] VITALS: BP 167/71
[2021-07-12] MEDS: lisINopril 10 MG (PRINIVIL) TABLET PO SCH (08:09)
[2021-07-12] MEDS: rOPINIRole 0.25 MG (REQUIP) TAB PO SCH (08:09)
[2021-07-12] MEDS: BENZONATATE 100 MG (TESSALON) CAPSULE PO SCH (08:09)
[2021-07-12] MEDS: LORATADINE (CLARITIN) 10 MG TAB PO SCH (08:09)
[2021-07-12] MEDS: VITAMIN D3 25 MCG (1,000 UNITS) TABLET PO SCH (08:09)
[2021-07-12] MEDS: meTOprolol SUCCINATE 100 MG (TOPROL XL) TAB PO SCH (08:09)
[2021-07-12] MEDS: amLODIPine 5 MG (NORVASC) TAB PO SCH (08:09)
[2021-07-12] MEDS: PANTOPRAZOLE 40 MG (PROTONIX) TAB PO SCH (08:09)
[2021-07-12] MEDS: CYANOCOBALAMIN 1,000 MCG (VITAMIN B-12) TABLET PO SCH (08:09)
[2021-07-12] MEDS: LACTOBACILLUS ACIDOPHILUS (PROBIOTIC) CAPSULE PO SCH (08:09)
[2021-07-12] MEDS: KCL 10 MEQ TAB (MICRO K) PO SCH (08:10)
[2021-07-12] MEDS: GABAPENTIN 300 MG (NEURONTIN) CAP PO SCH (08:10)
[2021-07-12] MEDS: MONTELUKAST 10 MG (SINGULAIR) TAB PO SCH (08:11)
--- NOTE | 2021-07-12 08:14 | Cardiology Progress Note ---
Subjective Date Seen by Provider: Jul 12, 2021 Time Seen by Provider: 08:13 Subjective/Events-last exam Patient is laying in bed, having no new complaint. Going home today. Review of Systems General: No Chills, No Night Sweats, No Fatigue, No Malaise, No Appetite, No Other HEENT: No Head Aches, No Visual Changes, No Eye Pain, No Ear Pain, No Dysphasia, No Sinus Congestion, No Post Nasal Drip, No Sore Throat, No Other Pulmonary: No Dyspnea, No Cough, No Pleuritic Chest Pain, No Other Cardiovascular: No: Chest Pain, Palpitations, Orthopnea, Paroxysmal Noc. Dyspnea, Edema, Lt Headedness, Other Objective-Cardiology Exam Last Set of Vital Signs Vital Signs 07/12/21 07:21 Temp 36.3 Pulse 69 Resp 16 B/P (MAP) 167/71 (103) Pulse Ox 94 O2 Delivery Room Air General: Alert, Oriented X3, Cooperative HEENT: Atraumatic, PERRLA Neck: Supple, No JVD, No Thyromegaly Lungs: Normal Air Movement Heart: Regular Rate, Normal S1, Normal S2, No Murmurs Abdomen: Normal Bowel Sounds, Soft, No Tenderness, No Hepatosplenomegaly, No Masses Extremities: No Clubbing, No Cyanosis, No Edema, Normal Pulses, No Tenderness/Swelling Skin: No Rashes, No Breakdown, No Significant Lesion Neuro: Normal Gait, Normal Speech, Strength at 5/5 X4 Ext, Normal Tone, Sensation Intact Psych/Mental Status: Mental Status NL, Mood NL A/P-Cardiology Admission Diagnosis Elevated BNP HTN Recent pneumonia with sepsis Debility/weakness Assessment/Plan Mildly elevated BNP, no signs of congestive heart failure, echocardiogram was done on July 04, 2021 showing normal LV size with ejection fraction 60 to 65%, mildly dilated left atrium, pulmonary artery pressure 35 to 40 mmHg Hypertension, labile blood pressure, blood pressure is better controlled at this time. Okay for discharge and follow-up as an outpatient HLP, statin currently on hold secondary to elevated LFTs on admission. Will continue to monitor as outpatient. Recent pneumonia with sepsis, slowly improving, Cough improving. Management per medical services. DM, management per medical services. Generalized debility/weakness, continue PT/OT Hx Recurrent UTI Hypothyroidism, followed and managed by primary care physician LONI CARRILLO MD Jul 12, 2021 08:14
--- NOTE | 2021-07-12 08:30 | Therapy Team Discharge Summary ---
Therapy Discharge Summary Discharge Recommendations Date of Discharge Physical Therapy Roll Left to Right (QC): 6 Sit to Lying (QC): 4 Lying to Sitting/Side of Bed(Q: 4 Sit to Stand (QC): 5 Chair/Rtg-er-Kmlzf Xfer(QC): 5 Toilet Transfer (QC): 4 Car Transfer (QC): 5 Does the Patient Walk: Yes Mode of Locomotion: Walk Anticipated Mode of Locomotion: Walk Walk 10 feet (QC): 5 Walk 50 ft with 2 Turns(QC): 4 Walk 150 ft (QC): 88 (pt. fatigues and bcomes weak) Walking 10ft on uneven surface: 4 Distance: 35 feet Gait Assistive Device: FWW Does the Pt Use a Wheelchair: Yes Wheelchair Distance: 50 feet Wheel 50 ft with 2 turns (QC): 6 Wheel 150 ft (QC): 6 Type of Wheelchair: Manual #of Steps: 0 1 Step (curb) (QC): 4 4 Steps (QC): 88 12 Steps (QC): 88 Walking Assistive Device: Walker Balance Sitting Static: Good Balance Sitting Dynamic: Good Balance-Standing Static: Fair Picking up an Object (QC): 88 Occupational Therapy Pt admitted to ARU with debility. At [facility], pt was residing at [facility] and has assistance with most ADLs, she was able to feed herself independently after her meal was brought to her room, she could toilet independently with urination, but requires assistance with hygiene post BM. She requires moderate assistance with showering at [facility] and dependent with all dressing tasks. Upon initial evaluation, pt was independent with eating, required set up with oral care, mod A showering, min A upper body dressing, max A lower body dressing, total assist footwear and max A toileting. Pt made good functional progress towards goals, meeting all LTGs except for footwear. Pt to discharge from facility, d/c from OT. Decreased Activ Tolerance, Decreased UE Strength, Impaired Self-Care Skills Eating (QC): 6 Oral Hygiene (QC): 6 Shower/Bathe Self (QC): 3 (min A) Upper Body Dressing (QC): 5 Lower Body Dressing (QC): 3 (min A) On/Off Footwear (QC): 2 Toileting Hygiene (QC): 4 (Supervision for safety) PT Half-Way Goals Auto Camp Attendant Goals PT Auto Camp Attendant Goals Time Frame: Jul 12, 2021 Roll Left to Right (QC): 5 Sit to Lying (QC): 5 Lying-Sitting on Side/Bed(QC): 4 Sit to Stand (QC): 4 Chair/[id number] Xfer(QC): 4 Car Transfer (QC): 4 Does the Patient Walk: Yes Walk 10 feet (QC): 5 Walk 10ft-Uneven Surface(QC): 4 Walk 50ft with 2 Turns (QC): 5 Walk 150 ft (QC): 4 Does the Pt use WC or Scooter?: Yes Wheel 50 feet with 2 turns (QC: 6 1 Step (curb) (QC): 4 4 Steps (QC): 88 12 Steps (QC): 88 Picking up an Object (QC): 4 OT Half-Way Goals Auto Camp Attendant Goals Time Frame: Jul 19, 2021 Eating (QC): 6 (met) Oral Hygiene (QC): 6 (met) Shower/Bathe Self (QC): 3 (met) Upper Body Dressing (QC): 3 (met) Lower Body Dressing (QC): 3 (met) On/Off Footwear (QC): 3 (not met) Toileting Hygiene (QC): 4 (met) Toilet/Commode Transfer (QC): 4 Additional Goals: 1-Demonstrate ADL Tasks, 2-Verbalize Understanding, 3- ImproveStrength/Naina 1=Demonstrate adherence to instructed precautions during ADL tasks. 2=Patient will verbalize/demonstrate understanding of assistive devices/modifications for ADL. 3=Patient will improve strength/tolerance for activity to enable patient to perform ADL's. GABRIELLA FITCH OT Jul 12, 2021 08:30
[2021-07-12] MEDS: SENNA W/DOCUSATE (SENOKOT S) TABLET PO SCH (08:32)
[2021-07-12] MEDS: DOCUSATE SODIUM 100 MG (COLACE) CAP PO SCH (08:32)
[2021-07-12] MEDS: polyethylene glycoL POWDER 17 GM (MIRALAX) PACK PO SCH (08:32)
--- NOTE | 2021-07-12 09:35 | Therapy Team Discharge Summary ---
Therapy Discharge Summary Discharge Recommendations Date of Discharge Physical Therapy Patient came to rehab with debility. Upon evaluation patient performed bed mobility and transfers and car transfer with min/mod assist, ambulated 35' with a rolling walker with min/mod assist (including 10' over an uneven surface), propelled a manual WC 50' with SBA, and went up and down 1 step using a rolling walker with min/mod assist. Patient has been performing bed mobility and transfer training, balance and endurance training, functional strengthening, stair training, gait training, and education. Patient has made some progress but has only met her retirement goals for bed mobility and transfers. Now, patient performs rolling with independence, supine <-> sit with SBA, sit <-> stand and transfers with setup, car transfer with setup, ambulates 50' with a rolling walker with CGA (including 50' with at least 2 turns of 90 degrees and 10' over an uneven surface), can propel a manual WC 150' with independence, and can go up and down 1 step using a rolling walker with CGA. Patient is being discharged from this facility today and will be discharged from PT at this time. Roll Left to Right (QC): 6 Sit to Lying (QC): 4 Lying to Sitting/Side of Bed(Q: 4 Sit to Stand (QC): 5 Chair/Vbk-lg-Arxbd Xfer(QC): 5 Toilet Transfer (QC): 4 Car Transfer (QC): 5 Does the Patient Walk: Yes Mode of Locomotion: Walk Anticipated Mode of Locomotion: Walk Walk 10 feet (QC): 5 Walk 50 ft with 2 Turns(QC): 4 Walk 150 ft (QC): 88 (pt. fatigues and bcomes weak) Walking 10ft on uneven surface: 4 Distance: 35 feet Gait Assistive Device: FWW Does the Pt Use a Wheelchair: Yes Wheelchair Distance: 50 feet Wheel 50 ft with 2 turns (QC): 6 Wheel 150 ft (QC): 6 Type of Wheelchair: Manual #of Steps: 0 1 Step (curb) (QC): 4 4 Steps (QC): 88 12 Steps (QC): 88 Walking Assistive Device: Walker Balance Sitting Static: Good Balance Sitting Dynamic: Good Balance-Standing Static: Fair Picking up an Object (QC): 88 Occupational Therapy Decreased Activ Tolerance, Decreased UE Strength, Impaired Self-Care Skills Eating (QC): 6 Oral Hygiene (QC): 6 Shower/Bathe Self (QC): 3 (min A) Upper Body Dressing (QC): 5 Lower Body Dressing (QC): 3 (min A) On/Off Footwear (QC): 2 Toileting Hygiene (QC): 4 (Supervision for safety) PT Mcc Goals Mcc Goals PT Mcc Goals Time Frame: Jul 12, 2021 Roll Left to Right (QC): 5 Sit to Lying (QC): 5 Lying-Sitting on Side/Bed(QC): 4 Sit to Stand (QC): 4 Chair/Ceg-cz-Anquq Xfer(QC): 4 Car Transfer (QC): 4 Does the Patient Walk: Yes Walk 10 feet (QC): 5 Walk 10ft-Uneven Surface(QC): 4 Walk 50ft with 2 Turns (QC): 5 Walk 150 ft (QC): 4 Does the Pt use WC or Scooter?: Yes Wheel 50 feet with 2 turns (QC: 6 1 Step (curb) (QC): 4 4 Steps (QC): 88 12 Steps (QC): 88 Picking up an Object (QC): 4 OT Mcc Goals Mcc Goals Time Frame: Jul 19, 2021 Eating (QC): 6 (met) Oral Hygiene (QC): 6 (met) Shower/Bathe Self (QC): 3 (met) Upper Body Dressing (QC): 3 (met) Lower Body Dressing (QC): 3 (met) On/Off Footwear (QC): 3 (not met) Toileting Hygiene (QC): 4 (met) Toilet/Commode Transfer (QC): 4 Additional Goals: 1-Demonstrate ADL Tasks, 2-Verbalize Understanding, 3- ImproveStrength/Naina 1=Demonstrate adherence to instructed precautions during ADL tasks. 2=Patient will verbalize/demonstrate understanding of assistive devices/modifications for ADL. 3=Patient will improve strength/tolerance for activity to enable patient to perform ADL's. IMELDA HAM PT Jul 12, 2021 09:35
[2021-07-12 13:00] VITALS: BP 167/71
== END 2021-07-12 13:33 | disposition home health service (06) | DRG 91 ==
PROVIDERS: ADMIT Internal Medicine; ATTEND Internal Medicine
DX: G72.81 Critical illness myopathy (principal); J15.5 Pneumonia due to Escherichia coli; G93.40 Encephalopathy, unspecified; E11.40 Type 2 diabetes mellitus with diabetic neuropathy, unspecified; F03.90 Unspecified dementia, unspecified severity, without behavioral disturbance, psychotic disturbance, mood disturbance, and anxiety; I10 Essential (primary) hypertension; M19.071 Primary osteoarthritis, right ankle and foot; E78.00 Pure hypercholesterolemia, unspecified; Z66 Do not resuscitate; E78.5 Hyperlipidemia, unspecified; K21.9 Gastro-esophageal reflux disease without esophagitis; E03.9 Hypothyroidism, unspecified; F41.9 Anxiety disorder, unspecified; R74.01 Elevation of levels of liver transaminase levels; F32.A Depression, unspecified; E87.6 Hypokalemia; R33.9 Retention of urine, unspecified; N32.81 Overactive bladder; B35.1 Tinea unguium; M21.542 Acquired clubfoot, left foot; M21.541 Acquired clubfoot, right foot; R68.2 Dry mouth, unspecified; Z79.84 Long term (current) use of oral hypoglycemic drugs; Z88.5 Allergy status to narcotic agent; Z88.8 Allergy status to other drugs, medicaments and biological substances; Z88.6 Allergy status to analgesic agent; Z91.011 Allergy to milk products
CPT/HCPCS: 36415; 71045; 80053; 82947; 83880; 85025; 93306; 94640; 94760

== ENCOUNTER 2021-09-24 07:29 | Emergency (ER) | payer MEDICARE, OTHER ==
[~2021-09-24] VITALS: Ht 167.7 cm; Wt 89.4 kg
[~2021-09-24 07:29] MED LIST changes: +AMLO-250 PO; +BENZ100C18 PO; +FLUT1AER4 IH; +GLIM1TAB4 PO; +GUAI5SYR PO; +LISI10TA25 PO; +MONT-40 PO; +TMSL.4C PO; +TOLTA4 PO
[2021-09-24] MEDS ORDERED: DOXYCYCLINE 100 MG (VIBRAMYCIN) TABLET PO STA (07:43)
[2021-09-24] MEDS ORDERED: NS IV 1000 ML 1,000 ML IV SCH (07:45)
[2021-09-24] MEDS ORDERED: CEFEPIME INJECTION 1,000 MG in NS (IVPB) 50 ML IV ONE (07:45)
[2021-09-24] MEDS ORDERED: ACETAMINOPHEN 500 MG TAB (TYLENOL) PO PRN (07:45)
--- NOTE | 2021-09-24 07:50 | ED General ---
General Stated Complaint: UTI Source of Information: Patient, EMS, [facility] Records Exam Limitations: No Limitations History of Present Illness Date Seen by Provider: Sep 24, 2021 Time Seen by Provider: 07:30 Initial Comments 80-year-old female with past medical history of diabetes, hypertension, hyperlipidemia, hypothyroidism, GERD coming in via EMS from her assisted living facility due to confusion, fever, and known UTI. She was started on Cipro around a week ago for a UTI. The culture came back resistant and she was switched over to Macrobid yesterday. She has had 1 dose of that. Her temperature for EMS was 100.6. I called the assisted living facility and they state that for the past couple days she has been getting more confused, normally ambulates on her own, and today is unable to. Has not been eating or drinking consistently. No vomiting or diarrhea that they noted. She says she has some lower abdominal discomfort which is mild to moderate, constant, aching. Nothing seems to make it better or worse. She has had all of her meds except for her morning meds today. EMS reports she was hypertensive, HR in the 120's to 130's, O2 was 88% on RA so they placed her on 2L via NC. Allergies and Home Medications Allergies Coded Allergies: codeine (Unverified Adverse Reaction, Unknown, 06/25/20) ketorolac (Unverified Adverse Reaction, Unknown, 06/25/20) naproxen (Unverified Adverse Reaction, Unknown, 06/25/20) Patient Home Medication List Home Medication List Reviewed: Yes Acetaminophen (Acetaminophen) 500 Mg Tablet, 1,000 MG PO HS, (Reported) Entered as Reported by: BONITA MEDLEY on 06/25/20 1128 Acetaminophen (Tylenol Extra Strength) 500 Mg Tablet, 1,000 MG PO TID PRN for PAIN-MILD (1-4), (Reported) Entered as Reported by: LEVY DEVI on 06/28/21 1053 Amlodipine Besylate (Amlodipine Besylate) 5 Mg Tablet, 10 MG PO DAILY Prescribed by: ERICA DUKE on 07/12/21 0616 Atorvastatin Calcium (Atorvastatin Calcium) 80 Mg Tablet, 80 MG PO HS, (Reported) Entered as Reported by: BONITA MEDLEY on 06/25/20 1128 Benzonatate (Tessalon Perles) 100 Mg Capsule, 200 MG PO TID Prescribed by: ERICA DUKE on 07/12/21615 Cetirizine HCl (Cetirizine HCl) 10 Mg Tablet, 10 MG PO DAILY, (Reported) Entered as Reported by: BONITA MEDLEY on 06/25/20 112 Cholecalciferol (Vitamin D3) (Vitamin D3) 25 Mcg Capsule, 25 MCG PO DAILY, (Reported) Entered as Reported by: LEVY DEVI on 06/28/21 105 Cranberry Extract/Vit C (Azo Cranberry Softgel) 1 Each Capsule, 1 EACH PO DAILY, (Reported) Entered as Reported by: LEVY DEVI on 06/28/21 105 Cyanocobalamin (Vitamin B-12) (Vitamin B-12) 1,000 Mcg Tablet, 1,000 MCG PO DAILY, (Reported) Entered as Reported by: BONITA MEDLEY on 06/25/20 112 Donepezil HCl (Donepezil HCl) 5 Mg Tablet, 5 MG PO HS, (Reported) Entered as Reported by: BONITA MEDLEY on 06/25/20 112 Dulaglutide (Trulicity) 1.5 Mg/0.5 Ml Pen.injctr, 1.5 MG SC WED, (Reported) Entered as Reported by: BONITA MEDLEY on 06/25/20 112 Fluticasone/Salmeterol (Fluticasone-Salmeterol 113-14) 1 Each Aer.pow.ba, 0 EACH IH RTBID Prescribed by: ERICA DUKE on 07/12/21615 Gabapentin (Gabapentin) 600 Mg Tablet, 600 MG PO HS, (Reported) Entered as Reported by: BONITA MEDLEY on 06/25/201127 Gabapentin (Neurontin) 300 Mg Capsule, 300 MG PO DAILY, (Reported) Entered as Reported by: BONITA MEDLEY on 06/25/201127 Glimepiride (Glimepiride) 1 Mg Tablet, 1 MG PO BID Prescribed by: ERICA DUKE on 07/12/21615 Guaifenesin/Dextromethorphan (Guaifenesin Dm Syrup) 5 Ml Syrup, 10 ML PO Q4H PRN for COUGH Prescribed by: ERICA DUKE on 07/12/21615 L.acidoph & Paracasei,B.lactis (Probiotic) 1 Each Capsule, 1 EACH PO DAILY, (Reported) Entered as Reported by: LEVY DEVI on 06/28/21 105 Levothyroxine Sodium (Levothyroxine Sodium) 50 Mcg Tablet, 50 MCG PO DAILY, (Reported) Entered as Reported by: BONITA MEDLEY on 06/25/20 112 Lisinopril (Lisinopril) 10 Mg Tablet, 20 MG PO DAILY Prescribed by: ERICA DUKE on 07/12/21615 Loperamide HCl (Loperamide) 2 Mg Capsule, 2 MG PO Q4H PRN for DIARRHEA, (Reported) Entered as Reported by: LEVY DEVI on 06/28/21 105 Mag Hydrox/Al Hydrox/Simeth (Mylanta Suspension) 30 Ml Oral.susp, 30 ML PO Q8H PRN for INDIGESTION, (Reported) Entered as Reported by: LEVY DEVI on 06/28/21 105 Metoprolol Succinate (Metoprolol Succinate) 100 Mg Tab.er.24h, 100 MG PO DAILY, (Reported) Entered as Reported by: BONITA MEDLEY on 06/25/20 112 Mirabegron (Myrbetriq) 25 Mg Tab.er.24h, 25 MG PO DAILY, (Reported) Entered as Reported by: BONITA MEDLEY on 06/25/201127 Montelukast Sodium (Montelukast Sodium) 10 Mg Tablet, 10 MG PO DAILY Prescribed by: ERICA DUKE on 07/12/21615 Nystatin (Nystatin) 1 Each Powder.ea., 1 EACH TOP BID PRN for GAULDING, (Reported) Entered as Reported by: LEVY DEVI on 06/28/21 105 Ondansetron (Ondansetron Odt) 4 Mg Tab.rapdis, 4 MG PO Q6H PRN for NAUSEA/VOMITING-1ST LINE, (Reported) Entered as Reported by: LEVY DEVI on 06/28/21 105 Pantoprazole Sodium (Pantoprazole Sodium) 40 Mg Tablet.dr, 40 MG PO DAILY, (Reported) Entered as Reported by: BONITA MEDLEY on 06/25/201127 Polyethylene Glycol 3350 (Miralax) 17 Gm Powd.pack, 17 GM PO DAILY PRN for CONSTIPATION-2ND LINE, (Reported) Entered as Reported by: LEVY DEVI on 06/28/21 1053 Polyvinyl Alcohol/Povidone (Clear Eyes Natural Tears Drop) 15 Ml Drops, 1 DROP OU QID PRN for DRY EYES, (Reported) Entered as Reported by: LEVY DEVI on 06/28/21 1053 Ropinirole HCl (Ropinirole HCl) 0.25 Mg Tablet, 0.25 MG PO BID, (Reported) Entered as Reported by: LEVY DEVI on 06/28/21 1053 Tamsulosin HCl (Flomax) 0.4 Mg Cap, 0.4 MG PO DAILY@1800 Prescribed by: ERICA DUKE on 07/12/21 0616 Tolterodine Tartrate (Detrol LA) 4 Mg Cap, 4 MG PO HS Prescribed by: ERICA DUKE on 07/12/21 0616 Tramadol HCl (Tramadol HCl) 50 Mg Tablet, 50 MG PO BID, (Reported) Entered as Reported by: BONITA MEDLEY on 06/25/20 1128 Review of Systems Review of Systems Constitutional: chills, fever EENTM: No blurred vision Respiratory: No cough; short of breath Cardiovascular: No chest pain Gastrointestinal: abdominal pain; No diarrhea, No nausea, No vomiting Genitourinary: dysuria Musculoskeletal: no symptoms reported Skin: no symptoms reported Psychiatric/Neurological: Weakness (general weakness) Hematologic/Lymphatic: No Symptoms Reported Immunological/Allergic: no symptoms reported All Other Systems Reviewed Negative Unless Noted: Yes Past Lqrslfi-Izhhpi-Fdpbsq Hx Patient Social History Tobacco Use?: No Immunizations Up To Date First/Initial COVID19 Vaccinat: JUNE 2020 Second COVID19 Vaccination Ruben: JULY 2020 Seasonal Allergies Seasonal Allergies: No Past Medical History Surgery/Hospitalization HX: Hypertension, High Cholesterol, Peripheral Neuropathy, Hypothyroid Respiratory: No Cardiac: Yes High Cholesterol, Hypertension Neurological: Yes Dementia, Neuropathy Genitourinary: Yes Bladder Infection, Renal Failure, UTI-Chronic Gastrointestinal: Yes Gastroesophageal Reflux Musculoskeletal: No Endocrine: Yes Hypothyroidsim, Diabetes, Non-Insulin dep HEENT: No Cancer: No Psychosocial: No Integumentary: No Blood Disorders: No Adverse Reaction/Blood Tranf: No Family Medical History No Pertinent Family Hx Physical Exam-Suspected Sepsis Physical Exam Vital Signs Vital Signs - First Documented 09/24/21 07:54 Temp 37.4 Pulse 135 Resp 18 B/P (MAP) 156/102 (120) O2 Delivery Room Air Capillary Refill : Height, Weight, BMI Height: '" Weight: lbs. oz. kg; 26.39 BMI Method: General Appearance: No Apparent Distress, WD/WN Eyes: Bilateral Eye Normal Inspection HEENT: PERRL/EOMI, Normal ENT Inspection, Pharynx Normal Neck: Full Range of Motion, Normal Inspection, Non Tender, Supple Respiratory: Chest Non Tender, Lungs Clear, Normal Breath Sounds, No Accessory Muscle Use, No Respiratory Distress Cardiovascular: No Edema, Normal Peripheral Pulses, Tachycardia Gastrointestinal: Normal Bowel Sounds, Non Tender, Soft; No Distended, No Guarding Back: Normal Inspection, No CVA Tenderness, No Vertebral Tenderness Extremity: Normal Capillary Refill, Normal Inspection, Normal Range of Motion, Non Tender, No Calf Tenderness, No Pedal Edema Neurologic/Psychiatric: Alert, No Motor/Sensory Deficits, scale mechanic II-XII Norm as Tested, Disoriented Skin: normal color, warm/dry Lymphatic: No Adenopathy Focused Exam Lactate Level 09/24/21 07:42: Lactic Acid Level 3.82*H Lactic Acid Level Laboratory Tests Test 09/24/21 07:42 Lactic Acid Level 3.82 MMOL/L (0.50-2.00) *H Progress/Results/Core Measures Suspected Sepsis SIRS Temperature: Pulse: Respiratory Rate: Laboratory Tests 09/24/21 08:16: White Blood Count 22.9H Blood Pressure / Mean: 09/24/21 07:42: Lactic Acid Level 3.82*H Laboratory Tests 09/24/21 07:42: INR Comment 1.0 09/24/21 08:16: Platelet Count 277 Results/Orders Lab Results Laboratory Tests Test 09/24/21 07:42 09/24/21 08:16 Range/Units Prothrombin Time 13.4 12.2-14.7 SEC INR Comment 1.0 0.8-1.4 Activated Partial Thromboplast Time 22 L 24-35 SEC Lactic Acid Level 3.82 *H 0.50-2.00 MMOL/L White Blood Count 22.9 H 4.3-11.0 10^3/uL Red Blood Count 4.17 3.80-5.11 10^6/uL Hemoglobin 12.3 11.5-16.0 g/dL Hematocrit 38 35-52 % Mean Corpuscular Volume 91 80-99 fL Mean Corpuscular Hemoglobin 30 25-34 pg Mean Corpuscular Hemoglobin Concent 32 32-36 g/dL Red Cell Distribution Width 13.3 10.0-14.5 % Platelet Count 277 130-400 10^3/uL Mean Platelet Volume 9.8 9.0-12.2 fL Immature Granulocyte % (Auto) 0 % Neutrophils (%) (Auto) 88 H 42-75 % Lymphocytes (%) (Auto) 5 L 12-44 % Monocytes (%) (Auto) 5 0-12 % Eosinophils (%) (Auto) 2 0-10 % Basophils (%) (Auto) 0 0-10 % Neutrophils # (Auto) 20.2 H 1.8-7.8 10^3/uL Lymphocytes # (Auto) 1.0 1.0-4.0 10^3/uL Monocytes # (Auto) 1.1 H 0.0-1.0 10^3/uL Eosinophils # (Auto) 0.4 H 0.0-0.3 10^3/uL Basophils # (Auto) 0.1 0.0-0.1 10^3/uL Immature Granulocyte # (Auto) 0.1 0.0-0.1 10^3/uL My Orders Orders - ALICIA MARTIN MD Cbc With Automated Diff (09/24/21 07:43) Comprehensive Metabolic Panel (09/24/21 07:43) Blood Culture (09/24/21 07:43) Urinalysis (09/24/21 07:43) Urine Culture (09/24/21 07:43) Protime With Inr (09/24/21 07:43) Partial Thromboplastin Time (09/24/21 07:43) Chest 1 View Ap/Pa Only (09/24/21 07:43) Acetaminophen Tablet (Tylenol Tablet) (09/24/21 07:45) Ed Iv/Invasive Line Start (09/24/21 07:43) Ed Iv/Invasive Line Start (09/24/21 07:43) Ekg Tracing (09/24/21 07:43) Vital Signs Adult Sepsis Patie Q15M (09/24/21 07:43) O2 (4/26/22 07:43) Remove Rings In Anticipation O (09/24/21 07:43) Lactic Acid Analyzer (09/24/21 07:43) Influenza A & B Antigens (09/24/21 07:43) Ns Iv 1000 Ml (Sodium Chloride 0.9%) (09/24/21 07:45) Cefepime Injection (Maxipime Injection) (09/24/21 07:45) Doxycycline Hyclate Tablet (Vibramycin T (09/24/21 07:43) Meropenem (Merrem 1000 Mg) (09/24/21 08:30) Manual Differential (09/24/21 08:16) Medications Given in ED Current Medications Medications Dose Ordered Sig/Umair Route Start Time Stop Time Status Last Admin Dose Admin Acetaminophen 1,000 mg ONCE PRN PO 09/24/21 07:45 09/24/21 08:10 DC 09/24/21 08:10 1,000 MG Cefepime HCl 1000 mg/Sodium Chloride 50 ml @ 100 mls/hr ONCE ONCE IV 09/24/21 07:45 09/24/21 08:14 DC 09/24/21 08:09 100 MLS/HR Vital Signs/I&O 09/24/21 09/24/21 07:54 08:10 Temp 37.4 37.4 Pulse 135 Resp 18 B/P (MAP) 156/102 (120) O2 Delivery Room Air Capillary Refill : Progress Note : Progress Note 80-year-old female with above history coming in due to fever, confusion, general weakness, and known UTI. Has been on ciprofloxacin for the past week. The patient was tachycardic on arrival here and disoriented to place and time. Afebrile for us but febrile for EMS. She was given Tylenol, 2 L IV fluids, and initially cefepime. I contacted her primary care provider, Dr. 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 We then added an IV meropenem to her regimen. The patient will be transferred to [facility] for continuity of care with Dr. Bach. ECG Initial ECG Impression Date: Sep 24, 2021 Initial ECG Impression Time: 08:23 Initial ECG Rate: 142 Initial ECG Rhythm: S.Tach Comment Narrow QRS, normal axis, there is significant artifact from the patient's tremor making further interpretation not possible Diagnostic Imaging Diagonstic Imaging: Xray (chest) Comments NAME: TAMIKO GONG [facility] REC#: [id number] PT STATUS: REG ER : 1940 PHYSICIAN: ALICIA MARTIN MD ADMIT DATE: 09/24/21/ER FS Draft Date of Exam:09/24/21 CHEST 1 VIEW AP/PA ONLY INDICATION: Shortness of breath and hypoxia. Frontal chest obtained at 7:52 a.m. and compared to 07/03/2021. Cardiomegaly is noted. There is mild central vascular congestion. There is a prominent hiatal hernia. There is no acute infiltrate. Infiltrates seen in the lung bases and the prior study appear resolved. IMPRESSION: Cardiomegaly and mild central vascular congestion. No acute infiltrate with improvement in bibasilar infiltrates compared to the prior study. Prominent hiatal hernia is noted. Dictated on workstation # [id number] Dict: 09/24/21 0759 Trans: 09/24/21 0802 CVB [id number] Interpreted by: BABATUNDE CASTRO MD Electronically signed by: Departure Impression Primary Impression: UTI (urinary tract infection) Qualified Codes: N30.00 - Acute cystitis without hematuria Additional Impressions: Sepsis Qualified Codes: A41.51 - Sepsis due to Escherichia coli [e. coli]; R65.20 - Severe sepsis without septic shock; G93.41 - Metabolic encephalopathy Confusion Disposition: T-[facility] HOS[facility] Condition: Stable Admissions Decision to Admit/Date: Sep 24, 2021 Time/Decision to Admit Time: 08:19 Transfer Transfer Reason: Patient preference (continuity of care) Time Spoke to Accepting Phy: 08:10 Transfer Progress Notes Discussed the case with Dr. Bach who will accept the patient for continuity of care to [facility] Transfer Facility: [facility] Method of Transfer: EMS Departure-Patient Inst. Referrals: KATELIN BACH MD (PCP/Family) Primary Care Physician ALICIA MARTIN MD Sep 24, 2021 07:50
--- NOTE | 2021-09-24 08:02 | Diagnostic Imaging Report ---
INDICATION: Shortness of breath and hypoxia. Frontal chest obtained at 7:52 a.m. and compared to 07/03/2021. Cardiomegaly is noted. There is mild central vascular congestion. There is a prominent hiatal hernia. There is no acute infiltrate. Infiltrates seen in the lung bases and the prior study appear resolved. IMPRESSION: Cardiomegaly and mild central vascular congestion. No acute infiltrate with improvement in bibasilar infiltrates compared to the prior study. Prominent hiatal hernia is noted. Dictated by: Dictated on workstation # [id number]
[2021-09-24 08:20] LABS: BASOPHILS # (AUTO) 0.1 10^3/uL (0.0-0.1); BASOPHILS % (AUTO) 0 % (0-10); EOSINOPHILS # (AUTO) 0.4 10^3/uL (0.0-0.3); EOSINOPHILS % (AUTO) 2 % (0-10); HEMATOCRIT 38 % (35-52); HEMOGLOBIN 12.3 g/dL (11.5-16.0); LYMPHOCYTES % (AUTO) 5 % (12-44); MEAN CORPUSCULAR HEMOGLOBIN 30 pg (25-34); MEAN CORPUSCULAR HGB CONC 32 g/dL (32-36); MEAN CORPUSCULAR VOLUME 91 fL (80-99); MEAN PLATELET VOLUME 9.8 fL (9.0-12.2); MONOCYTES # (AUTO) 1.1 10^3/uL (0.0-1.0); MONOCYTES % (AUTO) 5 % (0-12); NEUTROPHILS # (AUTO) 20.2 10^3/uL (1.8-7.8); NEUTROPHILS % (AUTO) 88 % (42-75); PLATELET COUNT 277 10^3/uL (130-400); WHITE BLOOD COUNT 22.9 10^3/uL (4.3-11.0)
[2021-09-24 08:20] LABS: PROTHROMBIN TIME PATIENT 13.4 SEC (12.2-14.7)
[2021-09-24 08:27] LABS: POTASSIUM 4.4 MMOL/L (3.6-5.0)
[2021-09-24 08:28] LABS: ALBUMIN 3.4 GM/DL (3.2-4.5); BILIRUBIN,TOTAL 0.5 MG/DL (0.1-1.0); CALCIUM 9.6 MG/DL (8.5-10.1); CREATININE SERUM 1.91 MG/DL (0.60-1.30); TOTAL PROTEIN 7.8 GM/DL (6.4-8.2)
[2021-09-24] MEDS ORDERED: MEROPENEM 1,000 MG in NS (IVPB) 100 ML IV ONE (08:30)
[2021-09-24] MEDS ORDERED: MEROPENEM 500 MG VIAL (MERREM) IV ONE (08:34)
[2021-09-24] MEDS ORDERED: NS (IVPB) 100 ML ONE (08:35)
[2021-09-24 08:43] LABS: BAND NEUTROPHILS 2 %; BASOPHILS % (MANUAL) 0 %; EOSINOPHILS % (MANUAL) 2 %; LYMPHOCYTES % (MANUAL) 2 %; MONOCYTES % (MANUAL) 5 %; NEUTROPHILS % (MANUAL) 89 %; TOXIC GRANULATION/VACUOLAZATIO 1+
[2021-09-24 09:44] VITALS: BP 127/64
== END 2021-09-24 09:44 | disposition short-term general hospital (02) ==
LOC: EDUNIT# 07:29 → ER FS 07:30
DX: N39.0 Urinary tract infection, site not specified (principal); A41.9 Sepsis, unspecified organism; R41.0 Disorientation, unspecified; R00.0 Tachycardia, unspecified
CPT/HCPCS: 36415; 71045; 80053; 83605; 85007; 85027; 85610; 85730; 87040; 87077; 87804; 93005

== ENCOUNTER 2021-12-07 07:19 | Emergency (ER) | payer MEDICARE, OTHER ==
[2021-12-07] MEDS ORDERED: NS IV 1000 ML 1,000 ML IV SCH (07:30)
[2021-12-07] MEDS ORDERED: ONDANSETRON 4 MG/2 ML (SDV) Z0FRAN IV ONE (07:30)
[2021-12-07 07:41] LABS: BASOPHILS % (AUTO) 0 % (0-10); EOSINOPHILS % (AUTO) 0 % (0-10); HEMATOCRIT 41 % (35-52); HEMOGLOBIN 12.9 g/dL (11.5-16.0); LYMPHOCYTES % (AUTO) 10 % (12-44); MEAN CORPUSCULAR HEMOGLOBIN 30 pg (25-34); MEAN CORPUSCULAR HGB CONC 31 g/dL (32-36); MEAN CORPUSCULAR VOLUME 94 fL (80-99); MEAN PLATELET VOLUME 9.8 fL (9.0-12.2); MONOCYTES # (AUTO) 0.4 10^3/uL (0.0-1.0); MONOCYTES % (AUTO) 4 % (0-12); NEUTROPHILS # (AUTO) 8.5 10^3/uL (1.8-7.8); NEUTROPHILS % (AUTO) 85 % (42-75); PLATELET COUNT 162 10^3/uL (130-400); WHITE BLOOD COUNT 9.9 10^3/uL (4.3-11.0)
[2021-12-07 07:50] LABS: BILIRUBIN,URINE NEGATIVE (NEGATIVE); CLARITY,URINE CLEAR; COLOR,URINE YELLOW; GLUCOSE, URINE (UA) NEGATIVE (NEGATIVE); KETONES,URINE TRACE (NEGATIVE); LEUKOCYTE ESTERASE ,URINE TRACE (NEGATIVE); NITRITE,URINE NEGATIVE (NEGATIVE); PH,URINE 5.5 (5-9); PROTEIN,URINE TRACE (NEGATIVE)
[2021-12-07 07:52] LABS: INR 1.2 (0.8-1.4); PROTHROMBIN TIME PATIENT 15.1 SEC (12.2-14.7)
[2021-12-07 07:57] LABS: ABG BASE EXCESS -8.2 MMOL/L (-2.5-2.5); ABG OXYGEN SATURATION 86 % (94-100); ABG PCO2 24 MMHG (35-45); ABG PO2 51 MMHG (79-93); ABG TCO2 15.6 MMOL/L (21.0-31.0)
[2021-12-07 07:58] LABS: ALLENS TEST NEGATIVE; INSPIRED O2 4L; PATIENT TEMP 37.3; VENTILATOR NO
[2021-12-07 07:59] LABS: BACTERIA,URINE MODERATE /HPF; RBC,URINE 0-2 /HPF
[2021-12-07 08:03] LABS: CARBON DIOXIDE 14 MMOL/L (21-32); CHLORIDE 99 MMOL/L (98-107); POTASSIUM 3.5 MMOL/L (3.6-5.0); SODIUM 135 MMOL/L (135-145)
[2021-12-07 08:04] LABS: ALANINE AMINOTRANSFERASE 16 U/L (0-55); ALBUMIN 3.1 GM/DL (3.2-4.5); ALKALINE PHOSPHATASE 58 U/L (40-136); BILIRUBIN,TOTAL 0.7 MG/DL (0.1-1.0); BUN/CREATININE RATIO 15; CALCIUM 8.6 MG/DL (8.5-10.1); CREATININE SERUM 1.71 MG/DL (0.60-1.30); GFR ESTIMATED 29; GLUCOSE 270 MG/DL (70-105); TOTAL PROTEIN 7.1 GM/DL (6.4-8.2)
[2021-12-07] MEDS ORDERED: MEROPENEM 1,000 MG in NS (IVPB) 100 ML IV STA (08:06)
[2021-12-07] MEDS ORDERED: cefTRIAXone 1 GM PRE-MIX 50 ML IV STA (08:06)
[2021-12-07] MEDS ORDERED: NS IV 1000 ML 1,000 ML IV STA ×2 (08:06→08:36)
--- NOTE | 2021-12-07 08:34 | ED General ---
General Chief Complaint: Altered Mental Status Stated Complaint: UTI, LETHARGIC,INCONTINENT Nursing Triage Note: Patient has been brought by EMS with cc of altered mental status. Patient has not been her self for the last 2 days. This morning very hard to arouse, [facility]. Source of Information: Patient, EMS, Family, Old Records Exam Limitations: Other (altered mental status) History of Present Illness Date Seen by Provider: Dec 07, 2021 Time Seen by Provider: 07:19 Initial Comments 81-year-old female presenting with EMS from [facility]. She had been having decreased responsiveness over the last 48 hours. This morning they had difficulty trying to arouse her and she had vomited. She does have a history of recurrent urinary tract infections and has ESBL positive urine from cultures in the past. She was found to have decreased oxygen saturation in the mid to upper 80s on room air and on 4 L by nasal cannula she has been up to 94 to 96%. She was also tachycardic in the 130s for her heart rate. She had recent urinary tract infection treated with Macrobid in the middle of October. She also had sepsis with UTI at the end of August. Timing/Duration: 1-2 Days Severity: Severe Associated Systoms: No Chest Pain; Cough; No Diaphoresis, No Fever/Chills; Malaise, Nausea/Vomiting, Shortness of Air, Weakness Allergies and Home Medications Allergies Coded Allergies: codeine (Unverified Adverse Reaction, Unknown, 06/25/20) ketorolac (Unverified Adverse Reaction, Unknown, 06/25/20) naproxen (Unverified Adverse Reaction, Unknown, 06/25/20) Patient Home Medication List Home Medication List Reviewed: Yes Acetaminophen (Acetaminophen) 500 Mg Tablet, 1,000 MG PO HS, (Reported) Entered as Reported by: BONITA MEDLEY on 06/25/20 1128 Acetaminophen (Tylenol Extra Strength) 500 Mg Tablet, 1,000 MG PO TID PRN for PAIN-MILD (1-4), (Reported) Entered as Reported by: LEVY DEVI on 06/28/21 1053 Amlodipine Besylate (Amlodipine Besylate) 5 Mg Tablet, 10 MG PO DAILY Prescribed by: ERICA DUKE on 07/12/21 0616 Atorvastatin Calcium (Atorvastatin Calcium) 80 Mg Tablet, 80 MG PO HS, (Reported) Entered as Reported by: BONITA MEDLEY on 06/25/20 112 Benzonatate (Tessalon Perles) 100 Mg Capsule, 200 MG PO TID Prescribed by: ERICA DUKE on 07/12/21615 Cetirizine HCl (Cetirizine HCl) 10 Mg Tablet, 10 MG PO DAILY, (Reported) Entered as Reported by: BONITA MEDLEY on 06/25/20 112 Cholecalciferol (Vitamin D3) (Vitamin D3) 25 Mcg Capsule, 25 MCG PO DAILY, (Reported) Entered as Reported by: LEVY DEVI on 06/28/21 105 Cranberry Extract/Vit C (Azo Cranberry Softgel) 1 Each Capsule, 1 EACH PO DAILY, (Reported) Entered as Reported by: LEVY DEVI on 06/28/21 105 Cyanocobalamin (Vitamin B-12) (Vitamin B-12) 1,000 Mcg Tablet, 1,000 MCG PO DAILY, (Reported) Entered as Reported by: BONITA MEDLEY on 06/25/201127 Donepezil HCl (Donepezil HCl) 5 Mg Tablet, 5 MG PO HS, (Reported) Entered as Reported by: BONITA MEDLEY on 06/25/201127 Dulaglutide (Trulicity) 1.5 Mg/0.5 Ml Pen.injctr, 1.5 MG SC WED, (Reported) Entered as Reported by: BONITA MEDLEY on 06/25/201127 Fluticasone/Salmeterol (Fluticasone-Salmeterol 113-14) 1 Each Aer.pow.ba, 0 EACH IH RTBID Prescribed by: ERICA DUKE on 07/12/21615 Gabapentin (Gabapentin) 600 Mg Tablet, 600 MG PO HS, (Reported) Entered as Reported by: BONITA MEDLEY on 06/25/201127 Gabapentin (Neurontin) 300 Mg Capsule, 300 MG PO DAILY, (Reported) Entered as Reported by: BONITA MEDLEY on 06/25/201127 Glimepiride (Glimepiride) 1 Mg Tablet, 1 MG PO BID Prescribed by: ERICA DUKE on 07/12/21615 Guaifenesin/Dextromethorphan (Guaifenesin Dm Syrup) 5 Ml Syrup, 10 ML PO Q4H PRN for COUGH Prescribed by: ERICA DUKE on 07/12/21615 L.acidoph & Paracasei,B.lactis (Probiotic) 1 Each Capsule, 1 EACH PO DAILY, (Reported) Entered as Reported by: LEVY DEVI on 06/28/21 105 Levothyroxine Sodium (Levothyroxine Sodium) 50 Mcg Tablet, 50 MCG PO DAILY, (Reported) Entered as Reported by: BONITA MEDLEY on 06/25/20 112 Lisinopril (Lisinopril) 10 Mg Tablet, 20 MG PO DAILY Prescribed by: ERICA DUKE on 07/12/21615 Loperamide HCl (Loperamide) 2 Mg Capsule, 2 MG PO Q4H PRN for DIARRHEA, (Reported) Entered as Reported by: LEVY DEVI on 06/28/21 105 Mag Hydrox/Al Hydrox/Simeth (Mylanta Suspension) 30 Ml Oral.susp, 30 ML PO Q8H PRN for INDIGESTION, (Reported) Entered as Reported by: LEVY DEVI on 06/28/21 105 Metoprolol Succinate (Metoprolol Succinate) 100 Mg Tab.er.24h, 100 MG PO DAILY, (Reported) Entered as Reported by: BONITA MEDLEY on 06/25/20 112 Mirabegron (Myrbetriq) 25 Mg Tab.er.24h, 25 MG PO DAILY, (Reported) Entered as Reported by: BONITA MEDLEY on 06/25/20 112 Montelukast Sodium (Montelukast Sodium) 10 Mg Tablet, 10 MG PO DAILY Prescribed by: ERICA DUKE on 07/12/21615 Nystatin (Nystatin) 1 Each Powder.ea., 1 EACH TOP BID PRN for GAULDING, (Reported) Entered as Reported by: LEVY DEVI on 06/28/21 105 Ondansetron (Ondansetron Odt) 4 Mg Tab.rapdis, 4 MG PO Q6H PRN for NAUSEA/VOMITING-1ST LINE, (Reported) Entered as Reported by: LEVY DEVI on 06/28/21 105 Pantoprazole Sodium (Pantoprazole Sodium) 40 Mg Tablet.dr, 40 MG PO DAILY, (Reported) Entered as Reported by: BONITA MEDLEY on 06/25/20 112 Polyethylene Glycol 3350 (Miralax) 17 Gm Powd.pack, 17 GM PO DAILY PRN for CONSTIPATION-2ND LINE, (Reported) Entered as Reported by: LEVY DEVI on 06/28/21 1053 Polyvinyl Alcohol/Povidone (Clear Eyes Natural Tears Drop) 15 Ml Drops, 1 DROP OU QID PRN for DRY EYES, (Reported) Entered as Reported by: LEVY DEVI on 06/28/21 1053 Ropinirole HCl (Ropinirole HCl) 0.25 Mg Tablet, 0.25 MG PO BID, (Reported) Entered as Reported by: LEVY DEVI on 06/28/21 105 Tamsulosin HCl (Flomax) 0.4 Mg Cap, 0.4 MG PO DAILY@1800 Prescribed by: ERICA DUKE on 07/12/21 0616 Tolterodine Tartrate (Detrol LA) 4 Mg Cap, 4 MG PO HS Prescribed by: ERICA DUKE on 07/12/21 0616 Tramadol HCl (Tramadol HCl) 50 Mg Tablet, 50 MG PO BID, (Reported) Entered as Reported by: BONITA MEDLEY on 06/25/20 1128 Review of Systems Review of Systems Constitutional: see HPI EENTM: no symptoms reported Respiratory: cough, short of breath Cardiovascular: palpitations Gastrointestinal: nausea, vomiting Genitourinary: incontinence (wears adult briefs) Musculoskeletal: no symptoms reported Skin: change in color (erythema to coccyx and sacral area, erythematous patch of skin under skin fold of pannus on left lower abdomen); No rash Psychiatric/Neurological: See HPI Hematologic/Lymphatic: Denies Blood Clots Past Uwbusxq-Cgrqna-Ndcvsc Hx Patient Social History Tobacco Use?: No Use of E-Cig and/or Vaping dev: Unable to obtain Substance use?: Unable to obtain Alcohol Use?: Unable to obtain Immunizations Up To Date First/Initial COVID19 Vaccinat: JUNE 2020 Second COVID19 Vaccination Ruben: JULY 2020 Seasonal Allergies Seasonal Allergies: No Past Medical History Surgery/Hospitalization HX: Hypertension, High Cholesterol, Peripheral Neuropathy, Hypothyroid, ESBL+ Urine Cultures, Recurrent UTI, Covid 19 Pneumonia November 2021 Respiratory: No Cardiac: Yes High Cholesterol, Hypertension Neurological: Yes Dementia, Neuropathy Genitourinary: Yes Bladder Infection, Renal Failure, UTI-Chronic Gastrointestinal: Yes Gastroesophageal Reflux Musculoskeletal: No Endocrine: Yes Hypothyroidsim, Diabetes, Non-Insulin dep HEENT: No Cancer: No Psychosocial: No Integumentary: No Blood Disorders: No Adverse Reaction/Blood Tranf: No Family Medical History No Pertinent Family Hx Physical Exam Vital Signs Vital Signs - First Documented 12/07/21 12/07/21 08:00 08:04 Temp 37.3 Pulse 126 Resp 28 B/P (MAP) 124/54 (77) Pulse Ox 91 O2 Delivery Nasal Cannula O2 Flow Rate 2.00 Capillary Refill : Height, Weight, BMI Height: '" Weight: lbs. oz. kg; 31.00 BMI Method: General Appearance: No Apparent Distress, Obese HEENT: No Moist Mucous Membranes (slightly dry mucous membranes) Neck: Full Range of Motion, Normal Inspection, Non Tender, Supple Respiratory: Chest Non Tender, No Respiratory Distress, Accessory Muscle Use, Decreased Breath Sounds, Rales (bases) Cardiovascular: Normal Peripheral Pulses, Tachycardia Gastrointestinal: Normal Bowel Sounds, No Pulsatile Mass, Non Tender, Soft Rectal: Deferred Extremity: Normal Capillary Refill, No Pedal Edema Neurologic/Psychiatric: Alert; No Oriented x3 (not answering questions) Skin: Warm/Dry, Pallor Focused Exam Sepsis Stage: Septic Shock Possible Source: Genitouriary Lactate Level 12/07/21 07:35: Lactic Acid Level 7.91*H Time of Focused Exam: 08:55 Respiratory: Chest Non Tender, No Accessory Muscle Use, No Respiratory Distress, Decreased Breath Sounds, Rales (bases) Cardiovascular: Normal Peripheral Pulses, Tachycardia Capillary Refill: Less Than 3 Seconds Peripheral Pulses: 2+ Carotid (R), 2+ Carotid (L), 2+ Radial Pulses (R), 2+ Radial Pulses (L) Skin: normal color, warm/dry Lactic Acid Level Laboratory Tests Test 12/07/21 07:35 Lactic Acid Level 7.91 MMOL/L (0.50-2.00) *H Within 3hrs of presentation: Admin fluids, Admin 30ml/kg IBW due to BMI>30, Admin ABX, Blood cultures prior to ABX's, Focus exam, Lactate level Progress/Results/Core Measures Suspected Sepsis SIRS Temperature: Pulse: 126 Respiratory Rate: 28 Laboratory Tests 12/07/21 07:35: White Blood Count 9.9 Blood Pressure 124 /54 Mean: 77 12/07/21 07:35: Lactic Acid Level 7.91*H Laboratory Tests 12/07/21 07:35: Creatinine 1.71H, INR Comment 1.2, Platelet Count 162, Total Bilirubin 0.7 Results/Orders Lab Results Laboratory Tests Test 12/07/21 07:35 12/07/21 07:50 12/07/21 07:55 Range/Units White Blood Count 9.9 4.3-11.0 10^3/uL Red Blood Count 4.36 3.80-5.11 10^6/uL Hemoglobin 12.9 11.5-16.0 g/dL Hematocrit 41 35-52 % Mean Corpuscular Volume 94 80-99 fL Mean Corpuscular Hemoglobin 30 25-34 pg Mean Corpuscular Hemoglobin Concent 31 L 32-36 g/dL Red Cell Distribution Width 15.4 H 10.0-14.5 % Platelet Count 162 130-400 10^3/uL Mean Platelet Volume 9.8 9.0-12.2 fL Immature Granulocyte % (Auto) 0 % Neutrophils (%) (Auto) 85 H 42-75 % Lymphocytes (%) (Auto) 10 L 12-44 % Monocytes (%) (Auto) 4 0-12 % Eosinophils (%) (Auto) 0 0-10 % Basophils (%) (Auto) 0 0-10 % Neutrophils # (Auto) 8.5 H 1.8-7.8 10^3/uL Lymphocytes # (Auto) 1.0 1.0-4.0 10^3/uL Monocytes # (Auto) 0.4 0.0-1.0 10^3/uL Eosinophils # (Auto) 0.0 0.0-0.3 10^3/uL Basophils # (Auto) 0.0 0.0-0.1 10^3/uL Immature Granulocyte # (Auto) 0.0 0.0-0.1 10^3/uL Prothrombin Time 15.1 H 12.2-14.7 SEC INR Comment 1.2 0.8-1.4 Activated Partial Thromboplast Time 23 L 24-35 SEC Sodium Level 135 135-145 MMOL/L Potassium Level 3.5 L 3.6-5.0 MMOL/L Chloride Level 99 98-107 MMOL/L Carbon Dioxide Level 14 L 21-32 MMOL/L Anion Gap 22 H 5-14 MMOL/L Blood Urea Nitrogen 26 H 7-18 MG/DL Creatinine 1.71 H 0.60-1.30 MG/DL Estimat Glomerular Filtration Rate 29 BUN/Creatinine Ratio 15 Glucose Level 270 H 70-105 MG/DL Lactic Acid Level 7.91 *H 0.50-2.00 MMOL/L Calcium Level 8.6 8.5-10.1 MG/DL Corrected Calcium 9.3 8.5-10.1 MG/DL Total Bilirubin 0.7 0.1-1.0 MG/DL Aspartate Amino Transf (AST/SGOT) 22 5-34 U/L Alanine Aminotransferase (ALT/SGPT) 16 0-55 U/L Alkaline Phosphatase 58 40-136 U/L Troponin I < 0.30 <0.30 NG/ML C-Reactive Protein 4.83 H <0.50 MG/DL Pro-B-Type Natriuretic Peptide 2161.0 H <450.0 PG/ML Total Protein 7.1 6.4-8.2 GM/DL Albumin 3.1 L 3.2-4.5 GM/DL Urine Color YELLOW Urine Clarity CLEAR Urine pH 5.5 5-9 Urine Specific [place] 1.025 H 1.016-1.022 Urine Protein TRACE H NEGATIVE Urine Glucose (UA) NEGATIVE NEGATIVE Urine Ketones TRACE H NEGATIVE Urine Nitrite NEGATIVE NEGATIVE Urine Bilirubin NEGATIVE NEGATIVE Urine Urobilinogen 0.2 < = 1.0 MG/DL Urine Leukocyte Esterase TRACE H NEGATIVE Urine RBC (Auto) NEGATIVE NEGATIVE Urine RBC 0-2 /HPF Urine WBC 10-25 H /HPF Urine Squamous Epithelial Cells 2-5 /HPF Urine Crystals NONE /LPF Urine Bacteria MODERATE H /HPF Urine Casts PRESENT /LPF Urine Hyaline Casts 10-25 H /LPF Urine Mucus NEGATIVE /LPF Urine Culture Indicated YES Influenza Type A (RT-PCR) Not Detected Not Detecte Influenza Type B (RT-PCR) Not Detected Not Detecte SARS-CoV-2 RNA (RT-PCR) Detected H Not Detecte Blood Gas Puncture Site RIGHT RADIAL Blood Gas Patient Temperature 37.3 Arterial Blood pH 7.40 7.37-7.43 Arterial Blood Partial Pressure CO2 24 L 35-45 MMHG Arterial Blood Partial Pressure O2 51 L 79-93 MMHG Arterial Blood HCO3 15 *L 23-27 MMOL/L Arterial Blood Total CO2 15.6 L 21.0-31.0 MMOL/L Arterial Blood Oxygen Saturation 86 L 94-100 % Arterial Blood Base Excess -8.2 L -2.5-2.5 MMOL/L Tre Test NEGATIVE Blood Gas Ventilator Setting NO Blood Gas Inspired Oxygen 4L My Orders Orders - KIAN IBANEZ MD Monitor-Rhythm Ecg Trace Only (12/07/21 07:27) Ed Iv/Invasive Line Start (12/07/21:27) Cbc With Automated Diff (12/07/21:27) Comprehensive Metabolic Panel (12/07/21:) Crp Fs (12/07/21:) Troponin I Fs (12/07/21:) Protime With Inr (12/07/21:) Partial Thromboplastin Time (12/07/21:) Ekg Tracing (12/07/21:) Arterial Blood Gas (12/07/21 07:27) Ns Iv 1000 Ml (Sodium Chloride 0.9%) (12/07/21 07:30) Ondansetron Injection (Zofran Injectio (12/07/21 07:30) Blood Culture (12/07/21 07:27) Rabago Cath (12/07/21:27) Probnp Fs (12/07/21 07:27) Ua Culture If Indicated (12/07/21:) Lactic Acid Analyzer (12/07/21 07:27) Ct Head Wo (12/07/21 07:30) Chest 1 View Ap/Pa Only (12/07/21 07:30) Abdomen (Kub) 1 View (12/07/21 07:30) Covid 19 Inhouse Test (12/07/21 07:30) Influenza A And B By Pcr (12/07/21 07:30) Isolation Central Supply Req (12/07/21 07:30) O2 (12/07/21 07:33) Urine Culture (12/07/21 07:50) Ceftriaxone 1 Gm Pre-Mix (Rocephin 1 Gm (12/07/21 08:06) Meropenem (Merrem 1000 Mg) (12/07/21 08:06) Ns Iv 1000 Ml (Sodium Chloride 0.9%) (12/07/21 08:06) Ns Iv 1000 Ml (Sodium Chloride 0.9%) (12/07/21 08:36) Dexamethasone Injection (Decadron Inje (12/07/21 08:42) Meropenem (Merrem 500 Mg) (12/07/21 08:41) Ns (Ivpb) (Sodium Chloride 0.9% Ivpb Bag (12/07/21 08:43) Vital Signs/I&O 12/07/21 12/07/21 12/07/21 12/07/21 08:00 08:04 08:50 09:43 Temp 37.3 36.8 36.8 Pulse 126 117 118 Resp 28 24 22 B/P (MAP) 124/54 (77) 120/52 115/53 Pulse Ox 91 92 93 O2 Delivery Nasal Cannula Nasal Cannula Nasal Cannula Nasal Cannula O2 Flow Rate 2.00 2.00 4.00 4.00 Capillary Refill : Blood Pressure Mean: 77 Progress Note #1: Progress Note With patient having decreased mental status, cough, incontinent of urine and acting similar to when she has had sepsis from UTI in the past will start with blood work and including blood cultures, urinalysis, lactic acid, general labs. Since she was having a cough and was initially hypoxic for EMS we will obtain an ABG and ordered influenza and COVID swab. Chest x-ray to evaluate for possible pneumonia. Give IV fluids for hydration and her tachycardia. 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 Progress Note #2: Progress Note Labs showed stable CBC without acute significant abnormality. Her white blood cell count was 9.9. On her urinalysis she did show signs of urinary tract infection and since she does have a history of ESBL in her urine will start with 1 g Rocephin IV and meropenem 1 g IV. Her lactic acid came back elevated at 7.9 so we will plan on administering 30 mils per kilogram of IV fluids for her septic shock. Rabago catheter placed to monitor accurate input and output. CT scan of her head was ordered due to her decreased mental status. From her vomiting will obtain a abdomen x-ray and a chest x-ray for her cough. The CT scan did not demonstrate any acute abnormality in her head. Her chest x-ray showed bilateral pneumonia or infiltrate and the abdomen x-ray did not show signs of obstruction but increased stool and rectal area. She did have stool in her adult brief when she was being examined and changed. Based on these findings we will plan on admitting to the hospital. I spoke with the daughter and she requested to try [place] first since Dr. Bach is patient's primary care provider. 08 I spoke with the nursing sample preparation supervisor at [place] and she informed me that they did not have an ICU bed for septic shock patient. 0829 as the family had stated that it would be okay to go to [place] as well I spoke with Dr. Gamboa from the hospitalist service at [facility]. He accepted the patient for COVID and septic shock. He recommended adding on Decadron 6 mg IV x1. Continue with IV fluids and antibiotics as already ordered. [address] Bach to update him about the patient since he is the primary care provider. He informed me that he had discharged patients from [place] and felt like he could take the patient there rather than have her go to [place]. He requested we call [facility] for nursing report and a bed after he had a few minutes to be able to call them himself to let them know that he was accepting the patient. 0938 [facility] did finally have a bed available and will transfer the patient there. After having IV fluids infusing antibiotics patient has becoming more alert and interactive. She is able to answer some questions and speak now. Heart rate has improved from 130s to 110-112. ECG Initial ECG Impression Date: Dec 07, 2021 Initial ECG Impression Time: 07:49 Initial ECG Rate: 126 Initial ECG Rhythm: S.Tach Initial ECG Comparisson: Unchanged Comment Sinus tachycardia with a heart rate of 126 bpm. HI interval [address] depression. QT interval 410 ms with a QTc interval 484 ms. There is no acute ST elevation. Overall appears similar to prior tracing in the system. Diagnostic Imaging Diagonstic Imaging: CT Plain Films/CT/US/NM/MRI: head Comments [facility] [place], [place] NAME: TAMIKO GONG MED REC#: [id number] PT STATUS: REG ER : 1940 PHYSICIAN: KIAN IBANEZ MD ADMIT DATE: 12/07/21/ER FS Signed Date of Exam:12/07/21 CT HEAD WO PROCEDURE: CT head without contrast. TECHNIQUE: Multiple contiguous axial images were obtained through the brain without the use of intravenous contrast. Auto Exposure Controls were utilized during the CT exam to meet ALARA standards for radiation dose reduction. INDICATION: Altered mental status. COMPARISON: 06/27/2021 FINDINGS: No hyperdense hemorrhage or space-occupying mass. No hydrocephalus or midline shift. Symmetric prominence of the ventricles and cortical sulci is compatible with age-appropriate atrophy. No isolated lobar atrophy. No territorial loss of franklin-white matter differentiation to indicate acute/subacute infarct. Stable periventricular hypoattenuation most indicative of chronic microvascular ischemic change. The mastoid air cells are clear. Paranasal sinuses are normal. No focal osseous abnormality of the calvarium. IMPRESSION: No acute intracranial process. Dictated by: Dictated on workstation # [id number] Dict: 12/07/21827 Trans: 12/07/21829 [facility] [id number] Interpreted by: ANN MARIE YOUSSEF MD Electronically signed by: ANN MARIE YOUSSEF MD 12/07/21829 Reviewed: Reviewed by Az Diagonstic Imaging: Xray Plain Films/CT/US/NM/MRI: chest Comments [facility] [place] [place] NAME: TAMIKO GONG [facility] REC#: [id number] PT STATUS: REG ER : 1940 PHYSICIAN: KIAN IBANEZ MD ADMIT DATE: 12/07/21/ER FS Draft Date of Exam:12/07/21 CHEST 1 VIEW AP/PA ONLY HISTORY: Cough, hypoxia COMPARISON: 09/24/2021 TECHNIQUE: Frontal view of the chest FINDINGS: There are interstitial and airspace opacities throughout the right lung and, to a lesser degree, in the left lung. There is no pleural effusion or pneumothorax. The cardiac silhouette is normal in size. There does appear to be a large hiatal hernia. IMPRESSION: 1. Bilateral pulmonary opacities, right greater than left. This is likely due to infection, less likely edema. 2. Large hiatal hernia. Dictated on workstation # [id number] Dict: 12/07/2134 Trans: 12/07/21 0842 [facility] [id number] Interpreted by: CHANDRA ESQUEDA MD Electronically signed by: Reviewed: Reviewed by Me Diagonstic Imaging: Xray Plain Films/CT/US/NM/MRI: abdomen Comments [facility] [place], [place] NAME: TAMIKO GONG [facility] REC#: [id number] PT STATUS: REG ER : 1940 PHYSICIAN: KIAN IBANEZ MD ADMIT DATE: 12/07/21/ER FS Draft Date of Exam:12/07/21 ABDOMEN (KUB) 1 VIEW HISTORY: Nausea, vomiting, altered mental status TECHNIQUE: Frontal view of the chest COMPARISON: None FINDINGS: No distended loops of bowel are seen on this image although portions of the upper abdomen are not included. There is moderate stool in the rectum. No large collection of free air is seen. There are degenerative changes in the spine and hips. IMPRESSION: 1. Moderate stool in the rectum with no distended loops of bowel or large collection of free air seen. Dictated on workstation # [id number] Dict: 12/07/21 0835 Trans: 12/07/21 0843 [facility] [id number] Interpreted by: CAHNDRA ESQUEDA MD Electronically signed by: Reviewed: Reviewed by Me Departure Impression Primary Impression: Sepsis Qualified Codes: A41.9 - Sepsis, unspecified organism; R65.21 - Severe sepsis with septic shock; G93.40 - Encephalopathy, unspecified Additional Impressions: Cystitis without hematuria COVID-19 virus infection Bilateral pneumonia Qualified Codes: J18.9 - Pneumonia, unspecified organism Disposition: XF SHT-TRM HOSP Condition: Critical Transfer Transfer Reason: Patient preference Time Spoke to Accepting Phy: 08:51 Transfer Progress Notes When I initially contacted [facility] at 8:20 AM the sample preparation supervisor told me that they did not have a bed available for ICU level patient. I have made arrangements to admit the patient to [place] as an alternative but then I did speak with Dr. Bach the patient's PCP at 8:51 AM. He stated that he had just discharged and patients admitted that they had beds available so he would take the patient to [facility]. Transfer Facility: [facility] Method of Transfer: EMS Departure-Patient Inst. Referrals: KATELIN BACH MD (PCP/Family) Primary Care Physician KIAN IBANEZ MD Dec 07, 2021 08:33
[2021-12-07] MEDS ORDERED: MEROPENEM 500 MG VIAL (MERREM) IV ONE (08:41)
[2021-12-07] MEDS ORDERED: NS (IVPB) 100 ML ONE (08:43)
--- NOTE | 2021-12-07 08:43 | Diagnostic Imaging Report ---
HISTORY: Cough, hypoxia COMPARISON: 09/24/2021 TECHNIQUE: Frontal view of the chest FINDINGS: There are interstitial and airspace opacities throughout the right lung and, to a lesser degree, in the left lung. There is no pleural effusion or pneumothorax. The cardiac silhouette is normal in size. There does appear to be a large hiatal hernia. IMPRESSION: 1. Bilateral pulmonary opacities, right greater than left. This is likely due to infection, less likely edema. 2. Large hiatal hernia. Dictated by: Dictated on workstation # [id number]
--- NOTE | 2021-12-07 08:44 | Diagnostic Imaging Report ---
HISTORY: Nausea, vomiting, altered mental status TECHNIQUE: Frontal view of the chest COMPARISON: None FINDINGS: No distended loops of bowel are seen on this image although portions of the upper abdomen are not included. There is moderate stool in the rectum. No large collection of free air is seen. There are degenerative changes in the spine and hips. IMPRESSION: 1. Moderate stool in the rectum with no distended loops of bowel or large collection of free air seen. Dictated by: Dictated on workstation # [id number]
[2021-12-07 09:43] VITALS: BP 115/53
== END 2021-12-07 10:00 | disposition short-term general hospital (02) ==
LOC: EDUNIT# 07:19 → ER FS 07:21
DX: A41.89 Other specified sepsis (principal); U07.1 COVID-19; R65.20 Severe sepsis without septic shock; J12.82 Pneumonia due to coronavirus disease 2019; G93.41 Metabolic encephalopathy; N30.00 Acute cystitis without hematuria; R74.02 Elevation of levels of lactic acid dehydrogenase [LDH]; Z16.12 Extended spectrum beta lactamase (ESBL) resistance; Z96.0 Presence of urogenital implants
CPT/HCPCS: 36415; 51702; 70450; 71045; 74018; 80053; 81000; 82805; 83605; 83880; 84484; 85025; 85610; 85730; 86141; 87040; 87077; 87088; 87186; 87636; 93005; 93041; 99291

== ENCOUNTER 2022-07-02 10:11 | Emergency (ER) | payer MEDICARE, OTHER ==
[2022-07-02] MEDS ORDERED: NS IV 1000 ML 1,000 ML IV STA ×2 (10:21→11:27)
[2022-07-02] MEDS ORDERED: cefTRIAXone 1 GM PRE-MIX 50 ML IV STA (10:21)
[2022-07-02 10:29] LABS: BASOPHILS % (AUTO) 0 % (0-10); EOSINOPHILS # (AUTO) 0.1 10^3/uL (0.0-0.3); EOSINOPHILS % (AUTO) 0 % (0-10); HEMATOCRIT 40 % (35-52); LYMPHOCYTES # (AUTO) 0.4 10^3/uL (1.0-4.0); LYMPHOCYTES % (AUTO) 3 % (12-44); MEAN CORPUSCULAR HEMOGLOBIN 30 pg (25-34); MEAN CORPUSCULAR HGB CONC 33 g/dL (32-36); MEAN CORPUSCULAR VOLUME 93 fL (80-99); MEAN PLATELET VOLUME 9.2 fL (9.0-12.2); MONOCYTES # (AUTO) 0.5 10^3/uL (0.0-1.0); MONOCYTES % (AUTO) 3 % (0-12); NEUTROPHILS # (AUTO) 14.7 10^3/uL (1.8-7.8); NEUTROPHILS % (AUTO) 93 % (42-75); PLATELET COUNT 200 10^3/uL (130-400); WHITE BLOOD COUNT 15.8 10^3/uL (4.3-11.0)
--- NOTE | 2022-07-02 10:30 | ED General ---
General Stated Complaint: AMS Source of Information: Patient, EMS, Snf Records, Old Records (ED visit November 2021 with sepsis from UTI with Klebsiella Pneumonia ) Exam Limitations: Other (decreased responsiveness and dementia) History of Present Illness Date Seen by Provider: Jul 02, 2022 Time Seen by Provider: 10:11 Initial Comments 81-year-old female presenting with EMS from [facility], a [facility] [place]. She follows with Dr. Katelin Bach out of [place], [place]. most of the history is obtained from independent historians of EMS, care home records, family member. She was slow to answer questions and did not know the answers to a lot of her information. From care home records as well as EMS and the daughter patient has had some UTI symptoms in the last few days and was started on Macrobid as an antibiotic yesterday. Today she was doing worse and was less responsive so they had her come to the emergency department. She does have a history of sepsis with UTIs. Timing/Duration: 1-2 Days Severity: Moderate Associated Systoms: No Chest Pain, No Cough, No Diaphoresis; Fever/Chills (fever today); No Headaches; Loss of Appetite, Malaise; No Nausea/Vomiting; Weakness (general) Allergies and Home Medications Allergies Coded Allergies: codeine (Unverified Adverse Reaction, Unknown, 06/25/20) ketorolac (Unverified Adverse Reaction, Unknown, 06/25/20) naproxen (Unverified Adverse Reaction, Unknown, 06/25/20) Patient Home Medication List Home Medication List Reviewed: Yes Acetaminophen (Acetaminophen) 500 Mg Tablet, 1,000 MG PO HS, (Reported) Entered as Reported by: BONITA MEDLEY on 06/25/20 1128 Acetaminophen (Tylenol Extra Strength) 500 Mg Tablet, 1,000 MG PO TID PRN for PAIN-MILD (1-4), (Reported) Entered as Reported by: LEVY DEVI on 06/28/21 1053 Amlodipine Besylate (Amlodipine Besylate) 5 Mg Tablet, 10 MG PO DAILY Prescribed by: ERICA DUKE on 07/12/21 0616 Atorvastatin Calcium (Atorvastatin Calcium) 80 Mg Tablet, 80 MG PO HS, (Reported) Entered as Reported by: BONITA MEDLEY on 06/25/20 1128 Benzonatate (Tessalon Perles) 100 Mg Capsule, 200 MG PO TID Prescribed by: ERICA DUKE on 07/12/21615 Cetirizine HCl (Cetirizine HCl) 10 Mg Tablet, 10 MG PO DAILY, (Reported) Entered as Reported by: BONITA MEDLEY on 06/25/20 112 Cholecalciferol (Vitamin D3) (Vitamin D3) 25 Mcg Capsule, 25 MCG PO DAILY, (Reported) Entered as Reported by: LEVY DEVI on 06/28/21 105 Cranberry Extract/Vit C (Azo Cranberry Softgel) 1 Each Capsule, 1 EACH PO DAILY, (Reported) Entered as Reported by: LEVY DEVI on 06/28/21 105 Cyanocobalamin (Vitamin B-12) (Vitamin B-12) 1,000 Mcg Tablet, 1,000 MCG PO DAILY, (Reported) Entered as Reported by: BONITA MEDLEY on 06/25/20 112 Donepezil HCl (Donepezil HCl) 5 Mg Tablet, 5 MG PO HS, (Reported) Entered as Reported by: BONITA MEDLEY on 06/25/20 112 Dulaglutide (Trulicity) 1.5 Mg/0.5 Ml Pen.injctr, 1.5 MG SC WED, (Reported) Entered as Reported by: BONITA MEDLEY on 06/25/20 112 Fluticasone/Salmeterol (Fluticasone-Salmeterol 113-14) 1 Each Aer.pow.ba, 0 EACH IH RTBID Prescribed by: ERICA DUKE on 07/12/21615 Gabapentin (Gabapentin) 600 Mg Tablet, 600 MG PO HS, (Reported) Entered as Reported by: BONITA MEDLEY on 06/25/201127 Gabapentin (Neurontin) 300 Mg Capsule, 300 MG PO DAILY, (Reported) Entered as Reported by: BONITA MEDLEY on 06/25/201127 Glimepiride (Glimepiride) 1 Mg Tablet, 1 MG PO BID Prescribed by: ERICA DUKE on 07/12/21615 Guaifenesin/Dextromethorphan (Guaifenesin Dm Syrup) 5 Ml Syrup, 10 ML PO Q4H PRN for COUGH Prescribed by: ERICA DUKE on 07/12/21615 L.acidoph & Paracasei,B.lactis (Probiotic) 1 Each Capsule, 1 EACH PO DAILY, (Reported) Entered as Reported by: LEVY DEVI on 06/28/21 105 Levothyroxine Sodium (Levothyroxine Sodium) 50 Mcg Tablet, 50 MCG PO DAILY, (Reported) Entered as Reported by: BONITA MEDLEY on 06/25/20 112 Lisinopril (Lisinopril) 10 Mg Tablet, 20 MG PO DAILY Prescribed by: ERICA DUKE on 07/12/21615 Loperamide HCl (Loperamide) 2 Mg Capsule, 2 MG PO Q4H PRN for DIARRHEA, (Reported) Entered as Reported by: LEVY DEVI on 06/28/21 105 Mag Hydrox/Al Hydrox/Simeth (Mylanta Suspension) 30 Ml Oral.susp, 30 ML PO Q8H PRN for INDIGESTION, (Reported) Entered as Reported by: LEVY DEVI on 06/28/21 105 Metoprolol Succinate (Metoprolol Succinate) 100 Mg Tab.er.24h, 100 MG PO DAILY, (Reported) Entered as Reported by: BONITA MEDLEY on 06/25/20 112 Mirabegron (Myrbetriq) 25 Mg Tab.er.24h, 25 MG PO DAILY, (Reported) Entered as Reported by: BONITA MEDLEY on 06/25/201127 Montelukast Sodium (Montelukast Sodium) 10 Mg Tablet, 10 MG PO DAILY Prescribed by: ERICA DUKE on 07/12/21615 Nystatin (Nystatin) 1 Each Powder.ea., 1 EACH TOP BID PRN for GAULDING, (Reported) Entered as Reported by: LEVY DEVI on 06/28/21 105 Ondansetron (Ondansetron Odt) 4 Mg Tab.rapdis, 4 MG PO Q6H PRN for NAUSEA/VOMITING-1ST LINE, (Reported) Entered as Reported by: LEVY DEVI on 06/28/21 105 Pantoprazole Sodium (Pantoprazole Sodium) 40 Mg Tablet.dr, 40 MG PO DAILY, (Reported) Entered as Reported by: BONITA MEDLEY on 1/25/21 1128 Polyethylene Glycol 3350 (Miralax) 17 Gm Powd.pack, 17 GM PO DAILY PRN for CONSTIPATION-2ND LINE, (Reported) Entered as Reported by: LEVY DEVI on 06/28/21 1053 Polyvinyl Alcohol/Povidone (Clear Eyes Natural Tears Drop) 15 Ml Drops, 1 DROP OU QID PRN for DRY EYES, (Reported) Entered as Reported by: LEVY DEVI on 06/28/21 1053 Ropinirole HCl (Ropinirole HCl) 0.25 Mg Tablet, 0.25 MG PO BID, (Reported) Entered as Reported by: LEVY DEVI on 06/28/21 1053 Tamsulosin HCl (Flomax) 0.4 Mg Cap, 0.4 MG PO DAILY@1800 Prescribed by: ERICA DUKE on 07/12/21 0616 Tolterodine Tartrate (Detrol LA) 4 Mg Cap, 4 MG PO HS Prescribed by: ERICA DUKE on 07/12/21 0616 Tramadol HCl (Tramadol HCl) 50 Mg Tablet, 50 MG PO BID, (Reported) Entered as Reported by: BONITA MEDLEY on 06/25/20 1128 Review of Systems Review of Systems Constitutional: chills, fever (38 C on arrival to ED) EENTM: no symptoms reported Respiratory: no symptoms reported Cardiovascular: no symptoms reported Gastrointestinal: see HPI Genitourinary: see HPI Musculoskeletal: no symptoms reported Skin: No rash Psychiatric/Neurological: Weakness (general) Past Dggfwba-Qolymd-Jwmrtc Hx Immunizations Up To Date First/Initial COVID19 Vaccinat: JUNE 2020 Second COVID19 Vaccination Ruben: JULY 2020 Seasonal Allergies Seasonal Allergies: No Past Medical History Surgery/Hospitalization HX: Hypertension, High Cholesterol, Peripheral Neuropathy, Hypothyroid, ESBL+ Urine Cultures, Recurrent UTI, Covid 19 Pneumonia November 2021 Respiratory: No Cardiac: Yes High Cholesterol, Hypertension Neurological: Yes Dementia, Neuropathy Genitourinary: Yes Bladder Infection, Renal Failure, UTI-Chronic Gastrointestinal: Yes Gastroesophageal Reflux Musculoskeletal: No Endocrine: Yes Hypothyroidsim, Diabetes, Non-Insulin dep HEENT: No Cancer: No Psychosocial: No Integumentary: No Blood Disorders: No Adverse Reaction/Blood Tranf: No Family Medical History No Pertinent Family Hx Physical Exam Vital Signs Vital Signs - First Documented 07/02/22 10:15 Temp 38.0 Pulse 116 Resp 16 B/P (MAP) 145/61 (89) Pulse Ox 93 O2 Delivery Room Air Capillary Refill : Height, Weight, BMI Height: '" Weight: lbs. oz. kg; 31.00 BMI Method: General Appearance: Chronically ill, Other (decreased responsiveness) HEENT: No Moist Mucous Membranes (slightly dry mucus membranes) Neck: Full Range of Motion, Normal Inspection, Non Tender, Supple Respiratory: Chest Non Tender, No Accessory Muscle Use, No Respiratory Distress, Decreased Breath Sounds Cardiovascular: Normal Peripheral Pulses, Tachycardia Gastrointestinal: Normal Bowel Sounds, No Pulsatile Mass, Non Tender, Soft Rectal: Deferred Extremity: Normal Capillary Refill Neurologic/Psychiatric: Alert; No Oriented x3 (knows her name) Skin: Warm/Dry, Pallor Focused Exam Sepsis Stage: Sepsis Possible Source: Genitouriary Lactate Level 07/02/22 10:20: Lactic Acid Level 3.58*H Time of Focused Exam: 11:00 Respiratory: Chest Non Tender, Lungs Clear, Normal Breath Sounds, No Accessory Muscle Use, No Respiratory Distress Cardiovascular: Normal Peripheral Pulses, Tachycardia Capillary Refill: Less Than 3 Seconds Peripheral Pulses: 2+ Carotid (R), 2+ Carotid (L), 2+ Radial Pulses (R), 2+ Radial Pulses (L) Skin: warm/dry Lactic Acid Level Laboratory Tests Test 07/02/22 10:20 Lactic Acid Level 3.58 MMOL/L (0.50-2.00) *H Within 3hrs of presentation: Admin fluids, Admin ABX, Blood cultures prior to ABX's, Focus exam, Lactate level Progress/Results/Core Measures Suspected Sepsis SIRS Temperature: Pulse: Respiratory Rate: Laboratory Tests 07/02/22 10:20: White Blood Count 15.8H Blood Pressure / Mean: 07/02/22 10:20: Lactic Acid Level 3.58*H Laboratory Tests 07/02/22 10:20: Creatinine 1.89H, Platelet Count 200, Total Bilirubin 0.8 Results/Orders Lab Results Laboratory Tests Test 07/02/22 10:20 07/02/22 10:32 Range/Units White Blood Count 15.8 H 4.3-11.0 10^3/uL Red Blood Count 4.27 3.80-5.11 10^6/uL Hemoglobin 13.0 11.5-16.0 g/dL Hematocrit 40 35-52 % Mean Corpuscular Volume 93 80-99 fL Mean Corpuscular Hemoglobin 30 25-34 pg Mean Corpuscular Hemoglobin Concent 33 32-36 g/dL Red Cell Distribution Width 13.5 10.0-14.5 % Platelet Count 200 130-400 10^3/uL Mean Platelet Volume 9.2 9.0-12.2 fL Immature Granulocyte % (Auto) 0 % Neutrophils (%) (Auto) 93 H 42-75 % Lymphocytes (%) (Auto) 3 L 12-44 % Monocytes (%) (Auto) 3 0-12 % Eosinophils (%) (Auto) 0 0-10 % Basophils (%) (Auto) 0 0-10 % Neutrophils # (Auto) 14.7 H 1.8-7.8 10^3/uL Lymphocytes # (Auto) 0.4 L 1.0-4.0 10^3/uL Monocytes # (Auto) 0.5 0.0-1.0 10^3/uL Eosinophils # (Auto) 0.1 0.0-0.3 10^3/uL Basophils # (Auto) 0.0 0.0-0.1 10^3/uL Immature Granulocyte # (Auto) 0.1 0.0-0.1 10^3/uL Neutrophils % (Manual) 74 % Lymphocytes % (Manual) 4 % Monocytes % (Manual) 2 % Band Neutrophils 20 % Platelet Estimate NORMAL Blood Morphology Comment NORMAL Sodium Level 139 135-145 MMOL/L Potassium Level 4.6 3.6-5.0 MMOL/L Chloride Level 100 98-107 MMOL/L Carbon Dioxide Level 22 21-32 MMOL/L Anion Gap 17 H 5-14 MMOL/L Blood Urea Nitrogen 24 H 7-18 MG/DL Creatinine 1.89 H 0.60-1.30 MG/DL Estimat Glomerular Filtration Rate 26 BUN/Creatinine Ratio 13 Glucose Level 292 H 70-105 MG/DL Lactic Acid Level 3.58 *H 0.50-2.00 MMOL/L Calcium Level 9.8 8.5-10.1 MG/DL Corrected Calcium 9.8 8.5-10.1 MG/DL Total Bilirubin 0.8 0.1-1.0 MG/DL Aspartate Amino Transf (AST/SGOT) 12 5-34 U/L Alanine Aminotransferase (ALT/SGPT) 12 0-55 U/L Alkaline Phosphatase 77 40-136 U/L C-Reactive Protein 5.55 H <0.50 MG/DL Total Protein 8.0 6.4-8.2 GM/DL Albumin 4.0 3.2-4.5 GM/DL Influenza Type A (RT-PCR) Not Detected Not Detecte Influenza Type B (RT-PCR) Not Detected Not Detecte SARS-CoV-2 RNA (RT-PCR) Not Detected Not Detecte Urine Color YELLOW Urine Clarity CLOUDY Urine pH 6.0 5-9 Urine Specific [place] <=1.005 1.016-1.022 Urine Protein NEGATIVE NEGATIVE Urine Glucose (UA) NEGATIVE NEGATIVE Urine Ketones NEGATIVE NEGATIVE Urine Nitrite POSITIVE H NEGATIVE Urine Bilirubin NEGATIVE NEGATIVE Urine Urobilinogen 0.2 < = 1.0 MG/DL Urine Leukocyte Esterase 2+ H NEGATIVE Urine RBC (Auto) TRACE-I H NEGATIVE Urine RBC 0-2 /HPF Urine WBC >100 H /HPF Urine Squamous Epithelial Cells NONE /HPF Urine Crystals NONE /LPF Urine Bacteria LARGE H /HPF Urine Casts NONE /LPF Urine Mucus NEGATIVE /LPF Urine Culture Indicated YES My Orders Orders - KIAN IBANEZ MD Cbc With Automated Diff (07/02/22 10:19) Comprehensive Metabolic Panel (07/02/22 10:19) Blood Culture (07/02/22 10:19) Ua Culture If Indicated (07/02/22 10:19) Chest 1 View Ap/Pa Only (07/02/22 10:19) Ed Iv/Invasive Line Start (07/02/22 10:19) Crp Fs (07/02/22 10:19) Lactic Acid Analyzer (07/02/22 10:19) Ekg Tracing (07/02/22 10:19) Monitor-Rhythm Ecg Trace Only (07/02/22 10:19) Covid 19 Inhouse Test (07/02/22 10:19) Influenza A And B By Pcr (07/02/22 10:19) Isolation Central Supply Req (07/02/22 10:19) Ns Iv 1000 Ml (Sodium Chloride 0.9%) (07/02/22 10:21) Ceftriaxone 1 Gm Pre-Mix (Rocephin 1 Gm (07/02/22 10:21) Rabago Cath (07/02/22 10:21) Manual Differential (2/1/23 10:20) Urine Culture (07/02/22 10:32) Ns Iv 1000 Ml (Sodium Chloride 0.9%) (07/02/22 11:27) Vital Signs/I&O 07/02/22 07/02/22 10:15 11:44 Temp 38.0 38.0 Pulse 116 111 Resp 16 16 B/P (MAP) 145/61 (89) 133/56 Pulse Ox 93 95 O2 Delivery Room Air Room Air Capillary Refill : Progress Note #1: Progress Note Potential life-threatening conditions of sepsis, renal failure, hepatic failure, myocardial infarction, electrolyte imbalance. Placed patient on cardiac telemetry monitoring to watch her heart rate and rhythm. My initial interpretation of the cardiac pvc monitor she shows a sinus tachycardia and 120 for the rate. Obtain labs including complete blood count, comprehensive metabolic profile, blood cultures, lactic acid, urinalysis. Ordered normal saline 1 L IV fluid bolus for hydration, Rocephin 1 g IV as an antibiotic once the cultures are drawn. She had been started on Macrobid yesterday for UTI from reviewing her care home medical records. Progress Note #2: Progress Note 1115 her labs came back showing a elevated white blood cell count of 15.8 with a left shift to indicate infection as she has 20 % bands. Her hemoglobin was doing okay at 13 so she was not anemic. Her lactic acid level is elevated to 3.58. This would indicate sepsis along with her having a source of infection with the bladder as well as tachycardia and fever. Her nasal swab to check for Covid and Influenza were both negative. Her comprehensive metabolic profile showed mild elevation of her creatinine to 1.89 up from her baseline of 1.74. Her Glucose was elevated to 342 to go along with poorly controlled diabetes and elevated sugar in presence of infection and sepsis. CRP elevated to 5.55 to again have another marker indicating sepsis and inflammatory process. Her urinalysis showed positive nitrites, 2+ leukocyte esterase, greater than 100 white blood cells per high-powered field, a large amount of bacteria. These would indicate continued urinary tract infection, although she has only had a day of Macrobid since it was started yesterday. Continue with an additional bag of normal saline 1 L IV fluid bolus for hydration. On repeat examination of the patient her heart rate was improving with the IVF and on my exam was 108 bpm after IVF bolus of NS 1 Liter. Continue with additional fluids and check with her PCP about transfer for admission to the hospital in [place]. When personal interpretation and review of her 1 view chest x-ray shows possible left lower lobe infiltrate and increased pulmonary vascular congestion. I called and spoke with Dr. Katelin Bach, the patient's primary care physician, and reviewed her labs as well as physical exam and vital signs. With her having signs of sepsis and urinary tract infection he accepted her for admission at [facility]. She was currently hemodynamically stable with tachycardia but was maintaining good blood pressure. Will admit to the floor and continue with IV antibiotics and fluids. Her last urine culture from November 2021 had shown E. coli that was resistant to multiple drugs. Patient had been admitted with sepsis at that time as well. Dr. Bach had also taken care of the patient in [place] at that time. I updated the patient and daughter about findings of sepsis and that Dr. Bach had accepted the patient to go to [facility]. Will call over to get a bed assignment and arrange transportation. ECG Initial ECG Impression Date: Jul 02, 2022 Initial ECG Impression Time: 10:44 Initial ECG Rate: 108 Initial ECG Rhythm: S.Tach Initial ECG Comparisson: Unchanged (12/07/2021) Comment My personal interpretation and review of her electrocardiogram shows sinus tachycardia with a heart rate of 108 bpm. TX interval [address] elevation. QT interval 348 ms with a QTc interval 412 ms. Overall this appears similar to prior tracing from December 07, 2021. Diagnostic Imaging Diagonstic Imaging: Xray Plain Films/CT/US/NM/MRI: chest Comments [facility], [place] NAME: TAMIKO GONG [facility] REC#: [id number] PT STATUS: DEP ER : [id number] PHYSICIAN: KIAN IBANEZ MD ADMIT DATE: 07/02/22/ER FS Signed Date of Exam:07/02/22 CHEST 1 VIEW AP/PA ONLY Indication: Altered mental status and fever. Frontal chest obtained at 10:27 a.m. and compared to 12/07/2021. There is prominent cardiomegaly with hiatal hernia. There is mild central vascular congestion. There is no definite consolidation or pneumothorax or pleural fluid. Impression: Cardiomegaly and central vascular congestion. Prominent hiatal hernia. No pneumothorax or significant pleural fluid. Dictated by: Dictated on workstation # [id number] Dict: 07/02/22 1047 Trans: 07/02/22 1354 CVB [id number] Interpreted by: BABATUNDE CASTRO MD Electronically signed by: BABATUNDE CASTRO MD 07/02/22 1354 Reviewed: Reviewed by Me (I reviewed the radiologist report from the 1 view chest x-ray at 1121) Critical Care Note Critical Care Total Time (minutes) 45 minutes Progress I spent 45 minutes of critical care time with the patient. Time excludes separately billable procedures. Time spent obtaining history from patient, family member, jail records, EMS, ordering tests and reviewing results, ordering interventions and reviewing response, discussion with consultants, documentation in the chart. Patient was at risk of hemodynamic compromise and failure with her sepsis and tachycardia. She required my direct monitoring and intervention to help manage her infection and condition in order to help prevent progression to . Departure Impression Primary Impression: Sepsis Qualified Codes: A41.9 - Sepsis, unspecified organism Additional Impressions: Cystitis without hematuria Altered mental status, unspecified Qualified Codes: R41.0 - Disorientation, unspecified Disposition: XF [facility] Condition: Critical Transfer Transfer Reason: Patient preference Time Spoke to Accepting Phy: 11:15 Transfer Progress Notes Discussed with Dr. Katelin Bach, her primary care provider, and reviewed her lab findings as well as physical exam and vital signs. Discussed with him about her having sepsis with elevated white blood cell count, elevated lactic acid of 3.5, chronic renal insufficiency with mild worsening of creatinine going from 1.74- 1.89 and decreased responsiveness. He had just started Macrobid yesterday for UTI symptoms. He accepted her to [facility] for Urosepsis. Will admit to the floor since she is hemodynamically stable but needs antibiotics and IV fluids. Transfer Facility: [facility] Method of Transfer: EMS Departure-Patient Inst. Referrals: KATELIN BACH MD (PCP/Family) Primary Care Physician KIAN IBANEZ MD Jul 02, 2022 10:30
[2022-07-02 10:39] LABS: BILIRUBIN,URINE NEGATIVE (NEGATIVE); CLARITY,URINE CLOUDY; COLOR,URINE YELLOW; GLUCOSE, URINE (UA) NEGATIVE (NEGATIVE); KETONES,URINE NEGATIVE (NEGATIVE); LEUKOCYTE ESTERASE ,URINE 2+ (NEGATIVE); NITRITE,URINE POSITIVE (NEGATIVE); PROTEIN,URINE NEGATIVE (NEGATIVE)
--- NOTE | 2022-07-02 11:07 | Diagnostic Imaging Report ---
Indication: Altered mental status and fever. Frontal chest obtained at 10:27 a.m. and compared to 12/07/2021. There is prominent cardiomegaly with hiatal hernia. There is mild central vascular congestion. There is no definite consolidation or pneumothorax or pleural fluid. Impression: Cardiomegaly and central vascular congestion. Prominent hiatal hernia. No pneumothorax or significant pleural fluid. Dictated by: Dictated on workstation # [id number]
[2022-07-02 11:12] LABS: BILIRUBIN,TOTAL 0.8 MG/DL (0.1-1.0); CALCIUM 9.8 MG/DL (8.5-10.1); CREATININE SERUM 1.89 MG/DL (0.60-1.30); POTASSIUM 4.6 MMOL/L (3.6-5.0)
[2022-07-02 11:19] LABS: BACTERIA,URINE LARGE /HPF; RBC,URINE 0-2 /HPF; WBC,URINE >100 /HPF
[2022-07-02 11:28] LABS: BAND NEUTROPHILS 20 %; LYMPHOCYTES % (MANUAL) 4 %; MONOCYTES % (MANUAL) 2 %; NEUTROPHILS % (MANUAL) 74 %; PLATELET ESTIMATE NORMAL; RBC MORPH NORMAL
[2022-07-02 11:44] VITALS: BP 133/56
== END 2022-07-02 11:45 | disposition short-term general hospital (02) ==
LOC: EDUNIT# 10:11 → ER FS 10:12
DX: A41.9 Sepsis, unspecified organism (principal); N30.90 Cystitis, unspecified without hematuria; E11.65 Type 2 diabetes mellitus with hyperglycemia; R79.89 Other specified abnormal findings of blood chemistry; R74.02 Elevation of levels of lactic acid dehydrogenase [LDH]; Z86.16 Personal history of COVID-19; Z20.822 Contact with and (suspected) exposure to COVID-19
CPT/HCPCS: 36415; 51702; 71045; 80053; 81000; 83605; 85007; 85027; 86141; 87040; 87077; 87088; 87636; 93005; 93041

== ENCOUNTER 2022-09-19 13:40 | Emergency (ER) | payer MEDICARE, OTHER ==
[2022-09-19] MEDS ORDERED: NS IV 1000 ML 1,000 ML IV STA ×2 (14:08→15:00)
[2022-09-19] MEDS ORDERED: MEROPENEM 1,000 MG in NS (IVPB) 100 ML IV STA (14:08)
--- NOTE | 2022-09-19 14:13 | ED General ---
General Chief Complaint: Altered Mental Status Stated Complaint: AMS Source of Information: Patient, EMS, Half-Way Records, Old Records Exam Limitations: Other (dementia and altered mental status) History of Present Illness Date Seen by Provider: Sep 19, 2022 Time Seen by Provider: 13:42 Initial Comments 81-year-old female presenting from [facility] by EMS with complaints of decreased mental status and concern for progressing UTI and recurrent sepsis. She had recently been placed on Macrobid for recurrent UTI symptoms. She had been doing fine this morning and then this afternoon was less responsive and slower to respond. She had a fever over 38 Celsius. As there was concern for recurrent sepsis the care home had contacted EMS to have her brought to the emergency department for evaluation. Here in the emergency department she was opening her eyes to voice but was not answering questions. She did not appear to have any focal or lateralizing weakness or neurologic symptoms. Timing/Duration: 1-3 Hours Severity: Severe Associated Systoms: No Chest Pain, No Cough, No Diaphoresis; Fever/Chills, Loss of Appetite, Malaise; No Syncope; Weakness Allergies and Home Medications Allergies Coded Allergies: codeine (Unverified Adverse Reaction, Unknown, 06/25/20) ketorolac (Unverified Adverse Reaction, Unknown, 06/25/20) naproxen (Unverified Adverse Reaction, Unknown, 06/25/20) Patient Home Medication List Home Medication List Reviewed: Yes Acetaminophen (Acetaminophen) 500 Mg Tablet, 1,000 MG PO HS, (Reported) Entered as Reported by: BONITA MEDLEY on 06/25/20 1128 Acetaminophen (Tylenol Extra Strength) 500 Mg Tablet, 1,000 MG PO TID PRN for PAIN-MILD (1-4), (Reported) Entered as Reported by: LEVY DEVI on 06/28/21 1053 Amlodipine Besylate (Amlodipine Besylate) 5 Mg Tablet, 10 MG PO DAILY Prescribed by: ERICA DUKE on 07/12/21 06 Atorvastatin Calcium (Atorvastatin Calcium) 80 Mg Tablet, 80 MG PO HS, (Reported) Entered as Reported by: BONITA MEDLEY on 06/25/20 1128 Benzonatate (Tessalon Perles) 100 Mg Capsule, 200 MG PO TID Prescribed by: ERICA DUKE on 07/12/21 0616 Cetirizine HCl (Cetirizine HCl) 10 Mg Tablet, 10 MG PO DAILY, (Reported) Entered as Reported by: BONITA MEDLEY on 06/25/20 112 Cholecalciferol (Vitamin D3) (Vitamin D3) 25 Mcg Capsule, 25 MCG PO DAILY, (Reported) Entered as Reported by: LEVY DEVI on 06/28/21 105 Cranberry Extract/Vit C (Azo Cranberry Softgel) 1 Each Capsule, 1 EACH PO DAILY, (Reported) Entered as Reported by: LEVY DEVI on 06/28/21 105 Cyanocobalamin (Vitamin B-12) (Vitamin B-12) 1,000 Mcg Tablet, 1,000 MCG PO DAILY, (Reported) Entered as Reported by: BONITA MEDLEY on 06/25/20 112 Donepezil HCl (Donepezil HCl) 5 Mg Tablet, 5 MG PO HS, (Reported) Entered as Reported by: BONITA MEDLEY on 06/25/20 112 Dulaglutide (Trulicity) 1.5 Mg/0.5 Ml Pen.injctr, 1.5 MG SC WED, (Reported) Entered as Reported by: BONITA MEDLEY on 06/25/20 112 Fluticasone/Salmeterol (Fluticasone-Salmeterol 113-14) 1 Each Aer.pow.ba, 0 EACH IH RTBID Prescribed by: ERICA DUKE on 07/12/21615 Gabapentin (Gabapentin) 600 Mg Tablet, 600 MG PO HS, (Reported) Entered as Reported by: BONITA MEDLEY on 06/25/20 112 Gabapentin (Neurontin) 300 Mg Capsule, 300 MG PO DAILY, (Reported) Entered as Reported by: BONITA MEDLEY on 06/25/201127 Glimepiride (Glimepiride) 1 Mg Tablet, 1 MG PO BID Prescribed by: ERICA DUKE on 07/12/21615 Guaifenesin/Dextromethorphan (Guaifenesin Dm Syrup) 5 Ml Syrup, 10 ML PO Q4H PRN for COUGH Prescribed by: ERICA DUKE on 07/12/21 06 L.acidoph & Paracasei,B.lactis (Probiotic) 1 Each Capsule, 1 EACH PO DAILY, (Reported) Entered as Reported by: LEVY DEVI on 06/28/21 105 Levothyroxine Sodium (Levothyroxine Sodium) 50 Mcg Tablet, 50 MCG PO DAILY, (Reported) Entered as Reported by: BONITA MEDLEY on 06/25/20 112 Lisinopril (Lisinopril) 10 Mg Tablet, 20 MG PO DAILY Prescribed by: ERICA DUKE on 07/12/21 0616 Loperamide HCl (Loperamide) 2 Mg Capsule, 2 MG PO Q4H PRN for DIARRHEA, (Reported) Entered as Reported by: LEVY DEVI on 06/28/21 105 Mag Hydrox/Al Hydrox/Simeth (Mylanta Suspension) 30 Ml Oral.susp, 30 ML PO Q8H PRN for INDIGESTION, (Reported) Entered as Reported by: LEVY DEVI on 06/28/21 105 Metoprolol Succinate (Metoprolol Succinate) 100 Mg Tab.er.24h, 100 MG PO DAILY, (Reported) Entered as Reported by: BONITA MEDLEY on 06/25/201127 Mirabegron (Myrbetriq) 25 Mg Tab.er.24h, 25 MG PO DAILY, (Reported) Entered as Reported by: BONITA MEDLEY on 06/25/201127 Montelukast Sodium (Montelukast Sodium) 10 Mg Tablet, 10 MG PO DAILY Prescribed by: ERICA DUKE on 07/12/21 0616 Nystatin (Nystatin) 1 Each Powder.ea., 1 EACH TOP BID PRN for GAULDING, (Reported) Entered as Reported by: LEVY DEVI on 06/28/21 105 Ondansetron (Ondansetron Odt) 4 Mg Tab.rapdis, 4 MG PO Q6H PRN for NAUSEA/VOMITING-1ST LINE, (Reported) Entered as Reported by: LEVY DEVI on 06/28/21 105 Pantoprazole Sodium (Pantoprazole Sodium) 40 Mg Tablet.dr, 40 MG PO DAILY, (Reported) Entered as Reported by: BONITA MEDLEY on 06/25/20 112 Polyethylene Glycol 3350 (Miralax) 17 Gm Powd.pack, 17 GM PO DAILY PRN for CONSTIPATION-2ND LINE, (Reported) Entered as Reported by: LEVY DEVI on 06/28/21 1053 Polyvinyl Alcohol/Povidone (Clear Eyes Natural Tears Drop) 15 Ml Drops, 1 DROP OU QID PRN for DRY EYES, (Reported) Entered as Reported by: LEVY DEVI on 06/28/21 1053 Ropinirole HCl (Ropinirole HCl) 0.25 Mg Tablet, 0.25 MG PO BID, (Reported) Entered as Reported by: LEVY DEVI on 06/28/21 1053 Tamsulosin HCl (Flomax) 0.4 Mg Cap, 0.4 MG PO DAILY@1800 Prescribed by: ERICA DUKE on 07/12/21 0616 Tolterodine Tartrate (Detrol LA) 4 Mg Cap, 4 MG PO HS Prescribed by: ERICA DUKE on 07/12/21 0616 Tramadol HCl (Tramadol HCl) 50 Mg Tablet, 50 MG PO BID, (Reported) Entered as Reported by: BONITA MEDLEY on 06/25/20 1128 Review of Systems Review of Systems Constitutional: chills, fever, malaise, weakness EENTM: no symptoms reported Respiratory: no symptoms reported Gastrointestinal: no symptoms reported Genitourinary: see HPI Musculoskeletal: no symptoms reported Skin: No rash Psychiatric/Neurological: See HPI Past Xryzwev-Iisvlh-Oknufg Hx Immunizations Up To Date First/Initial COVID19 Vaccinat: JUNE 2020 Second COVID19 Vaccination Ruben: JULY 2020 Third COVID19 Vaccination Date: YES - UNSURE WHEN Seasonal Allergies Seasonal Allergies: No Past Medical History Surgery/Hospitalization HX: Hypertension, High Cholesterol, Peripheral Neuropathy, Hypothyroid, ESBL+ Urine Cultures, Recurrent UTI, Covid 19 Pneumonia November 2021 Respiratory: No Cardiac: Yes High Cholesterol, Hypertension Neurological: Yes Dementia, Neuropathy Genitourinary: Yes Bladder Infection, Renal Failure, UTI-Chronic Gastrointestinal: Yes Gastroesophageal Reflux Musculoskeletal: No Endocrine: Yes Hypothyroidsim, Diabetes, Non-Insulin dep HEENT: No Cancer: No Psychosocial: No Integumentary: No Blood Disorders: No Adverse Reaction/Blood Tranf: No Family Medical History No Pertinent Family Hx Physical Exam Vital Signs Vital Signs - First Documented 09/19/22 13:40 Temp 38.5 Pulse 117 Resp 20 B/P (MAP) 127/50 (75) Pulse Ox 94 O2 Delivery Room Air O2 Flow Rate 2.50 Capillary Refill : Height, Weight, BMI Height: '" Weight: lbs. oz. kg; 31.00 BMI Method: General Appearance: No Apparent Distress, Chronically ill, Obese, Other (alert and eyes open to voice but not answering questions.) HEENT: PERRL/EOMI; No Moist Mucous Membranes (slightly dry mucous membranes) Neck: Non Tender Respiratory: Chest Non Tender, No Accessory Muscle Use, No Respiratory Distress, Decreased Breath Sounds Cardiovascular: Normal Peripheral Pulses, Tachycardia Gastrointestinal: Normal Bowel Sounds, No Pulsatile Mass, Non Tender, Soft Extremity: Normal Capillary Refill Neurologic/Psychiatric: Alert; No Oriented x3 Skin: Normal Color, Warm/Dry Focused Exam Sepsis Stage: Sepsis Possible Source: Genitouriary Lactate Level 09/19/22 13:50: Lactic Acid Level 3.41*H Time of Focused Exam: 15:10 Respiratory: Chest Non Tender, Lungs Clear, No Accessory Muscle Use, No Respiratory Distress, Decreased Breath Sounds Cardiovascular: Regular Rate, Rhythm (HR94 ), Normal Peripheral Pulses Capillary Refill: Less Than 3 Seconds Peripheral Pulses: 2+ Carotid (R), 2+ Carotid (L), 2+ Radial Pulses (R), 2+ Radial Pulses (L) Skin: normal color, warm/dry Lactic Acid Level Laboratory Tests Test 09/19/22 13:50 Lactic Acid Level 3.41 MMOL/L (0.50-2.00) *H Within 3hrs of presentation: Admin fluids, Admin ABX, Blood cultures prior to ABX's, Focus exam, Lactate level Progress/Results/Core Measures Suspected Sepsis SIRS Temperature: Pulse: Respiratory Rate: Laboratory Tests 09/19/22 13:50: White Blood Count 23.4H Blood Pressure / Mean: 09/19/22 13:50: Lactic Acid Level 3.41*H Laboratory Tests 09/19/22 13:50: Creatinine 1.60H, Platelet Count 196, Total Bilirubin 0.8 Results/Orders Lab Results Laboratory Tests Test 09/19/22 13:50 09/19/22 14:20 Range/Units White Blood Count 23.4 H 4.3-11.0 10^3/uL Red Blood Count 4.61 3.80-5.11 10^6/uL Hemoglobin 13.8 11.5-16.0 g/dL Hematocrit 43 35-52 % Mean Corpuscular Volume 94 80-99 fL Mean Corpuscular Hemoglobin 30 25-34 pg Mean Corpuscular Hemoglobin Concent 32 32-36 g/dL Red Cell Distribution Width 14.0 10.0-14.5 % Platelet Count 196 130-400 10^3/uL Mean Platelet Volume 10.7 9.0-12.2 fL Immature Granulocyte % (Auto) 1 % Neutrophils (%) (Auto) 93 H 42-75 % Lymphocytes (%) (Auto) 4 L 12-44 % Monocytes (%) (Auto) 3 0-12 % Eosinophils (%) (Auto) 0 0-10 % Basophils (%) (Auto) 0 0-10 % Neutrophils # (Auto) 21.7 H 1.8-7.8 10^3/uL Lymphocytes # (Auto) 0.9 L 1.0-4.0 10^3/uL Monocytes # (Auto) 0.6 0.0-1.0 10^3/uL Eosinophils # (Auto) 0.1 0.0-0.3 10^3/uL Basophils # (Auto) 0.0 0.0-0.1 10^3/uL Immature Granulocyte # (Auto) 0.1 0.0-0.1 10^3/uL Neutrophils % (Manual) 88 % Lymphocytes % (Manual) 3 % Monocytes % (Manual) 4 % Eosinophils % (Manual) 0 % Basophils % (Manual) 0 % Band Neutrophils 5 % Sodium Level 136 135-145 MMOL/L Potassium Level 4.9 3.6-5.0 MMOL/L Chloride Level 101 98-107 MMOL/L Carbon Dioxide Level 19 L 21-32 MMOL/L Anion Gap 16 H 5-14 MMOL/L Blood Urea Nitrogen 26 H 7-18 MG/DL Creatinine 1.60 H 0.60-1.30 MG/DL Estimat Glomerular Filtration Rate 32 BUN/Creatinine Ratio 16 Glucose Level 267 H 70-105 MG/DL Lactic Acid Level 3.41 *H 0.50-2.00 MMOL/L Calcium Level 9.8 8.5-10.1 MG/DL Corrected Calcium 9.7 8.5-10.1 MG/DL Total Bilirubin 0.8 0.1-1.0 MG/DL Aspartate Amino Transf (AST/SGOT) 17 5-34 U/L Alanine Aminotransferase (ALT/SGPT) 15 0-55 U/L Alkaline Phosphatase 92 40-136 U/L C-Reactive Protein 0.91 H <0.50 MG/DL Total Protein 8.4 H 6.4-8.2 GM/DL Albumin 4.1 3.2-4.5 GM/DL Urine Color YELLOW Urine Clarity CLEAR Urine pH 5.5 5-9 Urine Specific [place] 1.015 L 1.016-1.022 Urine Protein NEGATIVE NEGATIVE Urine Glucose (UA) NEGATIVE NEGATIVE Urine Ketones NEGATIVE NEGATIVE Urine Nitrite NEGATIVE NEGATIVE Urine Bilirubin NEGATIVE NEGATIVE Urine Urobilinogen 0.2 < = 1.0 MG/DL Urine Leukocyte Esterase 1+ H NEGATIVE Urine RBC (Auto) NEGATIVE NEGATIVE Urine RBC NONE /HPF Urine WBC 2-5 /HPF Urine Squamous Epithelial Cells 0-2 /HPF Urine Crystals NONE /LPF Urine Bacteria NEGATIVE /HPF Urine Casts NONE /LPF Urine Mucus NEGATIVE /LPF Urine Culture Indicated NO My Orders Orders - KIAN IBANEZ MD Cbc With Automated Diff (09/19/22 14:08) Comprehensive Metabolic Panel (09/19/22 14:08) Blood Culture (09/19/22 14:08) Ua Culture If Indicated (09/19/22 14:08) Chest 1 View Ap/Pa Only (09/19/22 14:08) Ed Iv/Invasive Line Start (09/19/22 14:08) Crp Fs (09/19/22 14:08) Lactic Acid Analyzer (09/19/22 14:08) Ns Iv 1000 Ml (Sodium Chloride 0.9%) (09/19/22 14:08) Meropenem (Merrem 1000 Mg) (09/19/22 14:08) Meropenem (Merrem 500 Mg) (09/19/22 14:17) Ns (Ivpb) (Sodium Chloride 0.9% Ivpb Bag (09/19/22 14:19) Manual Differential (09/19/22 13:50) Acetaminophen Suppository (Tylenol Suppo (09/19/22 14:30) Ns Iv 1000 Ml (Sodium Chloride 0.9%) (09/19/22 15:00) Ns Iv 1000 Ml (Sodium Chloride 0.9%) (09/19/22 15:11) Ns Iv 1000 Ml (Sodium Chloride 0.9%) (09/19/22 16:19) Vital Signs/I&O 09/19/22 09/19/22 09/19/22 09/19/22 13:40 14:46 15:20 17:43 Temp 38.5 37.5 37.1 37.1 Pulse 117 89 Resp 20 18 B/P (MAP) 127/50 (75) 123/64 Pulse Ox 94 95 O2 Delivery Room Air Nasal Cannula O2 Flow Rate 2.50 2.50 Capillary Refill : Progress Note #1: Progress Note Potential diagnosis of sepsis, UTI, pneumonia, electrolyte imbalance, colitis, diverticulitis. Obtain peripheral IV access and send labs for complete blood count, comprehensive metabolic profile, blood cultures, lactic acid, urinalysis with reflex culture. Her presentation today is very similar to when she last had sepsis and had to be admitted on July 02. She had a sudden change in her mental status with the urine infection and then improved as she was getting antibiotics and IV fluids. Will administer normal saline 1 L IV fluid bolus and review prior culture results to determine what antibiotic would be best to start the patient on. Obtain chest x-ray to evaluate for possible pneumonia or other source of infection. Administer acetaminophen 650 mg rectally as patient was decreased mental status and concern for trying to give her an oral medication. Progress Note #2: Time: 14:39 Progress Note On my personal review of the 1 view chest x-ray she did not have any acute infiltrate. Her complete blood count showed a white blood cell count of 23.4 thousand with a left shift. Her comprehensive metabolic profile showed an elevated lactic acid to 3.41. She had mild renal insufficiency with a creatinine of 1.6. Her urine continues to have 1+ leukocyte esterase despite being on recent antibiotics. Proceed with the meropenem 1 g IV to treat for history of ESBL positive E. coli. Patient remains hemodynamically stable with blood pressure 128/52. Her heart rate has improved down to 92 to 100 bpm from almost 120 bpm on arrival. Discussed with her primary care provider, Dr. Katelin Bach, reviewed the patient's presentation and vital signs as well as her labs showing signs of recurrent sepsis and UTI. With her decreased mental status similar to when I have admitted her for prior UTI infections with sepsis. He asked about a CT scan of her head and I advised him that with the patient not having any lateralizing neurologic signs and having decrease in mental status along with fever and felt that she was having recurrent sepsis and had deferred on CT scan of her head. He stated that he was okay with that since she did not have lateralizing neurologic findings. He accepted patient for admit to [facility] provided they had floor beds available to take the patient. He was agreeable with antibiotic choice with patient's history of ESBL + E. Coli. Progress Note #3: Time: 16:00 Progress Note Patient was becoming more alert and having improved mental status as she was receiving IV fluids and IV antibiotics. Continue with plan as above and awaiting EMS for transport to [facility]. Diagnostic Imaging Diagonstic Imaging: Xray Plain Films/CT/US/NM/MRI: chest Comments [facility] [place], [place] NAME: TAMIKO GONG [facility] REC#: [id number] PT STATUS: REG ER : 1940 PHYSICIAN: KIAN IBANEZ MD ADMIT DATE: 09/19/22/ER FS Signed Date of Exam:09/19/22 CHEST 1 VIEW AP/PA ONLY EXAMINATION: Chest 1 view HISTORY: Fever. Altered mental status. COMPARISON: 07/02/2022. FINDINGS: The lung volumes are normal. No focal consolidation is seen. No large pleural effusion or pneumothorax is seen. Stable prominent cardiac silhouette. There is calcified aortic atherosclerotic plaque. Hiatal hernia is noted. No acute osseous abnormality is seen. IMPRESSION: 1. No acute pleuroparenchymal process. 2. Cardiomegaly. No overt pulmonary edema. 3. Prominent hiatal hernia. Dictated by: Dictated on workstation # [id number] Dict: 09/19/22 1428 Trans: 09/19/22 1433 [id number] Interpreted by: NAZ CONNOR DO Electronically signed by: NAZ CONNOR DO 09/19/22 1433 Reviewed: Reviewed by Me Critical Care Note Critical Care Total Time (minutes) 45 minutes Progress I spent at least 45 minutes of critical care time with the patient. Time excludes separately billable procedures. Time was spent obtaining history from patient, medical records, EMS, care home, ordering tests and reviewing results, ordering interventions and reviewing response, discussion with consultants, discussion with family as patient had decreased mental status and was not able to have a conversation or comprehend her findings and treatment plan, documentation in the chart. Patient was at risk of hemodynamic compromise and organ failure due to sepsis with recurrent UTI from presumed recurrent episode of the multidrug-resistant organism ESBL positive E. coli. She required my immediate direct intervention and management of her care to keep her stable and treat her conditions. Departure Impression Primary Impression: Sepsis Qualified Codes: A41.9 - Sepsis, unspecified organism Additional Impressions: Cystitis without hematuria Multiple drug resistant organism (MDRO) culture positive History of ESBL E. coli infection Disposition: SHT-TRM HOSP Condition: Critical Transfer Transfer Reason: Patient preference Time Spoke to Accepting Phy: 14:39 Transfer Progress Notes Discussed with her primary care provider, Dr. Katelin Bach, reviewed the patient's presentation and vital signs as well as her labs showing signs of recurrent sepsis and UTI. With her decreased mental status similar to when I have admitted her for prior UTI infections with sepsis. He asked about a CT scan of her head and I advised him that with the patient not having any lateralizing neurologic signs and having decrease in mental status along with fever and felt that she was having recurrent sepsis and had deferred on CT scan of her head. He stated that he was okay with that since she did not have lateralizing neurologic findings. He accepted patient for admit to [facility] provided they had floor beds available to take the patient. He was agreeable with antibiotic choice with patient's history of ESBL + E. Coli. Transfer Facility: [facility] Method of Transfer: EMS Departure-Patient Inst. Referrals: KATELIN BACH MD (PCP) Primary Care Physician KIAN IBANEZ MD Sep 19, 2022 14:12
[2022-09-19] MEDS ORDERED: MEROPENEM 500 MG VIAL (MERREM) IV ONE (14:17)
[2022-09-19] MEDS ORDERED: NS (IVPB) 100 ML ONE (14:19)
[2022-09-19 14:20] LABS: BASOPHILS % (AUTO) 0 % (0-10); EOSINOPHILS # (AUTO) 0.1 10^3/uL (0.0-0.3); EOSINOPHILS % (AUTO) 0 % (0-10); HEMATOCRIT 43 % (35-52); HEMOGLOBIN 13.8 g/dL (11.5-16.0); LYMPHOCYTES # (AUTO) 0.9 10^3/uL (1.0-4.0); LYMPHOCYTES % (AUTO) 4 % (12-44); MEAN CORPUSCULAR HEMOGLOBIN 30 pg (25-34); MEAN CORPUSCULAR HGB CONC 32 g/dL (32-36); MEAN CORPUSCULAR VOLUME 94 fL (80-99); MEAN PLATELET VOLUME 10.7 fL (9.0-12.2); MONOCYTES # (AUTO) 0.6 10^3/uL (0.0-1.0); MONOCYTES % (AUTO) 3 % (0-12); NEUTROPHILS # (AUTO) 21.7 10^3/uL (1.8-7.8); NEUTROPHILS % (AUTO) 93 % (42-75); PLATELET COUNT 196 10^3/uL (130-400); WHITE BLOOD COUNT 23.4 10^3/uL (4.3-11.0)
[2022-09-19 14:25] LABS: BILIRUBIN,URINE NEGATIVE (NEGATIVE); CLARITY,URINE CLEAR; COLOR,URINE YELLOW; GLUCOSE, URINE (UA) NEGATIVE (NEGATIVE); KETONES,URINE NEGATIVE (NEGATIVE); LEUKOCYTE ESTERASE ,URINE 1+ (NEGATIVE); NITRITE,URINE NEGATIVE (NEGATIVE); PH,URINE 5.5 (5-9); PROTEIN,URINE NEGATIVE (NEGATIVE)
[2022-09-19] MEDS ORDERED: ACETAMINOPHEN 650 MG SUPP (TYLENOL) PR STA (14:30)
--- NOTE | 2022-09-19 14:30 | Diagnostic Imaging Report ---
EXAMINATION: Chest 1 view HISTORY: Fever. Altered mental status. COMPARISON: 07/02/2022. FINDINGS: The lung volumes are normal. No focal consolidation is seen. No large pleural effusion or pneumothorax is seen. Stable prominent cardiac silhouette. There is calcified aortic atherosclerotic plaque. Hiatal hernia is noted. No acute osseous abnormality is seen. IMPRESSION: 1. No acute pleuroparenchymal process. 2. Cardiomegaly. No overt pulmonary edema. 3. Prominent hiatal hernia. Dictated by: Dictated on workstation # [id number]
[2022-09-19 14:34] LABS: BACTERIA,URINE NEGATIVE /HPF
[2022-09-19 14:35] LABS: SQUAMOUS EPITHELIAL CELL,UR 0-2 /HPF
[2022-09-19 14:44] LABS: BILIRUBIN,TOTAL 0.8 MG/DL (0.1-1.0); CALCIUM 9.8 MG/DL (8.5-10.1); CREATININE SERUM 1.6 MG/DL (0.60-1.30); POTASSIUM 4.9 MMOL/L (3.6-5.0)
[2022-09-19 14:45] LABS: ALBUMIN 4.1 GM/DL (3.2-4.5); TOTAL PROTEIN 8.4 GM/DL (6.4-8.2)
[2022-09-19 14:52] LABS: BAND NEUTROPHILS 5 %; BASOPHILS % (MANUAL) 0 %; EOSINOPHILS % (MANUAL) 0 %; LYMPHOCYTES % (MANUAL) 3 %; MONOCYTES % (MANUAL) 4 %; NEUTROPHILS % (MANUAL) 88 %
[2022-09-19] MEDS ORDERED: NS IV 1000 ML 1,000 ML ONE ×2 (15:11→16:19)
[2022-09-19 17:43] VITALS: BP 123/64
== END 2022-09-19 17:43 | disposition short-term general hospital (02) ==
LOC: EDUNIT# 13:40 → ER FS 13:41
DX: A41.9 Sepsis, unspecified organism (principal); N30.90 Cystitis, unspecified without hematuria; E66.9 Obesity, unspecified; R74.02 Elevation of levels of lactic acid dehydrogenase [LDH]; N28.9 Disorder of kidney and ureter, unspecified; Z20.01 Contact with and (suspected) exposure to intestinal infectious diseases due to Escherichia coli (E. coli); Z68.31 Body mass index [BMI] 31.0-31.9, adult; Z16.35 Resistance to multiple antimicrobial drugs
CPT/HCPCS: 36415; 71045; 80053; 81000; 83605; 85007; 85027; 86141; 87040

== ENCOUNTER 2023-03-15 08:37 | Observation (INO) | payer MEDICARE, OTHER ==
[~2023-03-15] VITALS: Ht 167 cm; Wt 85.3 kg
[~2023-03-15 08:37] MED LIST changes: -ROPI0.253 PO; +ROPI0.2533 PO
[2023-03-15] MEDS ORDERED: NS IV 500 ML 500 ML IV STA (08:51)
[2023-03-15 09:09] LABS: BASOPHILS % (AUTO) 0 % (0-10); EOSINOPHILS % (AUTO) 0 % (0-10); HEMATOCRIT 36 % (35-52); HEMOGLOBIN 11.5 g/dL (11.5-16.0); LYMPHOCYTES # (AUTO) 0.5 10^3/uL (1.0-4.0); LYMPHOCYTES % (AUTO) 4 % (12-44); MEAN CORPUSCULAR HEMOGLOBIN 29 pg (25-34); MEAN CORPUSCULAR HGB CONC 32 g/dL (32-36); MEAN CORPUSCULAR VOLUME 92 fL (80-99); MEAN PLATELET VOLUME 9.7 fL (9.0-12.2); MONOCYTES # (AUTO) 0.7 10^3/uL (0.0-1.0); MONOCYTES % (AUTO) 6 % (0-12); NEUTROPHILS # (AUTO) 9.9 10^3/uL (1.8-7.8); NEUTROPHILS % (AUTO) 89 % (42-75); PLATELET COUNT 165 10^3/uL (130-400); WHITE BLOOD COUNT 11.1 10^3/uL (4.3-11.0)
[2023-03-15] MEDS ORDERED: ACETAMINOPHEN 500 MG TABLET ONE (09:14)
--- NOTE | 2023-03-15 09:17 | Diagnostic Imaging Report ---
EXAMINATION: Chest radiograph TECHNIQUE: Portable upright view of the chest obtained HISTORY: fever, weakness, cough COMPARISON: Chest radiograph 09/19/2022. FINDINGS: No focal consolidation or karen pulmonary edema. Cardiomegaly. Hiatal hernia. No pleural effusion or pneumothorax. Cardiac silhouette and pulmonary vascularity are within normal limits. IMPRESSION: No acute chest findings. Cardiomegaly. Hiatal hernia. Dictated by: Dictated on workstation # [id number]
--- NOTE | 2023-03-15 09:22 | ED Fever ---
History of Present Illness General Chief Complaint: Fever-Adult/Adol Stated Complaint: GEN WEAKNESS; FEVER Nursing Triage Note: Pt presents to ER, via EMS, with reported complaints of fever and generalized weakness. Source: patient, EMS, [facility] records Exam Limitations: no limitations History of Present Illness Date Seen by Provider: Mar 15, 2023 Time Seen by Provider: 08:37 Initial Comments 82-year-old female with past medical history most notable for diabetes and hypertension as well as chronic UTIs coming in via EMS from her assisted living facility due to fever.'s been going on for roughly over a day, she does have body aches and a mild cough associated with it. Denies any chest pain, shortness of breath, abdominal pain, nausea, vomiting, diarrhea, focal weakness or numbness, dysuria, or any other concerns. Did have Tylenol last night. Allergies and Home Medications Allergies Coded Allergies: codeine (Unverified Adverse Reaction, Unknown, 06/25/20) ketorolac (Unverified Adverse Reaction, Unknown, 06/25/20) naproxen (Unverified Adverse Reaction, Unknown, 06/25/20) Patient Home Medication List Home Medication List Reviewed: Yes Acetaminophen (Acetaminophen) 500 Mg Tablet, 1,000 MG PO HS, (Reported) Entered as Reported by: BONITA MEDLEY on 06/25/20 1128 Acetaminophen (Tylenol Extra Strength) 500 Mg Tablet, 1,000 MG PO TID PRN for PAIN-MILD (1-4), (Reported) Entered as Reported by: LEVY DEVI on 06/28/21 1053 Amlodipine Besylate (Amlodipine Besylate) 5 Mg Tablet, 10 MG PO DAILY Prescribed by: ERICA DUKE on 07/12/21 0616 Atorvastatin Calcium (Atorvastatin Calcium) 80 Mg Tablet, 80 MG PO HS, (Reported) Entered as Reported by: BONITA MEDLEY on 06/25/20 1128 Benzonatate (Tessalon Perles) 100 Mg Capsule, 200 MG PO TID Prescribed by: ERICA DUKE on 07/12/21 0616 Cetirizine HCl (Cetirizine HCl) 10 Mg Tablet, 10 MG PO DAILY, (Reported) Entered as Reported by: BONITA MEDLEY on 06/25/20 1128 Cholecalciferol (Vitamin D3) (Vitamin D3) 25 Mcg Capsule, 25 MCG PO DAILY, (Repo rted) Entered as Reported by: LEVY DEVI on 06/28/21 105 Cranberry Extract/Vit C (Azo Cranberry Softgel) 1 Each Capsule, 1 EACH PO DAILY, (Reported) Entered as Reported by: LEVY DEVI on 06/28/21 105 Cyanocobalamin (Vitamin B-12) (Vitamin B-12) 1,000 Mcg Tablet, 1,000 MCG PO DAILY, (Reported) Entered as Reported by: BONITA MEDLEY on 06/25/20 1128 Donepezil HCl (Donepezil HCl) 5 Mg Tablet, 5 MG PO HS, (Reported) Entered as Reported by: BONITA MEDLEY on 06/25/20 112 Dulaglutide (Trulicity) 1.5 Mg/0.5 Ml Pen.injctr, 1.5 MG SC WED, (Reported) Entered as Reported by: BONITA MEDLEY on 06/25/20 112 Fluticasone/Salmeterol (Fluticasone-Salmeterol 113-14) 1 Each Aer.pow.ba, 0 EACH IH RTBID Prescribed by: REICA DUKE on 07/12/21615 Gabapentin (Gabapentin) 600 Mg Tablet, 600 MG PO HS, (Reported) Entered as Reported by: BONITA MEDLEY on 06/25/20 112 Gabapentin (Neurontin) 300 Mg Capsule, 300 MG PO DAILY, (Reported) Entered as Reported by: BONITA MEDLEY on 06/25/20 112 Glimepiride (Glimepiride) 1 Mg Tablet, 1 MG PO BID Prescribed by: ERICA DUKE on 07/12/21615 Guaifenesin/Dextromethorphan (Guaifenesin Dm Syrup) 5 Ml Syrup, 10 ML PO Q4H PRN for COUGH Prescribed by: ERICA DUKE on 07/12/21615 L.acidoph & Paracasei,B.lactis (Probiotic) 1 Each Capsule, 1 EACH PO DAILY, (Reported) Entered as Reported by: LEVY DEVI on 06/28/21 105 Levothyroxine Sodium (Levothyroxine Sodium) 50 Mcg Tablet, 50 MCG PO DAILY, (Reported) Entered as Reported by: BONITA MEDLEY on 06/25/20 112 Lisinopril (Lisinopril) 10 Mg Tablet, 20 MG PO DAILY Prescribed by: ERICA DUKE on 07/12/21 06 Loperamide HCl (Loperamide) 2 Mg Capsule, 2 MG PO Q4H PRN for DIARRHEA, (Reported) Entered as Reported by: LEVY DEVI on 06/28/21 105 Mag Hydrox/Al Hydrox/Simeth (Mylanta Suspension) 30 Ml Oral.susp, 30 ML PO Q8H PRN for INDIGESTION, (Reported) Entered as Reported by: LEVY DEVI on 06/28/21 105 Metoprolol Succinate (Metoprolol Succinate) 100 Mg Tab.er.24h, 100 MG PO DAILY, (Reported) Entered as Reported by: BONITA MEDLEY on 06/25/20 112 Mirabegron (Myrbetriq) 25 Mg Tab.er.24h, 25 MG PO DAILY, (Reported) Entered as Reported by: BONITA MEDLEY on 06/25/201127 Montelukast Sodium (Montelukast Sodium) 10 Mg Tablet, 10 MG PO DAILY Prescribed by: ERICA DUKE on 07/12/21615 Nystatin (Nystatin) 1 Each Powder.ea., 1 EACH TOP BID PRN for GAULDING, (Reported) Entered as Reported by: LEVY DEVI on 06/28/21 105 Ondansetron (Ondansetron Odt) 4 Mg Tab.rapdis, 4 MG PO Q6H PRN for NAUSEA/VOMITING-1ST LINE, (Reported) Entered as Reported by: LEVY DEVI on 06/28/21 105 Pantoprazole Sodium (Pantoprazole Sodium) 40 Mg Tablet.dr, 40 MG PO DAILY, (Reported) Entered as Reported by: BONITA MEDLEY on 06/25/20 112 Polyethylene Glycol 3350 (Miralax) 17 Gm Powd.pack, 17 GM PO DAILY PRN for CONSTIPATION-2ND LINE, (Reported) Entered as Reported by: LEVY DEVI on 06/28/21 105 Polyvinyl Alcohol/Povidone (Clear Eyes Natural Tears Drop) 15 Ml Drops, 1 DROP OU QID PRN for DRY EYES, (Reported) Entered as Reported by: LEVY DEVI on 06/28/21 1053 Ropinirole HCl (Ropinirole HCl) 0.25 Mg Tablet, 0.25 MG PO BID, (Reported) Entered as Reported by: LEVY DEVI on 06/28/21 1053 Tamsulosin HCl (Flomax) 0.4 Mg Cap, 0.4 MG PO DAILY@1800 Prescribed by: ERICA DUKE on 07/12/21615 Tolterodine Tartrate (Detrol LA) 4 Mg Cap, 4 MG PO HS Prescribed by: ERICA DUKE on 07/12/21 0616 Tramadol HCl (Tramadol HCl) 50 Mg Tablet, 50 MG PO BID, (Reported) Entered as Reported by: BONITA MEDLEY on 06/25/20 1128 Review of Systems Review of Systems Constitutional: see HPI, fever EENTM: no symptoms reported Respiratory: no symptoms reported Cardiovascular: no symptoms reported Gastrointestinal: no symptoms reported Genitourinary: no symptoms reported Musculoskeletal: no symptoms reported Skin: no symptoms reported Psychiatric/Neurological: No Symptoms Reported Hematologic/Lymphatic: No Symptoms Reported Past Ylesomi-Sloexo-Brhpiz Hx Patient Social History Tobacco Use?: No Immunizations Up To Date First/Initial COVID19 Vaccinat: JUNE 2020 Second COVID19 Vaccination Ruben: JULY 2020 Third COVID19 Vaccination Date: YES - UNSURE WHEN Seasonal Allergies Seasonal Allergies: No Past Medical History Surgery/Hospitalization HX: Hypertension, High Cholesterol, Peripheral Neuropathy, Hypothyroid, ESBL+ Urine Cultures, Recurrent UTI, Covid 19 Pneumonia November 2021 Respiratory: No Cardiac: Yes High Cholesterol, Hypertension Neurological: Yes Dementia, Neuropathy Genitourinary: Yes Bladder Infection, Renal Failure, UTI-Chronic Gastrointestinal: Yes Gastroesophageal Reflux Musculoskeletal: No Endocrine: Yes Hypothyroidsim, Diabetes, Non-Insulin dep HEENT: No Cancer: No Psychosocial: No Integumentary: No Blood Disorders: No Adverse Reaction/Blood Tranf: No Family Medical History No Pertinent Family Hx Physical Exam Vital Signs - First Documented 03/15/23 08:37 Temp 39.6 Pulse 95 Resp 18 B/P (MAP) 133/59 (83) Pulse Ox 92 O2 Delivery Room Air Capillary Refill : Less Than 3 Seconds Height: '" Weight: lbs. oz. kg; 29.00 BMI Method: General Appearance: WD/WN, no apparent distress Eyes: Bilateral Eye Normal Inspection HEENT: PERRL/EOMI, normal ENT inspection, pharynx normal Neck: non-tender, full range of motion, supple, normal inspection Respiratory: chest non-tender, lungs clear, normal breath sounds, no respiratory distress, no accessory muscle use Cardiovascular: regular rate, rhythm, no edema Gastrointestinal: normal bowel sounds, non tender, soft Extremities: normal range of motion, non-tender, normal inspection, no pedal edema, no calf tenderness, normal capillary refill Neurologic/Psychiatric: no motor/sensory deficits, alert, normal mood/affect Skin: normal color, warm/dry Focused Exam Lactate Level 03/15/23 10:00: Lactic Acid Level 2.17*H Lactic Acid Level Laboratory Tests Test 03/15/23 10:00 Lactic Acid Level 2.17 MMOL/L (0.50-2.00) *H Progress/Results/Core Measures Suspected Sepsis SIRS Temperature: Pulse: 95 Respiratory Rate: 18 Laboratory Tests 03/15/23 09:10: White Blood Count 11.1H Blood Pressure 133 /59 Mean: 83 03/15/23 10:00: Lactic Acid Level 2.17*H Laboratory Tests 03/15/23 09:10: Creatinine 1.49H, Platelet Count 165, Total Bilirubin 1.3H Results/Orders Lab Results Laboratory Tests Test 03/15/23 09:08 03/15/23 09:10 03/15/23 09:45 03/15/23 10:00 Range/Units Influenza Type A (RT-PCR) Not Detected Not Detecte Influenza Type B (RT-PCR) Not Detected Not Detecte SARS-CoV-2 RNA (RT-PCR) Not Detected Not Detecte White Blood Count 11.1 H 4.3-11.0 10^3/uL Red Blood Count 3.93 3.80-5.11 10^6/uL Hemoglobin 11.5 11.5-16.0 g/dL Hematocrit 36 35-52 % Mean Corpuscular Volume 92 80-99 fL Mean Corpuscular Hemoglobin 29 25-34 pg Mean Corpuscular Hemoglobin Concent 32 32-36 g/dL Red Cell Distribution Width 13.9 10.0-14.5 % Platelet Count 165 130-400 10^3/uL Mean Platelet Volume 9.7 9.0-12.2 fL Immature Granulocyte % (Auto) 0 % Neutrophils (%) (Auto) 89 H 42-75 % Lymphocytes (%) (Auto) 4 L 12-44 % Monocytes (%) (Auto) 6 0-12 % Eosinophils (%) (Auto) 0 0-10 % Basophils (%) (Auto) 0 0-10 % Neutrophils # (Auto) 9.9 H 1.8-7.8 10^3/uL Lymphocytes # (Auto) 0.5 L 1.0-4.0 10^3/uL Monocytes # (Auto) 0.7 0.0-1.0 10^3/uL Eosinophils # (Auto) 0.0 0.0-0.3 10^3/uL Basophils # (Auto) 0.0 0.0-0.1 10^3/uL Immature Granulocyte # (Auto) 0.0 0.0-0.1 10^3/uL Sodium Level 135 135-145 MMOL/L Potassium Level 3.8 3.6-5.0 MMOL/L Chloride Level 103 98-107 MMOL/L Carbon Dioxide Level 19 L 21-32 MMOL/L Anion Gap 13 5-14 MMOL/L Blood Urea Nitrogen 21 H 7-18 MG/DL Creatinine 1.49 H 0.60-1.30 MG/DL Estimat Glomerular Filtration Rate 34 BUN/Creatinine Ratio 14 Glucose Level 315 H 70-105 MG/DL Calcium Level 8.9 8.5-10.1 MG/DL Corrected Calcium 9.2 8.5-10.1 MG/DL Magnesium Level 1.4 L 1.6-2.4 MG/DL Total Bilirubin 1.3 H 0.1-1.0 MG/DL Aspartate Amino Transf (AST/SGOT) 832 H 5-34 U/L Alanine Aminotransferase (ALT/SGPT) 549 H 0-55 U/L Alkaline Phosphatase 192 H 40-136 U/L Total Protein 7.1 6.4-8.2 GM/DL Albumin 3.6 3.2-4.5 GM/DL Urine Color YELLOW Urine Clarity CLEAR Urine pH 6.0 5-9 Urine Specific Stryker <=1.005 1.016-1.022 Urine Protein NEGATIVE NEGATIVE Urine Glucose (UA) NEGATIVE NEGATIVE Urine Ketones NEGATIVE NEGATIVE Urine Nitrite NEGATIVE NEGATIVE Urine Bilirubin NEGATIVE NEGATIVE Urine Urobilinogen 0.2 < = 1.0 MG/DL Urine Leukocyte Esterase NEGATIVE NEGATIVE Urine RBC (Auto) NEGATIVE NEGATIVE Urine RBC NONE /HPF Urine WBC 0-2 /HPF Urine Squamous Epithelial Cells 2-5 /HPF Urine Crystals NONE /LPF Urine Bacteria TRACE /HPF Urine Casts NONE /LPF Urine Mucus NEGATIVE /LPF Urine Culture Indicated NO Lactic Acid Level 2.17 *H 0.50-2.00 MMOL/L My Orders Orders - ALICIA MARTIN MD Cbc And Automated Diff (03/15/23 08:51) Comprehensive Metabolic Panel (03/15/23 08:51) Magnesium (03/15/23 08:51) Ua Culture If Indicated (03/15/23 08:51) Influenza A And B By Pcr (03/15/23 08:51) Covid 19 Inhouse Test (03/15/23 08:51) Ns Iv 500 Ml (Ns Iv 500 Ml) (03/15/23 08:51) Chest 1 View Ap/Pa Only (03/15/23 08:51) Acetaminophen Tablet (Acetaminophen Ta (03/15/23 09:14) Hepatitis Panel Acute (03/15/23 09:31) Blood Culture (03/15/23 09:54) Lactic Acid Analyzer (03/15/23 09:54) Ed Admission (Communication) (03/15/23 11:05) Medications Given in ED Current Medications Medications Dose Ordered Sig/Umair Route Start Time Stop Time Status Last Admin Dose Admin Acetaminophen 500 mg STK-MED ONCE .ROUTE 03/15/23 09:14 03/15/23 09:17 DC 03/15/23 09:15 500 MG Vital Signs/I&O 03/15/23 03/15/23 08:37 10:34 Temp 39.6 37.6 Pulse 95 77 Resp 18 18 B/P (MAP) 133/59 (83) 103/53 (70) Pulse Ox 92 92 O2 Delivery Room Air Room Air Capillary Refill : Less Than 3 Seconds Blood Pressure Mean: 83 Progress Note : Progress Note 82-year-old female with above history coming in via EMS from the assisted living due to fever and general weakness. ABCs were intact and vitals are stable on presentation although she is febrile. She is not tachycardic, not hypotensive, and not showing signs of sepsis from those regards. White blood cell count slightly elevated, AST and ALT in the 100s, total bilirubin just slightly elevated, mild elevation in the creatinine, urinalysis without evidence of infection. Chest x-ray ordered and interpreted by me showing no obvious pneumonia or pneumothorax. Flu and COVID testing were also negative. I did a right upper quadrant ultrasound, not seeing any obvious gallstones, no pericholecystic fluid, no gallbladder wall thickening. She has no right upper quadrant pain on exam. Hepatitis panel was then sent. She does not drink alcohol. I discussed the case with her PCP, Dr. Bach, and discussed an observation admission. He would prefer to not admit her. I discussed the case with Dr. Gamboa, he will admit her under observation status for further evaluation and management. We discussed her case at length. We do not believe at this time she is septic, and have held off on antibiotics. Her mental status is normal, her heart rate is normal, blood pressure normal, and overall it seems more consistent with a hepatitis type picture. Cholangitis is certainly on the differential, but less likely at this time. He will continue to evaluate her for this and decide later on if she needs antibiotics. Diagnostic Imaging Diagonstic Imaging: Xray (chest) Comments [facility], [place] NAME: ZORAN GONG [facility] REC#: [id number] PT STATUS: REG ER : 1940 PHYSICIAN: ALICIA MARTIN MD ADMIT DATE: 03/15/23/ER FS Signed Date of Exam:03/15/23 CHEST 1 VIEW AP/PA ONLY EXAMINATION: Chest radiograph TECHNIQUE: Portable upright view of the chest obtained HISTORY: fever, weakness, cough COMPARISON: Chest radiograph 09/19/2022. FINDINGS: No focal consolidation or karen pulmonary edema. Cardiomegaly. Hiatal hernia. No pleural effusion or pneumothorax. Cardiac silhouette and pulmonary vascularity are within normal limits. IMPRESSION: No acute chest findings. Cardiomegaly. Hiatal hernia. Dictated by: Dictated on workstation # [id number] Dict: 03/15/23914 Trans: 03/15/[address] [facility] [id number] Interpreted by: SKYLAR ROSAS DO Electronically signed by: SKYLAR ROSAS DO 03/15/23915 Departure Impression Primary Impression: Febrile illness Additional Impression: Transaminitis Disposition: 30 STILL A PATIENT Condition: Stable Admissions Decision to Admit Reason: Admit from ER (General) Decision to Admit/Date: Mar 15, 2023 Time/Decision to Admit Time: 10:40 Transfer Method of Transfer: EMS Departure-Patient Inst. Decision time for Depature: 10:30 Referrals: KATELIN BACH MD (PCP/Family) Primary Care Physician Patient Instructions: Fever, Adult ED Add. Discharge Instructions: We suspect you might have hepatitis A. We discussed the case with Dr. Bach. He wants you or anyone that helps you to call his clinic tomorrow to be seen and have follow-up blood work drawn. Treatment for this is just Tylenol as needed for fever, and just oral fluids. It gets better on its own. If you start developing severe pain, or have any concerns then of course you can come back to the ER or call Dr. Bach's office. ALICIA MARTIN MD Mar 15, 2023 09:22
[2023-03-15 09:37] LABS: BILIRUBIN,TOTAL 1.3 MG/DL (0.1-1.0); CALCIUM 8.9 MG/DL (8.5-10.1); CREATININE SERUM 1.49 MG/DL (0.60-1.30); MAGNESIUM 1.4 MG/DL (1.6-2.4); POTASSIUM 3.8 MMOL/L (3.6-5.0)
[2023-03-15 09:38] LABS: ALBUMIN 3.6 GM/DL (3.2-4.5); TOTAL PROTEIN 7.1 GM/DL (6.4-8.2)
[2023-03-15 09:46] LABS: BILIRUBIN,URINE NEGATIVE (NEGATIVE); CLARITY,URINE CLEAR; COLOR,URINE YELLOW; GLUCOSE, URINE (UA) NEGATIVE (NEGATIVE); KETONES,URINE NEGATIVE (NEGATIVE); LEUKOCYTE ESTERASE ,URINE NEGATIVE (NEGATIVE); NITRITE,URINE NEGATIVE (NEGATIVE); PROTEIN,URINE NEGATIVE (NEGATIVE)
[2023-03-15 09:48] LABS: BACTERIA,URINE TRACE /HPF; WBC,URINE 0-2 /HPF
[2023-03-15] MEDS ORDERED: CEFEPIME INJECTION 1,000 MG in NS (IVPB) 50 ML 50 ML IV ONE (10:00)
[2023-03-15] MEDS ORDERED: LACTULOSE SYRUP 10GM/15ML 30ML UDC PO PRN (13:00)
[2023-03-15] MEDS ORDERED: ONDANSETRON 4 MG ORAL DISSOLVE TABLET PO PRN (13:00)
[2023-03-15] MEDS ORDERED: ANTACID SUSPENSION 30 ML UDC PO PRN (13:00)
[2023-03-15] MEDS ORDERED: ONDANSETRON INJECTION 4 MG/2 ML (SDV) IV PRN (13:00)
[2023-03-15] MEDS ORDERED: MELATONIN 3 MG TABLET PO PRN (13:00)
[2023-03-15] MEDS ORDERED: ACETAMINOPHEN 325 MG TABLET PO PRN (13:00)
[2023-03-15] MEDS ORDERED: ENOXAPARIN 40 MG/0.4 ML SYRINGE SC SCH (13:00)
[2023-03-15] MEDS ORDERED: BISACODYL 10 MG SUPPOSITORY PR PRN (13:00)
[2023-03-15 13:13] VITALS: BP 113/53
[2023-03-15] MEDS: NS IV 1000 ML 1,000 ML IV SCH (14:20)
[2023-03-15 15:50] VITALS: BP 107/53
[2023-03-15] MEDS: MAGNESIUM 1 GM/100 ML IVPB 100 ML IV SCH ×3 (17:23→21:00)
[2023-03-15] MEDS: inSUlin ASPART 1 UNIT/0.01 ML (PER UNIT) SC SCH ×2 (18:24→21:01)
[2023-03-15 19:12] VITALS: BP 93/60
[2023-03-15] MEDS: DONEPEZIL 5 MG TABLET PO SCH (21:00)
[2023-03-15] MEDS: rOPINIRole 0.25 MG TABLET PO SCH (21:00)
[2023-03-15] MEDS: DOCUSATE SODIUM 100 MG CAPSULE PO SCH (21:00)
[2023-03-16] VITALS (7 sets, daily range): BP systolic 113–150; BP diastolic 58–66
[2023-03-16] MEDS: NS IV 1000 ML 1,000 ML IV SCH ×2 (00:10→09:07)
[2023-03-16 05:10] LABS: BASOPHILS % (AUTO) 0 % (0-10); EOSINOPHILS # (AUTO) 0.2 10^3/uL (0.0-0.3); EOSINOPHILS % (AUTO) 2 % (0-10); HEMATOCRIT 32 % (35-52); HEMOGLOBIN 10.3 g/dL (11.5-16.0); LYMPHOCYTES # (AUTO) 1.3 10^3/uL (1.0-4.0); LYMPHOCYTES % (AUTO) 17 % (12-44); MEAN CORPUSCULAR HEMOGLOBIN 30 pg (25-34); MEAN CORPUSCULAR HGB CONC 32 g/dL (32-36); MEAN CORPUSCULAR VOLUME 93 fL (80-99); MEAN PLATELET VOLUME 10.5 fL (9.0-12.2); MONOCYTES # (AUTO) 0.7 10^3/uL (0.0-1.0); MONOCYTES % (AUTO) 8 % (0-12); NEUTROPHILS # (AUTO) 5.8 10^3/uL (1.8-7.8); NEUTROPHILS % (AUTO) 72 % (42-75); PLATELET COUNT 150 10^3/uL (130-400)
[2023-03-16 05:24] LABS: ALBUMIN 3.1 GM/DL (3.2-4.5); BILIRUBIN,TOTAL 1.2 MG/DL (0.1-1.0); CALCIUM 8.6 MG/DL (8.5-10.1); CREATININE SERUM 1.71 MG/DL (0.60-1.30); POTASSIUM 3.7 MMOL/L (3.6-5.0)
[2023-03-16] MEDS: inSUlin ASPART 1 UNIT/0.01 ML (PER UNIT) SC SCH ×4 (05:38→20:45)
[2023-03-16] MEDS: LEVOTHYROXINE 50 MCG TABLET PO SCH (05:39)
[2023-03-16] MEDS: rOPINIRole 0.25 MG TABLET PO SCH ×2 (08:23→20:44)
[2023-03-16] MEDS: DOCUSATE SODIUM 100 MG CAPSULE PO SCH ×2 (08:23→20:44)
[2023-03-16] MEDS ORDERED: LISI20TA26 PO (09:20)
[2023-03-16] MEDS ORDERED: MONT-40 PO (09:20)
[2023-03-16] MEDS ORDERED: POLY17PO6 PO (09:20)
[2023-03-16] MEDS ORDERED: TOLT4CAP26 PO (09:20)
[2023-03-16] MEDS ORDERED: DEXT15DR26 OU (09:20)
[2023-03-16] MEDS ORDERED: BISA10SU8 RC (09:20)
[2023-03-16] MEDS ORDERED: TMSL.4C PO (09:20)
[2023-03-16] MEDS ORDERED: AMLO-251 PO (09:20)
[2023-03-16] MEDS ORDERED: GLIM1TAB4 PO (09:20)
[2023-03-16] MEDS ORDERED: [UNRECOGNIZED DRUG - CODE] PO (09:20)
[2023-03-16] MEDS ORDERED: DOCU100C37 PO (09:20)
[2023-03-16] MEDS ORDERED: MAG-10 PO (09:20)
--- NOTE | 2023-03-16 09:58 | Physical Therapy Evaluation ---
PT Evaluation-General Medical Diagnosis Admission Date Mar 15, 2023 at 11:06 Medical Diagnosis: transaminitis Onset Date: Mar 15, 2023 Therapy Diagnosis Therapy Diagnosis: debility Precautions Precautions/Isolations: Contact Isolation, Fall Prevention, Pressure Ulcer Referral Physician: Cooper Reason for Referral: Evaluation/Treatment Medical History Pertinent Medical History: DM, Dementia, HTN, Hypothroidism, Neuropathy Current History EMS from [place] secondary to weakness and fever Reviewed History: Yes Social History Home: Assisted Living Prior Prior Level of Function SCALE: Activities may be completed with or without assistive devices. 5-Mfumnwhhte-rcnjrdc completes the activity by him/herself with no assistance from a helper. 5-Set-up or Clean-up Assistance-helper sets up or cleans up; patient completes activity. Healy assists only prior to or following the activity. 4-Supervision or Touching Assistance-helper provides verbal cues and/or touching/steadying and/or contact guard assistance as patient completes activit y. Assistance may be provided throughout the activity or intermittently. 3-Partial/Moderate Assistance-helper does LESS THAN HALF the effort. Healy lifts, holds or supports trunk or limbs, but provides less than half the effort. 2-Substantial/Maximal Assistance-helper does MORE THAN HALF the effort. Healy lifts or holds trunk or limbs and provides more than half the effort. 6-Xrovbcqnt-qbdjrq does ALL the effort. Patient does none of the effort to complete the activity. Or, the assistance of 2 or more helpers is required for the patient to complete the activity. If activity was not attempted, code reason: 7-Patient Refused. 9-Not Applicable-not attempted and the patient did not perform the activity before the current illness, exacerbation or injury. 10-Not Attempted due to Environmental Limitations-(lack of equipment, weather restraints, etc.). 88-Not Attempted due to Medical Conditions or Safety Concerns. Bed Mobility: 4 Transfers (B,C,W/C): 4 Gait: 4 Stairs: 9 Indoor Mobility (Ambulation): Needed Some Help Prior Devices Use: Walker ambulates short distances only PT Evaluation-Current Subjective Patient agrees to therapy. No c/o at this time. Objective Patient Orientation: Normal For Age Attachments: IV ROM/Strength ROM Lower Extremities bilateral LE WFL Strength Lower Extremities 3+/5 grossly bilateral LE all planes Integumentary/Posture Bowel Incontinence: No Bladder Incontinence: No Posture trunk flexed posture Neuromuscular (Tone, Coordination, Reflexes) grossly intact Sensory Vision: Functional Hearing: Functional Transfers Lying to Sitting/Side of Bed(Q: 6 Sit to Stand (QC): 4 (bed elevated (sleeps in lift recliner at AL)) Chair/Inf-ru-Ynmux Xfer(QC): 4 Gait Mode of Locomotion: Walk Anticipated Mode of Locomotion: Walk Walk 10 feet (QC): 4 Walk 50 ft with 2 Turns(QC): 4 Distance: 100' Gait Assistive Device: FWW Comments/Gait Description extended UE's with FWW use/functional gait sequence Balance Sitting Static: Normal Sitting Dynamic: Normal Standing Static: Fair Standing Dynamic: Fair Assessment/Needs Patient will be seen short term by skilled PT to address functional strength and mobility to improve current LOF to safely return to [place] at maximum LOF. 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 Goals Time Frame: Mar 28, 2023 Roll Left & Right (QC): 6 Sit to Lying (QC): 6 Lying-Sitting on Side/Bed(QC): 6 Sit to Stand (QC): 4 Chair/Lph-ji-Ygiih Xfer(QC): 4 Toilet Transfer (QC): 4 Walk 10 feet (QC): 4 Walk 50ft with 2 Turns (QC): 4 PT Plan Problem List Problem List: Activity Tolerance, Functional Strength, Safety, Balance, Gait, Transfer, Bed Mobility Treatment/Plan Treatment Plan: Continue Plan of Care Treatment Plan: Bed Mobility, Education, Functional Activity Naina, Functional Strength, Gait, Safety, Therapeutic Exercise, Transfers Treatment Duration: Mar 28, 2023 Frequency: 5 times per week Estimated Hrs Per Day: .25 hour per day Time Time In: 901 Time Out: 911 DATE: Mar 16, 2023 Total Billed Treatment Time: 10 [facility] Mar 16, 2023 09:58
--- NOTE | 2023-03-16 10:16 | Occupational Therapy Eval ---
OT Evaluation-General/PLF Medical Diagnosis Admission Date Mar 15, 2023 at 11:06 Medical Diagnosis: transaminitis Onset Date: Mar 15, 2023 Therapy Diagnosis Therapy Diagnosis: weakness Precautions Precautions/Isolations: Contact Isolation, Fall Prevention, Pressure Ulcer Referral Physician: Cooper Alvarez Reason: Self Care, Evaluation/Treatment Medical History Pertinent Medical History: DM, Dementia, HTN, Hypothroidism, Neuropathy Additional Medical History 82-year-old female with past medical history most notable for diabetes and hypertension as well as chronic UTIs coming in via EMS from her assisted living facility due to fever.'s been going on for roughly over a day, she does have body aches and a mild cough associated with it. Denies any chest pain, shortness of breath, abdominal pain, nausea, vomiting, diarrhea, focal weakness or numbness, dysuria, or any other concerns. Social History Home: Assisted Living ([facility]) Entry Into Home: Level Entry ADL-Prior Level of Function SCALE: Activities may be completed with or without assistive devices. 6-Bggazejscc-cvophgy completes the activity by him/herself with no assistance from a helper. 5-Set-up or Clean-up Assistance-helper sets up or cleans up; patient completes activity. Kamuela assists only prior to or following the activity. 4-Supervision or Touching Assistance-helper provides verbal cues and/or touching/steadying and/or contact guard assistance as patient completes activity. Assistance may be provided throughout the activity or intermittently. 3-Partial/Moderate Assistance-helper does LESS THAN HALF the effort. Kamuela lifts, holds or supports trunk or limbs, but provides less than half the effort. 2-Substantial/Maximal Assistance-helper does MORE THAN HALF the effort. Kamuela lifts or holds trunk or limbs and provides more than half the effort. 1-Trcxkquna-bkguto does ALL the effort. Patient does none of the effort to complete the activity. Or, the assistance of 2 or more helpers is required for the patient to complete the activity. If activity was not attempted, code reason: 7-Patient Refused. 9-Not Applicable-not attempted and the patient did not perform the activity before the current illness, exacerbation or injury. 10-Not Attempted due to Environmental Limitations-(lack of equipment, weather restraints, etc.). 88-Not Attempted due to Medical Conditions or Safety Concerns. ADL PLOF Comments Patient reports she has assistance w/ putting her pants on because she cant lift her feet to thread through pant legs. Patient demonstrated figure 4 techniques in recliner and on EOB to adjust and don socks. Patient reports she sleeps in a lift recliner Self Care: Needed Some Help Functional Cognition: Independent Drive Self: No OT Current Status Subjective Agreeable to therapy, does not want therapy when she goes home Mental Status/Objective Patient Orientation: Person, Place, Time Attachments: IV Current Glasses/Contacts: Yes Hand Dominance: Right Upper Extremity ROM BUE ROM WFLS Upper Extremity Coordination WFLs Upper Extremity Strength IMPAIRED ADL-Treatment Eating (QC): 5 Oral Hygiene (QC): 5 Shower/Bathe Self (QC): 7 Upper Body Dressing (QC): 7 Lower Body Dressing (QC): 5 On/Off Footwear (QC): 5 (handed tro patient) Toileting Hygiene (QC): 5 Education OT Patient Education: Progress toward Goal/Update tx plan, Purpose of tx/functional activities, Reviewed precautions, Rehab process, Safety issues, Transfer techniques Teaching Recipient: Patient Teaching Methods: Discussion Response to Teaching: Return Demonstration OT 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 2=Patient will verbalize/demonstrate understanding of assistive devices/modifications for ADL. 3=Patient will improve strength/tolerance for activity to enable patient to perform ADL's. OT Education/Plan Problem List/Assessment Assessment: No Skilled OT Needs ID'd Discharge Recommendations Plan/Recommendations: Discontinue OT Treatment Plan/Plan of Care Patient would benefit from OT for education, treatment and training to promote independence in ADL's, mobility, safety and/or upper extremity function for ADL's. Plan of Care: OTHER (EVAL only) Treatment Duration: Mar 16, 2023 Frequency: 1 time per week Agreement: Yes Rehab Potential: Good Time Start Time: 09:00 Stop Time: 09:11 DATE: Mar 16, 2023 Total Time Billed (hr/min): 11 Billed Treatment Time EVM 11 min MARTHA BARLOW OT Mar 16, 2023 10:16
--- NOTE | 2023-03-16 11:03 | History & Physical-Hospitalist ---
KEITH SOLOMON 03/16/23 1103: History of Present Illness HPI/Chief Complaint 82F w/ a PMH of chronic UTIs, HTN, and diabetes says she was in her assisted li ving facility yesterday when a girl came in, commented she did not look well, took her temperature, showed 103F, and called EMS to take her here. The pt says she was not confused on the EMS ride compared to how she normally is when she gets UTIs. Pt now has transaminitis and looks a bit pale, possibly slightly jaundiced, but states she overall feels fine other than being a little cold and the toes on her right foot bothering her. Source: patient Date Seen 03/16/23 Attending Physician Deandre Page MD PCP Admitting Physician: Yi Gamboa MD Attending Physician: Yi Gamboa MD Referring Physician Date of Admission Mar 15, 2023 at 11:06 Home Medications & Allergies Home Medications Reviewed patient Home Medication Reconciliation performed by pharmacy medication reconciliations digital imaging technician and/or nursing. Patients Allergies have been reviewed. Allergies Allergies Coded Allergies milk (Verified Allergy, Unknown, DIARRHEA, 03/15/23) codeine (Verified Adverse Reaction, Unknown, 03/15/23) ketorolac (Verified Adverse Reaction, Unknown, 03/15/23) naproxen (Verified Adverse Reaction, Unknown, 03/15/23) Past Hroioed-Ffubcw-Geimwu Hx Patient Social History Tobacco Use?: Yes Tobacco type used: Cigarettes Smoking Status: Former Smoker Approx how many per day: 3 Use of E-Cig and/or Vaping dev: No Substance use?: No Alcohol Use?: No Pt feels they are or have been: No Immunizations Up To Date Date of Influenza Vaccine: Mar 01, 2021 First/Initial COVID19 Vaccinat: JUNE 2020 Second COVID19 Vaccination Ruben: JULY 2020 Tetanus Booster (TDap): Unknown Seasonal Allergies Seasonal Allergies: No Current Status status: No status: No Advance Directives: No Communicates: Verbally Primary Language: Mosotho Preferred Spoken Language: Mosotho Is interpretation needed?: No Past Medical History Surgeries: Bowel Surgery (pt says she's had a colon resection, didn't specify more), Hysterectomy, Tonsillectomy High Cholesterol, Hypertension Dementia UTI-Chronic Gastroesophageal Reflux Hypothyroidsim, Diabetes, Non-Insulin dep Blood Disorders: No Adverse Reaction/Blood Tranf: No Family Medical History No Pertinent Family Hx (denied cancer, DM, heart disease in first degree relatives) Review of Systems Constitutional: No chills, No fever, No weight gain, No weight loss EENTM: No blurred vision, No double vision Respiratory: No cough, No short of breath Cardiovascular: No chest pain, No palpitations Gastrointestinal: No abdominal pain; diarrhea; No nausea, No vomiting Genitourinary: No dysuria, No frequency, No hematuria Musculoskeletal: No back pain, No joint pain Skin: No lesions, No rash Psychiatric/Neurological: Denies Anxiety, Denies Depressed Physical Exam Physical Exam Vital Signs Vital Signs - First Documented 03/15/23 08:37 Temp 39.6 Pulse 95 Resp 18 B/P (MAP) 133/59 (83) Pulse Ox 92 O2 Delivery Room Air Capillary Refill : Less Than 3 Seconds Height, Weight, BMI Height: '" Weight: lbs. oz. kg; 30.58 BMI Method: General Appearance: No Apparent Distress, WD/WN, Obese HEENT: PERRL/EOMI; No Scleral Icterus (L), No Scleral Icterus (R) Neck: Normal Inspection, Non Tender; No JVD Respiratory: Lungs Clear, Normal Breath Sounds, No Accessory Muscle Use, No Respiratory Distress Cardiovascular: Regular Rate, Rhythm, No Murmur Gastrointestinal: Non Tender, Soft; No Distended, No Guarding Extremity: Non Tender, No Pedal Edema Neurologic/Psychiatric: Alert, Oriented x3 Skin: Warm/Dry, Pallor Results Results/Procedures Labs Laboratory Tests 03/15/23 09:10 03/16/23 04:37 Patient resulted labs reviewed. Assessment/Plan Assessment and Plan Septic transaminitis Awaiting Hepatitis serology Awaiting MRCP NPO until MRCP Hold statin Diabetes (Glc 164) Restart Glimepiride Continue insulin sliding scale CKD IV fluids at 125, follow urine output Dementia Continue Donepezil 5mg PO Continue Ropimirole 0.25 mg BID PO Hypothyroidism Continue Levothyroxine 50mcg PO GERD Continue 30 mL PO QID antacid suspension PRN Weakness PT consult DVT prophylaxis Enoxaparin 40mg sc q24hr JACQUELINE WOO MD 03/17/23 1529: History of Present Illness Time Seen by a Provider: 11:30 Results Results/Procedures Imaging: Reviewed Imaging Report Imaging [facility]. [place], [place] NAME: ZORAN GONG [facility] REC#: [id number] PT STATUS: REG ER : 1940 PHYSICIAN: ALICIA MARTIN MD ADMIT DATE: 03/15/23/ER FS Signed Date of Exam:03/15/23 CHEST 1 VIEW AP/PA ONLY EXAMINATION: Chest radiograph TECHNIQUE: Portable upright view of the chest obtained HISTORY: fever, weakness, cough COMPARISON: Chest radiograph 09/19/2022. FINDINGS: No focal consolidation or karen pulmonary edema. Cardiomegaly. Hiatal hernia. No pleural effusion or pneumothorax. Cardiac silhouette and pulmonary vascularity are within normal limits. IMPRESSION: No acute chest findings. Cardiomegaly. Hiatal hernia. Dictated by: Dictated on workstation # [id number] Dict: 03/15/23914 Trans: 03/15/23915 [facility] [place] [id number] Interpreted by: SKYLAR ROSAS DO Electronically signed by: SKYLAR ROSAS DO 03/15/2316 Assessment/Plan Admission Diagnosis Transaminitis Admission Status: Observation Assessment and Plan Patient was admitted to the hospital secondary to fever and transaminitis. She had had a previous episode similar to this and this was thought to be cholangitis or choledocholithiasis but resolved without treatment. Because this is a recurrence we will go ahead and get an MRCP to further evaluate and consult surgery. We will hold her statin. Otherwise we will continue some IV fluids and continue her normal home medicines. After her MRCP we can advance her diet if she desires. Supervisory-Addendum Brief Verification & Attestation Participated in pt care: history, MDM, physical Personally performed: exam, history, MDM, supervision of care Care discussed with: Medical Student Procedures: n/a Results interpretation: Verified all documentation Verification and Attestation of Medical Student E/M Service A medical student performed and documented this service in my presence. I reviewed and verified all information documented by the medical student and made modifications to such information, when appropriate. I personally performed the physical exam and medical decision making. Jacqueline Woo, Mar 17, 2023,15:28 KEITH SOLOMON Mar 16, 2023 11:03 JACQUELINE WOO MD Mar 17, 2023 15:29
[2023-03-16] MEDS ORDERED: ENOXAPARIN 30 MG/0.3 ML SYRINGE SC SCH (14:00)
--- NOTE | 2023-03-16 14:04 | Diagnostic Imaging Report ---
EXAMINATION: MRI of the abdomen without contrast. MRCP TECHNIQUE: Multiplanar, multisequence MR images of the abdomen were obtained without intravenous contrast including 3D MIP MRCP images generated at an independent workstation. HISTORY: Fever, elevated liver enzymes COMPARISON: 06/27/2021 FINDINGS: Liver: The liver is normal in signal and contour. Gallbladder and Bile Ducts: The gallbladder is unremarkable without filling defect. There is minimal dilatation of the common bile duct measuring up to 0.8 cm. There are multiple stones within the distal common bile duct measuring up to 0.9 cm. Pancreas: The pancreas is normal in signal and volume. No dilation of the pancreatic duct. There is 0.7 cm cystic lesion within the pancreatic tail without definitive connection to the pancreatic duct. Spleen: Normal. Adrenal glands: The adrenal glands are unremarkable. Kidneys: The kidneys are unremarkable without hydronephrosis. There are small bilateral renal cysts present. Lymph Nodes: No suspicious lymphadenopathy. Other: No ascites. There is a large hiatal hernia present. IMPRESSION: 1. Choledocholithiasis with minimal biliary ductal dilatation. 2. Indeterminate 0.7 cm cystic lesion within the pancreatic tail. Recommend MRI followup in one year with IV contrast. 3. Large hiatal hernia. Dictated by: Dictated on workstation # [id number]
[2023-03-16] MEDS ORDERED: LOPERAMIDE 2 MG CAPSULE PO PRN (14:15)
[2023-03-16] MEDS ORDERED: ACETAMINOPHEN 500 MG TABLET PO PRN (14:15)
[2023-03-16] MEDS ORDERED: ARTIFICIAL TEARS Ophth solution 0.4 ML UNIT DOSE OU PRN (14:45)
--- NOTE | 2023-03-16 15:56 | Consultation - Surgery ---
History of Present Illness History of Present Illness Patient Consulted On(kaya/time) 03/16/23 15:50 Time Seen by Provider: 15:21 History of Present Illness Surgery asked to consult regarding Choledochalithiasis. HPI per ED: Pt presents to ER, via EMS, with reported complaints of fever and generalized weakness. Source: patient, EMS, shelter records 82-year-old female with past medical history most notable for diabetes and hypertension as well as chronic UTIs coming in via EMS from her assisted living facility due to fever.'s been going on for roughly over a day, she does have body aches and a mild cough associated with it. Denies any chest pain, shortness of breath, abdominal pain, nausea, vomiting, diarrhea, focal weakness or numbness, dysuria, or any other concerns. Did have Tylenol last night. When I spoke to pt this afternoon, she stated she felt fine. I actually saw her in June of 2021, for simliar symptoms. She has been back to the ER multiple times since then with "Sepsis" and malaise. She reports to me that one of the nurses at her assisted living told her "I know when you are sick, because you look different". She denied any N/V or abdominal pain today; "I don't ever have stomach pain". She states she has trouble swallowing occasionally. When I saw her last she said she would not want any major surgery. Allergies and Home Medications Allergies Coded Allergies: milk (Verified Allergy, Unknown, DIARRHEA, 03/15/23) codeine (Verified Adverse Reaction, Unknown, 03/15/23) ketorolac (Verified Adverse Reaction, Unknown, 03/15/23) naproxen (Verified Adverse Reaction, Unknown, 03/15/23) Patient Home Medication List Home Medication List Reviewed: Yes Acetaminophen (Acetaminophen) 500 Mg Tablet, 1,000 MG PO HS, (Reported) Entered as Reported by: BONITA MEDLEY on 06/25/20 1128 Last Action: Continued Acetaminophen (Tylenol Extra Strength) 500 Mg Tablet, 1,000 MG PO TID PRN for PAIN-MILD (1-4), (Reported) Entered as Reported by: LEVY DEVI on 06/28/21 1053 Last Action: Continued Amlodipine Besylate (Amlodipine Besylate) 10 Mg Tablet, 20 MG PO DAILY, (Reported) Entered as Reported by: NANCY ARREDONDO on 03/16/23919 Last Action: Held Atorvastatin Calcium (Atorvastatin Calcium) 80 Mg Tablet, 80 MG PO HS, (Reported) Entered as Reported by: BONITA MEDLEY on 06/25/201127 Last Action: Held Bisacodyl (Bisacodyl) 10 Mg Supp.rect, 10 MG RC DAILY PRN for CONSTIPATION-4TH LINE, (Reported) Entered as Reported by: NANCY ARREDONDO on 03/16/23919 Last Action: Held Cetirizine HCl (Cetirizine HCl) 10 Mg Tablet, 10 MG PO DAILY, (Reported) Entered as Reported by: BONITA MEDLEY on 06/25/201127 Last Action: Converted Cholecalciferol (Vitamin D3) (Vitamin D3) 25 Mcg Capsule, 25 MCG PO DAILY, (Reported) Entered as Reported by: LEVY DEVI on 06/28/21 1053 Last Action: Converted Cyanocobalamin (Vitamin B-12) (Vitamin B-12) 1,000 Mcg Tablet, 1,000 MCG PO DAILY, (Reported) Entered as Reported by: BONITA MEDLEY on 06/25/201127 Last Action: Held Dextran/Hypromellose/Glycerin (Genteal Tears 0.1%-0.2%-0.3%) 0.1 %-0.3 %-0.2 % Drops, 1 DROP OU Q6H PRN for DRY EYES, (Reported) Entered as Reported by: NANCY ARREDONDO on 03/16/23919 Last Action: Converted Docusate Sodium (Docusate Sodium) 100 Mg Capsule, 100 MG PO DAILY, (Reported) Entered as Reported by: NANCY ARREDONDO on 03/16/23919 Last Action: Held Donepezil HCl (Donepezil HCl) 5 Mg Tablet, 5 MG PO HS, (Reported) Entered as Reported by: BONITA MEDLEY on 06/25/201127 Last Action: Held Gabapentin (Gabapentin) 600 Mg Tablet, 600 MG PO HS, (Reported) Entered as Reported by: BONITA MEDLEY on 06/25/201127 Last Action: Continued Gabapentin (Neurontin) 300 Mg Capsule, 300 MG PO DAILY, (Reported) Entered as Reported by: BONITA MEDLEY on 06/25/201127 Last Action: Continued Glimepiride (Glimepiride) 1 Mg Tablet, 1 MG PO BID, (Reported) Entered as Reported by: NANCY ARREDONDO on 03/16/23919 Last Action: Continued Guaifenesin/D-Methorphan Hb (Josefa-Tussin Dm Liquid) 100 Mg-10 Mg/5 Ml Liquid, 5 ML PO Q4H PRN for COUGH, (Reported) Entered as Reported by: NANCY ARREDONDO on 03/16/23919 Last Action: Held L.acidoph & Paracasei,B.lactis (Probiotic) 1 Each Capsule, 1 EACH PO DAILY, (Reported) Entered as Reported by: LEVY DEVI on 06/28/211052 Last Action: Converted Levothyroxine Sodium (Levothyroxine Sodium) 50 Mcg Tablet, 50 MCG PO DAILY, (Reported) Entered as Reported by: BONITA MEDLEY on 06/25/201127 Last Action: Held Lisinopril (Lisinopril) 20 Mg Tablet, 20 MG PO DAILY, (Reported) Entered as Reported by: NANCY ARREDONDO on 03/16/23919 Last Action: Held Loperamide HCl (Loperamide) 2 Mg Capsule, 2 MG PO Q4H PRN for DIARRHEA, (Repor sarahi) Entered as Reported by: LEVY DEVI on 06/28/211052 Last Action: Continued Mag Hydrox/Al Hydrox/Simeth (Josefa-Lanta Liquid) 200 Mg-200 Mg-20 Mg/5 Ml Oral.susp, 30 ML PO Q8H PRN for INDIGESTION, (Reported) Entered as Reported by: NANCY ARREDONDO on 03/16/23919 Last Action: Held Metoprolol Succinate (Metoprolol Succinate) 100 Mg Tab.er.24h, 100 MG PO DAILY, (Reported) Entered as Reported by: BONITA MEDLEY on 06/25/201127 Last Action: Held Mirabegron (Myrbetriq) 25 Mg Tab.er.24h, 25 MG PO DAILY, (Reported) Entered as Reported by: BONITA MEDLEY on 06/25/201127 Last Action: Converted Montelukast Sodium (Montelukast Sodium) 10 Mg Tablet, 10 MG PO DAILY, (Reported) Entered as Reported by: NANCY ARREDONDO on 03/16/23919 Last Action: Continued Ondansetron (Ondansetron Odt) 4 Mg Tab.rapdis, 4 MG PO Q6H PRN for NAUSEA/VOMITING-1ST LINE, (Reported) Entered as Reported by: LEVY DEVI on 06/28/211052 Last Action: Reviewed Pantoprazole Sodium (Pantoprazole Sodium) 40 Mg Tablet.dr, 40 MG PO DAILY, (Reported) Entered as Reported by: BONITA MEDLEY on 06/25/201127 Last Action: Continued Polyethylene Glycol 3350 (Miralax) 17 Gram Powd.pack, 17 GM PO DAILY, (Reported) Entered as Reported by: LEVY DEVI on 06/28/211052 Last Action: Held Polyethylene Glycol 3350 (Miralax) 17 Gram Powd.pack, 17 GM PO DAILY PRN for CONSTIPATION-1ST LINE, (Reported) Entered as Reported by: NANCY ARREDONDO on 03/16/23919 Last Action: Continued Ropinirole HCl (Ropinirole HCl) 0.25 Mg Tablet, 0.25 MG PO BID, (Reported) Entered as Reported by: LEVY DEVI on 06/28/211052 Last Action: Held Tamsulosin HCl (Flomax) 0.4 Mg Cap, 0.4 MG PO DAILY, (Reported) Entered as Reported by: NANCY ARREDONDO on 03/16/23919 Last Action: Continued Tolterodine Tartrate (Tolterodine Tartrate ER) 4 Mg Cap.er.24h, 4 MG PO HS, (Reported) Entered as Reported by: NANCY ARREDONDO on 03/16/23919 Last Action: Converted Tramadol HCl (Tramadol HCl) 50 Mg Tablet, 50 MG PO BID, (Reported) Entered as Reported by: BONITA MEDLEY on 06/25/201127 Last Action: Continued Discontinued Medications Amlodipine Besylate (Amlodipine Besylate) 5 Mg Tablet, 10 MG PO DAILY Discontinued Reason: Duplicate Order Prescribed by: ERICA DUKE on 07/12/21615 Last Action: Discontinued Benzonatate (Tessalon Perles) 100 Mg Capsule, 200 MG PO TID Discontinued Reason: Duplicate Order Prescribed by: ERICA DUKE on 07/12/21615 Last Action: Discontinued Cranberry Extract/Vit C (Azo Cranberry Softgel) 1 Each Capsule, 1 EACH PO DAILY, (Reported) Discontinued Reason: Duplicate Order Entered as Reported by: LEVY DEVI on 06/28/211052 Last Action: Discontinued Dulaglutide (Trulicity) 1.5 Mg/0.5 Ml Pen.injctr, 1.5 MG SC WED, (Reported) Discontinued Reason: Duplicate Order Entered as Reported by: BONITA MEDLEY on 06/25/201127 Last Action: Discontinued Fluticasone/Salmeterol (Fluticasone-Salmeterol 113-14) 1 Each Aer.pow.ba, 0 EACH IH RTBID Discontinued Reason: Duplicate Order Prescribed by: ERICA DUKE on 07/12/21615 Last Action: Discontinued Glimepiride (Glimepiride) 1 Mg Tablet, 1 MG PO BID Discontinued Reason: Duplicate Order Prescribed by: ERICA DUKE on 07/12/21615 Last Action: Discontinued Guaifenesin/Dextromethorphan (Guaifenesin Dm Syrup) 5 Ml Syrup, 10 ML PO Q4H PRN for COUGH Discontinued Reason: Duplicate Order Prescribed by: ERICA DUKE on 07/12/21615 Last Action: Discontinued Lisinopril (Lisinopril) 10 Mg Tablet, 20 MG PO DAILY Discontinued Reason: Duplicate Order Prescribed by: ERICA DUKE on 07/12/21615 Last Action: Discontinued Mag Hydrox/Al Hydrox/Simeth (Mylanta Suspension) 30 Ml Oral.susp, 30 ML PO Q8H PRN for INDIGESTION, (Reported) Discontinued Reason: Duplicate Order Entered as Reported by: LEVY DEVI on 06/28/211052 Last Action: Discontinued Montelukast Sodium (Montelukast Sodium) 10 Mg Tablet, 10 MG PO DAILY Discontinued Reason: Duplicate Order Prescribed by: ERICA DUKE on 07/12/21615 Last Action: Discontinued Nystatin (Nystatin) 1 Each Powder.ea., 1 EACH TOP BID PRN for GAULDING, (Reported) Discontinued Reason: Duplicate Order Entered as Reported by: LEVY DEVI on 06/28/211052 Last Action: Discontinued Polyvinyl Alcohol/Povidone (Clear Eyes Natural Tears Drop) 15 Ml Drops, 1 DROP OU QID PRN for DRY EYES, (Reported) Discontinued Reason: Duplicate Order Entered as Reported by: LEVY DEVI on 06/28/21 1053 Last Action: Discontinued Tamsulosin HCl (Flomax) 0.4 Mg Cap, 0.4 MG PO DAILY@1800 Discontinued Reason: Duplicate Order Prescribed by: ERICA DUKE on 07/12/21615 Last Action: Discontinued Tolterodine Tartrate (Detrol LA) 4 Mg Cap, 4 MG PO HS Discontinued Reason: Duplicate Order Prescribed by: ERICA DUKE on 07/12/21615 Last Action: Discontinued Past Lbhrdug-Smgwgm-Fyfqsp Hx Patient Social History Smoking Status: Former Smoker Cigarettes Per Day: 3 2nd Hand Smoke Exposure: No Recent Hopitalizations: No (patient poor historian; complete history unknown) Alcohol Use?: No Immunizations Up To Date Date of Influenza Vaccine: Mar 01, 2021 Seasonal Allergies Seasonal Allergies: No Surgeries Surgeries: Bowel Surgery (pt says she's had a colon resection, didn't specify more), Hysterectomy, Tonsillectomy Respiratory History of Respiratory Disorde: No Cardiovascular History of Cardiac Disorders: Yes Cardiac Disorders: High Cholesterol, Hypertension Neurological History of Neurological Disord: Yes Neurological Disorders: Dementia Genitourinary History of Genitourinary Disor: Yes Genitourinary Disorders: UTI-Chronic Gastrointestinal History of Gastrointestinal Di: Yes Gastrointestinal Disorders: Gastroesophageal Reflux Musculoskeletal History of Musculoskeletal Dis: No Endocrine History of Endocrine Disorders: Yes Endocrine Disorders: Hypothyroidsim, Diabetes, Non-Insulin dep HEENT History of HEENT Disorders: No Cancer History of Cancer: No Psychosocial History of Psychiatric Problem: No Integumentary History of Skin or Integumenta: No Blood Transfusions History of Blood Disorders: No Adverse Reaction to a Blood Tr: No Family Medical History Significant Family History: No Pertinent Family Hx (denied cancer, DM, heart disease in first degree relatives) Review of Systems-General Constitutional: chills, fever, malaise, weakness EENTM: No blurred vision, No mouth swelling, No epistaxis Respiratory: No cough, No dyspnea on exertion Cardiovascular: No chest pain, No edema Gastrointestinal: dysphagia; No hematemesis, No jaundice, No nausea, No vomiting Genitourinary: No dysuria, No frequency, No hematuria Musculoskeletal: joint pain, joint swelling, muscle pain, muscle stiffness Skin: No change in color, No change in hair/nails Psychiatric/Neurological: Denies Anxiety, Denies Depressed, Denies Seizure, Denies Tremors Physical Exam-General Problems Physical Exam Vital Signs Vital Signs - First Documented 03/15/23 08:37 Temp 39.6 Pulse 95 Resp 18 B/P (MAP) 133/59 (83) Pulse Ox 92 O2 Delivery Room Air Capillary Refill : Less Than 3 Seconds General Appearance: WD/WN, no apparent distress, other (looks healthy, but doesn't move much) Eyes: Bilateral Eye PERRL, Bilateral Eye EOMI HEENT: pharynx normal; No scleral icterus (R), No scleral icterus (L) Neck: non-tender, supple Respiratory: lungs clear, normal breath sounds, no respiratory distress, no accessory muscle use Cardiovascular: regular rate, rhythm, no murmur Gastrointestinal: non tender, soft, no organomegaly Back: no CVA tenderness, no vertebral tenderness Extremities: no pedal edema, no calf tenderness Neurologic/Psychiatric: alert Skin: normal color, warm/dry Lymphatic: no adenopathy (neck, axilla or groin) Data Review Labs Laboratory Tests 03/15/23 17:40: Glucometer 225H 03/15/23 20:32: Glucometer 195H 03/16/23 04:37: White Blood Count 8.0, Red Blood Count 3.44L, Hemoglobin 10.3L, Hematocrit 32L, Mean Corpuscular Volume 93, Mean Corpuscular Hemoglobin 30, Mean Corpuscular Hemoglobin Concent 32, Red Cell Distribution Width 13.8, Platelet Count 150, Mean Platelet Volume 10.5, Immature Granulocyte % (Auto) 0, Neutrophils (%) (Auto) 72, Lymphocytes (%) (Auto) 17, Monocytes (%) (Auto) 8, Eosinophils (%) (Auto) 2, Basophils (%) (Auto) 0, Neutrophils # (Auto) 5.8, Lymphocytes # (Auto) 1.3, Monocytes # (Auto) 0.7, Eosinophils # (Auto) 0.2, Basophils # (Auto) 0.0, Immature Granulocyte # (Auto) 0.0, Sodium Level 140, Potassium Level 3.7, Chloride Level 112H, Carbon Dioxide Level 19L, Anion Gap 9, Blood Urea Nitrogen 25H, Creatinine 1.71H, Estimat Glomerular Filtration Rate 29, BUN/Creatinine Ratio 15, Glucose Level 166H, Calcium Level 8.6, Corrected Calcium 9.3, Total Bilirubin 1.2H, Aspartate Amino Transf (AST/SGOT) 289H, Alanine Aminotransferase (ALT/SGPT) 420H, Alkaline Phosphatase 138H, Total Protein 6.0L, Albumin 3.1L 03/16/23 05:36: Glucometer 147H 03/16/23 11:20: Glucometer 194H Microbiology 03/15/23 Blood Culture - Preliminary, Resulted Radiology Date of Exam:03/16/23 MRI CHOLANGIO-PANCREATOGRAPHY EXAMINATION: MRI of the abdomen without contrast. MRCP TECHNIQUE: Multiplanar, multisequence MR images of the abdomen were obtained without intravenous contrast including 3D MIP MRCP images generated at an independent workstation. HISTORY: Fever, elevated liver enzymes COMPARISON: 06/27/2021 FINDINGS: Liver: The liver is normal in signal and contour. Gallbladder and Bile Ducts: The gallbladder is unremarkable without filling defect. There is minimal dilatation of the common bile duct measuring up to 0.8 cm. There are multiple stones within the distal common bile duct measuring up to 0.9 cm. Pancreas: The pancreas is normal in signal and volume. No dilation of the pancreatic duct. There is 0.7 cm cystic lesion within the pancreatic tail without definitive connection to the pancreatic duct. Spleen: Normal. Adrenal glands: The adrenal glands are unremarkable. Kidneys: The kidneys are unremarkable without hydronephrosis. There are small bilateral renal cysts present. Lymph Nodes: No suspicious lymphadenopathy. Other: No ascites. There is a large hiatal hernia present. IMPRESSION: 1. Choledocholithiasis with minimal biliary ductal dilatation. 2. Indeterminate 0.7 cm cystic lesion within the pancreatic tail. Recommend MRI followup in one year with IV contrast. 3. Large hiatal hernia. Dictated by: Dictated on workstation # [id number] Dict: 03/16/23 1343 Trans: 03/16/23 1445 [facility] [id number] Interpreted by: YUN PINTO DO Electronically signed by: YUN PINTO DO 03/16/23 7976 Assessment/Plan Assessment/Plan Assessment/Plan Choledochalithiasis without Obstruction Large Hiatal hernia Debility Mild dementia Pt would probably benefit from ERCP; however it is not urgent and can be done as an outpt. The choledochalithiasis may have been the cause of all her recent visits to the ER. I mary jo her pictures to try and help explain what is going on right now. I also showed her what a hiatal hernia means; which is probably why she has trouble swallowing occasionally. I spoke with Dr. Woo about her care and went over old CTs and her records from previous visits. I would like to see pt in my office, talk with her family and get her an appointment with a GI Specialist who can talk to her about ERCP; what it entails and if she is a candidate. I will see her again tomorrow. TAMIE CRISTOBAL DO Mar 16, 2023 15:56
[2023-03-16] MEDS: GLIMEPIRIDE 1 MG TABLET PO SCH (20:44)
[2023-03-16] MEDS: DONEPEZIL 5 MG TABLET PO SCH (20:44)
[2023-03-16] MEDS ORDERED: GABAPENTIN 600 MG TABLET PO SCH (21:00)
[2023-03-16] MEDS ORDERED: ACETAMINOPHEN 500 MG TABLET PO SCH (21:00)
[2023-03-16] MEDS ORDERED: TOLTERODINE LA 2 MG (DETROL LA) CAP PO SCH (21:00)
[2023-03-16 21:41] LABS: HEPATITIS C ANTIBODY C Non-Reactive (Non-Reactive)
[2023-03-17 04:20] VITALS: BP 139/65
[2023-03-17 05:31] LABS: BASOPHILS % (AUTO) 0 % (0-10); EOSINOPHILS # (AUTO) 0.2 10^3/uL (0.0-0.3); EOSINOPHILS % (AUTO) 3 % (0-10); HEMATOCRIT 32 % (35-52); HEMOGLOBIN 10.4 g/dL (11.5-16.0); LYMPHOCYTES # (AUTO) 1.4 10^3/uL (1.0-4.0); LYMPHOCYTES % (AUTO) 23 % (12-44); MEAN CORPUSCULAR HEMOGLOBIN 30 pg (25-34); MEAN CORPUSCULAR HGB CONC 32 g/dL (32-36); MEAN CORPUSCULAR VOLUME 93 fL (80-99); MEAN PLATELET VOLUME 10.1 fL (9.0-12.2); MONOCYTES # (AUTO) 0.5 10^3/uL (0.0-1.0); MONOCYTES % (AUTO) 9 % (0-12); NEUTROPHILS # (AUTO) 3.8 10^3/uL (1.8-7.8); NEUTROPHILS % (AUTO) 64 % (42-75); PLATELET COUNT 153 10^3/uL (130-400); WHITE BLOOD COUNT 5.9 10^3/uL (4.3-11.0)
[2023-03-17 05:55] LABS: ALBUMIN 3.1 GM/DL (3.2-4.5); BILIRUBIN,TOTAL 0.8 MG/DL (0.1-1.0); CALCIUM 8.7 MG/DL (8.5-10.1); CREATININE SERUM 1.36 MG/DL (0.60-1.30); POTASSIUM 3.6 MMOL/L (3.6-5.0); TOTAL PROTEIN 6.4 GM/DL (6.4-8.2)
[2023-03-17] MEDS: inSUlin ASPART 1 UNIT/0.01 ML (PER UNIT) SC SCH ×2 (05:58→12:49)
[2023-03-17] MEDS: LEVOTHYROXINE 50 MCG TABLET PO SCH (05:58)
[2023-03-17 07:28] VITALS: BP 132/63
[2023-03-17] MEDS ORDERED: MIRABEGRON 25 MG TABLET PO SCH (08:00)
[2023-03-17] MEDS: rOPINIRole 0.25 MG TABLET PO SCH (08:43)
[2023-03-17] MEDS: DOCUSATE SODIUM 100 MG CAPSULE PO SCH (08:43)
[2023-03-17] MEDS: GLIMEPIRIDE 1 MG TABLET PO SCH (08:44)
[2023-03-17] MEDS ORDERED: LACTOBACILLUS ACIDOPHILUS (PROBIOTIC) CAPSULE PO SCH (09:00)
[2023-03-17] MEDS ORDERED: PANTOPRAZOLE 40 MG TABLET PO SCH (09:00)
[2023-03-17] MEDS ORDERED: TAMSULOSIN 0.4 MG (FLOMAX) CAP PO SCH (09:00)
[2023-03-17] MEDS ORDERED: NON-FORMULARY MEDICATION 1 EA EA (Cetirizine HCl 10 MG) PO SCH (09:00)
[2023-03-17] MEDS ORDERED: MONTELUKAST 10 MG TABLET PO SCH (09:00)
[2023-03-17] MEDS ORDERED: LORATADINE 10 MG TABLET PO SCH (09:00)
[2023-03-17] MEDS ORDERED: VITAMIN D3 25 MCG (1,000 UNITS) TABLET PO SCH (09:00)
[2023-03-17] MEDS ORDERED: GABAPENTIN 300 MG CAPSULE PO SCH (09:00)
--- NOTE | 2023-03-17 09:19 | Progress Note - Surgery ---
ALEJO HOLLOWAY 03/17/23 0919: Subjective Date Seen by a Provider: Mar 17, 2023 Time Seen by a Provider: 08:50 Subjective/Events-last exam Mrs. Alvarado is feeling fine this morning. She denies having any abdominal pain, nausea, vomiting or heart burn. Her appetite has not been good which is not new for her and she is tolerating the food well without any abdominal discomfort. She has not had a bowel movement for 3-4 days but it does not bother her and says she will take a stool softener when she gets back to assisted living. She is agreeable to following up in outpatient but does ask that we schedule things through her daughter. Review of Systems General: No Chills, No Night Sweats, No Fatigue HEENT: No Head Aches, No Visual Changes, No Eye Pain, No Ear Pain, No Dysphasia Pulmonary: No Dyspnea, No Cough Cardiovascular: No: Chest Pain, Palpitations Gastrointestinal: No: Nausea, Vomiting, Abdominal Pain Genitourinary: No Dysuria Musculoskeletal: No: neck pain, shoulder pain, back pain Focused Exam Lactate Level 03/15/23 10:00: Lactic Acid Level 2.17*H 03/15/23 13:50: Lactic Acid Level 1.92 Objective Exam Vital Signs Date Time Temp Pulse Resp B/P (MAP) Pulse Ox O2 Delivery O2 Flow Rate FiO2 03/17/23 07:28 36.6 88 16 132/63 (86) 96 Room Air 03/17/23 04:20 36.7 81 16 139/65 (89) 91 Room Air 03/16/23 23:15 36.4 84 18 129/63 (85) 93 Room Air 03/16/23 20:40 Room Air 03/16/23 20:27 36.7 80 16 131/62 (85) 92 Room Air 03/16/23 16:02 36.9 80 18 131/63 (85) 96 Room Air 03/16/23 11:17 36.3 74 18 150/66 (94) 95 Room Air I & O 03/17/23 07:00 Intake Total 1420 ml Output Total 1800 ml Balance -380 ml Capillary Refill : Less Than 3 Seconds General Appearance: No Apparent Distress, WD/WN HEENT: PERRL/EOMI, Moist Mucous Membranes; No Pharyngeal Erythema, No Scleral Icterus (L), No Scleral Icterus (R) Neck: Non Tender, Supple Respiratory: Lungs Clear, Normal Breath Sounds, No Respiratory Distress Cardiovascular: Regular Rate, Rhythm, No Edema, No Murmur, Normal Peripheral Pulses Gastrointestinal: normal bowel sounds, non tender, soft, no organomegaly Extremity: No Pedal Edema Neurologic/Psychiatric: Alert Skin: Normal Color, Warm/Dry Lymphatic: No Adenopathy (cervical or supraclavicular ) Results Lab Laboratory Tests 03/16/23 11:20: Glucometer 194H 03/16/23 16:07: Glucometer 212H 03/16/23 20:30: Glucometer 163H 03/17/23 04:26: Glucometer 155H 03/17/23 05:01: White Blood Count 5.9, Red Blood Count 3.47L, Hemoglobin 10.4L, Hematocrit 32L, Mean Corpuscular Volume 93, Mean Corpuscular Hemoglobin 30, Mean Corpuscular Hemoglobin Concent 32, Red Cell Distribution Width 14.0, Platelet Count 153, Mean Platelet Volume 10.1, Immature Granulocyte % (Auto) 0, Neutrophils (%) (Auto) 64, Lymphocytes (%) (Auto) 23, Monocytes (%) (Auto) 9, Eosinophils (%) (Auto) 3, Basophils (%) (Auto) 0, Neutrophils # (Auto) 3.8, Lymphocytes # (Auto) 1.4, Monocytes # (Auto) 0.5, Eosinophils # (Auto) 0.2, Basophils # (Auto) 0.0, Immature Granulocyte # (Auto) 0.0, Sodium Level 142, Potassium Level 3.6, Chloride Level 113H, Carbon Dioxide Level 19L, Anion Gap 10, Blood Urea Nitrogen 16, Creatinine 1.36H, Estimat Glomerular Filtration Rate 38, BUN/Creatinine Ratio 12, Glucose Level 168H, Calcium Level 8.7, Corrected Calcium 9.4, Total Bilirubin 0.8, Aspartate Amino Transf (AST/SGOT) 161H, Alanine Aminotransferase (ALT/SGPT) 323H, Alkaline Phosphatase 131, Total Protein 6.4, Albumin 3.1L Microbiology 03/15/23 Blood Culture - Preliminary, Resulted Assessment/Plan Assessment/Plan Assessment/Plan Choledochalithiasis without Obstruction Large Hiatal hernia Plan: Will schedule a clinic visit outpatient with patient and family to discuss getting set up with a GI specialist for an ERCP DAMIEN TORRES DO 03/17/23 1436: Subjective Time Seen by a Provider: 11:01 Subjective/Events-last exam Pt seen and examined, states she is doing better today. Review of Systems HEENT: No Head Aches, No Visual Changes Pulmonary: No Dyspnea, No Cough Cardiovascular: No: Chest Pain, Palpitations Gastrointestinal: No: Abdominal Pain Objective Exam General Appearance: No Apparent Distress, WD/WN HEENT: Moist Mucous Membranes Respiratory: Lungs Clear, Normal Breath Sounds, No Accessory Muscle Use, No Respiratory Distress Cardiovascular: Regular Rate, Rhythm, No Murmur Gastrointestinal: non tender, soft, no organomegaly Extremity: No Pedal Edema Neurologic/Psychiatric: Alert Skin: Normal Color, Warm/Dry Assessment/Plan Assessment/Plan Assessment/Plan Choledochalithiasis without Obstruction Large Hiatal hernia Plan: Will schedule a clinic visit outpatient with patient and family to discuss getting set up with a GI specialist for an ERCP Supervisory-Addendum Brief Verification & Attestation Participated in pt care: history, MDM, physical Personally performed: exam, history, MDM, supervision of care Care discussed with: Medical Student Procedures: n/a Verification and Attestation of Medical Student E/M Service A medical student performed and documented this service. I then reviewed and verified all information documented by the medical student and made modifications to such information, when appropriate. I personally performed a physical exam, medical decision making and then discussed any differences between the notes and made revisions as necessary to create one note. Damien Torres , 03/17/23 , 14:36 ALEJO HOLLOWAY Mar 17, 2023 09:19 DAMIEN TORRES DO Mar 17, 2023 14:36
--- NOTE | 2023-03-17 12:02 | Discharge Inst-Simple/Standard ---
Discharge Inst-Standard Discharge Medications New, Converted or Re-Newed RX: Transmitted to Pharmacy Patient Instructions/Follow Up Plan of Care/Instructions/FU: Please continue to take your medications as written. Please follow up with your PCP and Dr Torres to follow up this hospital stay. Activity as Tolerated: Yes Discharge Diet: No Restrictions Return to The Hospital For: Chest pain, shortness of breath, weakness, fever, abdominal pain, if you feel you are getting worse. JACQUELINE RUANO MD Mar 17, 2023 12:02
--- NOTE | 2023-03-17 12:10 | Discharge Summary ---
KEITH SOLOMON 03/17/23 1210: Diagnosis/Chief Complaint Date of Admission Mar 15, 2023 at 11:06 Date of Discharge Discharge Date: Mar 17, 2023 Primary Care Deandre Page MD Discharge Summary Discharge Physical Exam Allergies: Coded Allergies: codeine (Verified Adverse Reaction, Unknown, 03/15/23) ketorolac (Verified Adverse Reaction, Unknown, 03/15/23) naproxen (Verified Adverse Reaction, Unknown, 03/15/23) Vitals & I&Os Vital Signs Date Time Temp Pulse Resp B/P (MAP) Pulse Ox O2 Delivery O2 Flow Rate FiO2 03/17/23 09:00 Room Air 03/17/23 07:28 36.6 88 16 132/63 (86) 96 General Appearance: No Apparent Distress, WD/WN HEENT: PERRL/EOMI; No Scleral Icterus (L), No Scleral Icterus (R) Respiratory: Lungs Clear, Normal Breath Sounds, No Accessory Muscle Use, No Respiratory Distress Cardiovascular: Regular Rate, Rhythm, No Edema, No Gallop, No JVD, No Murmur Gastrointestinal: Non Tender, Soft; No Distended, No Guarding Extremity: Non Tender, No Pedal Edema Skin: Warm/Dry, Pallor Neurologic/Psychiatric: Alert, Oriented x3 Hospital Course Hillary Alvarado is an 82F who was brought in because she didn't look well at her assisted living facility, and they took her temperature and it showed 103F. Upon being here, her AST and ALT were elevated and hepatitis serology along with an MRI cholangeopancreatography were ordered. Her serology came back non-reactive, and the MRCP showed choledocholithiasis. The patient has been recovering and wants to proceed to ERCP to remove the stone in [place] after being consulted by surgery. Her statin is going to be stopped until her transaminases return to normal. Labs (last 24 hrs) Laboratory Tests 03/16/23 16:07: Glucometer 212H 03/16/23 20:30: Glucometer 163H 03/17/23 04:26: Glucometer 155H 03/17/23 05:01: White Blood Count 5.9, Red Blood Count 3.47L, Hemoglobin 10.4L, Hematocrit 32L, Mean Corpuscular Volume 93, Mean Corpuscular Hemoglobin 30, Mean Corpuscular Hemoglobin Concent 32, Red Cell Distribution Width 14.0, Platelet Count 153, Mean Platelet Volume 10.1, Immature Granulocyte % (Auto) 0, Neutrophils (%) (Auto) 64, Lymphocytes (%) (Auto) 23, Monocytes (%) (Auto) 9, Eosinophils (%) (Auto) 3, Basophils (%) (Auto) 0, Neutrophils # (Auto) 3.8, Lymphocytes # (Auto) 1.4, Monocytes # (Auto) 0.5, Eosinophils # (Auto) 0.2, Basophils # (Auto) 0.0, Immature Granulocyte # (Auto) 0.0, Sodium Level 142, Potassium Level 3.6, Chloride Level 113H, Carbon Dioxide Level 19L, Anion Gap 10, Blood Urea Nitrogen 16, Creatinine 1.36H, Estimat Glomerular Filtration Rate 38, BUN/Creatinine Ratio 12, Glucose Level 168H, Calcium Level 8.7, Corrected Calcium 9.4, Total Bilirubin 0.8, Aspartate Amino Transf (AST/SGOT) 161H, Alanine Aminotransferase (ALT/SGPT) 323H, Alkaline Phosphatase 131, Total Protein 6.4, Albumin 3.1L 03/17/23 11:42: Glucometer 167H Microbiology 03/15/23 Blood Culture - Preliminary, Resulted Patient resulted labs reviewed. Pending Labs Laboratory Tests 03/17/23 04:26: Glucometer 155 03/17/23 05:01: White Blood Count 5.9, Red Blood Count 3.47, Hemoglobin 10.4, Hematocrit 32, Mean Corpuscular Volume 93, Mean Corpuscular Hemoglobin 30, Mean Corpuscular Hemoglobin Concent 32, Red Cell Distribution Width 14.0, Platelet Count 153, Mean Platelet Volume 10.1, Immature Granulocyte % (Auto) 0, Neutrophils (%) (Auto) 64, Lymphocytes (%) (Auto) 23, Monocytes (%) (Auto) 9, Eosinophils (%) (Auto) 3, Basophils (%) (Auto) 0, Neutrophils # (Auto) 3.8, Lymphocytes # (Auto) 1.4, Monocytes # (Auto) 0.5, Eosinophils # (Auto) 0.2, Basophils # (Auto) 0.0, Immature Granulocyte # (Auto) 0.0, Sodium Level 142, Potassium Level 3.6, Chlo ride Level 113, Carbon Dioxide Level 19, Anion Gap 10, Blood Urea Nitrogen 16, Creatinine 1.36, Estimat Glomerular Filtration Rate 38, BUN/Creatinine Ratio 12, Glucose Level 168, Calcium Level 8.7, Corrected Calcium 9.4, Total Bilirubin 0.8, Aspartate Amino Transf (AST/SGOT) 161, Alanine Aminotransferase (ALT/SGPT) 323, Alkaline Phosphatase 131, Total Protein 6.4, Albumin 3.1 03/17/23 11:42: Glucometer 167 Discharge Home Medications: Active Scripts Active Reported Miralax (Polyethylene Glycol 3350) 17 Gram Powd.pack 17 Gm PO DAILY PRN Josefa-Tussin Dm Liquid (Guaifenesin/D-Methorphan Hb) 100 Mg-10 Mg/5 Ml Liquid 5 Ml PO Q4H PRN Josefa-Lanta Liquid (Mag Hydrox/Al Hydrox/Simeth) 200 Mg-200 Mg-20 Mg/5 Ml Oral.susp 30 Ml PO Q8H PRN Genteal Tears 0.1%-0.2%-0.3% (Dextran/Hypromellose/Glycerin) 0.1 %-0.3 %-0.2 % Drops 1 Drop OU Q6H PRN Bisacodyl 10 Mg Supp.rect 10 Mg RC DAILY PRN Glimepiride 1 Mg Tablet 1 Mg PO BID Tolterodine Tartrate ER (Tolterodine Tartrate) 4 Mg Cap.er.24h 4 Mg PO HS Flomax (Tamsulosin HCl) 0.4 Mg Cap 0.4 Mg PO DAILY Montelukast Sodium 10 Mg Tablet 10 Mg PO DAILY Lisinopril 20 Mg Tablet 20 Mg PO DAILY Docusate Sodium 100 Mg Capsule 100 Mg PO DAILY Amlodipine Besylate 10 Mg Tablet 20 Mg PO DAILY TAKES 2 (10MG) TABLETS Miralax (Polyethylene Glycol 3350) 17 Gram Powd.pack 17 Gm PO DAILY Loperamide (Loperamide HCl) 2 Mg Capsule 2 Mg PO Q4H PRN Ropinirole HCl 0.25 Mg Tablet 0.25 Mg PO BID Ondansetron Odt (Ondansetron) 4 Mg Tab.rapdis 4 Mg PO Q6H PRN Tylenol Extra Strength (Acetaminophen) 500 Mg Tablet 1,000 Mg PO TID PRN Probiotic (L.acidoph & Paracasei,B.lactis) 1 Each Capsule 1 Each PO DAILY Vitamin D3 (Cholecalciferol (Vitamin D3)) 25 Mcg Capsule 25 Mcg PO DAILY Cetirizine HCl 10 Mg Tablet 10 Mg PO DAILY Acetaminophen 500 Mg Tablet 1,000 Mg PO HS Myrbetriq (Mirabegron) 25 Mg Tab.er.24h 25 Mg PO DAILY Pantoprazole Sodium 40 Mg Tablet.dr 40 Mg PO DAILY Levothyroxine Sodium 50 Mcg Tablet 50 Mcg PO DAILY Neurontin (Gabapentin) 300 Mg Capsule 300 Mg PO DAILY Gabapentin 600 Mg Tablet 600 Mg PO HS Vitamin B-12 (Cyanocobalamin (Vitamin B-12)) 1,000 Mcg Tablet 1,000 Mcg PO DAILY Metoprolol Succinate 100 Mg Tab.er.24h 100 Mg PO DAILY Donepezil HCl 5 Mg Tablet 5 Mg PO HS Tramadol HCl 50 Mg Tablet 50 Mg PO BID Instructions to patient/family Please see electronic discharge instructions given to patient. JACQUELINE WOO MD 03/17/23 1528: Discharge Summary Discharge Physical Exam Allergies: Coded Allergies: codeine (Verified Adverse Reaction, Unknown, 03/15/23) ketorolac (Verified Adverse Reaction, Unknown, 03/15/23) naproxen (Verified Adverse Reaction, Unknown, 03/15/23) Discussion & Recommendations Discharge Planning: >30 minutes discharge planning Supervisory-Addendum Brief Verification & Attestation Participated in pt care: history, MDM, physical Personally performed: exam, history, MDM, supervision of care Care discussed with: Medical Student Procedures: n/a Results interpretation: Verified all documentation Verification and Attestation of Medical Student E/M Service A medical student performed and documented this service in my presence. I reviewed and verified all information documented by the medical student and made modifications to such information, when appropriate. I personally performed the physical exam and medical decision making. Jacqueline Woo, Mar 17, 2023,15:27 KEITH SOLOMON Mar 17, 2023 12:10 JACQUELINE WOO MD Mar 17, 2023 15:28
[2023-03-17 12:18] VITALS: BP 129/78
[2023-03-17 15:46] VITALS: BP 129/78
[2023-03-17] MEDS ORDERED: ENOXAPARIN 40 MG/0.4 ML SYRINGE SC SCH (16:00)
== END 2023-03-17 14:25 | disposition home or self-care (01) ==
LOC: ER FS 08:38 → EDUNIT# 08:47 → ER FS 08:48 → 4TH 11:06
PROVIDERS: ADMIT Internal Medicine; ATTEND Internal Medicine
DX: R74.01 Elevation of levels of liver transaminase levels (principal); K80.50 Calculus of bile duct without cholangitis or cholecystitis without obstruction; K44.9 Diaphragmatic hernia without obstruction or gangrene; N18.9 Chronic kidney disease, unspecified; E11.22 Type 2 diabetes mellitus with diabetic chronic kidney disease; E03.9 Hypothyroidism, unspecified; F03.90 Unspecified dementia, unspecified severity, without behavioral disturbance, psychotic disturbance, mood disturbance, and anxiety; R53.1 Weakness; R50.9 Fever, unspecified; K21.9 Gastro-esophageal reflux disease without esophagitis; Z87.891 Personal history of nicotine dependence; Z79.890 Hormone replacement therapy; Z79.899 Other long term (current) drug therapy
CPT/HCPCS: 36415; 71045; 74181; 80053 ×3; 80074; 81000; 82947 ×3; 83605 ×2; 83735; 85025 ×3; 87040; 87636; 96361; 96366; 96372 ×2; 96375; 97162; 99284; G0378